=== PATIENT | female | born 1945 | race Hispanic/Latino ===

== ENCOUNTER 2022-09-03 11:41 | Outpatient (CLI) | payer MEDICARE, SELFPAY ==
[2022-09-03 12:16] LABS: Basophils Absolute Auto 0.1 K/mm3 (0.0-0.1); Basophils Percent Auto 0.9 % (0.2-1.2); Eosinophils Absolute Auto 0.3 K/mm3 (0-0.3); Eosinophils Percent Auto 4.6 % (0-4.4); Hematocrit 43.8 % (37.0-47.0); Hemoglobin 14.4 g/dL (12.0-15.0); Immature Granulocyte Absolute 0.02 K/mm3 (0.00-0.031); Immature Granulocyte Percent A 0.3 % (0-0.5); Lymphocytes Absolute Auto 2.19 K/mm3 (0.9-3.2); Lymphocytes Percent Auto 32.3 % (18.3-44.2); Mean Corpuscular HGB Conc 32.9 g/dl (32-36); Mean Corpuscular Volume 94.4 fl (80-100); Mean Platelet Volume 11.1 fl (7.4-10.4); Monocytes Absolute Auto 0.6 K/mm3 (0.1-0.6); Monocytes Percent Auto 9.5 % (2.6-8.5); Neutrophils Absolute Auto 3.6 K/mm3 (1.3-6.7); Neutrophils Percent Auto 52.4 % (45.5-73.1); Platelet Count Result 219 k/mm3 (150-375); Red Blood Count 4.64 M/mm3 (4.2-5.4); Red Cell Distribution Width 14.8 % (11.5-14.5); White Blood Count 6.8 K/mm3 (4.5-10.0)
[2022-09-03 12:47] LABS: Alanine Aminotransferase 20 U/L (6-35); Albumin Level 4.8 g/dL (3.5-5.1); Alkaline Phosphatase 114 U/L (38-126); Anion Gap 8 mmol/L (8-16); Aspartate Amino Transferase 26 U/L (14-36); Bilirubin,Total 0.5 mg/dL (0.2-1.3); Blood Urea Nitrogen 21 mg/dL (7-17); Calcium 9.2 mg/dL (8.4-10.2); Carbon Dioxide 30 mmol/L (22-30); Chloride 103 mmol/L (98-107); Cholesterol 185 mg/dL (0-200); Estimated Glomerular Filt Rate > 60; Glucose 94 mg/dL (65-110); HDL Direct 55 mg/dL; Potassium 3.6 mmol/L (3.4-5.0); Sodium 141 mmol/L (137-145); Triglycerides 158 mg/dL (<150)
[2022-09-03 12:48] LABS: Free T4 Free Thyroxine 1.24 ng/mL (0.78-2.19)
[2022-09-03 12:55] LABS: LDL Cholesterol Direct 86 mg/dL
[2022-09-03 13:53] LABS: Folic Acid > 20.0 ng/mL (2.76->20)
== END 2022-09-03 11:42 | disposition home or self-care (01) ==
PROVIDERS: PCP Family Medicine; Visit Provider Family Medicine
DX: M32.9 Systemic lupus erythematosus, unspecified (principal); Z13.220 Encounter for screening for lipoid disorders; E78.5 Hyperlipidemia, unspecified; E03.9 Hypothyroidism, unspecified; Z79.631 Long term (current) use of antimetabolite agent; I10 Essential (primary) hypertension
CPT/HCPCS: 36415; 80048; 80061; 80076; 82607; 82746; 84439; 84443; 85025

== ENCOUNTER → 2022-09-26 10:35 | Outpatient (CLI) | payer MEDICARE, SELFPAY ==
--- NOTE | ~2022-09-26 | XR_ITS ---
XR lumbar spine 2-3V DATE: 09/26/2022 11:33 INDICATION: Back pain TECHNIQUE: Standing AP, lateral and coned lateral lumbosacral views COMPARISON: None FINDINGS: There is approximately 17 degrees dextroscoliosis of the lumbar spine. There is multilevel lumbar degenerative disc disease, moderately severe at L1-2, L2-3, severe at L3-4 , moderate at L4-5, mild at L5-S1. There is degenerative change at the apophyseal joints of the lower lumbar and lumbosacral area with a ssociated grade 1 anterolisthesis at L4-5. No fracture or bone destruction is detected. Included lower thoracic and lumbar pedicles are intact. The sacroiliac joints are unremarkable. IMPRESSION: 17 degrees dextro scoliosis Multilevel degenerative disc disease Grade 1 anterolisthesis at L4-5 Reviewed, dictated and finalized at location L. 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
--- NOTE | ~2022-09-26 | XR_ITS ---
XR thoracic spine 2V DATE: 09/26/2022 11:33 INDICATION: Back pain TECHNIQUE: Standing AP and lateral views COMPARISON: None FINDINGS: Status post anterior and interbody surgical cervical spinal fusion. Minimal levoscoliosis of the lower thoracic spine. No fracture or dislocation or bone destruction. Th e thoracic pedicles are intact. There is moderate lower thoracic spine degenerative spurring IMPRESSION: Status post anterior interbody lower cervical spine surgical fusion Moderate degenerative spurring of the lower thoracic spine Reviewed, dictated and finalized at location L. 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
== END ==
PROVIDERS: PCP Family Medicine; Visit Provider Nurse Practitioner Family
DX: M51.36 Other intervertebral disc degeneration, lumbar region (principal); Z98.1 Arthrodesis status
CPT/HCPCS: 72070; 72100

== ENCOUNTER → 2023-02-05 13:49 | Outpatient (CLI) | payer MEDICARE, SELFPAY ==
--- NOTE | ~2023-02-05 | XR_ITS ---
EXAMINATION: XR chest 2V 02/05/2023 14:12 INDICATION: Cough PROCEDURE: 2 view chest COMPARISON: No prior studies for comparison. FINDINGS: The lungs are clear. The cardiomediastinal silhouette is within normal limits. There are no pleural effusions. There is no pneumothorax suspected. IMPRESSION: 1: NO ACUTE CARDIOPULMONARY DISEASE. Reviewed, dictated and finalized at location B.
== END ==
PROVIDERS: PCP Family Medicine; Visit Provider Nurse Practitioner Family
DX: R05.9 Cough, unspecified (principal); R06.02 Shortness of breath
CPT/HCPCS: 71046

== ENCOUNTER → 2023-02-24 14:21 | Outpatient (CLI) | payer MEDICARE, SELFPAY ==
--- NOTE | ~2023-02-24 | XR_ITS ---
XR chest 2V DATE: 02/24/2023 14:33 INDICATION: Shortness of breath. Nonproductive cough for 2 weeks. Hypertension. TECHNIQUE: PA and lateral veiws COMPARISON: 02/05/2023 2 view chest FINDINGS: There is cardiomegaly with left ventricular enlargement. There is aortic arch calcificatio n and mild unfolding. No pulmonary infiltrate or consolidation, pulmonary vascular congestion or pleural effusion or pneumo thorax. Status post anterior cervical spine surgical fusion. Osteopenia. IMPRESSION: Cardiomegaly, left ventricular enlargement Reviewed, dictated and finalized at location B.
== END ==
PROVIDERS: PCP Nurse Practitioner Family; Visit Provider Nurse Practitioner Family
DX: R06.02 Shortness of breath (principal); R05.9 Cough, unspecified; I10 Essential (primary) hypertension; I51.7 Cardiomegaly
CPT/HCPCS: 71046

== ENCOUNTER 2023-02-27 17:02 | Outpatient (CLI) | payer MEDICARE, SELFPAY ==
[2023-02-27 17:36] LABS: Basophils Percent Auto 0.2 % (0.2-1.2); Eosinophils Percent Auto 0.1 % (0-4.4); Hematocrit 42.7 % (37.0-47.0); Hemoglobin 13.8 g/dL (12.0-15.0); Immature Granulocyte Absolute 0.06 K/mm3 (0.00-0.031); Immature Granulocyte Percent A 0.4 % (0-0.5); Lymphocytes Absolute Auto 1.34 K/mm3 (0.9-3.2); Mean Corpuscular HGB Conc 32.3 g/dl (32-36); Mean Corpuscular Hemoglobin 30.3 pg (26-34); Mean Corpuscular Volume 93.6 fl (80-100); Mean Platelet Volume 9.5 fl (7.4-10.4); Monocytes Absolute Auto 0.7 K/mm3 (0.1-0.6); Monocytes Percent Auto 5.4 % (2.6-8.5); Neutrophils Absolute Auto 11.2 K/mm3 (1.3-6.7); Neutrophils Percent Auto 83.9 % (45.5-73.1); Platelet Count Result 305 k/mm3 (150-375); Red Blood Count 4.56 M/mm3 (4.2-5.4); Red Cell Distribution Width 14.2 % (11.5-14.5); White Blood Count 13.4 K/mm3 (4.5-10.0)
[2023-02-27 18:07] LABS: NT Pro B Type Natriuretic Pept 297 pg/mL (19.9-100)
[2023-02-27 18:08] LABS: D Dimer 2.24 ug/mL (<0.48)
== END 2023-02-27 17:03 | disposition home or self-care (01) ==
PROVIDERS: PCP Nurse Practitioner Family; Visit Provider Nurse Practitioner Family
DX: I51.7 Cardiomegaly (principal); R06.02 Shortness of breath; R50.9 Fever, unspecified
CPT/HCPCS: 36415; 83880; 85025; 85380

== ENCOUNTER 2023-02-28 09:24 | Outpatient (CLI) | payer MEDICARE, SELFPAY ==
--- NOTE | ~2023-02-28 | CT_ITS ---
EXAMINATION: CTA chest PE protocol DATE: 02/28/2023 11:03 INDICATION: Dyspnea. Elevated d-dimer. TECHNIQUE: Computed tomography angiography (CTA) of the chest was performed with 100 mL Omnipaque-350 intravenous contrast timed to evaluate the pulmonary arteries. Coronal maximum intensity projection 3D-reconstructions were created by the technologist. Automated exposure control and iterative reconst ruction technique were employed. Exam dose: 422.57 mGy-cm total exam DLP. COMPARISON: 02/24/2023 PA and lateral chest FINDINGS: There is diagnostic contrast enhancement of the pulmonary arteries and no evidence of pulmo nary embolism. There is mild pericardial effusion. Cardiomegaly. No thoracic aortic aneurysm or dissection is noted. There is atherosclerotic calcificat ion of the aortic arch. No hilar or mediastinal mass lesion or lymphadenopathy is detected. Small left pleural effusion. Atelectasis and/or consolidation left lower lobe, mild discoid atelectasis or scarring at the lingula . Lungs otherwise appear clear of consolidation. Normal morphology of the adrenal glands. Status post surgical anterior cervical spine fusion. Degenerative spurring of the thoracic and lumbar spine. No suspicious osteolytic or osteoblastic lesions are noted. Bilateral glenohumeral osteoarthritis IMPRESSION: No evidence of pulmonary embolism Left lower lobe atelectasis and/or consolidation and mild discoid atelectasis or scarring in the ling alen Cardiomegaly Reviewed, dictated and finalized at Location A. Reviewed, dictated and finalized at location [] IMPRESSION: No evidence of pulmonary embolism Left lower lobe atelectasis and/or consolidation and mild discoid atelectasis o r scarring in the lingula Cardiomegaly
--- NOTE | 2023-02-28 09:54 | ECHO_ITS ---
Patient Info Name: Janice Lees Age: 77 years : 1945 Gender: Female Ht: 62 in Wt: 175 lbs BSA: 1.90 m2 HR: 97 bpm BP: 141 / 108 mmHg Technical Quality: Fair Exam Date: 02/28/2023 10:02 AM Exam Location: [facility] Patient Status: Outpatient Admit Date: 02/28/2023 Staff Ordering Physician: Benita Jones Contract Mail Carrier: Allie London RDCS Attending Provider: Benita Jones Referring Physician: Robert PERSAUD; Exam Type: CA echo doppler color flow Study Info Indications I51.7 - Cardiomegaly Complete two-dimensional, color flow and Doppler transthoracic echocardiogram is performed. Summary 1. Complete two-dimensional, color flow and Doppler transthoracic echocardiogram is performed. 2. Left ventricular chamber dimension is normal. 3. Left ventricular systolic function is normal, estimated at 55-60%. 4. There is mild concentric increased left ventricular wall thickness. 5. The left ventricular diastolic function is grade I diastolic dysfunction. 6. E/e' 11 is mildly elevated. 7. Global longitudinal strain is abnormal at -11.5%. 8. Left atrial chamber dimension is mildly enlarged. 9. There is moderate aortic valve sclerosis. 10. The mitral valve has moderately calcified leaflets and moderately calcified annulus. 11. No pulmonary hypertension, estimated pulmonary arterial systolic pressure is 21 mmHg. 12. There is trivial pericardial effusion. Left Ventricle E/e' 11 is mildly elevated. Global longitudinal strain is abnormal at -11.5%. Left ventricular chamber dimension is normal. Left ventricular systolic function is normal, estimated at 55-60%. There is mild concentric increased left ventricular wall thickness. The left ventricular diastolic function is grade I diastolic dysfunction. Right Ventricle Right ventricular chamber dimension is normal. Right ventricular systolic function is normal. Left Atria Left atrial chamber dimension is mildly enlarged. Right Atria Right atrial chamber dimension is normal. Aortic Valve The aortic valve is trileaflet. There is moderate aortic valve sclerosis. There is no aortic valve stenosis. There is no aortic valve regurgitation. Pulmonic Valve There is no pulmonic regurgitation. Mitral Valve The mitral valve has moderately calcified leaflets and moderately calcified annulus. There is no mitral valve stenosis. There is no mitral valve regurgitation. Tricuspid Valve There is no tricuspid valve regurgitation. No pulmonary hypertension, estimated pulmonary arterial systolic pressure is 21 mmHg. Pericardium/Pleural There is trivial pericardial effusion. Inferior Vena Cava Normal inferior vena cava with >50% collapse upon inspiration consistent with normal right atrial pressure, 5 mmHg. Aorta The aortic root size at the sinus of Valsalva is normal. Left Ventricular Outflow Tract Name Value Normal LVOT 2D LVOT Diameter 2.0 cm LVOT Doppler LVOT Peak Gradient 7 mmHg LVOT Mean Gradient 4 mmHg LVOT VTI 22 cm LVOT VTI/AV VTI Ratio 0.8 LVOT Stroke Volume 69 ml L
[2023-02-28 10:58] LABS: Estimated Glomerular Filt Rate > 60
== END 2023-02-28 09:25 | disposition home or self-care (01) ==
PROVIDERS: PCP Nurse Practitioner Family; Visit Provider Nurse Practitioner Family
DX: I51.7 Cardiomegaly (principal); R91.8 Other nonspecific abnormal finding of lung field
CPT/HCPCS: 71275; 93306; Q9967

== ENCOUNTER 2023-03-12 13:08 | Outpatient (CLI) | payer MEDICARE, SELFPAY ==
[2023-03-12 14:07] LABS: Hematocrit 38.9 % (37.0-47.0); Hemoglobin 12.4 g/dL (12.0-15.0); Mean Corpuscular HGB Conc 31.9 g/dl (32-36); Mean Corpuscular Hemoglobin 30.1 pg (26-34); Mean Corpuscular Volume 94.4 fl (80-100); Mean Platelet Volume 9.4 fl (7.4-10.4); Platelet Count Result 238 k/mm3 (150-375); Red Blood Count 4.12 M/mm3 (4.2-5.4); Red Cell Distribution Width 14.6 % (11.5-14.5); White Blood Count 10.3 K/mm3 (4.5-10.0)
[2023-03-12 14:17] LABS: Anion Gap 4 mmol/L (8-16); Blood Urea Nitrogen 20 mg/dL (7-17); Calcium 8.9 mg/dL (8.4-10.2); Carbon Dioxide 35 mmol/L (22-30); Chloride 102 mmol/L (98-107); Estimated Glomerular Filt Rate > 60; Glucose 140 mg/dL (65-110); Potassium 4.3 mmol/L (3.4-5.0); Sodium 141 mmol/L (137-145)
[2023-03-12 14:26] LABS: NT Pro B Type Natriuretic Pept 412 pg/mL (19.9-100)
== END 2023-03-12 13:09 | disposition home or self-care (01) ==
LOC: ANHLAB 13:11
PROVIDERS: PCP Nurse Practitioner Family; Visit Provider Nurse Practitioner Family
DX: R06.02 Shortness of breath (principal); I51.89 Other ill-defined heart diseases; Z51.81 Encounter for therapeutic drug level monitoring
CPT/HCPCS: 36415; 80048; 83880; 85027

== ENCOUNTER 2023-05-15 13:24 | Outpatient (CLI) | payer MEDICARE, SELFPAY ==
--- NOTE | ~2023-05-15 | XR_ITS ---
EXAMINATION: XR lumbar spine min 4V DATE: 05/15/2023 13:44 INDICATION: Spinal stenosis of the lumbar spine TECHNIQUE: Anteroposterior and lateral in neutral, flexion and extension views of the lumbar spine we re obtained. COMPARISON: 09/26/2022 FINDINGS: There are 6 mm of anterolisthesis of L4 on L5. No hypermobility is present with flexion or extension. The vertebral body heights are maintained. There is severe loss of intervertebral disc spa ce height at L1-2 and L3-4 and moderate loss of intervertebral disc space height throughout the remai nder of the lumbar spine. There is no fracture. There is moderate facet joint osteoarthritis of the l ower lumbar spine. There are 15 degrees of lumbar dextroscoliosis. IMPRESSION: 1. Severe lumbar spondylosis without acute findings. Reviewed, dictated and finalized at location A.
== END 2023-05-15 13:25 | disposition home or self-care (01) ==
LOC: ANHIMG 13:26
PROVIDERS: PCP Family Medicine; Visit Provider Neurological Surgery
DX: M48.061 Spinal stenosis, lumbar region without neurogenic claudication (principal); M43.16 Spondylolisthesis, lumbar region; Z98.890 Other specified postprocedural states; M47.26 Other spondylosis with radiculopathy, lumbar region
CPT/HCPCS: 72110

== ENCOUNTER 2023-07-17 05:47 | Day surgery (SDC) | payer MEDICARE, SELFPAY ==
[2023-05-30 13:45] VITALS: BMI 32.4
[2023-06-24 13:20] VITALS: BMI 32.6
[2023-07-17 06:46] VITALS: BP 151/92; PULSE 73; RESP 20; TEMP 36.9; O2SAT 99
[2023-07-17] MEDS: LACTATED RINGERS 1,000 ML 150 ML IV CONT ×2 (06:57→07:30)
--- NOTE | 2023-07-17 07:41 | WPDANESEPPF ---
Anes - Initial Pre Proc Eval Procedure: Operation Date: 07/17/23 08:00 Proposed Procedures p Diagnostic Colonoscopy - Shashi Hernandez MD Date/Time: 07/17/23 07:41 Surgeon: Shashi Hernandez MD Pre Op Diagnosis: Other Fecal Abnormalities Patient Data Age: 77 Gender: F Height: 1.57 m Weight: 78.5 kg Last Vital Signs Temp 36.9 C 07/17/23 06:46 Pulse 73 07/17/23 06:46 Resp 20 07/17/23 06:46 BP 151/92 H 07/17/23 06:46 Pulse Ox 99 07/17/23 06:46 O2 Del Method Room Air 07/17/23 06:46 Allergies Allergy/AdvReac Type Severity Reaction Status Date / Time cefaclor [From Ceclor] Allergy Mild Rash Verified 06/02/23 10:19 estradiol [From Estrace] Allergy Mild Headache Verified 06/02/23 10:19 fluticasone [From Flonase] Allergy Mild Dizziness Verified 06/02/23 10:19 Penicillins Allergy Mild Rash Verified 06/02/23 10:19 Sulfa (Sulfonamide Allergy Mild Rash Verified 06/02/23 10:19 Antibiotics) Tetracyclines Allergy Mild Rash Verified 06/02/23 10:19 Home Medications Medication Instructions Recorded Confirmed Type cholecalciferol (vitamin D3) 50 50 mcg PO DAILY 03/04/22 07/17/23 History mcg (2,000 unit) capsule coenzyme Q10 100 mg capsule 200 mg PO DAILY 03/04/22 07/17/23 History (CoQ-10) fexofenadine 180 mg tablet 180 mg PO DAILY 03/04/22 07/17/23 History (Mildred Allergy) multivitamin 1 tablet PO DAILY 03/04/22 07/17/23 History vit C 250 mg-vit E 90 mg-zinc 40 1 tablet PO BID 03/04/22 07/17/23 History mg-copper 1 sx-peuold-pzyizq capsule (PreserVision AREDS-2) folic acid 1 mg tablet 1 mg PO DAILY 09/03/22 07/17/23 History methotrexate sodium 2.5 mg tablet 15 mg PO WEEKLY 09/03/22 07/17/23 History ascorbate calcium (vitamin C) 500 500 mg PO DAILY 11/27/22 07/17/23 History mg tablet gabapentin 300 mg capsule 300 mg PO QHS #90 caps 11/27/22 07/17/23 Rx vitamin E (dl, acetate) 45 mg (100 45 mg PO DAILY 11/27/22 07/17/23 History unit) capsule triamterene 37.5 1 cap PO DAILY #90 caps 05/14/23 07/17/23 Rx mg-hydrochlorothiazide 25 mg capsule Synthroid 50 mcg tablet See Rx Instructions .Route 05/18/23 07/17/23 Rx (levothyroxine) .COMPLEX #90 tabs pravastatin 40 mg tablet 40 mg PO DAILY #90 tabs 05/30/23 07/17/23 Rx biotin 1 mg tablet 1 mg PO DAILY 06/02/23 07/17/23 History Patient hx anesthesia problems: none Family hx anesthesia problems: none Results Review: All pre-operative results and documents have been reviewed as part of the pre-operative evaluation. 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 Surgical History Surgical History History of cholecystectomy History of hysterectomy History of left knee replacement History of lumbar surgery History of neck surgery Family History Family History Other Bone cancer Breast cancer Thyroid cancer Social History Social History Smoking status: Never smoker Alcohol intake: never Substance use: never Substance use type: does not use Living arrangements: with family Spiritual care concerns: No Anes - Eval Final PreProcedure Day of Procedure 07/17/23 07:41 Patient weight: obese Heart: regular rate and rhythm Lungs: clear to auscultation Airway: Mallampati scale class II Neurological: alert and oriented Last oral intake: >/= 8 hours ASA classification: III Emergent: no Anesthetic plan: proceed Anesthesia type and monitoring: general GIVS and standard monitoring Results Review: All pre-operative results and documents
--- NOTE | 2023-07-17 07:52 | PM.HPGS ---
History of Present Illness History of Present Illness Consent: Risks, benefits, and alternatives have been discussed and questions answered. Patient agrees to proceed with procedure. Chief complaint: Other Fecal Abnormalities Narrative: Janice Lees is a 77 year old female with positive cologuard, last colonoscopy 10 years ago Review of Systems Constitutional: Constitutional: Denies headache(s) and Denies weakness Eyes: Eyes: Denies blurry vision ENT: Reports Normal hearing present, Denies headache(s) and Denies neck pain Cardiovascular: Cardiovascular: Denies chest pain and Denies dyspnea Respiratory: Respiratory: Denies dyspnea Gastrointestinal: Gastrointestinal: Reports no additional gastrointestinal complaints Genitourinary: Genitourinary: Denies dysuria Musculoskeletal: Musculoskeletal: Denies neck pain Integumentary/Breasts: Skin/Breast: Denies dry skin Neurologic: Reports Normal hearing present, Denies headache(s) and Denies weakness Psychiatric: Psychiatric: Denies anxiety Endocrine: Endocrine: Denies change in body appearance Hematologic/Lymphatic: Hematologic/Lymphatic: Denies easy bleeding Allergic/Immunologic: Allergic/Immunologic: Denies urticaria PMFSH Past Medical History Medical History Allergies Arthritis Bilateral cataracts BMI 32.0-32.9,adult BMI greater than 30 Bunion, left foot Hyperlipidemia Hypertension Hypothyroidism (acquired) Lupus (systemic lupus erythematosus) 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, 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, 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 Surgical History Surgical History History of cholecystectomy History of hysterectomy History of left knee replacement History of lumbar surgery History of neck surgery Family History Family History Other Bone cancer Breast cancer Thyroid cancer Social History Social History Smoking status: Never smoker Alcohol intake: never Substance use: never Substance use type: does not use Living arrangements: with family Spiritual care concerns: No Meds Home Medications and Allergies Home Medications Medication Instructions Recorded Confirmed Type cholecalciferol (vitamin D3) 50 50 mcg PO DAILY 03/04/22 07/17/23 History mcg (2,000 unit) capsule coenzyme Q10 100 mg capsule 200 mg PO DAILY 03/04/22 07/17/23 History (CoQ-10) fexofenadine 180 mg tablet 180 mg PO DAILY 03/04/22 07/17/23 History (Mildred Allergy) multivitamin 1 tablet PO DAILY 03/04/22 07/17/23 History vit C 250 mg-vit E 90 mg-zinc 40 1 tablet PO BID 03/04/22 07/17/23 History mg-copper 1 dx-hhloyw-fgccao capsule (PreserVision AREDS-2) folic acid 1 mg tablet 1 mg PO DAILY 09/03/22 07/17/23 History methotrexate sodium 2.5 mg tablet 15 mg PO WEEKLY 09/03/22 07/17/23 History ascorbate calcium (vitamin C) 500 500 mg PO DAILY 11/27/22 07/17/23 History mg tablet gabapentin 300 mg capsule 300 mg PO QHS #90 caps 11/27/22 07/17/23 Rx vitamin E (dl, acetate) 45 mg (100 45 mg PO DAILY 11/27/22 07/17/23 History unit) capsule triamterene 37.5 1 cap PO DAILY #90 caps 05/14/23 07/17/23 Rx mg-hydrochlorothiazide 25 mg capsule Synthroid 50 mcg tablet See Rx Instructions .Route 05/18/23 07/17/23 Rx (levothyroxine) .COMPLEX #90 tabs pravastatin 40 mg tablet 40 mg PO DAILY #90 tabs 05/30/23 07/17/23 Rx biotin 1 mg tablet 1 mg PO DAILY 06/02/23 07/17/23 History Allergies Allergy/AdvReac Type Severity Reaction Status Date / Time cefaclor [From Ceclor] Allergy Mild Rash Verified 06/02/23 10:19 estradiol [From Estrace] Allergy Mild Headache Verified 06/02/23 10:19 fluticasone [From Flonase] Allergy Mild Dizziness Verified 06/02/23 10:19 Penicillins Allergy Mild Rash Verified 06/02/23 10:19 Sulfa (Sulfonamide Allergy Mild Rash Verified 06/02/23 10:19 Antibiotics)
[2023-07-17 08:15] VITALS: BP 123/61; PULSE 77; RESP 18; O2SAT 98
[2023-07-17 08:19] VITALS: BP 125/71; PULSE 62; RESP 16; O2SAT 100
--- NOTE | 2023-07-17 08:25 | WPDANESPN ---
Anes - Prog Note Post-Op Date/Time: 07/17/23 08:25 Cardiovascular status: normal Respiratory status: normal Airway patency: baseline Mental status: baseline Post-Op hydration status: normal Vital Signs: Last Vital Signs Temp 36.9 C 07/17/23 06:46 Pulse 62 07/17/23 08:19 Resp 16 07/17/23 08:19 BP 125/71 07/17/23 08:19 Pulse Ox 100 07/17/23 08:19 O2 Del Method Room Air 07/17/23 08:19 Pain Score (VAS): 0/10 I/O: Intake & Output 07/16/23 07/17/23 07/17/23 23:59 07:59 15:59 Intake Total 200 Balance 200 Patient Feedback: Patient satisfied with anesthetic care.
[2023-07-17 08:29] VITALS: BP 142/75; PULSE 54; RESP 17; O2SAT 100
== END 2023-07-17 08:40 | disposition home or self-care (01) ==
PROVIDERS: PCP Family Medicine; Visit Provider Internal Medicine Gastroenterology
PROC: 0DJD8ZZ Inspection of Lower Intestinal Tract, Via Natural or Artificial Opening Endoscopic (ICD-10-PCS; CPT 45378; principal; 2023-07-17 08:00)
DX: R19.5 Other fecal abnormalities (principal); K57.30 Diverticulosis of large intestine without perforation or abscess without bleeding; K64.8 Other hemorrhoids
CPT/HCPCS: 45378

== ENCOUNTER 2023-08-13 07:37 | Outpatient (CLI) | payer MEDICARE, SELFPAY ==
--- NOTE | ~2023-08-13 | CT_ITS ---
EXAMINATION: CT lumbar spine wo con DATE: 08/13/2023 08:07 INDICATION: Low back pain. Spinal stenosis, lumbar region without neurogenic claudication. TECHNIQUE: Computed tomography (CT) of the lumbar spine was performed without intravenous contrast. A utomated exposure control and iterative reconstruction technique were employed. The dose-length produ ct was 832.23 mGy-cm. COMPARISON: Lumbar spine radiograph 05/15/2023 FINDINGS: There is mild aortic atherosclerosis. There is 11 degrees dextroscoliosis of lumbar spine. There is 4 mm anterolisthesis of L4 on L5. Vertebral body heights are normal. There is moderately dec reased disc height at L1-L2, mildly decreased disc height L2-L3, severely decreased disc height at L3 -L4, and moderately decreased disc height at L4-L5 and L5-S1. The following disc levels are specifica lly discussed: L1-L2: The disc is bulging. There is mild bilateral facet joint osteoarthritis. There is moderate faye ateral neural foraminal stenosis. There is mild central canal stenosis. L2-L3: The disc is bulging. There is mild bilateral facet joint osteoarthritis. There is mild right a nd moderate left neural foraminal stenosis. There is mild central canal stenosis. L3-L4: The disc is bulging. There is severe bilateral facet joint osteoarthritis. There is mild right and moderate left neural foraminal stenosis. There is mild central canal stenosis. L4-L5: The disc is bulging. There is severe bilateral facet joint osteoarthritis. There is moderate b ilateral neural foraminal stenosis. There is moderate central canal stenosis. L5-S1: The disc is bulging. There is severe right and moderate left facet joint osteoarthritis. There is moderate right and mild left neural foraminal stenosis. There is mild central canal stenosis. IMPRESSION: 1. Severe lumbar spondylosis. 2. Lumbar dextroscoliosis. Reviewed, dictated and finalized at location A. BRATION CHECKER
== END 2023-08-13 07:38 | disposition home or self-care (01) ==
PROVIDERS: PCP Family Medicine; Visit Provider Neurological Surgery
DX: M48.061 Spinal stenosis, lumbar region without neurogenic claudication (principal); M43.16 Spondylolisthesis, lumbar region; Z98.890 Other specified postprocedural states; M47.26 Other spondylosis with radiculopathy, lumbar region
CPT/HCPCS: 72131

== ENCOUNTER 2023-10-14 09:42 | Outpatient (CLI) | payer MEDICARE, SELFPAY ==
--- NOTE | ~2023-10-14 | XR_ITS ---
EXAMINATION: XR chest 2V 10/14/2023 10:12 INDICATION: Shortness of breath PROCEDURE: 2 view chest COMPARISON: 02/24/2023 FINDINGS: The lungs are clear. The cardiomediastinal silhouette is within normal limits. There are no pleural effusions. There is no pneumothorax suspected. IMPRESSION: 1: NO ACUTE CARDIOPULMONARY DISEASE. Reviewed, dictated and finalized at location L. US EXECUTIVE DIRECTOR
[2023-10-14 10:02] LABS: Hematocrit 45.8 % (37.0-47.0); Hemoglobin 14.4 g/dL (12.0-15.0); Mean Corpuscular HGB Conc 31.4 g/dl (32-36); Mean Corpuscular Hemoglobin 30.7 pg (26-34); Mean Corpuscular Volume 97.7 fl (80-100); Mean Platelet Volume 10.9 fl (7.4-10.4); Platelet Count Result 244 k/mm3 (150-375); Red Blood Count 4.69 M/mm3 (4.2-5.4); Red Cell Distribution Width 14.1 % (11.5-14.5); White Blood Count 6.9 K/mm3 (4.5-10.0)
[2023-10-14 10:13] LABS: Alanine Aminotransferase 21 U/L (6-35); Albumin Level 4.3 g/dL (3.5-5.1); Alkaline Phosphatase 117 U/L (38-126); Anion Gap 8 mmol/L (8-16); Aspartate Amino Transferase 27 U/L (14-36); Bilirubin,Total 0.6 mg/dL (0.2-1.3); Blood Urea Nitrogen 20 mg/dL (7-17); Calcium 9.1 mg/dL (8.4-10.2); Carbon Dioxide 28 mmol/L (22-30); Chloride 105 mmol/L (98-107); Cholesterol 185 mg/dL (0-200); Estimated Glomerular Filt Rate > 60; Glucose 99 mg/dL (65-110); HDL Direct 45 mg/dL; Potassium 3.2 mmol/L (3.4-5.0); Sodium 141 mmol/L (137-145); Triglycerides 176 mg/dL (<150)
[2023-10-14 10:21] LABS: NT Pro B Type Natriuretic Pept 126 pg/mL (19.9-100)
[2023-10-14 10:24] LABS: LDL Cholesterol Direct 108 mg/dL
[2023-10-14 10:33] LABS: Free T4 Free Thyroxine 1.36 ng/mL (0.78-2.19); Vitamin D 25 Hydroxy 52.3 ng/mL
== END 2023-10-14 09:43 | disposition home or self-care (01) ==
LOC: ANHLAB 09:48
PROVIDERS: PCP Family Medicine; Visit Provider Nurse Practitioner Family
DX: R06.02 Shortness of breath (principal); I10 Essential (primary) hypertension; E78.5 Hyperlipidemia, unspecified; E03.9 Hypothyroidism, unspecified; E55.9 Vitamin D deficiency, unspecified
CPT/HCPCS: 36415; 71046; 80053; 80061; 82306; 83880; 84439; 84443; 85027

== ENCOUNTER 2023-10-28 09:56 | Outpatient (CLI) | payer MEDICARE, SELFPAY ==
[2023-10-28 10:22] LABS: Anion Gap 5 mmol/L (8-16); Blood Urea Nitrogen 19 mg/dL (7-17); Calcium 9.5 mg/dL (8.4-10.2); Carbon Dioxide 30 mmol/L (22-30); Chloride 103 mmol/L (98-107); Estimated Glomerular Filt Rate > 60; Glucose 107 mg/dL (65-110); Potassium 3.9 mmol/L (3.4-5.0); Sodium 138 mmol/L (137-145)
== END 2023-10-28 09:57 | disposition home or self-care (01) ==
LOC: ANHLAB 09:59
PROVIDERS: PCP Family Medicine; Visit Provider Nurse Practitioner Family
DX: E87.6 Hypokalemia (principal)
CPT/HCPCS: 36415; 80048

== ENCOUNTER 2023-12-01 07:39 | Outpatient (CLI) | payer MEDICARE, SELFPAY ==
--- NOTE | ~2023-12-01 | DEXA_ITS ---
Bone Density Report Name: MADDIE CALVILLO Age: 77 Sex: Female Ethnicity: White Date of : 1945 Indication: postmenopausal; screening for osteoporosis; height loss; history of glucocorticoids; hysterectomy; rheumatoid arthritis; Referring Provider: BEN DARLING Study: Bone densitometry was performed. Exam Date: December 01, 2023 Accession number: [id number] Bone Density: Region BMD T-score Z-score Classification AP Spine(L1-L4) 1.037 -0.1 2.4 Normal Femoral Neck (Left) 0.704 -1.3 0.8 Osteopenia Total Hip (Left) 0.949 0.1 1.9 Normal Femoral Neck (Right) 0.674 -1.6 0.5 Osteopenia Total Hip (Right) 0.936 0.0 1.8 Normal Total Hip Mean 0.943 0.1 1.9 Normal World Health Organization criteria for BMD impression classify patients as: Normal (T-score at or above -1.0), Osteopenia (T-score between -1.0 and -2.5), or Osteoporosis (T-score at or below -2.5). 10-year Fracture Risk(1): Major Osteoporotic Fracture 22% Hip Fracture 5.5% Reported Risk Factors: [place] (), Neck BMD=0.674, BMI=33.1, glucocorticoids, rheumatoid arthritis (1) FRAX(R) Version 3.08. Fracture probability calculated for an untreated patient. Fracture probability may be lower if the patient has received treatment. Clinical Information Provided by Patient: Has taken Glucocorticoids Has rheumatoid arthritis Has used the following medications: Vitamin D, Calcium Has the following medical conditions: Hysterectomy Patient maximum height was 62.5 No regular weight bearing exercise Does not regularly consume dairy products Drinks caffeinated beverages Onset of menses at age 14 Number of children 1 Impression: The patient has low bone mass, based on the Right Femoral Neck T-score. The patient has an estimated ten-year risk of hip fracture of 5.5% and an estimated ten-year risk of major fracture of 22%, based on the WHO FRAX algorithm. The patient has risk factors, including: history of glucocorticoid therapy. Discussion: BONE DENSITY IS LOW AT ONE OR MORE SKELETAL SITES. THE PATIENT'S BMD AND CLINICAL RISK FACTORS CONTRIBUTE TO THIS PATIENT'S HIGH RISK OF FRACTURE. This patient's lowest T-score is low at one or more skeletal sites. It meets the World Health Organization's (WHO) criteria for ?low bone mass? (T-score between -1.0 and -2.5). The patient's 10-year risk of hip fracture and 10 year risk of a major osteoporotic fracture as calculated by FRAX exceeds the threshold where pharmacological therapy is recommended by the National Osteoporosis Foundation (NOF). However, all treatment decisions require clinical judgment and consideration of individual patient factors, including patient preferences, comorbidities, previous drug use, risk factors not captured in the FRAX model (e.g., frailty, falls, vitamin
== END 2023-12-01 07:40 | disposition home or self-care (01) ==
LOC: ANHIMG 07:46
PROVIDERS: PCP Family Medicine; Visit Provider Neurological Surgery
DX: M81.0 Age-related osteoporosis without current pathological fracture (principal); M85.852 Other specified disorders of bone density and structure, left thigh; M85.851 Other specified disorders of bone density and structure, right thigh
CPT/HCPCS: 77080

== ENCOUNTER 2023-12-31 10:10 | Emergency (ER) | payer MEDICARE, SELFPAY ==
[2023-12-31] VITALS (9 sets, daily range): BP systolic 109–157; BP diastolic 63–91; PULSE 82–104; RESP 17–28; TEMP 36.6–36.9; O2SAT 96–100
--- NOTE | ~2023-12-31 | XR_ITS ---
Clinical Indication: Shortness of breath PA and lateral views of the chest: Comparison: 10/14/2023 Findings: The lungs are clear, without evidence of focal consolidation or pleural effusion. Cardiome diastinal silhouette is within normal limits. Bones and soft tissues are unremarkable. Impression: Normal chest. Reviewed, dictated and finalized at location . Impression: Normal chest.
--- NOTE | 2023-12-31 10:17 | ECG_ITS ---
Measurements Intervals [place] Rate: 100 P: 15 [place]: 138 QRS: -9 QRSD: 89 T: -73 QT: 308 Avg RR 600 QTc: 365 QTcB 397 QTcF 365 Interpretive Statements SINUS TACHYCARDIA POSSIBLE ANTERIOR MYOCARDIAL INFARCTION, OF INDETERMINATE AGE [30 ms Q WAVE IN V3/V4, OR R < 0.2 mV IN V4] MODERATE T-WAVE ABNORMALITY, CONSIDER INFERIOR AND LATERAL ISCHEMIA [-0.1 mV T WAVE IN II/aVF] ABNORMAL ECG SEE SCANNED COPY FOR SIGNATURE MTDD
[2023-12-31 10:35] LABS: Basophils Percent Auto 0.4 % (0.2-1.2); Eosinophils Absolute Auto 0.2 K/mm3 (0-0.3); Hemoglobin 10.6 g/dL (12.0-15.0); Immature Granulocyte Absolute 0.06 K/mm3 (0.00-0.031); Immature Granulocyte Percent A 0.6 % (0-0.5); Lymphocytes Absolute Auto 1.59 K/mm3 (0.9-3.2); Lymphocytes Percent Auto 16.7 % (18.3-44.2); Mean Corpuscular HGB Conc 32.1 g/dl (32-36); Mean Corpuscular Hemoglobin 29.7 pg (26-34); Mean Corpuscular Volume 92.4 fl (80-100); Mean Platelet Volume 9.9 fl (7.4-10.4); Monocytes Absolute Auto 0.6 K/mm3 (0.1-0.6); Monocytes Percent Auto 6.4 % (2.6-8.5); Neutrophils Absolute Auto 7.1 K/mm3 (1.3-6.7); Neutrophils Percent Auto 73.9 % (45.5-73.1); Platelet Count Result 270 k/mm3 (150-375); Red Blood Count 3.57 M/mm3 (4.2-5.4); Red Cell Distribution Width 14.6 % (11.5-14.5); White Blood Count 9.5 K/mm3 (4.5-10.0)
[2023-12-31 10:45] LABS: Alanine Aminotransferase 20 U/L (6-35); Albumin Level 4.4 g/dL (3.5-5.1); Alkaline Phosphatase 110 U/L (38-126); Anion Gap 11 mmol/L (4-12); Aspartate Amino Transferase 22 U/L (14-36); Bilirubin,Total 0.8 mg/dL (0.2-1.3); Blood Urea Nitrogen 26 mg/dL (7-17); Calcium 9.5 mg/dL (8.4-10.2); Carbon Dioxide 23 mmol/L (22-30); Chloride 106 mmol/L (98-107); Estimated CRCL calculation 36 ml/min; Estimated Glomerular Filt Rate 48; Glucose 121 mg/dL (65-110); Potassium 3.3 mmol/L (3.4-5.0); Sodium 140 mmol/L (137-145)
[2023-12-31] MEDS: IPRATROPIUM 0.5 MG/ALBUTEROL SULFATE 2.5 MG AMPUL.NEB 3 ML INHALATION (10:54)
[2023-12-31] MEDS: ALPRAZolam (*CRX) 0.5 MG TABLET PO (11:50)
--- NOTE | 2023-12-31 12:05 | ED.GENADULT ---
HPI - General Adult General Chief complaint: Shortness of Breath/Dyspnea Stated complaint: SOB Time Seen by Provider: 12/31/23 10:12 History of Present Illness HPI narrative: Patient is a 78-year-old female who presents ER with shortness of breath. Ongoing for several days. Worse with exertion. No runny nose or sore throat or cough. No fevers or chills. No orthopnea. She has without wheezing. She reports she can ambulate throughout her house without issue. She ambulates around a grocery store she requires mild assistance. Patient has no exertional chest pain or chest pressure. Patient is also short of breath at rest. She speaks in full sentences. Related Data Home Medications Medication Instructions Recorded Confirmed cholecalciferol (vitamin D3) 50 50 mcg PO DAILY 03/04/22 10/14/23 mcg (2,000 unit) capsule coenzyme Q10 100 mg capsule 200 mg PO DAILY 03/04/22 10/14/23 (CoQ-10) fexofenadine 180 mg tablet 180 mg PO DAILY 03/04/22 10/14/23 (Mildred Allergy) multivitamin 1 tablet PO DAILY 03/04/22 10/14/23 vit C 250 mg-vit E 90 mg-zinc 40 1 tablet PO BID 03/04/22 10/14/23 mg-copper 1 [id number] capsule (PreserVision AREDS-2) folic acid 1 mg tablet 1 mg PO DAILY 09/03/22 10/14/23 methotrexate sodium 2.5 mg tablet 15 mg PO WEEKLY 09/03/22 10/14/23 ascorbate calcium (vitamin C) 500 500 mg PO DAILY 11/27/22 10/14/23 mg tablet vitamin E (dl, acetate) 45 mg (100 45 mg PO DAILY 11/27/22 10/14/23 unit) capsule biotin 1 mg tablet 1 mg PO DAILY 06/02/23 10/14/23 leflunomide 10 mg tablet 10 mg PO DAILY 08/07/23 10/14/23 Allergies Allergy/AdvReac Type Severity Reaction Status Date / Time cefaclor [From [facility]] Allergy Mild Rash Verified 10/14/23 08:30 Penicillins Allergy Mild Rash Verified 10/14/23 08:30 Sulfa (Sulfonamide Allergy Mild Rash Verified 10/14/23 08:30 Antibiotics) Tetracyclines Allergy Mild Rash Verified 10/14/23 08:30 estradiol [From Estrace] AdvReac Mild Headache Verified 12/31/23 10:43 fluticasone [From Flonase] AdvReac Mild Dizziness Verified 12/31/23 10:43 Review of Systems Review of Systems: All systems reviewed & are unremarkable except as noted in HPI and below Constitutional: Constitutional: Reports no additional constitutional complaints ENT: Reports system reviewed and no additional complaints, except as documented Cardiovascular: Cardiovascular: Reports no additional cardiovascular complaints Respiratory: Respiratory: Reports chest congestion, Denies cough and Denies wheezing Gastrointestinal: Gastrointestinal: Reports no additional gastrointestinal complaints Genitourinary: Genitourinary: Reports no additional female genitourinary complaints [facility] Past Medical History Medical History Allergies Arthritis Bilateral cataracts BMI 32.0-32.9,adult BMI greater than 30 Bunion, left foot Hyperlipidemia Hypertension Hypothyroidism (acquired) Lupus (systemic lupus erythematosus) 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, 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, 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 Surgical History Surgical History History of cholecystectomy History of hysterectomy History of left knee replacement History of lumbar surgery History of neck surgery Family History Family History Other Bone cancer Breast cancer Thyroid cancer Social History Social History Smoking status: Never smoker Alcohol intake: never Substance use: never Substance use type: does not use Do You Feel Safe in your Home?: Yes Lack of Transportation: No Lack of Food: Never True Current Housing: I Have Housing Concerned About Future Housing: No Difficulty Paying Gas/Electric Bills: No Difficulty Paying for Meds: No Currently Unemployed: No Education: High School Diploma/GED Difficulty w/ Childcare or Famil
[2023-12-31] MEDS: SODIUM CHLORIDE 0.9% IV 1,000 ML 999 ML IV CONT (12:13)
[2023-12-31 12:50] LABS: Troponin I < 0.012 ng/mL (0.000-0.034)
== END 2023-12-31 14:24 | disposition home or self-care (01) ==
PROVIDERS: Emergency Provider Emergency Medicine; PCP Family Medicine
DX: D64.9 Anemia, unspecified (principal); E86.0 Dehydration; I10 Essential (primary) hypertension; E78.5 Hyperlipidemia, unspecified; E03.9 Hypothyroidism, unspecified; M32.9 Systemic lupus erythematosus, unspecified; Z79.899 Other long term (current) drug therapy; Z96.652 Presence of left artificial knee joint
CPT/HCPCS: 36415; 71046; 80053; 84484; 85025; 93005; 94640; 96360; 99284; A9270; J7030

== ENCOUNTER 2024-01-06 14:17 | Outpatient (CLI) | payer MEDICARE, SELFPAY ==
[2024-01-06 15:37] LABS: D Dimer 0.84 ug/mL (<0.48)
== END 2024-01-06 14:18 | disposition home or self-care (01) ==
LOC: ANHLAB 14:19
PROVIDERS: PCP Family Medicine; Visit Provider Nurse Practitioner Family
DX: R06.00 Dyspnea, unspecified (principal)
CPT/HCPCS: 36415; 85380

== ENCOUNTER 2024-01-07 07:30 | Outpatient (CLI) | payer MEDICARE, SELFPAY ==
--- NOTE | ~2024-01-07 | CT_ITS ---
EXAMINATION: CTA chest PE protocol DATE: 01/07/2024 07:58 CDT INDICATION: Dyspnea TECHNIQUE: Computed tomographic angiography (CTA) of the chest was performed with 100 mL Omnipaque-35 0 intravenous contrast. The dose-length product was 305.65 mGy-cm. Maximum intensity projection 3D-re constructions of the aorta and other arteries were constructed by the technologist on a separate work station. Automated exposure control and iterative reconstruction technique were employed. COMPARISON: CT angio chest report dated 02/28/2023 and chest x-ray report dated 12/31/2023. FINDINGS: Study is technically adequate without evidence for pulmonary embolism. There is left hilar lymphadenopathy. There is multifocal masslike consolidation of the left lower lobe. There are small n odules of the left upper lobe measuring 3 mm or less. Levoscoliosis of the thoracic spine. No pneumot horax. No endobronchial lesions. Mild thoracic spondylosis. IMPRESSION: 1. Masslike multifocal consolidation primarily involving the left lower lobe. This is most likely pne umonia, although neoplasm is not excluded. 2: Mild left hilar lymphadenopathy, nonspecific. Reviewed, dictated and finalized at location B. IMPRESSION: 1. Masslike multifocal consolidation primarily involving the left lower lobe. T his is most likely pneumonia, although neoplasm is not excluded. 2: Mild left hilar lymphadenopathy, nonspecific.
== END 2024-01-07 07:31 | disposition home or self-care (01) ==
PROVIDERS: PCP Family Medicine; Visit Provider Nurse Practitioner Family
DX: R06.00 Dyspnea, unspecified (principal); R06.02 Shortness of breath; R79.89 Other specified abnormal findings of blood chemistry
CPT/HCPCS: 71275; Q9967

== ENCOUNTER 2024-01-13 08:12 | Outpatient (CLI) | payer MEDICARE, SELFPAY ==
--- NOTE | ~2024-01-13 | US_ITS ---
US abdomen complete EXAMINATION: US Abdomen Complete INDICATION: Abdomen pain PROCEDURE: Realtime High Resolution abdomen ultrasound. COMPARISON: No prior studies for comparison FINDINGS: Gallbladder within normal limits. No gallstones, pericholecystic fluid, gallbladder wall t hickening or biliary dilatation. Common bile duct measures 5 mm. Liver echotexture within normal limits without focal mass. Pancreas within normal limits. Pancreati c tail is obscured by bowel gas. Spleen is unremarkeable. Renal echotexture is within normal limits bilaterally without hydronephrosis, contour deforming mass or renal stone. Right kidney measures 8.5 cm. Left kidney measures 9.5 cm. Visualized aspects of the aorta and IVC are within normal limits. Portal vein is patent. No sonograph ic Sampson's sign indicated by the technologist. IMPRESSION: 1: Normal abdominal ultrasound. Reviewed, dictated and finalized at location B.
== END 2024-01-13 08:13 ==
PROVIDERS: PCP Nurse Practitioner Family; Visit Provider Nurse Practitioner Family
DX: R19.8 Other specified symptoms and signs involving the digestive system and abdomen (principal)
CPT/HCPCS: 76700

== ENCOUNTER 2024-01-27 12:50 | Outpatient (CLI) | payer MEDICARE, SELFPAY ==
[2024-01-27 13:24] LABS: Hematocrit 29.7 % (37.0-47.0); Hemoglobin 9.5 g/dL (12.0-15.0); Mean Corpuscular Hemoglobin 30.4 pg (26-34); Mean Corpuscular Volume 95.2 fl (80-100); Mean Platelet Volume 9.7 fl (7.4-10.4); Platelet Count Result 216 k/mm3 (150-375); Red Blood Count 3.12 M/mm3 (4.2-5.4); Red Cell Distribution Width 15.9 % (11.5-14.5); White Blood Count 7.6 K/mm3 (4.5-10.0)
[2024-01-27 13:45] LABS: Anion Gap 8 mmol/L (4-12); Blood Urea Nitrogen 23 mg/dL (7-17); Calcium 9.1 mg/dL (8.4-10.2); Carbon Dioxide 25 mmol/L (22-30); Chloride 110 mmol/L (98-107); Estimated Glomerular Filt Rate > 60; Glucose 104 mg/dL (65-110); Potassium 3.1 mmol/L (3.4-5.0); Sodium 143 mmol/L (137-145)
== END 2024-01-27 12:51 | disposition home or self-care (01) ==
PROVIDERS: PCP Nurse Practitioner Family; Visit Provider Nurse Practitioner Family
DX: D64.9 Anemia, unspecified (principal); N28.9 Disorder of kidney and ureter, unspecified; E87.6 Hypokalemia
CPT/HCPCS: 36415; 80048; 85027

== ENCOUNTER 2024-02-13 09:57 | Outpatient (CLI) | payer MEDICARE, SELFPAY ==
--- NOTE | ~2024-02-13 | CT_ITS ---
EXAMINATION:CT diagnostic chest w con DATE: 02/13/2024 10:29 INDICATION: Left lung mass. Other nonspecific abnormal findings of the lung busby. TECHNIQUE: Computed tomography (CT) of the chest was performed with 75 mL of Omnipaque 350 intravenou s contrast. Automated exposure control and iterative reconstruction technique were employed. The dose -length product (DLP) was 195.27 mGy-cm. COMPARISON: Chest CT 01/07/2024 FINDINGS: There is mild scarring at the lung apices. There are mild peripheral airspace opacities in left upper lobe with interval worsening. There are airspace opacities in left lower lobe with interva l improvement. No pleural effusion. There is a tracheal diverticulum in the superior mediastinum. The re are nodules in the thyroid measuring up to 9 mm, likely not clinically significant. The heart size is normal. No pericardial effusion. There is cortical thinning of the kidneys. There are changes of anterior fusion procedure in cervical spine. There is moderate thoracic spondylosis. There is thoraci c levoscoliosis. IMPRESSION: 1. Pneumonia in left lung with improvement in left lower lobe and worsening in left upper lobe. Reviewed, dictated and finalized at location A.
[2024-02-13 10:25] LABS: Estimated Glomerular Filt Rate > 60
[2024-02-13 11:38] LABS: Anion Gap 11 mmol/L (4-12); Blood Urea Nitrogen 20 mg/dL (7-17); Calcium 9.4 mg/dL (8.4-10.2); Carbon Dioxide 23 mmol/L (22-30); Chloride 108 mmol/L (98-107); Estimated Glomerular Filt Rate > 60; Glucose 120 mg/dL (65-110); Potassium 3.8 mmol/L (3.4-5.0); Sodium 142 mmol/L (137-145)
[2024-02-13 11:54] LABS: Iron 45 ug/dL (37-170)
[2024-02-13 12:05] LABS: Percent Iron Saturation 17 % (20-50)
== END 2024-02-13 09:58 | disposition home or self-care (01) ==
PROVIDERS: Physician Assistant Medical; PCP Family Medicine; Referring Provider Internal Medicine; Visit Provider Nurse Practitioner Family
DX: R91.8 Other nonspecific abnormal finding of lung field (principal); J18.9 Pneumonia, unspecified organism; D64.9 Anemia, unspecified; E87.6 Hypokalemia; J18.1 Lobar pneumonia, unspecified organism; G56.03 Carpal tunnel syndrome, bilateral upper limbs; M85.859 Other specified disorders of bone density and structure, unspecified thigh; M06.00 Rheumatoid arthritis without rheumatoid factor, unspecified site; Z79.899 Other long term (current) drug therapy
CPT/HCPCS: 36415; 71260; 80048; 83540; 83550; Q9967

== ENCOUNTER 2024-02-24 12:37 | Outpatient (CLI) | payer MEDICARE, SELFPAY ==
--- NOTE | 2024-02-25 08:50 | WPDPFTINT ---
PFT Procedure Performed PFT Procedure Performed Spirometry with Pre/Post Bronchodilator Plethysmography (Lung Vol) Diffusing Cap (DLCO) Flow Vol Loop PFT Interpretation Lung volumes were measured with the body plethysmography method. The diminished lung volumes are indicative of mild restrictive respiratory disease. Spirometry showed normal expiratory flow rates and a normal FEV1 to FVC ratio of 79%. Following administration of a bronchodilator there was no significant increase in expiratory flow rates. Lung diffusion capacity is mildly reduced at 62% predicted. The diminished lung diffusion capacity coupled with a low alveolar volume and a normal DLCO/VA ratio may indicate loss of alveolar capillary structure as seen in emphysema or interstitial lung disease. Clinical correlation advised. The flow-volume loop is unremarkable. Impression: Mild restrictive respiratory disease. Mildly reduced lung diffusion capacity.
--- NOTE | 2024-02-25 08:54 | WPDSIXMINUTE ---
Six Minute Walk Procedure Procedure Performed Pulmonary Stress Test (6 min walk) Six Minute Walk Six Minute Walk: This 6 minute walk test was carried out with the patient breathing ambient air. The pre walk baseline oxyhemoglobin saturation was 95%. The patient walked 259 m with no stops during testing. During the walk the oxyhemoglobin saturation remained in the range of 93% to 98%. Impression: No evidence of oxyhemoglobin desaturation on this testing.
== END 2024-02-24 12:38 | disposition home or self-care (01) ==
LOC: ANHPFT 12:40
PROVIDERS: PCP Family Medicine; Visit Provider Physician Assistant
DX: J98.4 Other disorders of lung (principal)
CPT/HCPCS: 94060; 94618; 94726; 94729

== ENCOUNTER 2024-03-11 05:48 | Day surgery (SDC) | payer MEDICARE, SELFPAY ==
[2024-02-27 11:17] VITALS: BMI 27.8
--- NOTE | 2024-03-04 13:19 | SUR.PREOP ---
Spoke with Dr. Vizcaino regarding Pt's health history (recent ER visit, pt's current condition, test results, and lab work). Per Dr. Vizcaino, pt okay to have procedure (colonoscopy) done at [facility].
[2024-03-11 06:23] VITALS: BMI 27.1
[2024-03-11 06:24] VITALS: BP 145/95; PULSE 84; RESP 16; TEMP 36.7; O2SAT 100
--- NOTE | 2024-03-11 07:08 | WPDANESEPPF ---
Anes - Initial Pre Proc Eval Procedure: Operation Date: 03/11/24 07:30 Proposed Procedures p Diagnostic Colonoscopy - Holden Marquez MD Date/Time: 03/11/24 07:08 Surgeon: Holden Marquez MD Pre Op Diagnosis: Other Fecal Abnormalities Patient Data Age: 78 Gender: F Height: 1.57 m Weight: 67.4 kg Last Vital Signs Temp 36.7 C 03/11/24 06:24 Pulse 84 03/11/24 06:24 Resp 16 03/11/24 06:24 BP 145/95 H 03/11/24 06:24 Pulse Ox 100 03/11/24 06:24 O2 Del Method Room Air 03/11/24 06:24 Allergies Allergy/AdvReac Type Severity Reaction Status Date / Time cefaclor [From Ceclor] Allergy Mild Rash Verified 03/11/24 06:13 Penicillins Allergy Mild Rash Verified 03/11/24 06:13 Sulfa (Sulfonamide Allergy Mild Rash Verified 03/11/24 06:13 Antibiotics) Tetracyclines Allergy Mild Rash Verified 03/11/24 06:13 estradiol [From Estrace] AdvReac Mild Headache Verified 03/11/24 06:13 fluticasone [From Flonase] AdvReac Mild Dizziness Verified 03/11/24 06:13 Home Medications Medication Instructions Recorded Confirmed Type cholecalciferol (vitamin D3) 50 50 mcg PO DAILY 03/04/22 03/11/24 History mcg (2,000 unit) capsule coenzyme Q10 100 mg capsule 200 mg PO DAILY 03/04/22 03/11/24 History (CoQ-10) fexofenadine 180 mg tablet 180 mg PO DAILY 03/04/22 03/11/24 History (Mildred Allergy) multivitamin 1 tablet PO DAILY 03/04/22 03/11/24 History vit C 250 mg-vit E 90 mg-zinc 40 1 tablet PO BID 03/04/22 03/11/24 History mg-copper 1 hr-vrjdzr-gthjze capsule (PreserVision AREDS-2) folic acid 1 mg tablet 1 mg PO DAILY 09/03/22 03/11/24 History methotrexate sodium 2.5 mg tablet 15 mg PO WEEKLY 09/03/22 03/11/24 History ascorbate calcium (vitamin C) 500 500 mg PO DAILY 03/08/23 06/20/24 History mg tablet gabapentin 300 mg capsule 300 mg PO QHS #90 caps 11/27/22 03/11/24 Rx vitamin E (dl, acetate) 45 mg (100 45 mg PO DAILY 11/27/22 03/11/24 History unit) capsule biotin 1 mg tablet 1 mg PO DAILY 06/02/23 03/11/24 History pravastatin 40 mg tablet See Rx Instructions .Route 08/04/23 03/11/24 Rx .COMPLEX #100 tabs leflunomide 10 mg tablet 10 mg PO DAILY 08/07/23 03/11/24 History Synthroid 50 mcg tablet See Rx Instructions .Route 12/09/23 03/11/24 Rx (levothyroxine) .COMPLEX #90 tabs ferrous sulfate 325 mg (65 mg 325 mg PO DAILY #30 tabs 12/31/23 03/11/24 Rx iron) tablet albuterol sulfate 90 mcg/actuation 1 - 2 puff inhalation Q4-6H PRN 02/13/24 03/11/24 Rx aerosol inhaler shortness of breath or wheezing #8.5 grams umeclidinium 62.5 mcg-vilanterol 1 inh inhalation DAILY #60 ea 02/17/24 03/11/24 Rx 25 mcg/actuation powdr for inhalation (Anoro Ellipta) Patient hx anesthesia problems: none Family hx anesthesia problems: none Results Review: All pre-operative results and documents have been reviewed as part of the pre-operative evaluation. [facility] Past Medical History Medical History Allergies Arthritis Bilateral cataracts BMI 32.0-32.9,adult BMI greater than 30 Bunion, left foot Hyperlipidemia Hypertension Hypothyroidism (acquired) Lupus (systemic lupus erythematosus) 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, half-way, current use Overweight with body mass index (BMI) of 28 to 28.9 in adult Surgical History Surgical History History of cholecystectomy History of hysterectomy History of left knee replacement History of lumbar surgery History of neck surgery Family History Family History Other Bone cancer Breast cancer Thyroid cancer Social History Social History Smoking status: Never smoker Alcohol intake: never Substance use: never Substance use type: does not use Do You Feel Safe in your Home?: Yes Lack of Transportation: No Lack of Food: Never True
--- NOTE | 2024-03-11 07:12 | PM.HPGS ---
History of Present Illness History of Present Illness Consent: Risks, benefits, and alternatives have been discussed and questions answered. Patient agrees to proceed with procedure. Chief complaint: Occult blood Positive stool Narrative: Janice Lees is a 78 year old female referred colonoscopy. Patient stool. Patient has a history of colonoscopy in June 2023 because of positive Cologuard test. At that time found to have diverticulosis and internal hemorrhoids. Patient recently became short of breath and went to the emergency room. She was found to have mild anemia she denies any obvious blood in her stools. Stool Hemoccult testing subsequently performed found to be positive. For this reason patient referred for colonoscopy. 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 Overweight with body mass index (BMI) of 28 to 28.9 in adult Surgical History Surgical History History of cholecystectomy History of hysterectomy History of left knee replacement History of lumbar surgery History of neck surgery Family History Family History Other Bone cancer Breast cancer Thyroid cancer Social History Social History Smoking status: Never smoker Alcohol intake: never Substance use: never Substance use type: does not use Do You Feel Safe in your Home?: Yes Lack of Transportation: No Lack of Food: Never True Current Housing: I Have Housing Concerned About Future Housing: No Difficulty Paying Gas/Electric Bills: No Difficulty Paying for Meds: No Currently Unemployed: No Education: High School Diploma/GED Difficulty w/ Childcare or Family Care: No Living arrangements: with family Spiritual care concerns: No Meds Home Medications and Allergies Home Medications Medication Instructions Recorded Confirmed Type cholecalciferol (vitamin D3) 50 50 mcg PO DAILY 03/04/22 03/11/24 History mcg (2,000 unit) capsule coenzyme Q10 100 mg capsule 200 mg PO DAILY 03/04/22 03/11/24 History (CoQ-10) fexofenadine 180 mg tablet 180 mg PO DAILY 03/04/22 03/11/24 History (Mildred Allergy) multivitamin 1 tablet PO DAILY 03/04/22 03/11/24 History vit C 250 mg-vit E 90 mg-zinc 40 1 tablet PO BID 03/04/22 03/11/24 History mg-copper 1 vf-fpagov-mflnwn capsule (PreserVision AREDS-2) folic acid 1 mg tablet 1 mg PO DAILY 09/03/22 03/11/24 History methotrexate sodium 2.5 mg tablet 15 mg PO WEEKLY 09/03/22 03/11/24 History ascorbate calcium (vitamin C) 500 500 mg PO DAILY 11/27/22 03/11/24 History mg tablet gabapentin 300 mg capsule 300 mg PO QHS #90 caps 11/27/22 03/11/24 Rx vitamin E (dl, acetate) 45 mg (100 45 mg PO DAILY 11/27/22 03/11/24 History unit) capsule biotin 1 mg tablet 1 mg PO DAILY 06/02/23 03/11/24 History pravastatin 40 mg tablet See Rx Instructions .Route 08/04/23 03/11/24 Rx .COMPLEX #100 tabs leflunomide 10 mg tablet 10 mg PO DAILY 08/07/23 03/11/24 History Synthroid 50 mcg tablet See Rx Instructions .Route 12/09/23 03/11/24 Rx (levothyroxine) .COMPLEX #90 tabs ferrous sulfate 325 mg (65 mg 325 mg PO DAILY #30 tabs 12/31/23 03/11/24 Rx iron) tablet albuterol sulfate 90 mcg/actuation 1 - 2 puff inhalation Q4-6H PRN 02/13/24 03/11/24 Rx aerosol inhaler shortness of breath or wheezing #8.5 grams umeclidinium 62.5 mcg-vilanterol 1 inh inhalation DAILY #60 ea 02/17/24 03/11/24 Rx 25 mcg/actuation powdr for i
[2024-03-11] MEDS: LACTATED RINGERS 1,000 ML 150 ML IV CONT (07:15)
[2024-03-11 08:51] VITALS: BP 125/68; PULSE 88; RESP 15; O2SAT 98
[2024-03-11 09:01] VITALS: BP 125/73; PULSE 81; RESP 16; O2SAT 100
[2024-03-11 09:11] VITALS: BP 142/85; PULSE 69; RESP 16; O2SAT 100
--- NOTE | 2024-03-11 09:19 | WPDANESPN ---
Anes - Prog Note Post-Op Date/Time: 03/11/24 09:19 Cardiovascular status: normal Respiratory status: normal Airway patency: baseline Mental status: baseline Post-Op hydration status: normal Vital Signs: Last Vital Signs Temp 36.7 C 03/11/24 06:24 Pulse 69 03/11/24 09:11 Resp 16 03/11/24 09:11 BP 142/85 H 03/11/24 09:11 Pulse Ox 100 03/11/24 09:11 O2 Del Method Room Air 03/11/24 09:11 Pain Score (VAS): 0/10 I/O: Intake & Output 03/10/24 03/11/24 03/11/24 23:59 07:59 15:59 Intake Total 750 Balance 750 Patient Feedback: Patient satisfied with anesthetic care.
== END 2024-03-11 09:23 | disposition home or self-care (01) ==
PROVIDERS: PCP Family Medicine; Visit Provider Internal Medicine Gastroenterology
PROC: 0DJD8ZZ Inspection of Lower Intestinal Tract, Via Natural or Artificial Opening Endoscopic (ICD-10-PCS; CPT 45378; principal; 2024-03-11 07:30)
PROC: 0DJ08ZZ Inspection of Upper Intestinal Tract, Via Natural or Artificial Opening Endoscopic (ICD-10-PCS; CPT 43235; 2024-03-11 07:30)
DX: R19.5 Other fecal abnormalities (principal); D64.9 Anemia, unspecified; K57.30 Diverticulosis of large intestine without perforation or abscess without bleeding; K64.8 Other hemorrhoids
CPT/HCPCS: 45378; 43239

== ENCOUNTER 2024-03-12 10:35 | Outpatient (NON) | payer MEDICARE, SELFPAY | END 2024-03-12 10:36 | disposition home or self-care (01) | LOC: ANHLAB 10:36 | PROVIDERS: PCP Family Medicine; Visit Provider Internal Medicine Gastroenterology | DX: R19.5 Other fecal abnormalities (principal) | CPT/HCPCS: 88305 ==

== ENCOUNTER 2024-03-26 13:56 | Outpatient (CLI) | payer MEDICARE, SELFPAY ==
--- NOTE | ~2024-03-26 | XR_ITS ---
EXAMINATION: XR chest 2V DATE: 03/26/2024 14:12 INDICATION: Shortness of breath. TECHNIQUE: Frontal and lateral views of the chest were obtained. COMPARISON: Chest 2 views 12/31/2023, chest CT 02/13/2024 FINDINGS: There are airspace opacities in left upper lobe and left lower lobe. No pleural effusion or pneumothorax. The heart size is normal. There are changes of anterior fusion procedure in cervical s pine. IMPRESSION: 1. Worsened airspace opacities in left upper lobe and left lower lobe, consistent with pneumonia. Reviewed, dictated and finalized at location A. IMPRESSION: 1. Worsened airspace opacities in left upper lobe and left lower lobe, consiste nt with pneumonia.
== END 2024-03-26 13:57 | disposition home or self-care (01) ==
LOC: ANHIMG 14:01
PROVIDERS: PCP Family Medicine; Visit Provider Physician Assistant
DX: R06.02 Shortness of breath (principal); J18.9 Pneumonia, unspecified organism
CPT/HCPCS: 71046

== ENCOUNTER 2024-04-04 20:30 | Emergency (ER) | payer MEDICARE, SELFPAY ==
--- NOTE | ~2024-04-04 | XR_ITS ---
Clinical Indication: Shortness of breath AP and lateral views of the chest: Comparison: 03/26/2024 Findings: There is been interval improvement in left lung pneumonia since prior exam. Probable mild r esidual airspace disease the left upper lobe and left lung base.. Cardiomediastinal silhouette is wi thin normal limits. Bones and soft tissues are unremarkable. Impression: Interval improvement in left lung airspace disease since prior exam. Mild residual airspace disease t he left upper lobe and left lung base. Reviewed, dictated and finalized at location M. Impression: Interval improvement in left lung airspace disease since prior exam. Mild resid ual airspace disease the left upper lobe and left lung base.
[2024-04-04 20:43] VITALS: BP 141/81; PULSE 107; RESP 20; TEMP 36.8; O2SAT 99
--- NOTE | 2024-04-04 20:50 | ECG_ITS ---
Test Date: 2024-04-04 21:00:37 Measurements Intervals [place] Rate: 105 P: 8 HI: 128 QRS: -5 QRSD: 77 T: 28 QT: 302 QTc: 400 Interpretive Statements SINUS TACHYCARDIA POSSIBLE LEFT ATRIAL ENLARGEMENT BORDERLINE R WAVE PROGRESSION, ANTERIOR LEADS BORDERLINE ST-T WAVE ABNORMALITY- DIFFUSE LEADS BASELINE ARTIFACT- I, II, III, AVR, AVL, V6 ABNORMAL ECG No previous ECG available for comparison Electronically Signed On 04-05-2024 08:26:42 CDT by Uri Gallardo D.O.
[2024-04-04 21:08] LABS: Basophils Percent Auto 0.3 % (0.2-1.2); Eosinophils Absolute Auto 0.3 K/mm3 (0-0.3); Eosinophils Percent Auto 3.2 % (0-4.4); Hematocrit 34.5 % (37.0-47.0); Hemoglobin 11.4 g/dL (12.0-15.0); Immature Granulocyte Absolute 0.09 K/mm3 (0.00-0.031); Immature Granulocyte Percent A 0.9 % (0-0.5); Lymphocytes Percent Auto 7.1 % (18.3-44.2); Mean Corpuscular Volume 90.8 fl (80-100); Mean Platelet Volume 10.1 fl (7.4-10.4); Neutrophils Absolute Auto 7.7 K/mm3 (1.3-6.7); Neutrophils Percent Auto 78.5 % (45.5-73.1); Platelet Count Result 217 k/mm3 (150-375); Red Cell Distribution Width 15.9 % (11.5-14.5); White Blood Count 9.8 K/mm3 (4.5-10.0)
[2024-04-04 21:19] LABS: Alanine Aminotransferase 15 U/L (6-35); Albumin Level 3.9 g/dL (3.5-5.1); Alkaline Phosphatase 99 U/L (38-126); Anion Gap 12 mmol/L (4-12); Aspartate Amino Transferase 18 U/L (14-36); Bilirubin,Total 0.8 mg/dL (0.2-1.3); Blood Urea Nitrogen 21 mg/dL (7-17); Calcium 8.8 mg/dL (8.4-10.2); Carbon Dioxide 18 mmol/L (22-30); Chloride 105 mmol/L (98-107); Estimated CRCL calculation 53 ml/min; Estimated Glomerular Filt Rate > 60; Glucose 129 mg/dL (65-110); Potassium 3.2 mmol/L (3.4-5.0); Sodium 135 mmol/L (137-145)
[2024-04-04 22:36] VITALS: BP 149/75; PULSE 86; RESP 19; O2SAT 97
[2024-04-04 22:46] VITALS: BP 127/74; PULSE 81; RESP 19; O2SAT 98
[2024-04-04 23:01] VITALS: BP 145/89; PULSE 94; RESP 16; O2SAT 98
[2024-04-04 23:16] VITALS: BP 136/75; PULSE 83; RESP 19; O2SAT 97
--- NOTE | 2024-04-04 23:48 | ED.DIZZY ---
HPI - Dizziness General Chief Complaint: Dizziness Stated Complaint: chills, dizziness, hx pnemonia Time Seen by Provider: 04/04/24 22:49 History of Present Illness HPI Narrative: 78-year-old female presents to the emergency department for evaluation of dizziness. Patient states this evening she had onset of an episode dizziness and chills. Patient did recently complete a course of antibiotics for pneumonia. Upon arrival emergency department patient states he does feel improved. Patient denies any current dizziness chest pain or shortness of breath. Patient denies any chills. Patient states she feels strong enough to go home at this time. Related Data Home Medications Medication Instructions Recorded Confirmed cholecalciferol (vitamin D3) 50 50 mcg PO DAILY 03/04/22 03/11/24 mcg (2,000 unit) capsule coenzyme Q10 100 mg capsule 200 mg PO DAILY 03/04/22 03/11/24 (CoQ-10) fexofenadine 180 mg tablet 180 mg PO DAILY 03/04/22 03/11/24 (Mildred Allergy) multivitamin 1 tablet PO DAILY 03/04/22 03/11/24 vit C 250 mg-vit E 90 mg-zinc 40 1 tablet PO BID 03/04/22 03/11/24 mg-copper 1 hy-drbxbw-nppeet capsule (PreserVision AREDS-2) folic acid 1 mg tablet 1 mg PO DAILY 09/03/22 03/11/24 methotrexate sodium 2.5 mg tablet 15 mg PO WEEKLY 09/03/22 03/11/24 ascorbate calcium (vitamin C) 500 500 mg PO DAILY 11/27/22 03/11/24 mg tablet vitamin E (dl, acetate) 45 mg (100 45 mg PO DAILY 11/27/22 03/11/24 unit) capsule leflunomide 10 mg tablet 10 mg PO DAILY 08/07/23 03/11/24 Allergies Allergy/AdvReac Type Severity Reaction Status Date / Time cefaclor [From Ceclor] Allergy Mild Rash Verified 04/06/24 15:56 Penicillins Allergy Mild Rash Verified 04/06/24 15:56 Sulfa (Sulfonamide Allergy Mild Rash Verified 04/06/24 15:56 Antibiotics) Tetracyclines Allergy Mild Rash Verified 04/06/24 15:56 estradiol [From Estrace] AdvReac Mild Headache Verified 04/06/24 15:56 fluticasone [From Flonase] AdvReac Mild Dizziness Verified 04/06/24 15:56 Review of Systems Review of Systems: All systems reviewed & are unremarkable except as noted in HPI and below PMFSH Past Medical History Medical History Allergies Arthritis Bilateral cataracts Bunion, left foot Hyperlipidemia Hypertension Hypothyroidism (acquired) Lupus (systemic lupus erythematosus) 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, longterm, current use Surgical History Surgical History History of cholecystectomy History of hysterectomy History of left knee replacement History of lumbar surgery History of neck surgery Family History Family History Other Bone cancer Breast cancer Thyroid cancer Social History Social History Smoking status: Never smoker Alcohol intake: never Substance use: never Substance use type: does not use Do You Feel Safe in your Home?: Yes Lack of Transportation: No Lack of Food: Never True Current Housing: I Have Housing Concerned About Future Housing: No Difficulty Paying Gas/Electric Bills: No Difficulty Paying for Meds: No Currently Unemployed: No Education: High School Diploma/GED Difficulty w/ Childcare or Family Care: No Living arrangements: with family Spiritual care concerns: No Exam Narrative: APPEARANCE: Well appearing, no pain, no distress, well-nourished. HEAD: normocephalic, atraumatic. EYES: PERRLA/EOMI, conjunctivae clear. NOSE: Normal no drainage EARS:TMS clear with good light reflex. THROAT: Pharynx clear, no exudate. NECK: Supple. No adenopathy, no masses. RESPIRATORY: Airway patent, respirations nonlabored. Clear to auscultation bilaterally, no rales, rhonchi, wheezing. CARDIOVASCULAR: Regular rate and rhythm without murmurs rubs or gallops. ABDOMINAL: Soft, nontender, nondistended, normal bowel
[2024-04-04] MEDS: POTASSIUM CHLORIDE 20 MEQ PACKET (FOR LIQUID) 40 MEQ PO (23:55)
[2024-04-04] MEDS: SODIUM CHLORIDE 0.9% IV 500 ML 999 ML IV CONT (23:55)
[2024-04-05 00:49] LABS: Appearance Urine Clear (Clear); Bilirubin Urine Negative (Negative); Blood Urine Negative (Negative); Color Urine Yellow (Yellow); Glucose Urine UA Negative (Negative); Ketones Urine Negative (Negative); Leukocyte Esterase Ur Negative LEU/UL (Negative); Nitrate Urine Negative (Negative); Protein Urine Negative (Negative); Urobilinogen Urine 0.2 mg/dL (<2.0); pH Urine 6.5 (5.0-9.0)
[2024-04-05 01:05] LABS: Add Urine Microscopic? NO
== END 2024-04-05 01:19 | disposition home or self-care (01) ==
PROVIDERS: Emergency Provider Emergency Medicine; PCP Family Medicine
DX: R42 Dizziness and giddiness (principal); I10 Essential (primary) hypertension; E78.5 Hyperlipidemia, unspecified; E03.9 Hypothyroidism, unspecified; M19.90 Unspecified osteoarthritis, unspecified site; M32.9 Systemic lupus erythematosus, unspecified; Z96.652 Presence of left artificial knee joint; Z90.49 Acquired absence of other specified parts of digestive tract; Z79.899 Other long term (current) drug therapy; R94.31 Abnormal electrocardiogram [ECG] [EKG]; R00.0 Tachycardia, unspecified
CPT/HCPCS: 36415; 71046; 80053; 81003; 85025; 93005; 96360; 99284; A9270; J7040

== ENCOUNTER 2024-04-19 15:51 | Outpatient (CLI) | payer MEDICARE, SELFPAY ==
[2024-04-19 16:05] LABS: Basophils Percent Auto 0.4 % (0.2-1.2); Eosinophils Absolute Auto 0.3 K/mm3 (0-0.3); Eosinophils Percent Auto 3.5 % (0-4.4); Hemoglobin 11.3 g/dL (12.0-15.0); Immature Granulocyte Absolute 0.05 K/mm3 (0.00-0.031); Immature Granulocyte Percent A 0.6 % (0-0.5); Lymphocytes Absolute Auto 1.29 K/mm3 (0.9-3.2); Lymphocytes Percent Auto 15.2 % (18.3-44.2); Mean Corpuscular HGB Conc 31.4 g/dl (32-36); Mean Corpuscular Hemoglobin 29.4 pg (26-34); Mean Corpuscular Volume 93.5 fl (80-100); Mean Platelet Volume 9.3 fl (7.4-10.4); Neutrophils Absolute Auto 5.8 K/mm3 (1.3-6.7); Neutrophils Percent Auto 68.3 % (45.5-73.1); Platelet Count Result 221 k/mm3 (150-375); Red Blood Count 3.85 M/mm3 (4.2-5.4); Red Cell Distribution Width 16.1 % (11.5-14.5); White Blood Count 8.5 K/mm3 (4.5-10.0)
[2024-04-19 16:18] LABS: Anion Gap 13 mmol/L (4-12); Blood Urea Nitrogen 19 mg/dL (7-17); Calcium 9.4 mg/dL (8.4-10.2); Carbon Dioxide 25 mmol/L (22-30); Chloride 101 mmol/L (98-107); Estimated Glomerular Filt Rate > 60; Glucose 98 mg/dL (65-110); Magnesium 1.6 mg/dL (1.6-2.3); Potassium 3.7 mmol/L (3.4-5.0); Sodium 139 mmol/L (137-145)
== END 2024-04-19 15:52 | disposition home or self-care (01) ==
LOC: ANHLAB 15:53
PROVIDERS: PCP Family Medicine; Visit Provider Family Medicine
DX: D64.9 Anemia, unspecified (principal); E03.9 Hypothyroidism, unspecified; I10 Essential (primary) hypertension; R42 Dizziness and giddiness
CPT/HCPCS: 36415; 80048; 83735; 85025

== ENCOUNTER 2024-05-07 10:19 | Outpatient (CLI) | payer MEDICARE, SELFPAY ==
--- NOTE | ~2024-05-07 | CT_ITS ---
EXAMINATION:CT diagnostic chest wo con DATE: 05/07/2024 11:00 INDICATION: Pneumonia, unspecified organism. TECHNIQUE: Computed tomography (CT) of the chest was performed without intravenous contrast. Automate d exposure control and iterative reconstruction technique were employed. The dose-length product (DLP ) was 171.39 mGy-cm. COMPARISON: Chest CT 02/13/2024 FINDINGS: There is mild scarring at the lung apices. There are patchy airspace opacities in left uppe r lobe and left lower lobe with architectural distortion and volume loss. No pleural effusion. There is a tracheal diverticulum in the superior mediastinum. There are size is normal. There are coronary artery calcifications. No pericardial effusion. There are changes of anterior fusion procedure in cer vical spine. There is moderate thoracic spondylosis. IMPRESSION: 1. Worsened left lung disease, consistent with pneumonia. Reviewed, dictated and finalized at location A.
== END 2024-05-07 10:20 | disposition home or self-care (01) ==
LOC: ANHIMG 10:21
PROVIDERS: PCP Family Medicine; Visit Provider Physician Assistant
DX: J18.9 Pneumonia, unspecified organism (principal)
CPT/HCPCS: 71250

== ENCOUNTER 2024-11-03 09:25 | Emergency (ER) | payer MEDICARE, SELFPAY ==
[2024-11-03] VITALS (34 sets, daily range): BP systolic 172–227; BP diastolic 79–122; PULSE 56–87; RESP 10–36; TEMP 36.4; O2SAT 97–100
--- NOTE | ~2024-11-03 | CT_ITS ---
EXAMINATION: CT brain wo con DATE: 11/03/2024 11:39 INDICATION: Headache. TECHNIQUE: Computed tomography (CT) of the head was performed without intravenous contrast. The mA wa s adjusted according to patient size. Iterative reconstruction technique was employed. The dose-lengt h product was 605.33 mGy-cm. COMPARISON: None FINDINGS: There is no intracranial hemorrhage, acute infarction, or abnormal intracranial mass lesion . There are scattered areas of low attenuation in the cerebral white matter, which is within normal l imits for the patient's age. The ventricles are normal in size. There are likely changes of ocular le ns replacement surgeries. There is mucosal thickening in the paranasal sinuses. The mastoid air cells are normal. IMPRESSION: 1. Normal aging brain. Reviewed, dictated and finalized at location A. ACT ACID PLANT OPERATOR HELPER IMPRESSION: 1. Normal aging brain.
--- OUTSIDE RECORDS SUMMARY | 2024-11-03 10:05 | XMS_ITS | Encounter Summary ---
Author Organization [facility] Address [address] [place] [address] Care Team Providers Care Printing Machine Operator Name Role Phone Juan Daniel Green MD Primary Care Provider [phone] Harman Rizzo MD Unavailable Jennifer Hart MD Primary Care Provider Rolf Deleon MD Unavailable Jennifer Hart MD Unavailable [phone] Chacorta Kauffman MD Unavailable Hesham Trevizo MD Unavailable Unavailable Malik Fernandez [place] Unavailable Jennifer Hart MD Unavailable [phone] Pcp, [facility] [place] - Primary Care Provider Un available Encounter Details Date Type Department Care Team (Late st Contact Info) Description 12/06/2008 [facility] Out[facility] Visit [place]NAL [place] [address] [address] Social History Tobacco Use Types Packs/Day Years Used Date Smoking Tobacco: Never Alcohol Use Standard Drinks/Week Comments No 0 (1 standard drink = 0.6 oz pur e alcohol) Sex and Gender Information Value Date Recorded Sex Assigned at Female 09/02/2020 9:03 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 Gender Identity Female 09/02/2020 9:03 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 Sexual Orientation Straight 09/02/2020 9: 03 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 documented as of this encounter Plan of Treatment Not on file documented as of this encounter Visit Diagnoses Not on filedocumented in this encounter Additional Health Concerns Infection Onset Date Last Indicated Resolved Time COVID-19 Under Investigation 12/20/2020 12/20/2020 12/30/2020 4:33 AM CDT COVID-19 Under Investigation 02/14/2021 02/14/2021 02/24/2021 4:33 AM CDT documented as of this encounter Care Teams Printing Machine Operator Relationship Specialty Start Date End Date Juan Daniel Green MD PCP - General 10/19/08 01/01/16 Jennifer Hart MD PCP - General Family Medicine 01/02/16 04/17/23 Jennifer Hart MD [address] [facility] [address] [place] [address] PCP - Attributed-[facility] [place] 01/22/18 09/06/21 Jennifer Hart MD [address] [facility] [address] [place] [address] PCP - Attributed-[facility] [place] 10/23/21 04/08/22 Pcp, [facility]- PCP - General 04/18/23 Harman Rizzo MD Neurology 07/29/13 10/14/21 Rolf Deleon MD Urology 01/04/16 10/14/21 Chacorta Kauffman MD [address] [place], [place] [id number] Cardiovascular Disease 02/06/18 2 Hesham Trevizo MD [address] [place] [address] Rheumatology 08/11/18 Malik Fernandez DC [address] [place] [address] Chiropractic 10/15/21 documented as of this encounter
--- OUTSIDE RECORDS SUMMARY | 2024-11-03 10:05 | XMS_ITS | Clinical Summary ---
Author Organization [facility] [place] [place] [address] [facility] [address] Address [address] [place] [address] Care Team Providers Care Chief Executive Name Role Phone Alonzo Clancy BASEBALL INSPECTOR Primary Care Provid er Allergies Active Allergy Reactions Criticality Noted Date Comments Cefaclor Urticaria Medium 10/19/2008 Erythromycin Nausea And Vomiting,Urticaria Medium 10/19/2008 Estradiol Headache High 10/19/2008 Hypertension High blood pressure Fluticasone Unknown Low 03/08/2014 Fluticasone Propionate Dizziness Low 05/03/2013 Levofloxacin Rash Medium 2012 history of muscle pains with it. On course with no side-effects Penicillins Rash,Urticaria Medium 10/19/2008 Polymyxin B Sulf-Trimethoprim Unknown 10/27/2017 Sulfa (Sulfonamide Antibiotics) Rash Medium 08/07/2017 Sulfamethoxazole-Trimet hoprim Urticaria Medium 10/19/2008 Tetracycline Hcl Rash Medium 01/21/2012 Trimethoprim Urticaria Medium 10/19/2008 Vancomycin Rash Medium 01/21/2012 Medications cholecalciferol (D3 DOTS) 2000 unit tablet Active coenzyme Q10 100 mg capsule Take 1 capsule (100 mg total) by mouth daily Active fexofenadine (XIMENA) 180 mg tablet Take 1 tablet (180 mg total) by mouth daily Active omgvryzm92-stml -Lmfolate-algal 27 mg iron-1.13 mg-581.92 mg capsule Take by mouth Active pravastatin (PRAVACHOL) 40 mg tablet Take 1 tablet (40 mg total) by mouth daily Active ascorbate calcium, vitamin C, 500 mg tablet Take by mouth Active folic acid (FOLVITE) 1 mg tablet Take 1 tablet (1 mg total) by mouth daily Active methotrexate 2.5 mg tablet Take by mouth every 7 days Active triamterene-hyd roCHLOROthiazid e 37.5-25 mg per tablet/capsule Take 1 tablet/capsule by mouth daily Active gabapentin (NEURONTIN) 300 mg capsule Take 1 capsule (300 mg total) by mouth 3 (three) times a day Active VITAMIN E ACETATE ORAL Take by mouth Act roberto levothyroxine (SYNTHROID) 50 mcg tablet Take 1 tablet (50 mcg total) by mouth grounds foreman before breakfast Active vit C,R-Qi-bogta-stacey tein-zeaxan 250-90-40-1 mg capsule Take by mouth AREDS Active biotin 1 mg capsule Take 500 mcg by mouth Active predniSONE (DELTASONE) 5 mg tablet Take by mouth as needed Active albuterol HFA (PROVENTIL HFA,VENTOLIN HFA,PROAIR HFA) 90 mcg/actuation inhaler INHALE 1-2 PUFFS BY MOUTH EVERY 4-6 HOURS NEEDED FOR SHORTNESS OF BREATH/WHEEZE 4 Active azithromycin (ZITHROMAX) 250 mg tablet TAKE 2 TABLETS BY MOUTH TODAY, THEN TAKE 1 TABLET DAILY FOR 4 DAYS DIRECTED 4 Active omeprazole (PriLOSEC) 20 mg capsule Take by mouth daily 4 Active predniSONE (DELTASONE) 20 mg tablet TAKE 1 TABLET BY MOUTH TWICE A DAY X5 DAYS 4 Active ferrous sulfate 325 mg (65 mg of elemental iron) tablet TAKE 1 TABLE BY MOUTH DAILY 4 Active Active Problems Problem Noted Date Diagnosed Date Syncope and collapse 12/22/2023 Pericardial effusion 06/23/2023 ALVAREZ (dyspnea on exertion) 05/12/2023 Cardiomegaly 05/12/2023 Essential hypertension 05/12/2023 Surgical History Surgery Date Site/Laterality Comments CHOLECYSTECTOMY HYSTERECTOMY REPLACEMENT TOTAL KNEE Left LUMBAR SPINE SURGERY NECK SURGERY Medical History Medical History Date Comments Shortness of breath Cardiomegaly Cataract Bunion, left foot Hyperlipidemia Thyroid disease Lupus Family History Medical History Relation Name Comments Bone cancer Father Heart failure Mother Relation Name Status Comments Father Mother Social History Tobacco Use Types Packs/Day Years Used Date Smoking Tobacco: Never Tobacco Cessation:Counseling Given: Not Answered Personal Safety Answer Date Recorded Getting School Help Needed Not on file 12/04 Comments Unknown Sex and Gender Information Value Date Recorded Sex Assigned at Not on file Legal Sex Female 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 Gender Identity Female 12/19/2023 10:17 AM CDT Sexual Orientation Not on file Obstetrics History Last Filed Vital Signs Vital Sign Reading Time Taken Comments Blood Pressure 132/82 03/29/2024 8:19 AM CDT Pulse 81 03/29/2024 8:19 AM CDT Temperature - - Respiratory Rate - - Oxygen Saturation 97% 03/29/2024 8:19 AM CDT Inhaled Oxygen Concentration - - Weight 67.8 kg (149 lb 8 oz) 03/29/2024 8:19 AM CDT Height 157.5 cm (5' 2 ) 03/29/2024 8:19 AM CDT Body Mass Index 27.34 03/29/2024 8:19 AM CDT Plan of Treatment Health Maintenance Due Date Last Done Comments Depression Screening 1945 Fall Risk Assessment 1945 Hepatitis C Screening 1945 DTaP/Tdap/Td Vaccine (1 - Tdap) 12/27/1958 Hepatitis B Screening 12/27/1965 Well Visit 65+ 12/27/2012 Osteoporosis Screening-Bone Density Scan 04/13/2022 04/13/2020, 04/10/2017, 05/04/2013 Covid-19 Vaccine ( season) 2024 09/24/2021, 12/20/2020, 12/01/2020 Influenza Vaccine (#1) 2024 08/11/2018 Pneumococcal vaccine 65+ Completed 08/07/2017, 12/21 Zoster Vaccine Completed 10/09/2019, 12/2018, 06/01/2014 Insurance MEDICARE [employer]IONS MED[employer] Care Teams Chief Executive Relationship Specialty Start Date End Date Alonzo Clancy NP [address] [place] [id number] PCP - General Family Medicine 04/02/23
--- OUTSIDE RECORDS SUMMARY | 2024-11-03 10:05 | XMS_ITS | Encounter Summary ---
Author Organization [facility] Address [address] [place] [address] Care Team Providers Care Chief Operations Officer Name Role Phone Juan Daniel Green MD Primary Care Provider [phone] Harman Rizzo MD Unavailable Jennifer Hart MD Primary Care Provider Rolf Deleon MD Unavailable Jennifer Hart MD Unavailable [phone] Chacorta Kauffman MD Unavailable Hesham Trevizo MD Unavailable Unavailable Malik Fernandez [place] Unavailable Jennifer Hart MD Unavailable [phone] Pcp, [facility] [place] - Primary Care Provider Un available Encounter Details Date Type Department Care Team (Late st Contact Info) Description 12/08/2012 [facility] Juan Daniel Green MD [address] [place] [id number] Social History Tobacco Use Types Packs/Day Years Used Date Smoking Tobacco: Never Alcohol Use Standard Drinks/Week Comments No 0 (1 standard drink = 0.6 oz pur e alcohol) Sex and Gender Information Value Date Recorded Sex Assigned at Female 09/02/2020 9:03 AM PURCHASING INTERN Gender Identity Female 09/02/2020 9:03 AM PURCHASING INTERN Sexual Orientation Straight 09/02/2020 9: 03 AM PURCHASING INTERN documented as of this encounter Plan of Treatment Not on file documented as of this encounter Visit Diagnoses Not on filedocumented in this encounter Additional Health Concerns Infection Onset Date Last Indicated Resolved Time COVID-19 Under Investigation 12/20/2020 12/20/2020 12/30/2020 4:33 AM CDT COVID-19 Under Investigation 02/14/2021 02/14/2021 02/24/2021 4:33 AM CDT documented as of this encounter Care Teams Chief Operations Officer Relationship Specialty Start Date End Date Juan Daniel Green MD PCP - General 10/19/08 01/01/16 Jennifer Hart MD PCP - General Family Medicine 01/02/16 04/17/23 Jennifer Hart MD [address] [place] [address] PCP - Attributed-[facility] [place] 01/22/18 09/06/21 Jennifer Hart MD [address] [place] [address] PCP - Attributed-[facility] [place] 10/23/21 04/08/22 [facility]cp, [facility] P[facility] - General 04/18/23 Harman Rizzo MD Neurology 07/29/13 10/14/21 Rolf Deleon MD Urology 01/04/16 10/14/21 Chacorta Kauffman MD [address] [place] [address] Cardiovascular Disease 02/06/18 2 Hesham Trevizo MD [address] [place] [address] Rheumatology 08/11/18 Malik Fernandez DC [address] [place] [address] Chiropractic 10/15/21 documented as of this encounter
--- OUTSIDE RECORDS SUMMARY | 2024-11-03 10:05 | XMS_ITS | Referral Summary ---
Author Organization [facility] [place] [address] [facility] [address] Address [address] [place] [address] Care Team Providers Care Process Artist Name Role Phone Alonzo Clancy NARCOTICS DETECTIVE Primary Care Provid er Allergies Active Allergy [...] (180 mg total) by mouth daily Active -duxm -Lmfolate-algal 27 mg iron-1.13 mg-581.92 mg capsule [...] 1 tablet (50 mcg total) by mouth insurance adviser before breakfast Active vit C,H-Yn-regbi-stacey tein-zeaxan 250-90-40-1 mg capsule Take by mouth [...] exertion) 05/12/2023 Cardiomegaly 05/12/2023 Essential hypertension 05/12/2023 Social History Tobacco Use Types Packs/Day Years Used Date Smoking Tobacco: Never Tobacco Cessation:Counseling Given: Not Answered Personal Safety Answer Date Recorded Getting School Help Needed Not on file 12/04 Comments Unknown Sex and Gender Information Value Date Recorded Sex Assigned at Not on file Legal Sex Female 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 MEDICARE Address: [facility] [address] [place] [address] MED[employer] [facility] MEDICARE Address: [address] [address] [place] [address] Care Teams Process Artist Relationship Specialty Start Date End Date Alonzo Clancy NP [address] [place] [id number] PCP - General Family Medicine 04/02/23
--- OUTSIDE RECORDS SUMMARY | 2024-11-03 10:05 | XMS_ITS | Clinical Summary ---
Author Organization [facility] Address [address] [place] [address] Care Team Providers Care Setter Off Name Role Phone Hesham Trevizo MD Unavailable Unavailable Malik Fernandez DC Unavailable Pcp, Dinora Krishnan Im-Fm Primary Care Provider Un available Source Comments [facility],non-owned Affiliates and Associated Physician Practices is amultiple site organization consisting of ambulatory clinics and hospital sitesin [place], [place] and [place]. This disclosure is being madepursuant to the Care Everywhere program and may not contain all information available regarding this patient. Last updated 18.[facility] Allergies Active Allergy Reactions Criticality Noted Date Comments Amoxicillin Trihydrate Urticaria Medium 10/19/2008 Bactrim Ds Urticaria Medium 10/19/2008 Cefaclor Urticaria Medium 10/19/2008 Erythromycin Urticaria,Nausea and/or Vomiting Medium 10/19/2008 Estradiol Headache Medium 09/26/2011 Hypertension Estraderm Other High 10/19/2008 High blood pressure Fluticasone Propionate Dizziness 05/03/2013 Levofloxacin Rash Medium 2012 history of muscle pains with it. On course with no side-effects Penicillins Urticaria Medium 10/19/2008 Polymyxin B-Trimethoprim 10/27/2017 Sulfa Drugs Rash Medium 08/07/2017 Trimethoprim Urticaria Medium 10/19/2008 Vancomycin Rash Medium 01/21/2012 Medications * Be aware that medications may not be up to date on this document. Alwaysverify current medications with the patient. Medication Sig Dispensed Refills Start Date End Date Status fexofenadine (XIMENA) 180 MG tablet Take 1 Tab by mouth daily. 30 Tab 0 09/18/2010 Active vitamin D3 (D-3-5) 5000 UNITS capsule Take 5,000 Units by mouth every 2 days. Active methotrexate 2.5 MG tablet Take 20 mg by mouth Active Vitamin Mixture (VITAMIN E COMPLETE PO) Take 180 mg by mouth Active ascorbic acid (VITAMIN C) 500 MG tablet Take 500 mg by mouth once daily Active folic acid 400 MCG tablet Take 400 mcg by mouth once daily Active Multiple Vitamins-Minerals (ICAPS AREDS 2 PO) Take 2 capsules by mouth once daily Active BLACK ELDERBERRY PO Take 2 tablets by mouth once daily Active Coenzyme Q10 (COQ10) 100 MG Active gabapentin (NEURONTIN) 300 MG capsule Take 300 mg by mouth at bedtime 04/11/2021 Active clindamycin (CLEOCIN) 300 MG capsule 06/04/2021 Active methotrexate 2.5 MG tablet 06/02/2021 Active SYNTHROID 50 MCG tablet TAKE 1 TABLET BY MOUTH DAILY BEFORE BREAKFAST FOR UNDERACTIVE THRYOID 90 tablet 3 09/10/2021 Active triamterene-hydroCH LOROthiazide (Dyazide) 37.5-25 MG capsuleIndications: Essential hypertension with goal blood pressure less than 140/90 TAKE 1 CAPSULE BY MOUTH ONCE DAILY 30 capsule 07/27/2022 Active pravastatin (Pravachol) 40 MG tabletIndications:H yperlipidemia Take 1 (one) tablet by mouth at bedtime Reasons: High Amount of Fats in the Blood 90 tablet 08/07/2022 Active Active Problems Problem Noted Date Diagnosed Date Presence of left artificial knee joint 1 Primary osteoarthritis of left knee 02/16/2020 Arthritis of left knee 05/03/2019 Degeneration of meniscus of knee, left 9 Effusion of left knee 05/03/2019 [place] on CPAP 08/11/2018 Seronegative rheumatoid arthritis 08/11/2018 Aortic valve sclerosis 02/21/2015 Thyroid nodule 02/15/2015 Overview (10/31/2021): has seen Dr. Collins (ENT) in t \he past and had biopsy done which were negative back prior to 2014. Slight progression in thyroid nodules on ultrasound in October 2021. 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 Follows with neuro, Dr. Rizzo. Uses gabapentin PRN for symptoms Systolic murmur 12/10/2011 Lupus (systemic lupus erythematosus) 11/28/2011 Overview (10/31/2021): Dx made by Dr. Green on 11/1983 based on malar rash, leukopenia, (+) JOSE 1:160. Low dose prednisone started 03/2007. Worsening sx 11/2012; JOSE (+) 1:1280. Seeing Dr. Trevizo Pure hypercholesterolemia 06/11/2011 Hypothyroidism, adult 01/15/2010 Vitamin D deficiency 04/10/2009 Essential hypertension with goal blood pressure less than 140/90 10/19/2008 Frequent UTI 10/19/2008 Spinal stenosis 10/19/2008 Overview (10/31/2021): Surgery Dr. Germain 09/29 (lumbar); cervical surgery Dr. Germain 11/28. Resolved Problems Problem Noted Date Diagnosed Date Resolved Date Chest pain 09/09/2018 09/28/2018 Immunizations Name Administration Dates Next Due Yvolver primary monoval ent 12+ yr 0.3mL Purple cap 09/24/2021,12/20/2020(Deferred: See Comments - duplicate order),12/20/2020,12/01/2020 INFLUENZA VACCINE 08/11/2018 INFLUENZA VACCINE, HIGH-DOSE , QUADR. (FLUZONE HIGH-DOSE QUADRIVALENT; 65Y+), 0.7 ML (HD-IIV4) 08/11/2018 PNEUMOCOCCAL PPSV23 08/07/2017 Pneumococcal Pcv13 Conj 01/04/2016 TETANUS 05/16/2010 ZOSTER VACCINE, LIVE 06/01/2014 Zoster Hzv Vacc Recombinant Inj Im 10/09/2019, Family History Medical History Relation Name Comments Cancer - Thyroid Brother 1 Cancer Father bone cancer Hypertension Mother Other - Cardiac Mother CHF Cancer - Breast Sister 1 Cancer - Thyroid Sister 2 Relation Name Status Comments Brother 1 Brother 2 Alive Brother 3 Alive Brother 4 Alive Father Mother Sister 1 Sister 2 Alive Sister 3 Alive Sister 4 Alive Social History Tobacco Use Types Packs/Day Years Used Date Smoking Tobacco: Never Smokeless Tobacco: Never Alcohol Use Standard Drinks/Week Comments No 0 (1 standard drink = 0.6 oz pur e alcohol) PHQ-2 Answer Date Recorded PHQ2 TOTAL SCORE 0 10/15/2021 Sex and Gender Information Value Date Recorded Sex Assigned at Female 09/02/2020 9:03 AM NUCLEAR MONITORING TECHNICIAN Gender Identity Female 09/02/2020 9:03 AM NUCLEAR MONITORING TECHNICIAN Sexual Orientation Straight 09/02/2020 9: 03 AM NUCLEAR MONITORING TECHNICIAN Last Filed Vital Signs Vital Sign Reading Time Taken Comments Blood Pressure 130/76 10/15/2021 9:57 AM NUCLEAR MONITORING TECHNICIAN Pulse 62 10/15/2021 9:57 AM NUCLEAR MONITORING TECHNICIAN Temperature 36.6 C (97.8 F) 10/15/2021 9:57 AM NUCLEAR MONITORING TECHNICIAN Respiratory Rate 18 10/15/2021 9:57 AM NUCLEAR MONITORING TECHNICIAN Oxygen Saturation 100% 10/15/2021 9:57 AM NUCLEAR MONITORING TECHNICIAN Inhaled Oxygen Concentration - - Weight 77.1 kg (170 lb) 11/13/2023 9:15 AM NUCLEAR MONITORING TECHNICIAN Height 157.5 cm (5' 2 ) 11/13/2023 9:15 AM NUCLEAR MONITORING TECHNICIAN Body Mass Index 31.09 11/13/2023 9:15 AM NUCLEAR MONITORING TECHNICIAN Plan of Treatment Health Maintenance Due Date Last Done Comments DTAP/TDAP/TD VACCINES (2 - Td or Tdap) 05/16/2020 05/16/2010 Respiratory Syncytial Virus (RSV) Vaccine Pt: or over 60 yrs (1 - 1-dose 75+ series) 12/27/2022 COVID-19 VACCINE ( season) 2024 09/24/2021, 12/20/2020, 12/01/2020 INFLUENZA VACCINE (#1) 2024 08/11/2018, 2017 DEPRESSION SCREENING 09/22/2024 10/15/2021 MEDICARE AWV CALENDAR YEAR 2024 10/15/2021, 10/12/2020 SCREENING FOR DIABETES 10/15/2024 , 10/12/2020, 10/12/2020, Additional history exists HEPATITIS C SCREENING Completed 08/13/2016 PNEUMOCOCCAL VACCINE 50+ Completed 08/07/2017, 12/21 ZOSTER VACCINE Completed 10/09/2019, 110 12/2018, 06/01/2014 BONE DENSITY TESTING Completed 04/13/2020, 04/10/2017, 05/04/2013 HEPATITIS B VACCINE Aged Out No longe r eligible based on patient's age to complete this topic HIB VACCINE Aged Out No longer eligi ble based on patient's age to complete this topic HPV VACCINE Aged Out No longer eligi ble based on patient's age to complete this topic MENINGOCOCCAL (Group B) VACCINE Aged Out No longer eligible based on patient's age to complete this topic MENINGOCOCCAL VACCINE Aged Out No morgan tacos eligible based on patient's age to complete this topic Goals Goal Patient Goal Type Associated Problems Recent Progress Patient-Stated? Author Blood Pressure < 140/90 Blood Pressure 130/76(10/15 9:57 AM NUCLEAR MONITORING TECHNICIAN) Keyur Esparza Note: Caring for Your High Blood Pressure Diet Eat a healthy diet: Eat healthy foods from all of the 5 food groups which are fruits, vegetables, breads, dairy products, meat and fish. Eating healthy foods may help you feel better and have more energy. To help control your blood pressure, you may need to limit the amount of salt and fat you eat. Read labels to see how much sodium (salt or sodium chloride) is in the food that you buy at the store. Avoid foods and drinks that are high in sodium (salt). These include smoked meats (such as ham and najera), cheese, canned and frozen foods, and butter and margarine. Read all labels carefully. Do not add salt to your food. Learn to use fresh herbs, spices, or salt substitutes to add flavor to your food. Ask your provider for any dietary restrictions that are appropriate for you. Where can I go for more information? [place] [employer] National Center: http://www.americanheart.org 1. In the top header, click C onditions . 2. In the top header, click h igh blood pressure. 3. For a printable blood pressure tracker, scroll toward the bottom of the page to Related Tools, and click H BP Trackers. 4-986-BFT-[place]-1 or ( ) National Heart, Lung and Blood [place]: http://www.nhlbi.nih.gov/health/infoctr/index.htm Exercise 5X per week (30 min per time) Exercise No Keyur Evans Note: The [place] [employer] recommends all adults get a minimum of 150 minutes of moderate physical activity a week. This can be completed as 30 minutes of brisk walking on most days of the week. Even 10 minutes of exercise a day can provide benefit and will add up over the week. If able, try to take the stairs instead of the elevator or park father away in the parking lot. Start slow and try to increase your amount of activity over several weeks. Exercise will help to improve your cholesterol readings and blood pressure and to be overall healthier. right level General Yes Kendy Gardner RN Note: Instruct the patient to call the doctor if: the patient has an increased temperature (greater than 101), unrelieved pain, symptoms that are not relieved or worsening, and side effects of medications. rogress toward goal attainment: 0% : Ongoing / No progress Barriers to goal attainment: None at the time of this encounter Medical Devices Implanted Type Area Zigzag Tunnel Elastic Operator Device Identifier Shelf Expiration Date Model / Serial / Lot Cmnt Bone Djo Srg Cblt 40gm Hvisc Strl Implanted:Qty: 1 on 05/08/2020 by Edgar Telles MD at [facility] Left: Knee [employer] 10/14/2020 [id number] / / [id number] Tray Tib 67mm Kn Cocr I Beam Implanted:Qty: 1 on 05/08/2020 by Edgar Telles MD at [facility] Left: Knee [employer] 11/21/2029 [id number] / / [id number] Cmpnt Fem Kn Lt Cr Cmnt Prm Vngrd Intlk Implanted:Qty: 1 on 05/08/2020 by Edgar Telles MD at [facility] Left: Knee [employer] 11/21/2029 [id number] / / [id number] Cmpnt Ptlr 28mm 1 Pg Wire Ascnt Arcm Kn Implanted:Qty: 1 on 05/08/2020 by Edgar Telles MD at [facility] Left: Knee [employer] 04/13/2025 [id number] / / [id number] Brng [id number] Vngrd Arcm Kn Ant Stab Implanted:Qty: 1 on 05/08/2020 by Edgar Telles MD at [facility] Left: Knee [employer] 04/07/2025 [id number] / / [id number] Procedures Procedure Name Priority Date/Time Associated Diagnosis Comments COMPREHENSIVE METABOLIC PANEL Routine 10/15/2021 11:23 AM NUCLEAR MONITORING TECHNICIAN Essential hypertension with goal blood pressure less than 140/90 Pure hypercholesterolemia Seronegative rheumatoid arthritis (HCC) Systemic lupus erythematosus, unspecified SLE type, unspecified organ involvement status (HCC) Encounter for general adult medical examination with abnormal findings DEXA BONE DENSITY AXIAL SKELETON Routine 04/13/2020 8:32 AM CDT Osteopenia of thigh, unspecified laterality HEPATITIS C ANTIBODY Routine 08/13/2016 10:22 AM NUCLEAR MONITORING TECHNICIAN Need for hepatitis C screening test from Last 3 Months or Most Recently Relevant to Health Maintenance Results * COMPREHENSIVE METABOLIC PANEL (10/15/2021 11:23 AM NUCLEAR MONITORING TECHNICIAN) Glucose 89 70 - 105 mg/dL [facility] ACCOUNT BILL BUN 18 9.8 - 20.1 mg/dL [facility] ACCOUNT BILL Creatinine 0.78 0.57 - 1.11 mg/dL [facility] ACCOUNT BILL eGFR by MDRD >60 mL/min/1.7 3m2 [facility] ACCOUNT BILL eGFR by MDRD >60 mL/min/1.7 3m2 [facility] ACCOUNT BILL Sodium 141 136 - 145 mmol/L [facility] ACCOUNT BILL Potassium 3.8 3.5 - 5.1 mmol/L [facility] ACCOUNT BILL Chloride 105 98 - 107 mmol/L [facility] ACCOUNT BILL CO2 23 23 - 31 mmol/L [facility] ACCOUNT BILL Calcium 9.6 8.4 - 10.4 mg/dL [facility] ACCOUNT BILL Protein Total 7.1 6.4 - 8.3 gm/dL [facility] ACCOUNT BILL Albumin 4.3 3.2 - 4.6 gm/dL [facility] ACCOUNT BILL Bilirubin Total 0.3 0.2 - 1.2 mg/dL [facility] ACCOUNT BILL Alkaline Phosphatase 102 40 - 150 U/L [facility] ACCOUNT BILL AST 16 5 - 34 U/L [facility] ACCOUNT BILL ALT 14 0 - 61 U/L [facility] ACCOUNT BILL Blood BLOOD SPECIMEN / Unknown 10/15/2021 11:23 AM NUCLEAR MONITORING TECHNICIAN 10/15/2021 Narrative Resulting Agency Comment Lab Testing performed at: [facility] [id number] [place] [phone] Jennifer Hart MD LAB - CHEMISTRY SONAM LOAIZA [facility] ACCOUNT BILL [address] [place] [address] * DEXA BONE DENSITY AXIAL SKELETON (04/13/2020 8:32 AM CDT) Anatomical Region Laterality Modality Mammography 04/13/2020 9:47 AM CDT Narrative 04/13/2020 9:51 AM CDT Bone density study (DEXA): HISTORY: ovarian failure COMPARISON: 04/10/2017 LUMBAR SPINE (L1-L4): Bone mineral density (g/cm2): 1.267 Current T-score: 0.7 Prior T-score: 0.7 HIPS: Bone mineral density (g/cm2): 0.821 Current T-score: -1.6 Prior T-score: -1.6 ASSESSMENT: Osteopenia Please see the PACS images for additional details World Health Organization definitions of standard deviations relative to the mean T-score: Normal bone density = -1.0 and above Mild osteopenia = -1.0 to -1.5 Moderate osteopenia = -1.5 to -2.0 Severe osteopenia = -2.0 to -2.5 Osteoporosis = -2.5 and below *Reading Radiologist: Saad Mora on 04/13/2020 at 9:51 AM Procedure Note Saad Mora MD - 04/13/2020 Bone density study (DEXA): HISTORY: ovarian failure COMPARISON: 04/10/2017 LUMBAR SPINE (L1-L4): Bone mineral density (g/cm2): 1.267 Current T-score: 0.7 Prior T-score: 0.7 HIPS: Bone mineral density (g/cm2): 0.821 Current T-score: -1.6 Prior T-score: -1.6 ASSESSMENT: Osteopenia Please see the PACS images for additional details World Health Organization definitions of standard deviations relative to the mean T-score: Normal bone density = -1.0 and above Mild osteopenia = -1.0 to -1.5 Moderate osteopenia = -1.5 to -2.0 Severe osteopenia = -2.0 to -2.5 Osteoporosis = -2.5 and below *Reading Radiologist: Saad Mora on 04/13/2020 at 9:51 AM Hesham Trevizo MD DEXA ORDERABLES * HEPATITIS C ANTIBODY (08/13/2016 10:22 AM NUCLEAR MONITORING TECHNICIAN) Hepatitis C Antibody Non Reactive Non Reactive [facility] ACCOUNT BILL Comment: Non Reactive - Antibodies to Hepatitis C virus (HCV) were no t detected, result does not exclude early acute HCV infection. Blood BLOOD SPECIMEN / Unknown 08/13/2016 10:22 AM NUCLEAR MONITORING TECHNICIAN 08/13/2016 Narrative Resulting Agency Comment [facility] [address] [facility] [id number] Jennifer Hart MD LAB - CHEMISTRY SONAM LOAIZA [facility] ACCOUNT BILL [address] [place] [address] from Last 3 Months or Most Recently Relevant to Health Maintenance Advance Directives * Full Code (Latest Code Status on File) Date Activated Date Inactivated Comments 05/08/2020 11:56 AM 05/09/2020 3:34 PM * Full Code Date Activated Date Inactivated Comments 09/09/2018 3:12 PM 09/11/2018 3:35 PM Care Teams Setter Off Relationship Specialty Start Date End Date PcpDinora Depaul - PCP - General 04/18/23 Hesham Trevizo MD Rheumatology 08/11/18 Malik Fernandez [place] [address] Chiropractic 10/15/21
--- OUTSIDE RECORDS SUMMARY | 2024-11-03 10:05 | XMS_ITS | Clinical Summary ---
Author Organization [facility] Address [address] [place] [address] Care Team Providers Care Police Guard Name Role Phone Unavailable Primary Care Provider Unavailabl e Social History Tobacco Use Types Packs/Day Years Used Date Smoking Tobacco: Never Assessed Comments Unknown Sex and Gender Information Value Date Recorded Sex Assigned at Not on file Legal Sex Female 10:23 PM BONE TENDER Gender Identity Not on file Sexual Orientation Not on file Plan of Treatment Health Maintenance Due Date Last Done Comments Hepatitis C 12/27/1965 DTaP, Tdap and Td Vaccines ( 1 - Tdap) 12/27/1966 Zoster Vaccines (1 of 2) 12/27/1997 Dexa Scan (General) 12/27/2012 Pneumococcal Vaccine: 65+ Ye ars (1 of 1 - PCV) 12/27/2012 RSV Immunization or 60+ Years (1 - 1-dose 75+ series) 12/27/2022 COVID-19 Vaccine (2023-2 5 season) 2024 Influenza Adult (#1) 2024 Meningococcal B Vaccine Aged Out No l onger eligible based on patient's age to complete this topic Meningococcal Vaccine Aged Out No morgan tacos eligible based on patient's age to complete this topic RSV Immunizations Under 20 Months Aged Out No longer eligible based on patient's age to complete this topic
--- OUTSIDE RECORDS SUMMARY | 2024-11-03 10:05 | XMS_ITS | Encounter Summary ---
Author Organization [facility] Address [address] [place] [address] Care Team Providers Care Clinical Pharmacologist Name Role Phone Juan Daniel Green MD Primary Care Provider [phone] Harman Rizzo MD Unavailable Jennifer Hart MD Primary Care Provider [phone] Rolf Deleon MD Unavailable Jennifer Hart MD Unavailable [phone] Chacorta Kauffman MD Unavailable Hesham Trevizo MD Unavailable Unavailable Malik Fernandez [place] Unavailable Jennifer Hart MD Unavailable [phone] Pcp, [facility] Depaul - Primary Care Provider Un available Encounter Details Date Type Department Care Team (Late st Contact Info) Description 06/06/2009 [facility] Outpatient Visit [place]TERNAL [place] [address] [address] Social History Tobacco Use Types Packs/Day Years Used Date Smoking Tobacco: Never Alcohol Use Standard Drinks/Week Comments No 0 (1 standard drink = 0.6 oz pur e alcohol) Sex and Gender Information Value Date Recorded Sex Assigned at Female 09/02/2020 9:03 AM DISTRIBUTION CENTER ASSISTANT Gender Identity Female 09/02/2020 9:03 AM DISTRIBUTION CENTER ASSISTANT Sexual Orientation Straight 09/02/2020 9: 03 AM DISTRIBUTION CENTER ASSISTANT documented as of this encounter Plan of Treatment Not on file documented as of this encounter Visit Diagnoses Not on filedocumented in this encounter Additional Health Concerns Infection Onset Date Last Indicated Resolved Time COVID-19 Under Investigation 12/20/2020 12/20/2020 12/30/2020 4:33 AM CDT COVID-19 Under Investigation 02/14/2021 02/14/2021 02/24/2021 4:33 AM CDT documented as of this encounter Care Teams Clinical Pharmacologist Relationship Specialty Start Date End Date Juan Daniel Green MD PCP - General 10/19/08 01/01/16 Jennifer Hart MD PCP - General Family Medicine 01/02/16 04/17/23 Jennifer Hart MD [address] [facility] [address] [place] [address] PCP - Attributed-[facility] [place] 01/22/18 09/06/21 Jennifer Hart MD [address] [facility] [address] [place] [address] PCP - Attributed-[facility] [place] 10/23/21 04/08/22 Pcp, Dinora [facility]- PCP - General 04/18/23 Harman Rizzo MD Neurology 07/29/13 10/14/21 Rolf Deleon MD Urology 01/04/16 10/14/21 Chacorta Kauffman MD [address] [place], [place] [id number] Cardiovascular Disease 02/06/18 2 Hesham Trevizo MD [address] [place] [address] Rheumatology 08/11/18 Malik Fernandez DC [address] [place] [address] Chiropractic 10/15/21 documented as of this encounter
--- OUTSIDE RECORDS SUMMARY | 2024-11-03 10:05 | XMS_ITS | Continuity of Care Document ---
Author Organization [facility] Address [address] [place] [address] [address] [place] [address] Phone Care Team Providers Care Cafe Lead Name Role Phone Rachel De Leon Unavailable Unavailable Advance Directives Directive Yes / No Effective Date File Name No Information Encounters Encounter Description Practice Location Reason(s) For Visit Diagnoses Date Provider Providers Copied on Encounter [facility], [address], [place], [place], [id number], [place] tel:[phone] [facility] [place] No Information Mar-0 4-200 2 Haley Ramos. [address] , [address], [place], [address], [place]. tel:[phone] Family History Family Member Type Diagnosis Age At Onset No Information Payers Payer name Insurance type Covered constitution party ID Authoriza tion(s) No Information Social [...]
--- OUTSIDE RECORDS SUMMARY | 2024-11-03 10:05 | XMS_ITS | CONTINUITY OF CARE DOCUMENT ---
Author Name jessee hooks Address Unknown Organization [facility] Address [address] [place] [address] Phone [phone] Care Team Providers Care Van Loader Name Role Phone Jamari BENITEZ, Chacorta Unavailable [phone] Jennifer Hart MD Unavailable Jennifer Hart MD Unavailable [phone] PROBLEMS Condition Status Date Provider Notes HTN ESSENTIAL active Chacorta Kauffman MD CHEST PAIN-TYPE TO BE DETERMINED completed - Ayaka Canas RN Aortic sclerosis active Ayaka Cansa RN Bradycardia - sinus active Chacorta Kauffman MD Hyperlipidemia active ? Chacorta Kauffman MD Shortness of breath completed - Ayaka Canas RN PVC's active Chacorta Kauffman MD Chest pain-type to be determined active Ayaka Canas RN Sleep apnea active Chacorta Kauffman MD Hypothyroidism active Chacorta Kauffman MD ARTHRITIS active Chacorta Kauffman MD CARDIAC MURMUR completed - Ayaka Canas RN ENCOUNTERS Date Type Provider Location Encounter Diag nosis - In-person encounter Office Visit [facility] - In-person encounter Office Visit [facility] Chest pain-type to b e determined - In-person encounter Office Visit [facility] Shortness of breath - In-person encounter Office Visit Chac[facility] - In-person encounter Office Visit Chac[facility] - In-person encounter Office Visit [facility]ac[facility] - In-person encounter Office Visit Chacorta [facility] HyperlipidemiaPVC'sS leep apnea - In-person encounter Office Visit Chacorta [facility] Bradycardia - sinusHypothyroidism - In-person encounter Office Visit Chacorta [facility] - In-person encounter Office Visit [facility]ac[facility] CARDIAC MURMURCHEST PAIN-TYPE TO BE DETERMINEDAortic sclerosis - In-person encounter Office Visit Chac[facility] - In-person encounter Office Visit [facility]ac[facility] - In-person encounter Office Visit [facility]ac[facility] HTN ESSENTIALARTHRIT IS VITAL SIGNS Date Observation Value Provider Body Mass Index (Ratio) 29.28 kg/m2 Carolyn Kauffman MD blood pressure, diastolic, left arm 84 mm [Hg] [facility], systolic, left arm 138 mm [Hg] [facility], diastolic, right arm 90 m m[Hg] Liberty Mckee blood pressure, systolic, right arm 140 m m[Hg] [facility], diastolic 84 mm[Hg] [facility] blood pressure, systolic 138 mm[Hg] Mi larsen [place] oxygen saturation, oximetry 98 % Mckee respiratory rate E&M 16 /min Mckee pulse rate 66 /min [facility] weight E&M 176 [lb_av] Sangeeta Mckee height E&M 65 [in_i] Sangeeta Mckee Body Mass Index (Ratio) 29.28 kg/m2 Carolyn Kauffman MD blood pressure, diastolic 70 mm[Hg] Rh onhaley Anahi blood pressure, systolic 130 mm[Hg] Rho aimee Christian blood pressure, cuff size regular Rh elsihaley Christian oxygen saturation, oximetry 98 % Romy Christian respiratory rate E&M 16 /min Romy Christian pulse rate 73 /min Romy Christian weight E&M 176 [lb_av] Romy Christian height E&M 65 [in_i] Romy Christian Body Mass Index (Ratio) 29.78 kg/m2 Carolyn Kauffman MD blood pressure, diastolic 80 mm[Hg] Constantino patterson O'Rob blood pressure, systolic 130 mm[Hg] [facility] zaki O'Rob oxygen saturation, oximetry 99 % Madelyn O'Rob respiratory rate E&M 16 /min Madelyn O'Rob pulse rate 56 /min Madelyn O'Rob weight E&M 179 [lb_av] Madelyn O'Rob height E&M 65 [in_i] Madelyn O'Rob Body Mass Index (Ratio) 29.78 kg/m2 Karyn Canas RN blood pressure, diastolic 80 mm[Hg] Rh jose Anahi blood pressure, systolic 150 mm[Hg] Rho aimee Christian oxygen saturation, oximetry 99 % Romy Christian respiratory rate E&M 18 /min Romy Christian pulse rate 61 /min Romy Anahi weight E&M 179 [lb_av] Romy Christian height E&M 65 [in_i] Romy Christian blood pressure, diastolic 80 mm[Hg] Constantino Shaw'Rob blood pressure, systolic 140 mm[Hg] Maribell haines O'Rob oxygen saturation, oximetry 96 % Madelyn O'Rob respiratory rate E&M 16 /min Madelyn O'Rob pulse rate 63 /min Madelyn O'Rob height E&M 65 [in_i] Madelyn O'Rob Body Mass Index (Ratio) 30.18 kg/m2 Karyn Canas RN weight E&M 181.4 [lb_av] [facility] respiratory rate E&M 16 /min [facility] blood pressure, diastolic 76 mm[Hg] [facility] blood [facility], systolic 120 mm[Hg] [facility], oximetry 93 % [facility] pulse rate 68 /min [facility] height E&M 65 [in_i] [facility] Body Mass Index (Ratio) 29.95 kg/m2 Carolyn Kauffman MD blood pressure, diastolic, left arm 80 mm [Hg] am blood pressure, systolic, left arm 128 mm [Hg] [facility] blood pressure, diastolic, right arm 86 m m[Hg] [facility] blood pressure, systolic, right arm 128 m m[Hg] [facility] blood pressure, diastolic 80 mm[Hg] [facility] blood pressure, systolic 128 mm[Hg] Kil suzie [facility] oxygen saturation, oximetry 97 % [facility] respiratory rate E&M 16 /min [facility] pulse rate 59 /min [facility] weight E&M 180 [lb_av] [facility] E&M 65 [in_i] [facility] Body Mass Index (Ratio) 30.12 kg/m2 Karyn Canas RN blood pressure, diastolic, left arm 80 mm [Hg] [facility] blood pressure, systolic, left arm 118 mm [Hg] [facility], diastolic, right arm 80 m m[Hg] blood pressure, systolic, right arm 118 m m[Hg] [facility] blood [facility], diastolic 80 mm[Hg] [facility] blood [facility], systolic 118 mm[Hg] Mi larsen [place] oxygen saturation, oximetry 97 % respiratory rate E&M 16 /min [facility] pulse rate 70 /min [facility] weight E&M 181 [lb_av] Mckee height E&M 65 [in_i] [facility] Body Mass Index (Ratio) 29.12 kg/m2 Sund iftikhar Kauffman MD blood pressure, diastolic, left arm 60 mm [Hg] Madelyn O' blood pressure, systolic, left arm 110 mm [Hg] Madelyn O blood pressure, diastolic, right arm 68 m m[Hg] Madelyn O blood pressure, systolic, right arm 110 m m[Hg] Madelyn O blood pressure, diastolic 68 mm[Hg] Ma rsha O blood pressure, systolic 110 mm[Hg] Mar zaki ORob blood pressure, resting Yes [facility] O oxygen saturation, oximetry 98 % Madelyn ORob respiratory rate E&M 16 /min Madelyn O' pulse rate 52 /min Madelyn ORob weight E&M 175 [lb_av] Madelyn O'Rob height E&M 65 [in_i] Madelyn O'Rob Body Mass Index (Ratio) 31.28 kg/m2 Odessa Robledoer blood pressure, diastolic 82 mm[Hg] Bassam rri Taylerchristyfortunato blood pressure, systolic 130 mm[Hg] Katherine ocampo Adam pulse rate 67 /min Katya Motta bryan oxygen saturation, oximetry 97 % Katya Taylerchristyfortunato respiratory rate E&M 16 /min Katya Loyola nicole weight E&M 188 [lb_av] Katya Motta er blood pressure, diastolic, left arm 84 mm [Hg] [facility] blood pressure, systolic, left arm 130 mm [Hg] [facility] blood pressure, diastolic, right arm 82 m m[Hg] [facility] blood pressure, systolic, right arm 132 m m[Hg] [facility] Body Mass Index (Ratio) 31.23 kg/m2 [facility] blood pressure, diastolic 82 mm[Hg] [facility] blood pressure, systolic 132 mm[Hg] [facility] na pulse rate 65 /min [facility] oxygen saturation, oximetry 98 % [facility] respiratory rate E&M 18 /min [facility] Carlos palomino weight E&M 187 [lb_av] [facility] height E&M 65 [in_i] [facility] blood pressure, diastolic 80 mm[Hg] Marlon Miller blood pressure, systolic 120 mm[Hg] Tyshawn Miller pulse rate 61 /min Paty Miller oxygen saturation, oximetry 97 % Paty Miller respiratory rate E&M 19 /min Paty Miller weight E&M 181 [lb_av] Paty Miller blood pressure, diastolic 88 mm[Hg] Lucy Kearney blood pressure, systolic 134 mm[Hg] William Kearney pulse rate 60 /min Molly Kearney oxygen saturation, oximetry 99 % Molly Kearney respiratory rate E&M 20 /min Molly Kearney weight E&M 182.2 [lb_av] Molly Kearney ALLERGIES Allergy Name Onset Date Reaction Criticality Status BACTRIM Low Criticality active AMOXICILLIN rash rash Low Criticality active LEVOFLOXACIN Low Criticality active ESTRADERM Low Criticality active ESTRACE Low Criticality active FLONASE Low Criticality active SULFA Low Criticality active CECLOR Low Criticality active TETRACYCLINE HCL Low Criticality act roberto ERYTHROMYCIN BASE Low Criticality ac tive VANCOMYCIN HCL Low Criticality activ e PENICILLIN V POTASSIUM Low Criticali ty active RESULTS Date Observation Value Provider Reference Range Interpretation Location 4 eGFR if 79 mL/min/{1 .73_m2} [facility] >59 4 eGFR if not 68 mL/min/{1 .73_m2} [facility] >59 4 creatinine, serum 0.87 mg/dL [facility] 0.57-1.00 8 ferritin, serum 267 ng/mL [facility] 15-150 High 8 magnesium, serum 2.1 mg/dL [facility] 1.6-2.3 8 B-12, serum 349 pg/mL [facility] 999-090 8291/11/2 8 pro brain natriuretic peptide 146 pg/mL [facility] 0-301 8 iron saturation percent, serum 23 % [facility] 15-55 8 iron, serum 71 ug/dL [facility] 27-139 8 iron binding capacity, unsaturated 233 ug/dL [facility] 244-225 3217/11/2 8 iron binding capacity, total 304 ug/dL [facility] 228-318 3043/11/2 8 basophil count, absolute 0.0 x10E3/uL [facility] 0.0-0.2 8 Eosinophil Absolute Count 0.0 X10E3/UL [facility] 0.0-0.4 8 monocyte count, blood, automated 0.4 X10E3/UL [facility] 0.1-0.9 8 lymphocyte count, blood, automated 1.7 X10E3/UL [facility] 0.7-3.1 8 Absolute Neutrophils 6.3 X10E3/UL [facility] 1.4-7.0 8 basophils as percent of blood leukocytes 0 % [facility] Not Estab. 8 eosinophils as percent of blood leukocytes 0 % [facility] Not Estab. 8 monocytes as percent of blood leukocytes 5 % [facility] Not Estab. 8 lymphocytes as percent of blood leukocytes 20 % [facility] Not Estab. 8 neutrophils as percent of blood leukocytes 75 % [facility] Not Estab. 8 platelet count 224 X10E3/UL [facility] 123-963 9232/11/2 8 red blood cell distribution width 13.9 % [facility] 12.3-15.4 8 mean corpuscular hemoglobin concentration, RBC 32.4 G/DL [facility] 31.5-35.7 8 mean corpuscular hemoglobin, RBC 28.8 pg [facility] 26.6-33.0 8 mean corpuscular volume, RBC 89 fL [facility] 79-97 8 hematocrit, blood 44.5 % [facility] 34.0-46.6 8 hemoglobin, blood 14.4 g/dL [facility] 11.1-15.9 8 erythrocyte (RBC) count 5.00 X10E6/UL [facility] 3.77-5.28 8 leukocyte count, blood 8.4 X10E3/UL [facility] 3.4-10.8 8 alanine aminotransferase (SGPT), serum 14 1/L [facility] 0-32 8 aspartate aminotransferase (SGOT), serum 15 1/L [facility] 0-40 8 alkaline phosphatase, serum 87 1/L [facility] 39-117 8 bilirubin, serum, total 0.3 mg/dL [facility] 0.0-1.2 8 albumin/globulin ratio, serum 1.9 [facility] 1.2-2.2 8 globulin, serum 2.5 [facility] 1.5-4.5 8 albumin, serum 4.7 g/dL [facility] 3.6-4.8 8 protein, total, serum 7.2 g/dL [facility] 6.0-8.5 8 calcium, serum 9.7 mg/dL [facility] 8.7-10.3 8 carbon dioxide, venous blood 26 mmol/L [facility] 18-29 8 chloride, serum 101 mmol/L [facility] 96-106 8 potassium, serum 3.9 mmol/L [facility] 3.5-5.2 8 sodium, serum 145 mmol/L [facility] 134-144 High 8 urea nitrogen/creatinine ratio, serum 21 [facility] 12-28 8 eGFR if not 65 mL/min/{1 .73_m2} [facility] >59 8 creatinine, serum 0.90 mg/dL [facility] 0.57-1.00 8 urea nitrogen, blood 19 mg/dL [facility] 8-27 8 blood glucose, random 105 mg/dL [facility] 65-99 High 3 free thyroxine index 2.6 [facility] 1.2-4.9 3 triiodothyronine resin uptake 27 % [facility] 24-39 3 thyroxine, serum, total 9.7 ug/dL [facility] 4.5-12.0 3 thyroid stimulating hormone, serum 2.210 u[IU]/mL [facility] 0.450-4.500 HISTORY OF MEDICATION USE Medication Status Instructions Dates Provider Indications Com ments ASPIRIN ADULT LOW DOSE 81 MG ORAL TABLET DELAYED RELEASE active One Tab By Mouth Daily Ayaka Canas RN METHOTREXATE SODIUM 2.5 MG ORAL TABLET active 8 tabs every 7 days Madelyn O'Rob MELOXICAM 7.5 MG ORAL TABLET completed as needed - Madelyn O'Rob CO Q 10 CAPSULE active ONCE DAILY Madelyn O'Rob PRAVACHOL 40 MG ORAL TABLET active ONE TAB. DAILY Madelyn O'Rob GABAPENTIN 300 MG ORAL CAPSULE active take as needed Katya Medina METOPROLOL SUCCINATE ER 50 MG ORAL TABLET EXTENDED RELEASE 24 HOUR completed take one pill a day - Sangeeta Mckee CUTIVATE 0.05 % EXTERNAL CREAM active apply once daily Cuca Talley CLOBETASOL PROPIONATE 0.05 % EXTERNAL FOAM completed apply as needed - Madelyn Shaw'Rob VITAMIN D3 5000 UNIT ORAL TABLET active 1 tablet every other day Ayaka Canas RN MAGNESIUM CAPSULE completed 1 capsule at bedtime - Katya Medina OMEGA-3 KRILL OIL 300 MG ORAL CAPSULE active 2 tablets daily Molly Kearney OCUVITE PRESERVISION TABS active 2 tablets daily Molly Kearney VITAMIN C 500 MG ORAL TABLET completed 2 tablets daily- rarely taking - Katya Medina CALCIUM 600 MG ORAL TABLET completed 2 tablets daily - Cuca Talley GLUCOSAMINE SULFATE TABLET completed 2 tablets daily - Cuca Talley CLONIDINE HCL 0.1 MG ORAL TABLET completed 1 tablet daily - Chacorta Kauffman MD TRIAMTERENE-HCTZ 37.5-25 MG ORAL CAPSULE active take one pill alt with 2 pills every day Katya Medina PREDNISONE 5 MG ORAL TABLET completed 1/2 tablet daily - Sangeeta Mckee SYNTHROID 50 MCG ORAL TABLET active 1 tablet daily Ayaka Canas RN NADOLOL 20 MG ORAL TABLET completed alternate 1 tablet with 1/2 tablet daily - Madelyn Shaw'Rob NITROFURANTOIN MACROCRYSTAL 50 MG ORAL CAPSULE active take one pill at bedtime Katya Medina SOCIAL HISTORY Date Observation Value Provider exercise type back exercises Sangeeta Gonzales am physical exercise, f requency, days per week daily 10 minutes Sangeeta Mckee alcohol use, average drinks per day none Liberty Mckee alcohol use no Sangeeta Mckee caffeine use, averag e drinks per day 2 /d Sangeeta Mckee smoking status Never smoker Sangeeta penny caffeine use, averag e drinks per day 2 /d Martha Shahram exercise type back exercises Martha richter physical exercise, f requency, days per week daily 10 minutes Martha Omalley smoking status Never smoker Romy Christian exercise type walking Camelot Sweet physical exercise, f requency, days per week yes Camelot Sweet alcohol use, average drinks per day none Camelot Sweet alcohol use no Camelot Sweet smoking status Never smoker Camelot Sweet caffeine use, averag e drinks per day yes Camelot Sweet social history reviewed E&M revi ewed - no changes required Ayaka Canas RN smoking status Never smoker Madelyn Shaw'Rob smoking status Never smoker Romy Christian smoking status Never smoker Madelyn Shaw'Rob social history reviewed E&M revi ewed - no changes required Ayaka Canas RN number of grandchildren Chacortact Lopez physical exercise, f requency, days per week yes Sangeeta Mckee alcohol use, average drinks per day none Liberty Mckee alcohol use no Sangeeta Mckee caffeine use, averag e drinks per day yes Liberty Mckee smoking status Never smoker Sangeeta penny physical exercise, f requency, days per week yes Sangeeta Mckee alcohol use, average drinks per day none Sangeeta Mckee alcohol use no Sangeeta Mckee caffeine use, averag e drinks per day yes Liberty Mckee smoking status Never smoker Sangeeta penny social history reviewed E&M revi ewed - no changes required Ayaka Canas RN physical exercise, f requency, days per week yes Sangeeta Mckee alcohol use, average drinks per day none Sangeeta Gonzales alcohol use no Sangeeta Gonzales caffeine use, averag e drinks per day yes Sangeeta Mckee smoking status Never smoker Sangeeta penny social history reviewed E&M revi ewed - no changes required Chacorta Kauffman MD smoking status Never smoker Madelyn Estrada social history reviewed E&M revi ewed - no changes required Ayaka Canas RN alcohol use no Katya Alemanmacho donaldson smoking status Never smoker Katya donnelly social history reviewed E&M reviewed Chacorta Kauffman MD smoking status never smoker Cuca Talley social history reviewed E&M reviewed Chacorta Kauffman MD social history E&M Marital Statu s: L evangelina with family/friends E thnicity: Chacorta Kauffman MD social history reviewed E&M reviewed Chacorta Kauffman MD physical exercise, f requency, days per week yes [facility] caffeine use, averag e drinks per day yes [facility] alcohol use, average drinks per day none [facility] smoking status Non-smoker [facility] MENTAL STATUS Date Observation Value Provider assessment of judgme nt and insight E&M Alert and oriented to time, place and person. Mood and affect are normal. Chacorta Kauffman MD assessment of judgme nt and insight E&M Alert and oriented to time, place and person. Mood and affect are normal. Chacorta Kauffman MD assessment of judgme nt and insight E&M Alert and oriented to time, place and person. Mood and affect are normal. Chacorta Kauffman MD FAMILY HISTORY Family Member Condition Father Negative FH of Coron porfirio Artery Disease Mother Family History of Co ngestive Heart Failure: Mother Family History of Co ngestive Heart Failure: INSURANCE PROVIDERS Payer name Policy type / Coverage type Michaela red green party ID AARP MEDICARE ADVANTAGE ([facility] COMPLETE PPO) Other [id number] ADVANCE DIRECTIVES Name Date DISCUSSED - NO DECISION MADE TREATMENT PLAN Date Name Performer Cardiology: H er updated medication list for this problem includes: Aspirin Adult Low Dose 81 Mg Oral Tablet Delayed Release (Aspirin) ..... One tab by mouth daily Triamterene-hctz 37.5-25 Mg Oral Capsule (Triamterene-hctz) ..... Take one pill alt with 2 pills every day BP today: 138/84 P rior BP: 130/70 (09/21/2018) Labs Reviewed: C reat: 0.87 (12/24/2017) Chacortaiftikhar Kauffman MD Cardiology Chacortaiftikhar Kauffman MD Cardiology: H er updated medication list for this problem includes: Pravachol 40 Mg Oral Tablet (Pravastatin sodium) ..... One tab. daily Chacortaiftikhar Kauffman MD Cardiology:She is using cpap Soco Kauffman MD Cardiology:Went to e r with chest pains and was admitted and all her tests were negative. She still has some discomfort but the pain is going away. denies any further cp's. H er ct showed CCS 41, all in the LAD. Chacortaiftikhar Kauffman MD Cardiology:no change Ayaka lopez RN Cardiology:Went to e r with chest pains and was admitted and all her tests were negative. She still has some discomfort but the pain is going away. P ain is very atypical and has had negative testing - will hold off further cv evaluation. has a intermediate ascvd score of 12% r ecommend asa 81 mg once daily a lso can consider ccs Ayaka Canas RN Cardiology Ayaka Canas RN Cardiology:min HR 54 on monitor Ayaka Canas RN Cardiology:She has b een using CPAP regularly. Repeat monitor shows PVC burden now <1% Ayaka Canas RN Cardiology:BP today: 130/80 P rior BP: 150/80 (04/27/2018) Ayaka Canas RN Cardiology:She has b een using CPAP regularly. T he patient is using CPAP on a regular basis. The patient has been benefiting from therapy and should continue use. Ayaka Canas RN Cardiology:bp high w ill adjust diet and salt intake first o therwise will add another rx Ayaka Canas RN Cardiology:better with cpap rx A ed Canas RN Cardiology:redo zio as using cpap and her pvc burden may have decreased Ayaka Canas RN Cardiology:She start ed rx for her taylor. Her sob and fatigue is better also. SHe is exercisign on her bike at home. Ayaka Canas RN Cardiology:could be due to pvc's r est ok Ayaka Canas RN Cardiology:echo nl w ill wait for cta results r x taylor i f all ok and if pvc's dont get better options are rfa vs watchful waiting - hr too low for pvc suppression with BB or aad Ayaka Canas RN Cardiology:mild but will rx as could be causing her pvc's Ayaka Canas RN Cardiology:14.7% pvc s l owest hr 50 e lectrolytes wnl will do echo and cta cors to r/o shd Ayaka Canas RN Cardiology: She c/o getting sob and fatigued with walking short distances, mostly noticable at night after a bathroom trip. However, she has been able to walk 10 minutes when weather is good without SOB. PFT showed decreased lung volumes, but normal spirometry and normal diffusing capacity C MP, CBC wnl, proBNP, vit D, vit B12 wnl i devante sat 23%, ferritin 267 sob could be due to excessive pvc's n o pressure sealer and tester=notropic incompetence Ayaka Canas RN Cardiology:no chrono tropic incompetence on holter l owest hr 50 Ayaka Canas RN Cardiology:BP today: 120/76 P rior BP: 128/80 (08/18/2017) Ayaka Canas RN Cardiology:mild taylor - lowest sats 87% - probably not bad enough to be causing her sob Chacortact Kauffman MD Cardiology:wc Chacortaiftikhar Kauffman MD Cardiology:14.7% pvc burden c surendra carrerodavinamag m ild taylor n ormal echo m sharon need redo stress tst c an try evaluate and rx her frequent PVC's to see if this makes her feel better. l astly she wont tolerate any rx for her pvc's due to her bradycardia Chacortaiftikhar Kauffman MD Cardiology:no chronotropic incom petence on holter Chacortact Kauffman MD Cardiology:normal lv ef on echo, elevated E/e'- 2016 n ormal tsh n ormal stress test 2013 n o chronotropic incompetence on holter 1 4.7% pvc's- m ild taylor - lowest sats 87% - probably not bad enough to be causing her sob w ill check routine labs and pft's first Chacortact Kauffman MD Cardiology:ldl was 1 61 d own to 78 on pravachol 40 Chacortact Kauffman MD Cardiology - ltr don e:stop clonidine r/t shereen B P today: 118/80 P rior BP: 110/68 (02/19/2017) Chacortact Kauffman MD Cardiology - ltr done:check tsh Chacortact Kauffman MD Cardiology - ltr don e:She had slow hr and her BB which she was taking for htn and the BB was stopped. She c/o getting tired very easily and her HR is still low (50). Denies dizziness or lightheadedness. h as been off bb x3 wks will stop clonidine w ill do 48 hr zio patricio jimenezk tsh and sleep study (stopbang 5) m ay need ppm Chacortaiftikhar Kauffman MD Cardiology:still act roberto and denies cp, sob e cho today showed no significant change from 3 years ago w ill f/u prn Chacortaiftikhar Kauffman MD Cardiology:BP today: 110/68 P rior BP: 130/82 (02/21/2015) Chacorta Kauffman MD Follow up :mumur rel ated aortic sclerosis m ild AI by echo 02/2014 n egative nuclear stress test 02/2014 r epeat echo 2016 Ayaka Canas RN Follow up :BP today: 130/82 P rior BP: 132/82 (03/08/2014) Ayaka Canas RN follow up: H er updated medication list for this problem includes: Nadolol 20 Mg Tabs (Nadolol) ..... Alternate 1 tablet with 1/2 tablet daily Triamterene-hctz 75-50 Mg Tabs (Triamterene-hctz) ..... 1/2 tablet alternating with 1 tablet every other day Clonidine Hcl 0.1 Mg Tabs (Clonidine hcl) ..... 1 tablet daily Orders: E KG ([id number]) BP today: 132/82 P rior BP: 120/80 (03/17/2012) Chacorta Kauffman MD follow up:aortic scl erosis - echo scheduled for later this week at [facility] Chacorta Kauffman MD follow up: She has r ecently has an episode of chest pains when at rest and thsi was located across her chest and radiated to her jaw. Was dull in nature adn lasted about 30 minutes. She took some tums but is not sure if that helped. Denies sob. She has not been very active physically due to foot problems. will check stress test Chacorta Kauffman MD follow up Chacorta Kauffman MD follow up: H er updated medication list for this problem includes: Nadolol 20 Mg Tabs (Nadolol) ..... Alternate 1 tablet with 1/2 tablet daily Triamterene-hctz 75-50 Mg Tabs (Triamterene-hctz) ..... 1/2 tablet alternating with 1 tablet every other day Clonidine Hcl 0.1 Mg Tabs (Clonidine hcl) ..... 1 tablet daily Chacorta Kauffman MD follow up:aortic scl erosis- v elocity slightly high at 1.76- recheck in 2 years Chacorta Kauffman MD new patient:dr osbaldo noe MD new patient: H er updated medication list for this problem includes: Nadolol 20 Mg Tabs (Nadolol) ..... Alternate 1 tablet with 1/2 tablet daily Triamterene-hctz 75-50 Mg Tabs (Triamterene-hctz) ..... 1/2 tablet alternating with 1 tablet every other day Clonidine Hcl 0.1 Mg Tabs (Clonidine hcl) ..... 1 tablet daily Chacorta Kauffman MD new patient:? arotic sclerosis- check echo Chacorta Kauffman MD Date Name CT, Coronary Calcium Score CT Angio Coronaries Creatinine, Serum MAGNESIUM VITAMIN D, 25-HYDROX Y, LC/MS/MS VITAMIN B12 FERRITIN IRON AND TOTAL IRON BINDING CAPACITY COMPREHENSIVE METABO LIC PANEL, W/EGFR PROBNP, N TERMINAL CBC (INCLUDES DIFF/P LT) THYROID PANEL WITH T SH, 3RD GENERATION HISTORY OF PROCEDURES Procedure Date Procedure Name Provider Procedure Notes S tatus CT- Coronary CA score Chacorta Kauffman MD completed ZIO Holter Hookup Chacorta Kauffman MD com pleted FVC / MVV with [facility] hodilator - 14686 Chacorta Kauffman MD completed FRC - 97346 Chacorta Kauffman MD completed SpO2 - 14755 Chacorta Kauffman MD complete d DLCO - 99406 Chacorta Kauffman MD complete d SNOMED-CT: [id number] Current Medications Documented Chacorta Kauffman MD completed ZIO Holter Hookup Chacorta Kauffman MD com pleted EKG Chacorta Kauffman MD completed SNOMED-CT: [id number] Current Medications Documented Chacorta Kauffman MD completed SNOMED-CT: [id number] Current Medications Documented Chacorta Kauffman MD completed EKG Chacorta Kauffman MD completed EKG Chacorta Kauffman MD completed EKG Chacorta Kauffman MD completed
--- OUTSIDE RECORDS SUMMARY | 2024-11-03 10:05 | XMS_ITS | Encounter Summary ---
Author Organization [facility] Address [address] [place] [address] Care Team Providers Care Railway Signal Electrician Name Role Phone Juan Daniel Green MD Primary Care Provider [phone] Harman Rzizo MD Unavailable Jennifer Hart MD Primary Care Provider Rolf Deleon MD Unavailable Jennifer Hart MD Unavailable [phone] Chacorta Kauffman MD Unavailable Hesham Trevizo MD Unavailable Unavailable Malik Fernandez [place] Unavailable Jennifer Hart MD Unavailable [phone] Pcp, [facility] - Primary Care Provider Un available Encounter Details Date Type Department Care Team (Late st Contact Info) Description 03/10/2009 [facility] Outpatient Visit [place]TERNAL [place] [address] [address] Social History Tobacco Use Types Packs/Day Years Used Date Smoking Tobacco: Never Alcohol Use Standard Drinks/Week Comments No 0 (1 standard drink = 0.6 oz pur e alcohol) Sex and Gender Information Value Date Recorded Sex Assigned at Female 09/02/2020 9:03 AM SPRAY BLENDER Gender Identity Female 09/02/2020 9:03 AM SPRAY BLENDER Sexual Orientation Straight 09/02/2020 9: 03 AM SPRAY BLENDER documented as of this encounter Plan of Treatment Not on file documented as of this encounter Visit Diagnoses Not on filedocumented in this encounter Additional Health Concerns Infection Onset Date Last Indicated Resolved Time COVID-19 Under Investigation 12/20/2020 12/20/2020 12/30/2020 4:33 AM CDT COVID-19 Under Investigation 02/14/2021 02/14/2021 02/24/2021 4:33 AM CDT documented as of this encounter Care Teams Railway Signal Electrician Relationship Specialty Start Date End Date Juan Daniel Green MD PCP - General 10/19/08 01/01/16 Jennifer Hart MD PCP - General Family Medicine 01/02/16 04/17/23 Jennifer Hart MD [address] [facility] [address] [place] [address] PCP - Attributed-[facility] [place] 01/22/18 09/06/21 Jennifer Hart MD [address] [facility] [address] [place] [address] PCP - Attributed-[facility] [place] 10/23/21 04/08/22 Pcp, [facility]- PCP - General 04/18/23 Harman Rizzo MD Neurology 07/29/13 10/14/21 Rolf Deleon MD Urology 01/04/16 10/14/21 Chacorta Kauffman MD [address] [place], [place] [id number] Cardiovascular Disease 02/06/18 2 Hesham Trevizo MD [address] [place] [address] Rheumatology 08/11/18 Malik Fernandez DC [address] [place] [address] Chiropractic 10/15/21 documented as of this encounter
--- OUTSIDE RECORDS SUMMARY | 2024-11-03 10:05 | XMS_ITS | Referral Summary ---
Author Organization [facility] Address [address] [place] [address] Care Team Providers Care Fabrication Engineer Name Role Phone Hesham Trevizo MD Unavailable Unavailable Malik Fernandez [place] Unavailable Pcp, Dinora Krishnan [facility] Primary Care Provider Un available Source Comments [facility],non-owned Affiliates and Associated Physician Practices is amultiple site organization consisting of ambulatory clinics and hospital sitesin [place], [place], [place] and [place]. This disclosure is being madepursuant to the Care Everywhere program and may not contain all information available regarding this patient. Last updated 18.[facility] Allergies Active Allergy Reactions Criticality Noted Date [...] 09/28/2018 Immunizations Name Administration Dates Next Due MuseAmi primary monoval ent 12+ yr 0.3mL Purple cap 09/24/2021,12/20/2020(Deferred: See Comments - duplicate order),12/20/2020,12/01/2020 INFLUENZA VACCINE 08/11/2018 INFLUENZA VACCINE, HIGH-DOSE , QUADR. (FLUZONE HIGH-DOSE QUADRIVALENT; 65Y+), 0.7 ML (HD-IIV4) 08/11/2018 PNEUMOCOCCAL PPSV23 08/07/2017 Pneumococcal Pcv13 Conj 01/04/2016 TETANUS 05/16/2010 ZOSTER VACCINE, LIVE 06/01/2014 Zoster Hzv Vacc Recombinant Inj Im 10/09/2019, Social History Tobacco Use Types Packs/Day Years Used Date Smoking Tobacco: Never Smokeless Tobacco: Never Alcohol Use Standard Drinks/Week Comments No 0 (1 standard drink = 0.6 oz pur e alcohol) PHQ-2 Answer Date Recorded PHQ2 TOTAL SCORE 0 10/15/2021 Sex and Gender Information Value Date Recorded Sex Assigned at Female 09/02/2020 9:03 AM TUBE BENDER Gender Identity Female 09/02/2020 9:03 AM TUBE BENDER Sexual Orientation Straight 09/02/2020 9: 03 AM TUBE BENDER Last Filed Vital Signs Vital Sign Reading Time Taken Comments Blood Pressure 130/76 10/15/2021 9:57 AM TUBE BENDER Pulse 62 10/15/2021 9:57 AM TUBE BENDER Temperature 36.6 C (97.8 F) 10/15/2021 9:57 AM TUBE BENDER Respiratory Rate 18 10/15/2021 9:57 AM TUBE BENDER Oxygen Saturation 100% 10/15/2021 9:57 AM TUBE BENDER Inhaled Oxygen Concentration - - Weight 77.1 kg (170 lb) 11/13/2023 9:15 AM TUBE BENDER Height 157.5 cm (5' 2 ) 11/13/2023 9:15 AM TUBE BENDER Body Mass Index 31.09 11/13/2023 9:15 AM TUBE BENDER Functional Status Functional Status Response Date of Assess ment Is person deaf or have serious hearing difficult y? No 05/09/2020 Is person blind or have serious difficulty seein g? No 05/09/2020 Does person have serious dif ficulty walking/climbing stairs? Yes 05/09/2020 Does person have difficulty dressing/bathing? Ye s 05/09/2020 Does person have difficulty doing errands alone? Yes 05/09/2020 Cognitive Status Response Date of Assessm ent Does person have difficulty concentrating/remembering/making decisions? No 05/09/2020 Plan of Treatment Not on file Goals Goal Patient Goal Type Associated Problems Recent Progress Patient-Stated? Author Blood Pressure < 140/90 Blood Pressure 130/76(10/15 9:57 AM TUBE BENDER) No Keyur Evans Note: Caring for Your High Blood Pressure [...] Where can I go for more information? [place] [employer] National Center: http://www.americanheart.org 1. In the top header, click C onditions . 2. In the top header, click h igh blood pressure. 3. For a printable blood pressure tracker, scroll toward the bottom of the page to Related Tools, and click H BP Trackers. 1-688-RDZ-[place]-1 or ( ) National Heart, Lung and Blood Rives: http://www.nhlbi.nih.gov/health/infoctr/index.htm Exercise 5X per week (30 min per time) Exercise No Keyur Evans Note: The [place] [employer] recommends all adults [...] this encounter Medical Devices Implanted Type Area Wrister Device Identifier Shelf Expiration Date Model / Serial / Lot Cmnt Bone Djo Srg Cblt 40gm Hvisc Strl Implanted:Qty: 1 on 05/08/2020 by Edgar Telles MD at [facility] Left: Knee [employer] 10/14/2020 [id number] / / [id number] Tray Tib 67mm Kn Cocr I Beam Implanted:Qty: 1 on 05/08/2020 by Edgar Telles MD at [facility] Left: Knee [employer] 11/21/2029 [id number] / / [id number] Cmpnt Fem Kn Lt Cr Cmnt Prm Vngrd Intlk Implanted:Qty: 1 on 05/08/2020 by Edgar Telles MD at [facility] Left: Knee [employer] 11/21/2029 [id number] / / [id number] Cmpnt Ptlr 28mm 1 Pg Wire Ascnt Arcm Kn Implanted:Qty: 1 on 05/08/2020 by Edgar Telles MD at [facility] Left: Knee [employer] 04/13/2025 [id number] / / [id number] Brng [id number] Vngrd Arcm Kn Ant Stab Implanted:Qty: 1 on 05/08/2020 by Edgar Telles MD at [facility] Left: Knee [employer] 04/07/2025 [id number] / / [id number] Procedures Procedure Name Priority Date/Time Associated Diagnosis Comments COMPREHENSIVE METABOLIC PANEL Routine 10/15/2021 11:23 AM TUBE BENDER Essential hypertension with goal blood pressure less than 140/90 Pure hypercholesterolemia Seronegative rheumatoid arthritis (HCC) Systemic lupus erythematosus, unspecified SLE type, unspecified organ involvement status (HCC) Encounter for general adult medical examination with abnormal findings DEXA BONE DENSITY AXIAL SKELETON Routine 04/13/2020 8:32 AM CDT Osteopenia of thigh, unspecified laterality HEPATITIS C ANTIBODY Routine 08/13/2016 10:22 AM TUBE BENDER Need for hepatitis C screening test from Last 3 Months or Most Recently Relevant to Health Maintenance Results * COMPREHENSIVE METABOLIC PANEL (10/15/2021 11:23 AM TUBE BENDER) Glucose 89 70 - 105 mg/dL [facility] [...] BLOOD SPECIMEN / Unknown 10/15/2021 11:23 AM TUBE BENDER 10/15/2021 Narrative Resulting Agency Comment Lab Testing performed at: [address] [place] [id number] Jennifer Hart MD LAB - CHEMISTRY SONAM LOAIZA [facility] ACCOUNT BILL [address] [place] [address] * DEXA BONE DENSITY AXIAL SKELETON (04/13/2020 [...] * HEPATITIS C ANTIBODY (08/13/2016 10:22 AM TUBE BENDER) Hepatitis C Antibody Non Reactive Non Reactive [facility] ACCOUNT BILL Comment: Non Reactive - Antibodies to Hepatitis C virus (HCV) were no t detected, result does not exclude early acute HCV infection. Blood BLOOD SPECIMEN / Unknown 08/13/2016 10:22 AM TUBE BENDER 08/13/2016 Narrative Resulting Agency Comment [facility] [address] [facility] [phone] Jennifer Hart MD LAB - CHEMISTRY SONAM LOAIZA [facility] ACCOUNT BILL [address] [place] [address] from Last 3 Months or Most Recently Relevant to Health Maintenance Administered Medications Advance Directives * Full Code (Latest Code Status on File) Date Activated Date Inactivated Comments 05/08/2020 11:56 AM 05/09/2020 3:34 PM * Full Code Date Activated Date Inactivated Comments 09/09/2018 3:12 PM 09/11/2018 3:35 PM Care Teams Fabrication Engineer Relationship Specialty Start Date End Date PcpDinora - PCP - General 04/18/23 Hesham Trevizo MD Rheumatology 08/11/18 Malik Fernandez DC [address] [place] [address] Chiropractic 10/15/21
--- OUTSIDE RECORDS SUMMARY | 2024-11-03 10:05 | XMS_ITS | Patient Health Summary ---
Author Organization [facility] Address [address] [place] [address] Care Team Providers Care Machine Shop Inspector Name Role Phone Hesham Trevizo MD Unavailable Unavailable Malik Fernandez DC Unavailable Pcp, Dinora Krishnan Im-Fm Primary Care Provider Un available Note from [facility] [place],non-owned Affiliates and Associated Physician Practices is amultiple site organization consisting of ambulatory clinics and hospital sitesin [place], [place], [place] and [place]. This disclosure is being madepursuant to the Care Everywhere program and may not contain all information available regarding this patient. Last updated 18.[facility] Allergies * Amoxicillin Trihydrate(Urticaria) -Medium Criticality * Bactrim Ds(Urticaria) -Medium Criticality * Cefaclor(Urticaria) -Medium Criticality * Erythromycin(Urticaria,Nausea and/or Vomiting) -Medium Criticality * Estradiol(Headache) -Medium Criticality * Estraderm(Other) -High Criticality * Fluticasone Propionate(Dizziness) * Levofloxacin(Rash) -Medium Criticality * Penicillins(Urticaria) -Medium Criticality * Polymyxin B-Trimethoprim * Sulfa Drugs(Rash) -Medium Criticality * Trimethoprim(Urticaria) -Medium Criticality * Vancomycin(Rash) -Medium Criticality Medications * Be aware that medications may not be up to date on this document. Alwaysverify current medications with the patient. * fexofenadine (XIMENA) 180 MG tablet(Started 09/18/2010) Take 1 Tab by mouth daily. * vitamin D3 (D-3-5) 5000 UNITS capsule Take 5,000 Units by mouth every 2 days. * methotrexate 2.5 MG tablet Take 20 mg by mouth * Vitamin Mixture (VITAMIN E COMPLETE PO) Take 180 mg by mouth * ascorbic acid (VITAMIN C) 500 MG tablet Take 500 mg by mouth once daily * folic acid 400 MCG tablet Take 400 mcg by mouth once daily * Multiple Vitamins-Minerals (ICAPS AREDS 2 PO) Take 2 capsules by mouth once daily * BLACK ELDERBERRY PO Take 2 tablets by mouth once daily * Coenzyme Q10 (COQ10) 100 MG * gabapentin (NEURONTIN) 300 MG capsule(Started 04/11/2021) Take 300 mg by mouth at bedtime * clindamycin (CLEOCIN) 300 MG capsule(Started 06/04/2021) * methotrexate 2.5 MG tablet(Started 06/02/2021) * SYNTHROID 50 MCG tablet(Started 09/10/2021) TAKE 1 TABLET BY MOUTH DAILY BEFORE BREAKFAST FOR UNDERACTIVE THRYOID 3 refills by 09/10/2022 * triamterene-hydroCHLOROthiazide (Dyazide) 37.5-25 MG capsule(Started 07/27/2022) TAKE 1 CAPSULE BY MOUTH ONCE DAILY * pravastatin (Pravachol) 40 MG tablet(Started 08/07/2022) Take 1 (one) tablet by mouth at bedtime Reasons: High Amount of Fats in the Blood Active Problems Problem Noted Date Diagnosed Date Presence of left artificial knee joint 1 Primary osteoarthritis of left knee 02/16/2020 Arthritis of left knee 05/03/2019 Degeneration of meniscus of knee, left 9 Effusion of left knee 05/03/2019 [place] on CPAP 08/11/2018 Seronegative rheumatoid arthritis 08/11/2018 Aortic valve sclerosis 02/21/2015 Thyroid nodule 02/15/2015 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 (FLUZONE HIGH-DOSE QUADRIVALENT; 65Y+), 0.7 ML (HD-IIV4)(Given 08/11/2018) * PNEUMOCOCCAL PPSV23(Given 08/07/2017) * Pneumococcal Pcv13 Conj(Given 01/04/2016) * TETANUS(Given 05/16/2010) * ZOSTER VACCINE, LIVE(Given 06/01/2014) * Zoster Hzv Vacc Recombinant Inj Im(Given 10/09/2019, 07/26/2019) Social History Tobacco Use Types Packs/Day Years Used Date Smoking Tobacco: Never Smokeless Tobacco: Never Alcohol Use Standard Drinks/Week Comments No 0 (1 standard drink = 0.6 oz pur e alcohol) PHQ-2 Answer Date Recorded PHQ2 TOTAL SCORE 0 10/15/2021 Sex and Gender Information Value Date Recorded Sex Assigned at Female 09/02/2020 9:03 AM PLATER HOT DIP Gender Identity Female 09/02/2020 9:03 AM PLATER HOT DIP Sexual Orientation Straight 09/02/2020 9: 03 AM PLATER HOT DIP Last Filed Vital Signs Vital Sign Reading Time Taken Comments Blood Pressure 130/76 10/15/2021 9:57 AM PLATER HOT DIP Pulse 62 10/15/2021 9:57 AM PLATER HOT DIP Temperature 36.6 C (97.8 F) 10/15/2021 9:57 AM PLATER HOT DIP Respiratory Rate 18 10/15/2021 9:57 AM PLATER HOT DIP Oxygen Saturation 100% 10/15/2021 9:57 AM PLATER HOT DIP Inhaled Oxygen Concentration - - Weight 77.1 kg (170 lb) 11/13/2023 9:15 AM PLATER HOT DIP Height 157.5 cm (5' 2 ) 11/13/2023 9:15 AM PLATER HOT DIP Body Mass Index 31.09 11/13/2023 9:15 AM PLATER HOT DIP Medical Devices Implanted Type Area Restaurant District Manager Device Identifier Shelf Expiration Date Model / Serial / Lot Cmnt Bone Djo Srg Cblt 40gm Hvisc Strl Implanted:Qty: 1 on 05/08/2020 by Edgar Telles MD at [facility] Left: Knee [employer] 10/14/2020 [id number] / / [id number] Tray Tib 67mm Kn Cocr I Beam Implanted:Qty: 1 on 05/08/2020 by Edgar Telles MD at [facility] Left: Knee [employer] 11/21/2029 [id number] / / [id number] Cmpnt Fem Kn Lt Cr Cmnt Prm Vngrd Intlk Implanted:Qty: 1 on 05/08/2020 by Edgar Telles MD at [facility] Left: Knee [employer] 11/21/2029 [id number] / / [id number] Cmpnt Ptlr 28mm 1 Pg Wire Ascnt Arcm Kn Implanted:Qty: 1 on 05/08/2020 by Edgar Telles MD at [facility] Left: Knee [employer] 04/13/2025 [id number] / / [id number] [id number] Vngrd Arcm Kn Ant Stab Implanted:Qty: 1 on 05/08/2020 by Edgar Telles MD at [facility] Left: Knee [employer] 04/07/2025 [id number] / / [id number] Procedures * MAMMO BILAT SCREENING W STEPHANIE(Performed 11/13/2023) Performed for Encounter for screening mammogram for malignant neoplasm of breast * LAB RESULTS ORDER(Performed 01/08/2022) * US THYROID(Performed 10/31/2021) Performed for Hot flashes, Hypothyroidism, adult, Thyroid nodule, Family history of malignant neoplasm of thyroid * MAMMO BILAT SCREENING W STEPHANIE(Performed 10/31/2021) Performed for Encounter for screening mammogram for breast cancer * VITAMIN D 25-HYDROXY(Performed 10/15/2021) Performed for Vitamin D deficiency, Encounter for general adult medical examination with abnormal findings * ERYTHROCYTE SEDIMENTATION RATE(Performed 10/15/2021) Performed for Hot flashes, Seronegative rheumatoid arthritis (HCC), Systemic lupus erythematosus, unspecified SLE type, unspecified organ involvement status (HCC), Encounter for general adult medicalexamination with abnormal findings * C-REACTIVE PROTEIN(Performed 10/15/2021) Performed for Hot flashes, Seronegative rheumatoid arthritis (HCC), Systemic lupus erythematosus, unspecified SLE type, unspecified organ involvement status (HCC), Encounter for general adult medicalexamination with abnormal findings * TSH HI LOW REFLEX FREE T4(Performed 10/15/2021) Performed for Hot flashes, Pure hypercholesterolemia, Encounter for general adult medical examination with abnormal findings * LIPID PROFILE REFLEX LDL DIRECT(Performed 10/15/2021) Performed for Essential hypertension with goal blood pressure less than 140/90, Pure hypercholesterolemia, Encounter for general adult medical examination with abnormal findings * COMPREHENSIVE METABOLIC PANEL(Performed 10/15/2021) Performed for Essential hypertension with goal blood pressure less than 140/90, Pure hypercholesterolemia, Seronegative rheumatoid arthritis (HCC), Systemic lupus erythematosus, unspecified SLE type,unspecified organ involvement status (HCC), Encounter for general adult medical examination with abnormal findings * CBC W AUTO DIFFERENTIAL(Performed 10/15/2021) Performed for Essential hypertension with goal blood pressure less than 140/90, Pure hypercholesterolemia, Seronegative rheumatoid arthritis (HCC), Systemic lupus erythematosus, unspecified SLE type,unspecified organ involvement status (HCC), Encounter for general adult medical examination with abnormal findings * XR KNEE LEFT 3VW(Performed 08/23/2021) Performed for Aftercare following left knee joint replacement surgery * STREP A SCREEN - POINT OF CARE (AMB)(Performed 02/14/2021) Performed for Sore throat, Fever, unspecified fever cause * SARS-COV-2 (COVID-19) AG (AMB) POCT(Performed 02/14/2021) Performed for Sore throat, Cough, Chest congestion, PND (post-nasal drip), Fever, unspecified fevercause, Chills * INFLUENZA A+B - POINT OF CARE (AMB)(Performed 02/14/2021) Performed for Sore throat, Cough, Chest congestion, PND (post-nasal drip), Fever, unspecified fevercause, Chills * XR CHEST 2VW(Performed 10/12/2020) Performed for Annual physical exam, Abnormal chest x-ray * VITAMIN D 25-HYDROXY(Performed 10/12/2020) Performed for Vitamin D deficiency, Annual physical exam * HEMOGLOBIN A1C W EAG(Performed 10/12/2020) Performed for Annual physical exam, Prediabetes * TSH(Performed 10/12/2020) Performed for Hypothyroidism, adult, Pure hypercholesterolemia, Annual physical exam * LIPID PROFILE REFLEX LDL DIRECT(Performed 10/12/2020) Performed for Pure hypercholesterolemia, Annual physical exam * CBC W AUTO DIFFERENTIAL(Performed 10/12/2020) Performed for Systemic lupus erythematosus, unspecified SLE type, unspecified organ involvement status (HCC), Seronegative rheumatoid arthritis (HCC), Essential hypertension with goal blood pressure less than 140/90, Annual physical exam * COMPREHENSIVE METABOLIC PANEL(Performed 10/12/2020) Performed for Pure hypercholesterolemia, Systemic lupus erythematosus, unspecified SLE type, unspecified organ involvement status (HCC), Seronegative rheumatoid arthritis (HCC), Essential hypertension with goal blood pressure less than 140/90, Annual physical exam * C-REACTIVE PROTEIN(Performed 10/12/2020) Performed for Pure hypercholesterolemia, Systemic lupus erythematosus, unspecified SLE type, unspecified organ involvement status (HCC), Seronegative rheumatoid arthritis (HCC), Annual physical exam * SARS-COV-2 (COVID-19) ANTIBODY IGG [facility](Performed 10/12/2020) Performed for Anosmia, Annual physical exam * IMAGING/RADIOLOGY/XRAY RESULTS ORDER(Performed 08/29/2020) * IMAGING/RADIOLOGY/XRAY RESULTS ORDER(Performed 08/29/2020) * IMAGING/RADIOLOGY/XRAY RESULTS ORDER(Performed 08/29/2020) * HGB HCT PANEL(Performed 05/09/2020) Performed for Primary osteoarthritis of left knee * BASIC METABOLIC PANEL (CALCIUM TOTAL)(Performed 05/09/2020) Performed for Primary osteoarthritis of left knee * NEURAXIAL BLOCK(Performed 05/08/2020) * ARTHROPLASTY TOTAL KNEE(Performed 05/08/2020) * SARS-COV-2 (COVID-19) IN HOUSE(Performed 05/05/2020) Performed for Preop examination * MAMMO BILAT SCREENING(Performed 04/28/2020) Performed for Encounter for screening mammogram for breast cancer * TSH(Performed 04/14/2020) Performed for Preop cardiovascular exam, Laboratory examination ordered as part of a complete physical examination, Hypothyroidism, adult * HEMOGLOBIN A1C W EAG(Performed 04/14/2020) Performed for Preop cardiovascular exam, Laboratory examination ordered as part of a complete physical examination * LIPID PROFILE REFLEX LDL DIRECT(Performed 04/14/2020) Performed for Preop cardiovascular exam, Laboratory examination ordered as part of a complete physical examination, Pure hypercholesterolemia * COMPREHENSIVE METABOLIC PANEL(Performed 04/14/2020) Performed for Preop cardiovascular exam, Laboratory examination ordered as part of a complete physical examination, Essential hypertension with goal blood pressure less than 140/90, Pure hypercholesterolemia * CBC W AUTO DIFFERENTIAL(Performed 04/14/2020) Performed for Preop cardiovascular exam, Laboratory examination ordered as part of a complete physical examination, Essential hypertension with goal blood pressure less than 140/90 * EKG 12-LEAD(Performed 04/14/2020) Performed for Preop cardiovascular exam, Essential hypertension with goal blood pressure less than 140/90 * DEXA BONE DENSITY AXIAL SKELETON(Performed 04/13/2020) Performed for Osteopenia of thigh, unspecified laterality * XR KNEE LEFT 4VW OR MORE(Performed 08/03/2019) Performed for Degeneration of meniscus of knee, left, Arthritis of left knee, Acute pain of left knee * TSH(Performed 02/10/2019) Performed for Essential hypertension with goal blood pressure less than 140/90, Hypothyroidism, adult * LIPID PROFILE(Performed 02/10/2019) Performed for Essential hypertension with goal blood pressure less than 140/90 * CBC W AUTO DIFFERENTIAL(Performed 02/10/2019) Performed for Essential hypertension with goal blood pressure less than 140/90 * COMPREHENSIVE METABOLIC PANEL(Performed 02/10/2019) Performed for Essential hypertension with goal blood pressure less than 140/90 * IMAGING/RADIOLOGY/XRAY RESULTS ORDER(Performed 12/09/2018) * CARDIAC RHYTHM STRIP ORDER(Performed 10/29/2018) * CARDIAC EKG ORDER(Performed 09/18/2018) * NM MYOCARD PERF REST STRESS(Performed 09/11/2018) Performed for Essential hypertension with goal blood pressure less than 140/90 * STRESS TEST LEXISCAN (NUCLEAR)(Performed 09/11/2018) Performed for Essential hypertension with goal blood pressure less than 140/90 * BASIC METABOLIC PANEL (CALCIUM TOTAL)(Performed 09/11/2018) Performed for Chest pain, unspecified type * ECHOCARDIOGRAM 2D WITH DOPPLER(Performed 09/10/2018) Performed for Chest pain, unspecified type * TROPONIN I(Performed 09/09/2018) * TROPONIN I(Performed 09/09/2018) * CT ANGIO CHEST PULM EMBOLISM(Performed 09/09/2018) Performed for Chest pain, unspecified type * XR CHEST 1VW PORTABLE(Performed 09/09/2018) Performed for Chest pain, unspecified type * URINE MICROSCOPIC ONLY REFLEX TO CULTURE(Performed 09/09/2018) * URINALYSIS REFLEX MICROSCOPIC REFLEX CULTURE(Performed 09/09/2018) * CULTURE URINE(Performed 09/09/2018) * MAGNESIUM BLOOD(Performed 09/09/2018) * D-DIMER(Performed 09/09/2018) * PT PTT PANEL(Performed 09/09/2018) * TSH(Performed 09/09/2018) * TROPONIN I(Performed 09/09/2018) * NT-PRO BNP(Performed 09/09/2018) * COMPREHENSIVE METABOLIC PANEL(Performed 09/09/2018) * CBC W AUTO DIFFERENTIAL(Performed 09/09/2018) * EKG 12-LEAD(Performed 09/09/2018) Performed for Chest pain, unspecified type * MAMMOGRAPHY ORDER(Performed 03/12/2018) * LIPID PROFILE(Performed 02/05/2018) Performed for Pure hypercholesterolemia * VITAMIN D 25-HYDROXY(Performed 02/05/2018) Performed for Vitamin D deficiency * TSH(Performed 02/05/2018) Performed for Hypothyroidism, adult, Malaise and fatigue * COMPREHENSIVE METABOLIC PANEL(Performed 02/05/2018) Performed for Essential hypertension with goal blood pressure less than 140/90, Malaise and fatigue * CBC W AUTO DIFFERENTIAL(Performed 02/05/2018) Performed for Malaise and fatigue * POLYSOMNOGRAPHY 4 OR MORE PARAMETERS(Performed 02/03/2018) * CARDIAC PROCEDURE ORDER(Performed 01/05/2018) * IMAGING/RADIOLOGY/XRAY RESULTS ORDER(Performed 12/02/2017) * LAB RESULTS ORDER(Performed 08/18/2017) * POLYSOMNOGRAPHY 4 OR MORE PARAMETERS(Performed 07/24/2017) * LAB RESULTS ORDER(Performed 07/24/2017) * CARDIAC HOLTER MONITOR ORDER(Performed 07/23/2017) * DEXA BONE DENSITY AXIAL SKELETON(Performed 04/10/2017) Performed for Encounter for imaging to assess osteoporosis * CARDIAC ECHOCARDIOGRAM COMPLETE ORDER(Performed 02/19/2017) * TSH(Performed 02/10/2017) Performed for Hypothyroidism, adult * LIPID PROFILE(Performed 02/10/2017) Performed for Pure hypercholesterolemia * HEPATITIS C ANTIBODY(Performed 08/13/2016) Performed for Need for hepatitis C screening test * LIPID PROFILE(Performed 08/13/2016) Performed for Pure hypercholesterolemia * MAGNESIUM BLOOD(Performed 08/13/2016) Performed for Muscle cramps * COMPREHENSIVE METABOLIC PANEL(Performed 08/13/2016) Performed for Essential hypertension with goal blood pressure less than 140/90, Muscle cramps * TSH(Performed 08/13/2016) Performed for Pure hypercholesterolemia, Hypothyroidism, adult * MRI LUMBAR SPINE WWO CONTRAST(Performed 05/23/2016) Performed for Right lumbar radiculopathy * XR SHOULDER BILAT 2VW OR MORE(Performed 05/13/2016) Performed for Bilateral shoulder pain, unspecified chronicity * XR PELVIS W BILAT HIP 2VW(Performed 05/13/2016) Performed for Low back pain, unspecified back pain laterality, unspecified chronicity, with sciatica presence unspecified * XR KNEE BILAT 2VW OR LESS(Performed 11/15/2015) Performed for Bilateral primary osteoarthritis of knee * VITAMIN D 25-HYDROXY(Performed 08/16/2014) Performed for Vitamin D deficiency * LIPID PROFILE(Performed 08/16/2014) Performed for Pure Hypercholesterolemia * TSH(Performed 08/16/2014) Performed for Hypothyroid * COMPREHENSIVE METABOLIC PANEL(Performed 08/16/2014) Performed for Unspecified diffuse connective tissue disease (HCC) * CBC W AUTO DIFFERENTIAL(Performed 08/16/2014) Performed for Unspecified diffuse connective tissue disease (HCC) * XR LUMBAR SPINE 2 OR 3VW(Performed 04/21/2014) Performed for Back pain * US THYROID(Performed 02/18/2014) Performed for Goiter * EMG WITH NERVE CONDUCTION STUDY(Performed 12/27/2013) Performed for Peroneal palsy * MRI LUMBAR SPINE WO CONTRAST(Performed 09/01/2013) Performed for Lumbosacral radiculopathy at L5 * COMPREHENSIVE METABOLIC PANEL(Performed 07/07/2013) Performed for Unspecified diffuse connective tissue disease (HCC) * CBC W AUTO DIFFERENTIAL(Performed 07/07/2013) Performed for Unspecified diffuse connective tissue disease (HCC) * EMG(Performed 06/28/2013) Performed for Peroneal palsy * FINE NEEDLE ASPIRATION - THYROID (STL)(Performed 05/12/2013) Performed for Nontoxic uninodular goiter * US THYROID(Performed 05/04/2013) Performed for Right thyroid nodule * XR KNEE BILAT 4VW OR MORE(Performed 05/04/2013) Performed for Knee pain * DEXA BONE DENSITY RHEUMAT READ(Performed 05/04/2013) Performed for Ovarian failure * SHERMAN STAINING PATTERNS REFLEXED(Performed 12/08/2012) Performed for Elevated antinuclear antibody (JOSE) level * URINALYSIS MICROSCOPIC ONLY REFLEXED(Performed 12/08/2012) Performed for Frequent UTI * TSH(Performed 12/08/2012) Performed for Hypothyroid * LIPID PROFILE(Performed 12/08/2012) Performed for Pure hypercholesterolemia * URINALYSIS REFLEX MICROSCOPIC REFLEX CULTURE(Performed 12/08/2012) Performed for Frequent UTI * JOSE BLOOD SCREEN W/REFLEX TITER(Performed 12/08/2012) Performed for Elevated antinuclear antibody (JOSE) level * JOSE PANEL COMPREHENSIVE(Performed 12/08/2012) Performed for Elevated antinuclear antibody (JOSE) level * C-REACTIVE PROTEIN(Performed 12/08/2012) Performed for Unspecified diffuse connective tissue disease (HCC) * VITAMIN D 25-HYDROXY(Performed 12/08/2012) Performed for Unspecified vitamin D deficiency * COMPREHENSIVE METABOLIC PANEL(Performed 12/08/2012) Performed for Medication monitoring encounter * CBC W AUTO DIFFERENTIAL(Performed 12/08/2012) Performed for Medication monitoring encounter * CULTURE URINE(Performed 12/08/2012) Performed for Frequent UTI * CARDIAC ECHOCARDIOGRAM COMPLETE ORDER(Performed 02/01/2012) * C-REACTIVE PROTEIN(Performed 12/10/2011) Performed for Unspecified diffuse connective tissue disease (HCC) * LIPID PROFILE(Performed 12/10/2011) Performed for Pure hypercholesterolemia * TSH(Performed 12/10/2011) Performed for Pure hypercholesterolemia * CBC W AUTO DIFFERENTIAL(Performed 12/10/2011) Performed for Medication monitoring encounter * VITAMIN D 25-HYDROXY(Performed 12/10/2011) Performed for Vitamin D deficiency * COMPREHENSIVE METABOLIC PANEL(Performed 12/10/2011) Performed for Medication monitoring encounter * LIPID PROFILE(Performed 06/11/2011) Performed for High Blood Pressure * CBC W AUTO DIFFERENTIAL(Performed 06/11/2011) Performed for Connective tissue disease (HCC) * URINE MICROSCOPIC ONLY(Performed 01/14/2011) Performed for Elevated antinuclear antibody (JOSE) level * LIPID PROFILE(Performed 01/14/2011) Performed for Hypothyroid * TSH(Performed 01/14/2011) Performed for Hypothyroid * COMPREHENSIVE METABOLIC PANEL(Performed 01/14/2011) Performed for High Blood Pressure * URINALYSIS REFLEX MICROSCOPIC REFLEX CULTURE(Performed 01/14/2011) Performed for Elevated antinuclear antibody (JOSE) level * JOSE W REFLX (POSITIVE)(Performed 01/14/2011) Performed for Elevated antinuclear antibody (JOSE) level * CULTURE URINE(Performed 01/14/2011) Performed for Elevated antinuclear antibody (JOSE) level * GENERAL HEALTH PANEL(Performed 07/16/2010) Performed for High Blood Pressure, Spinal stenosis * LIPID PROFILE(Performed 07/16/2010) Performed for Hypothyroid * URINE MICROSCOPIC ONLY(Performed 07/16/2010) Performed for Elevated antinuclear antibody (JOSE) level * URINALYSIS REFLEX MICROSCOPIC REFLEX CULTURE(Performed 07/16/2010) Performed for Elevated antinuclear antibody (JOSE) level * CULTURE URINE(Performed 07/16/2010) Performed for Elevated antinuclear antibody (JOSE) level * XR FINGER(S) RIGHT(Performed 06/14/2010) Performed for Pain in soft tissues of limb * LIPID PROFILE(Performed 12/04/2009) Performed for Elevated Cholesterol * XR CERVICAL SPINE 2 OR 3VW(Performed 06/06/2009) Performed for Degeneration of Cervical Intervertebral Disc * JOSE W REFLX (POSITIVE)(Performed 04/10/2009) Performed for Connective Tissue Disease (Hcc) * GENERAL HEALTH PANEL(Performed 04/10/2009) * VITAMIN D 25-HYDROXY(Performed 04/10/2009) Performed for Vitamin D Deficiency * LIPID PROFILE(Performed 04/10/2009) Performed for Pure Hypercholesterolemia * ERYTHROCYTE SEDIMENTATION RATE(Performed 04/10/2009) Performed for Connective Tissue Disease (Hcc) * RHEUMATOID FACTOR BLOOD QUANTITATIVE(Performed 04/10/2009) Performed for Connective Tissue Disease (Hcc) * C-REACTIVE PROTEIN(Performed 04/10/2009) Performed for Connective Tissue Disease (Hcc) * URINALYSIS - POINT OF CARE(Performed 04/10/2009) Performed for Connective Tissue Disease (Hcc) * XR CERVICAL SPINE 2 OR 3VW(Performed 11/21/2008) Performed for Follow-Up Surgery NOS * XR CERVICAL SPINE 1VW(Performed 11/21/2008) Performed for Cervicalgia * XR CERVICAL SPINE 1VW(Performed 11/21/2008) Performed for Cervicalgia * CULTURE URINE(Performed 11/18/2008) * TYPE + SCREEN PANEL(Performed 11/17/2008) Performed for Unspecified Pre-Operative Examination * BASIC METABOLIC PANEL (CALCIUM TOTAL)(Performed 11/17/2008) Performed for Unspecified Pre-Operative Examination * URINE MICROSCOPIC ONLY(Performed 11/17/2008) Performed for Unspecified Pre-Operative Examination * URINALYSIS NO MICROSCOPIC NO CULTURE(Performed 11/17/2008) Performed for Unspecified Pre-Operative Examination * HGB HCT PANEL(Performed 11/17/2008) Performed for Unspecified Pre-Operative Examination * VITAMIN D 25-HYDROXY(Performed 10/10/2008) Results * MAMMO BILAT SCREENING W STEPHANIE (11/13/2023 9:16 AM PLATER HOT DIP) Only the most recent of2 resultswithin the time period is included. Anatomical Region Laterality Modality Breast Bilateral Mammography 11/13/2023 2:25 PM PLATER HOT DIP Impressions 11/13/2023 2:27 PM PLATER HOT DIP : There is no mammographic evidence of malignancy. OVERALL FINAL ASSESSMENT: BI-RADS Category 1: Negative. Annual screening mammography is recommended. > Interpreting Provider: Destiny Seth MD on 11/13/2023 2:27 PM Narrative 11/13/2023 2:27 PM PLATER HOT DIP EXAMINATION: BILATERAL DIGITAL SCREENING MAMMOGRAM AND BILATERAL BREAST TOMOSYNTHESIS HISTORY: Screening. COMPARISON: Serial examinations dating back to 2015. TECHNIQUE: BILATERAL digital breast tomosynthesis (DBT) and synthetic 2D digital mammogram images were obtained (bilateral craniocaudal and mediolateral oblique projections) including computer aided detection (CAD.) BREAST PARENCHYMAL COMPOSITION:Category B: There are scattered areas of fibroglandular density. MAMMOGRAM FINDINGS: There are no new suspicious masses, calcifications, or areas of architectural distortion in either breast, and there has been no significant interval change. Yunior Nails MD MAMMO ORDERABLES * LAB RESULTS ORDER (01/08/2022) Only the most recent of3 resultswithin the time period is included. 01/08/2022 Narrative 01/08/2022 Ordered by an unspecified provider. Scanned Document LAB - THERAPEUTIC DR GIBBS MONITORING ORDERABLES * US THYROID (10/31/2021 11:28 AM PLATER HOT DIP) Only the most recent of3 resultswithin the time period is included. Anatomical Region Laterality Modality Chest Ultrasound 10/31/2021 3:30 PM PLATER HOT DIP Impressions 10/31/2021 4:04 PM PLATER HOT DIP 1. Multiple nodules of the right lobe of the thyroid. This includes a TI-RADS 3 lesion which measures less than 1.5 cm. Follow-up ultrasound within one year is recommended. 2. Multiple nodules of the left lobe of the thyroid including a TI-RADS 3 lesion. Follow-up ultrasound is again recommended. Edited by Mere Rg on 10/31/2021 4:00 PM *Reading Radiologist: Binh Patel on 10/31/2021 at 4:04 PM Narrative 10/31/2021 4:04 PM PLATER HOT DIP HISTORY: Thyroid nodules. COMPARISON: 02/18/2014. DATE: 10/31/2021 10:11 AM. PROCEDURE: US THYROID*[id number] FINDINGS: The right lobe of the thyroid measures 46 x 20 x 18 mm. There is a hypoechoic nodule with smooth margins at the middle third of the right lobe of the thyroid measuring 12 x 7 x 11 mm. This appeared to have been present on previous exam although it was not measured. Morphology is similar. This is a TI-RADS 2 process. There is a hyperechoic nodule at the right lobe of the thyroid which measures 12 x 9 x 11 mm. There is some flow seen within the structure. This is a TI-RADS 3 finding and follow-up ultrasound within one year is recommended. If there is a higher degree of clinical suspicion, ultrasound directed FNA biopsy could be performed. The isthmus appears normal with no mass identified. The left lobe of the thyroid measures 46 x 17 x 20 mm. There is an iso- to slightly hypoechoic nodule at the left lobe of the thyroid superior pole which measures 7 x 5 x 6 mm. This has a more benign appearance and is a TI-RADS 2. There is a slightly hyperechoic nodule at the middle third of the thyroid measuring 14 x 8 x 10 mm. This was not clearly demonstrated on previous study. This is a TI-RADS 3 finding. There is a heterogenous but primarily hypoechoic nodule at the inferior aspect of the left lobe of the thyroid which measures 9 x 7 x 6 mm present on previous study and measured 7 x 6 x 6 mm. This is relatively stable. Continued follow-up imaging within one year is recommended. Procedure Note Binh Patel MD - 10/31/2021 HISTORY: Thyroid nodules. COMPARISON: 02/18/2014. DATE: 10/31/2021 10:11 AM. PROCEDURE: US THYROID*[id number] FINDINGS: The right lobe of the thyroid measures 46 x 20 x 18 mm. There is a hypoechoic nodule with smooth margins at the middle third of the right lobe of the thyroid measuring 12 x 7 x 11 mm. This appeared to have been present on previous exam although it was not measured. Morphology is similar. This is a TI-RADS 2 process. There is a hyperechoic nodule at the right lobe of the thyroid which measures 12 x 9 x 11 mm. There is some flow seen within the structure. This is a TI-RADS 3 finding and follow-up ultrasound within one year is recommended. If there is a higher degree of clinical suspicion, ultrasound directed FNA biopsy could be performed. The isthmus appears normal with no mass identified. The left lobe of the thyroid measures 46 x 17 x 20 mm. There is an iso- to slightly hypoechoic nodule at the left lobe of the thyroid superior pole which measures 7 x 5 x 6 mm. This has a more benign appearance and is a TI-RADS 2. There is a slightly hyperechoic nodule at the middle third of the thyroid measuring 14 x 8 x 10 mm. This was not clearly demonstrated on previous study. This is a TI-RADS 3 finding. There is a heterogenous but primarily hypoechoic nodule at the inferior aspect of the left lobe of the thyroid which measures 9 x 7 x 6 mm present on previous study and measured 7 x 6 x 6 mm. This is relatively stable. Continued follow-up imaging within one year is recommended. IMPRESSION 1. Multiple nodules of the right lobe of the thyroid. This includes a TI-RADS 3 lesion which measures less than 1.5 cm. Follow-up ultrasound within one year is recommended. 2. Multiple nodules of the left lobe of the thyroid including a TI-RADS 3 lesion. Follow-up ultrasound is again recommended. Edited by Mere Rg on 10/31/2021 4:00 PM *Reading Radiologist: Binh Patel on 10/31/2021 at 4:04 PM Jennifer Hart MD US ORDERABLES * LIPID PROFILE REFLEX LDL DIRECT (10/15/2021 11:23 AM PLATER HOT DIP) Only the most recent of3 resultswithin the time period is included. Cholesterol 176 <200 mg/dL [facility] ACCOUNT BILL Triglycerides 100 <150 mg/dL [facility] ACCOUNT BILL HDL Cholesterol 59 >40 mg/dL [facility] ACCOUNT [facility] VLDL Calculated 20 <=30 mg/dL [facility] ACCOUNT BILL LDL Calculated 97 <130 mg/dL [facility] ACCOUNT [facility] Cholesterol/HDL Ratio 3.0 <4.5 [facility] ACCOUNT BILL LDL/HDL Ratio 1.6 <5.0 [facility] ACCOUNT BILL Blood BLOOD SPECIMEN / Unknown 10/15/2021 11:23 AM PLATER HOT DIP 10/15/2021 Narrative Resulting Agency Comment Lab Testing performed at: [place] [address] [address] [place] [phone] Jennifer Hart MD LAB - CHEMISTRY ORDAndreina LOAIZA [facility] ACCOUNT BILL [address] [place] [address] * TSH HI LOW REFLEX FREE T4 (10/15/2021 11:23 AM PLATER HOT DIP) TSH 1.261 0.350 - 4.940 uIU/mL [facility] ACCOUNT BILL Blood BLOOD SPECIMEN / Unknown 10/15/2021 11:23 AM PLATER HOT DIP 10/15/2021 Narrative Resulting Agency Comment Lab Testing performed at: [address] [place] [phone] Jennifer Hart MD LAB - CHEMISTRY SONAM LOAIZA [facility] ACCOUNT BILL [address] [place] [address] * (ABNORMAL) C-REACTIVE PROTEIN (10/15/2021 11:23 AM PLATER HOT DIP) Only the most recent of5 resultswithin the time period is included. C-Reactive Protein 1.02(H) <=0.50 mg/dL [facility] ACCOUNT BILL Blood BLOOD SPECIMEN / Unknown 10/15/2021 11:23 AM PLATER HOT DIP 10/15/2021 Narrative Resulting Agency Comment Lab Testing performed at: [place] [address] [address] [phone] Jennifer Hart MD LAB - CHEMISTRY SONAM LOAIZA Performing Organization Address City/[facility]/ZIP Co de Phone Number [facility] ACCOUNT BILL [address] [place] [address] * VITAMIN D 25-HYDROXY (10/15/2021 11:23 AM PLATER HOT DIP) Only the most recent of8 resultswithin the time period is included. Vitamin D, 25 Hydroxy 42.0 30 - 100 ng/mL [facility] ACCOUNT BILL Comment: Vitamin D Status: Deficiency <20 ng/mL Insufficiency 20-30 ng/mL Sufficiency 30-100 ng/mL Toxicity >100 ng/mL Blood BLOOD SPECIMEN / Unknown 10/15/2021 11:23 AM PLATER HOT DIP 10/15/2021 Narrative Resulting Agency Comment Lab Testing performed at: [address] [place] [phone] Jennifer Hart MD LAB - CHEMISTRY SONAM LOAIZA Performing Organization Address City/[facility] Co de Phone Number [facility] ACCOUNT BILL [address] [place] [address] * ERYTHROCYTE SEDIMENTATION RATE (10/15/2021 11:23 AM PLATER HOT DIP) Only the most recent of2 resultswithin the time period is included. Erythrocyte Sedimentation Rate Westergren 4 0 - 30 MM/HR [facility] ACCOUNT BILL Blood BLOOD SPECIMEN / Unknown 10/15/2021 11:23 AM PLATER HOT DIP 10/15/2021 Narrative Resulting Agency Comment Lab Testing performed at: [address] [place] [phone] Jennifer Hart MD LAB - HEMATOLOGY ORD ERAKOLE Performing Organization Address City/[facility] Co de Phone Number [facility] ACCOUNT BILL [address] [place] [address] * (ABNORMAL) CBC WITH DIFFERENTIAL (10/15/2021 11:23 AM PLATER HOT DIP) Only the most recent of11 resultswithin the time period is included. WBC 6.2 4.4 - 10.7 x10E9/L [facility] ACCOUNT BILL RBC 4.94 3.80 - 5.20 x10E12/L [facility] ACCOUNT BILL Hemoglobin 14.7 12.0 - 15.6 gm/dL [facility] ACCOUNT BILL Hematocrit 45.8(H) 35.9 - 45.5 % [facility] ACCOUNT BILL MCV 92.7 80.7 - 98.3 fl [facility] ACCOUNT BILL MCH 29.8 26.7 - 34.0 pg [facility] ACCOUNT BILL MCHC 32.1 30.8 - 35.9 gm/dL [facility] ACCOUNT BILL RDW 14.7 12.1 - 14.9 % [facility] ACCOUNT BILL Platelet Count 215 153 - 416 x10E9/L [facility] ACCOUNT BILL Comment:MPV FL BLOOD ([facility]) 1 1.5 fl 9.4-12.9 Granulocytes % 57.9 44.0 - 73.0 % [facility] ACCOUNT BILL Lymphocytes % 30.8 20.0 - 43.0 % [facility] ACCOUNT BILL Monocytes % 8.7 5.0 - 13.0 % [facility] ACCOUNT BILL Eosinophils % 1.6 0.0 - 6.0 % [facility] ACCOUNT BILL Basophils % 0.8 0.0 - 2.0 % [facility] ACCOUNT BILL Granulocytes Absolute 3.62 2.01 - 7.14 x10E9/L [facility] ACCOUNT BILL Lymphocytes Absolute 1.92 1.07 - 3.94 x10E9/L [facility] ACCOUNT BILL Monocytes Absolute 0.54 0.26 - 1.07 x10E9/L [facility] ACCOUNT BILL Eosinophils Absolute 0.10 0 - 0.47 x10E9/L [facility] ACCOUNT BILL Basophils Absolute 0.05 0 - 0.08 x10E9/L [facility] ACCOUNT BILL Immature Granulocytes 0.2 0 - 1 % [facility] ACCOUNT BILL Immature Granulocytes Absolute 0.01 0.00 - 0.06 x10E9/L [facility] ACCOUNT BILL nRBC 0 /100 WBC [facility] ACCOUNT BILL Blood BLOOD SPECIMEN / Unknown 10/15/2021 11:23 AM PLATER HOT DIP 10/15/2021 Narrative Resulting Agency Comment Lab Testing performed at: [address] [place] [phone] Jennifer Hart MD LAB - HEMATOLOGY ORD ERABLES [facility] ACCOUNT BILL [address] [place] [address] * COMPREHENSIVE METABOLIC PANEL (10/15/2021 11:23 AM PLATER HOT DIP) Only the most recent of12 resultswithin the time period is included. Glucose 89 70 - 105 mg/dL [facility] [...] BLOOD SPECIMEN / Unknown 10/15/2021 11:23 AM PLATER HOT DIP 10/15/2021 Narrative Resulting Agency Comment Lab Testing performed at: [place] [address] [place] [phone] Jennifer Hart MD LAB - CHEMISTRY ORDE RABLES [facility] ACCOUNT BILL [address] [place] [address] * XR KNEE LEFT 3VW (08/23/2021 3:02 PM PLATER HOT DIP) Anatomical Region Laterality Modality Lower Extremity Computed Radiogr aphy Narrative 08/23/2021 3:03 PM PLATER HOT DIP Elvia Bertrand RT(R) 08/31/2021 12:30 PM See progress notes for results Kenya Browne PA-Serafin DIAGNOSTIC IM AGING ORDERABLES * STREP A SCREEN - POINT OF CARE (AMB) (02/14/2021 2:55 PM CDT) Strep A Rapid POCT Negative Negative [facility] Strep A Internal Control Absent [facility] Other ENTIRE THROAT (SURFACE REGION OF NECK) / Unknown 02/14/2021 2:55 PM CDT Lia Asim [facility] LAB - POINT OF CA RE ORDERABLES Performing Organization Address [facility] de Phone Number [facility] [address] [facility] [place] [address], [facility] [phone] * SARS-COV-2 (COVID-19) AG (AMB) POCT- CHRISTIN (02/14/2021 2:41 PM CDT) SARS-CoV-2 Ag Negative Negative [facility] Lot # [id number] [facility] Expiration Date 06/22/2021 [facility] Instrument Serial Number [id number] [facility] COVID Internal Control Acceptable Acceptable [facility] Microbiology SPECIMEN FROM NASAL FOSSAE / Unknown 02/14/2021 2:41 PM CDT Lia Dailey [facility] LAB - POINT OF CA RE ORDERABLES Performing Organization Address [facility] Co de Phone Number [facility] [address] [facility] [place] [address], [facility] [phone] * INFLUENZA A+B - POINT OF CARE (AMB) (02/14/2021 2:41 PM CDT) Pathologist [facility] Influenza A Antigen Rapid Negative Negative [facility] Influenza B Antigen Rapid Negative Negative [facility] Influenza Internal Control negative NEGATIVE - POSITIVE [facility] Influenza Lot Number [id number] [facility] Influenza Expiration Date 10/06/2021 [facility] Other SPECIMEN FROM NASOPHARYNGEAL STRUCTURE / Unknown 02/14/2021 2:41 PM CDT Lia Dailey [employer] LAB - POINT OF CA RE ORDERABLES [facility] [address] [place] [address] * XR CHEST 2VW (10/12/2020 11:59 AM PLATER HOT DIP) Anatomical Region Laterality Modality Chest Radiographic Sanjuanita ging 10/12/2020 12:0 2 PM PLATER HOT DIP Impressions 10/12/2020 12:08 PM PLATER HOT DIP NO ACUTE PULMONARY DISEASE. Edited by Mere Rg on 10/12/2020 12:08 PM *Reading Radiologist: Kuldeep Mclaughlin on 10/12/2020 at 12:08 PM Narrative 10/12/2020 12:08 PM PLATER HOT DIP CHEST 2 VIEWS INDICATION: Cough. FINDINGS: Two views of the chest compared to 09/09/2018 show no evidence of consolidation, pleural effusion, or pneumothorax. The heart size is normal. Postoperative changes of the cervical spine are present. Procedure Note Kuldeep Mclaughlin MD - 10/12/2020 CHEST 2 VIEWS INDICATION: Cough. FINDINGS: Two views of the chest compared to 09/09/2018 show no evidence of consolidation, pleural effusion, or pneumothorax. The heart size is normal. Postoperative changes of the cervical spine are present. IMPRESSION NO ACUTE PULMONARY DISEASE. Edited by Mere Rg on 10/12/2020 12:08 PM *Reading Radiologist: Kuldeep Mclaughlin on 10/12/2020 at 12:08 PM Jennifer Hart MD DIAGNOSTIC IMAGING O RDERABLES * (ABNORMAL) SARS-COV-2 (COVID-19) ANTIBODY IGG [facility] (10/12/2020 11:36 AM PLATER HOT DIP) Pathologist [facility] SARS-CoV-2 Antibody IgG Positive( A) Negative [facility] ACCOUNT BILL Comment: Results suggest recent or prior infection with SARS-CoV-2. Correlation with epidemiologic risk factors and other clinical and laboratory findings is recommended. Serologic results should not be used as the sole basis to diagnose or exclude recent SARS-CoV-2 infection. False positive results infrequently occur due to prior infection with other human Coronaviruses. This assay was performed using the [employer] Liaison(R) SARS-CoV-2 S1/S2 IgG assay. FASTING Blood BLOOD SPECIMEN / Unknown 10/12/2020 11:36 AM PLATER HOT DIP 10/12/2020 Narrative [facility] ACCOUNT BILL - 10/13/2020 7:09 AM PLATER HOT DIP Test(s) [id number] Antibody, IgG has not been FDA cleared or approved. This test has been authorized by FDA under an Emergency Use Authorization (EUA). This test is only authorized for the duration of the declaration that circumstances exist justifying the authorization of emergency use of in vitro diagnostics for detection and/or U.S.C. 360bbb-3(b)(1), unless the authorization is terminated or revoked sooner. This test has been authorized only for detecting the presence of antibodies against SARS-CoV-2, not for any other viruses or pathogens. Resulting Agency Comment Lab Testing performed at: [facility] [address] [phone] Jennifer Hart MD LAB - CHEMISTRY SONAM LOAIZA [facility] ACCOUNT BILL [address] [place] [address] * HEMOGLOBIN A1C W EAG (10/12/2020 11:36 AM PLATER HOT DIP) Only the most recent of2 resultswithin the time period is included. Hemoglobin A1c 5.5 4.8 - 5.6 % [facility] ACCOUNT BILL Comment: . Prediabetes: 5.7 - 6.4 Diabetes: >6.4 Glycemic control for adults with diabetes: <7.0 Estimated Average Glucose 111 mg/dL [facility] ACCOUNT BILL Comment:FASTING Blood BLOOD SPECIMEN / Unknown 10/12/2020 11:36 AM PLATER HOT DIP 10/12/2020 Narrative [facility] ACCOUNT BILL - 10/13/2020 7:09 AM PLATER HOT DIP Test(s) [id number] Antibody, IgG has not been FDA cleared or approved. This test has been authorized by FDA under an Emergency Use Authorization (EUA). This test is only authorized for the duration of the declaration that circumstances exist justifying the authorization of emergency use of in vitro diagnostics for detection and/or U.S.C. 360bbb-3(b)(1), unless the authorization is terminated or revoked sooner. This test has been authorized only for detecting the presence of antibodies against SARS-CoV-2, not for any other viruses or pathogens. Resulting Agency Comment Lab Testing performed at: [facility] [address] [phone] Jennifer Hart MD LAB - CHEMISTRY SONAM LOAIZA [facility] ACCOUNT BILL [address] [place] [address] * TSH (10/12/2020 11:36 AM PLATER HOT DIP) Only the most recent of11 resultswithin the time period is included. TSH 0.620 0.450 - 4.500 uIU/mL [facility] ACCOUNT BILL Comment:FASTING Blood BLOOD SPECIMEN / Unknown 10/12/2020 11:36 AM PLATER HOT DIP 10/12/2020 Narrative [facility] ACCOUNT BILL - 10/13/2020 7:09 AM PLATER HOT DIP Test(s) [id number] Antibody, IgG has not been FDA cleared or approved. This test has been authorized by FDA under an Emergency Use Authorization (EUA). This test is only authorized for the duration of the declaration that circumstances exist justifying the authorization of emergency use of in vitro diagnostics for detection and/or U.S.C. 360bbb-3(b)(1), unless the authorization is terminated or revoked sooner. This test has been authorized only for detecting the presence of antibodies against SARS-CoV-2, not for any other viruses or pathogens. Resulting Agency Comment Lab Testing performed at: [facility] [address] [phone] Jennifer Hart MD LAB - CHEMISTRY SONAM LOAIZA Performing Organization Address City/[facility]/ZIP Co de Phone Number [facility] ACCOUNT BILL [address] [place] [address] * IMAGING RADIOLOGY XRAY RESULTS ORDER (08/29/2020) Only the most recent of5 resultswithin the time period is included. Anatomical Region Laterality Modality Other Provider Unknown IMAGING * (ABNORMAL) HGB HCT PANEL (05/09/2020 3:59 AM CDT) Only the most recent of2 resultswithin the time period is included. Hemoglobin 11.4(L) 12.0 - 15.6 gm/dL 05/09/2020 4:21 AM CDT [facility] Hematocrit 35.1(L) 35.9 - 45.5 % 05/09/2020 4:21 AM CDT [facility] Blood BLOOD SPECIMEN / Unknown Venipuncture / Unknown 05/09/2020 3:59 AM CDT 05/09/2020 4:17 AM CDT Edgar Telles MD LAB - HEMATOLOGY STEFAN GARNER [facility] [address] [place] [address] * (ABNORMAL) BASIC METABOLIC PANEL (CALCIUM TOTAL) (05/09/2020 3:59 AM CDT) Only the most recent of3 resultswithin the time period is included. Glucose 122(H) 70 - 105 mg/dL 05/09/2020 4:40 AM CDT [facility] Sodium 139 136 - 145 mmol/L 05/09/2020 4:40 AM CDT [facility] Potassium 4.1 3.5 - 5.1 mmol/L 05/09/2020 4:40 AM CDT [facility] Chloride 105 98 - 107 mmol/L 05/09/2020 4:40 AM CDT [facility] CO2 24 23 - 31 mmol/L 05/09/2020 4:40 AM CDT [facility] Calcium 8.7 8.4 - 10.4 mg/dL 05/09/2020 4:40 AM CDT [facility] Anion Gap 10 8 - 16 mmol/L 05/09/2020 4:40 AM CDT [facility] BUN 27(H) 9.8 - 20.1 mg/dL 05/09/2020 4:40 AM CDT [facility] Creatinine 0.88 0.57 - 1.11 mg/dL 05/09/2020 4:40 AM CDT [facility] eGFR by MDRD >60 mL/min/1.7 3m2 05/09/2020 4:40 AM CDT [facility] eGFR by MDRD >60 mL/min/1.7 3m2 05/09/2020 4:40 AM CDT [facility] Blood BLOOD SPECIMEN / Unknown Venipuncture / Unknown 05/09/2020 3:59 AM CDT 05/09/2020 4:17 AM CDT Edgar Telles MD LAB - CHEMISTRY SONAM LOAIZA [facility] Organization Address City/State/[facility] Co de Phone Number [facility] [address] [place] [address] * Neuraxial Block (05/08/2020 8:47 AM CDT) Narrative Nereyda Ruiz APRN-CRNA - 05/08/2020 8:47 AM CDT Nereyda Ruiz APRN-CRNA 05/08/2020 8:49 AM Neuraxial Block Note Pre-Procedure: Procedure Name: Neuraxial Block Patient Location: OR Indications: surgical anesthesia Pre-Anesthetic Checklist: Patient identified, IV Checked, Risks and benefits discussed, Surgical consent verified, Monitors and equipment, Site examined, Pre-op evaluation done, Time-out performed, Informed consent obtained, Questions answered/anesthesia questions answered and Allergies reviewed Anticoagulation/ Anti-thrombosis status confirmed? Yes Supplemental O2: face mask Monitors: BP, continuous pluse ox, EKG and End tidal CO2 Procedure: Block Type: Spinal Prep: Betadine Sterile Field: mask, cap/hat, sterile established and sterile gloves Approach: midline Skin was localized? Yes Spinal Block: Needle Type: spinal needle Needle Gauge: 22 Needle Length: 90 mm Placement Site: L2-3 Number of Attempts: 1 CSF: free flow, aspiration before injection Local anesthetics used? Yes Degree of difficulty: none Procedure Tolerance: tolerated well performed while the patient was sedated Sensory Level: mid-lumbar Motor Blockade: Yes Position post procedure: supine (keep sitting 2 minutes) Vital Signs: Vital signs monitored and stable throughout. See anesthesia record for details. Staff: Anesthesia Provider: Nereyda Ruiz APRN-CRNA - performed the procedure Ashley White DO GENERAL ANESTHESIA O [place] * SARS-COV-2 (COVID-19) IN HOUSE (05/05/2020 10:00 AM CDT) COVID-19 PCR Not detected Not detected, Invalid 05/06/2020 3:[address] [facility] Microbiology SPECIMEN FROM NASOPHARYNGEAL STRUCTURE / Unknown Collection / Unknown 05/05/2020 10:00 AM CDT 05/06/2020 4:[address] [facility] - 05/06/2020 3:43 PM CDT This nucleic acid amplification assay performance was validated by [facility]. This test has been authorized by the Food and Drug administration (FDA)under an Emergency Use Authorization (EUA). This test has been validated in accordance with the FDA's guidance document Policy for Diagnostic Testing in Laboratories Certified to perform High Complexity Testing under CLIA prior to Emergency Use Authorization for Coronavirus Disease-2019 during the Public Health Emergency issued on November 20, 2019. FDA independent review of this validation is pending. This test is only authorized for the duration of time the declaration that circumstances exist justifying the authorization of emergency use of in vitro diagnostic tests for detection of SARS-CoV-2 virus and/or diagnosis of COVID-19 infection under section 564(b)(1) of the Act, 21 U.S.C 360bbb-3 (b)(1), unless the authorization is terminated or revoked sooner. Edgar Telles MD LAB - MICROBIOLOGY O T[place] [address] [place] [address], [facility] [phone] * MAMMO BILAT SCREENING (04/28/2020) Anatomical Region Laterality Modality Breast Bilateral Mammography Jennifer Hart MD MAMMO ORDERABLES * EKG 12-LEAD (04/14/2020) Only the most recent of2 resultswithin the time period is included. 04/14/2020 Narrative [facility] RESULT SCAN - 04/14/2020 Sinus bradycardia, HR 48. No ST elevation or depression. No pathologic T wave inversion Jennifer Hart MD ECG ORDERABLES [facility] RESULT SCAN * DEXA BONE DENSITY AXIAL SKELETON (04/13/2020 8:32 AM CDT) Only the most recent of2 resultswithin the time period is included. Anatomical Region Laterality Modality Mammography 04/13/2020 9:47 [...] AM Hesham Trevizo MD DEXA ORDERABLES * XR KNEE LEFT 4VW OR MORE (08/03/2019 9:51 AM PLATER HOT DIP) Anatomical Region Laterality Modality Lower Extremity Radiographic Sanjuanita ging 08/03/2019 11:3 0 AM PLATER HOT DIP Impressions 08/03/2019 12:08 PM PLATER HOT DIP OSTEOARTHRITIS. Edited by Mere Rg on 08/03/2019 11:32 AM Reading Radiologist: Kuldeep Mclaughlin MD on 08/03/2019 at 12:08 PM Narrative 08/03/2019 12:08 PM PLATER HOT DIP LEFT KNEE 4 VIEWS INDICATION: Left knee pain. FINDINGS: Four views of the left knee without prior show medial femoral tibial and patellofemoral joint space narrowing. There is spurring off the lateral femoral condyle. There is no acute fracture or subluxation. Procedure Note Kuldeep Mclaughlin MD - 08/03/2019 LEFT KNEE 4 VIEWS INDICATION: Left knee pain. FINDINGS: Four views of the left knee without prior show medial femoral tibial and patellofemoral joint space narrowing. There is spurring off the lateral femoral condyle. There is no acute fracture or subluxation. IMPRESSION OSTEOARTHRITIS. Edited by Mere Rg on 08/03/2019 11:32 AM Reading Radiologist: Kuldeep Mclaughlin MD on 08/03/2019 at 12:08 PM Jennifer Hart MD DIAGNOSTIC IMAGING O RDERABLES * (ABNORMAL) LIPID PROFILE (02/10/2019 10:13 AM CDT) Only the most recent of12 resultswithin the time period is included. Cholesterol 161 <200 mg/dL [facility] ACCOUNT BILL Triglycerides 134 <150 mg/dL [facility] ACCOUNT BILL HDL Cholesterol 51 >40 mg/dL [facility] ACCOUNT B[facility] VLDL Calculated 27(L) >=30 mg/dL [facility] ACCOUNT BILL LDL Calculated 83 <130 mg/dL [facility] ACCOUNT BILL Comment:FASTING Blood BLOOD SPECIMEN / Unknown 02/10/2019 10:13 AM CDT 02/10/2019 Narrative Resulting Agency Comment Lab Testing performed at: [address] [place] [id number] Jennifer Hart MD LAB - CHEMISTRY SONAM LOAIZA [facility] ACCOUNT BILL [address] [place] [address] * CARDIAC RHYTHM STRIP ORDER (10/29/2018 3:51 AM PLATER HOT DIP) Narrative 10/29/2018 3:51 AM PLATER HOT DIP Ordered by an unspecified provider. Scanned Document CARDIAC SERVICES ORD ERABLES * CARDIAC EKG ORDER (09/18/2018 9:51 PM PLATER HOT DIP) Narrative 09/18/2018 9:51 PM PLATER HOT DIP Ordered by an unspecified provider. Scanned Document CARDIAC SERVICES ORD ERABLES * NM MYOCARD PERFUSION SPECT STRESS AND REST (09/11/2018 10:31 AM PLATER HOT DIP) Anatomical Region Laterality Modality Chest Nuclear Medicine 09/11/2018 11:2 7 AM PLATER HOT DIP Impressions 09/11/2018 11:27 AM PLATER HOT DIP 1. No evidence of pharmacologically induced reversible defect to suggest ischemia. 2. Normal left ventricle wall motion, with a composite left ventricular ejection fraction of 85 %. Reading Radiologist: Kuldeep Mclaughlin MD on 09/11/2018 at 11:27 AM Narrative 09/11/2018 11:27 AM PLATER HOT DIP MYOCARDIAL SPECT MULTI MYOCARDIAL PERFUSION WITH EJECTION FRACTION MYOCARDIAL PERFUSION WITH WALL MOTION INDICATION: Chest pain RADIOPHARMACEUTICAL: 10.0 mCi of Tc99m Tetrofosmin at rest and 30.0mCi Tc99m Tetrofosmin at stress. 0.4 mg of Lexiscan given intravenously. TECHNIQUE: After the resting SPECT images were made, the patient was given the Lexiscan dose and the stress dose of tracer was given, and the patient was reimaged, using SPECT technique. FINDINGS: Stress and rest images show homogeneous uptake of radiotracer throughout the left ventricle. No fixed or reversible perfusion defects are seen. WALL MOTION ANALYSIS: 3-D reconstruction of the gated data shows the left ventricular ejection fraction to measure 85 %. No wall motion abnormality is present. Procedure Note Kuldeep Mclaughlin MD - 09/11/2018 MYOCARDIAL SPECT MULTI MYOCARDIAL PERFUSION WITH EJECTION FRACTION MYOCARDIAL PERFUSION WITH WALL MOTION INDICATION: Chest pain RADIOPHARMACEUTICAL: 10.0 mCi of Tc99m Tetrofosmin at rest and 30.0mCi Tc99m Tetrofosmin at stress. 0.4 mg of Lexiscan given intravenously. TECHNIQUE: After the resting SPECT images were made, the patient was given the Lexiscan dose and the stress dose of tracer was given, and the patient was reimaged, using SPECT technique. FINDINGS: Stress and rest images show homogeneous uptake of radiotracer throughout the left ventricle. No fixed or reversible perfusion defects are seen. WALL MOTION ANALYSIS: 3-D reconstruction of the gated data shows the left ventricular ejection fraction to measure 85 %. No wall motion abnormality is present. IMPRESSION 1. No evidence of pharmacologically induced reversible defect to suggest ischemia. 2. Normal left ventricle wall motion, with a composite left ventricular ejection fraction of 85 %. Reading Radiologist: Kuldeep Mclaughlin MD on 09/11/2018 at 11:27 AM Marquis Melendez MD NM ORDERABLES * STRESS TEST LEXISCAN (NUCLEAR) (09/11/2018 9:18 AM PLATER HOT DIP) Stress Test Summary For full formatted report, please see the report link in the order. Acquisition Time: 2018-09-11 09:18:44 Total Exercise Time: 00:01:02 Test Indications: Chest Discomfort Medications: Protocol: LEXISCAN Max HR: 118 BPM 78% of Pred: 150 BPM Max BP: 157/096 mmHG Max Work Load: 1.0 METS Reason for Termination: Protocol Complete Resting ECG: Sinus Rhythm poor R wave progression Nonspecific T Abnormalities Functional Capacity: HR Response to Exercise: BP Resoonse to Exercise: Chest Pain: Arrhythmias: ST Changes: no significant st change Overall Impression: Findings to be correlated w/imaging report No ECG evidence of ischemia Diagnosis: Confirmed by APRLY REAGAN MD ([id number]) on 09/11/2018 11:52:19 AM Attending Physician: Referred By: Overread By: APRYL REAGAN MD [facility] STRESS 09/11/2018 9:18 AM PLATER HOT DIP 09/11/2018 11:52 AM PLATER HOT DIP Marquis Melendez MD CARDIAC SERVICE S ORDERABLES DP STRESS * ECHOCARDIOGRAM 2D WITH DOPPLER (09/10/2018 10:53 AM PLATER HOT DIP) 09/10/2018 10:5 3 AM PLATER HOT DIP Narrative [facility] - 09/10/2018 5:32 PM PLATER HOT DIP [address] [address] Transthoracic Echocardiogram 2D, M-mode, Doppler, and Color Doppler Patient: MADDIE CALVILLO MR number: [id number] Height: 62 in Weight: 173.6 lb BSA: 1.8 m Study date: 10-Sep-2018 : 1945 Age: 72 years Gender: Female Race: Allergies: ERYTHROMYCIN, LEVOFLOXACIN, PENICILLINS, SULFA DRUGS, ESTRADERM, AMOXICILLIN TRIHYDRATE, BACTRIM DS, CEFACLOR, ESTRADIOL, TRIMETHOPRIM, FLUTICASONE PROPIONATE, POLYMYXIN B-TRIMETHOPRIM Reading Physician: Ace Schofield MD Referring Physician: Chacorta Kauffman MD HAND BINDERY ASSEMBLY WORKER: Ines Deutsch [facility] Cardiology Group: [facility] Summary: - History: - Lupus, Hypertension - Procedure information: - Room 626 @ 1053 - Left ventricle: - Systolic function was normal. Ejection fraction was estimated in the range of 55 % to 65 %. - There were no regional wall motion abnormalities. - Wall thickness was increased. - There was mild concentric hypertrophy. - Aortic valve: - Transaortic velocity was increased due to valvular stenosis. - There was mild stenosis. - Left atrium: - The atrium was mildly dilated. - Tricuspid valve: - There was mild regurgitation. Indications: Evaluate chest pain. History: Prior history: Lupus, Hypertension Procedure: The study was performed in the [facility] Pending DC. This was a routine study. Room 626 @ 1053 The transthoracic approach was used. The study included complete 2D imaging, M-mode, complete spectral Doppler, and color Doppler. Systolic blood pressure was 125 mmHg. Diastolic blood pressure was 91 mmHg. Intravenous contrast (Definity) was administered. Image quality was adequate. Left ventricle: Size was normal. Systolic function was normal. Ejection fraction was estimated in the range of 55 % to 65 %. There were no regional wall motion abnormalities. Wall thickness was increased. There was mild concentric hypertrophy. Aortic valve: The valve was trileaflet. Leaflets exhibited normal thickness and normal cuspal separation. demonstrated mild calcification. Doppler: Transaortic velocity was increased due to valvular stenosis. There was mild stenosis. There was no regurgitation. Aorta: The root exhibited normal size. Mitral valve: Valve structure was normal. There was normal leaflet separation. Doppler: The transmitral velocity was within the normal range. There was no evidence for stenosis. There was no regurgitation. Left atrium: The atrium was mildly dilated. Right ventricle: The size was normal. Systolic function was normal. Wall thickness was normal. Pulmonic valve: Leaflets exhibited normal thickness, no calcification, and normal cuspal separation. Doppler: There was no regurgitation. Pulmonary artery: The size was normal. Doppler: Systolic pressure was within the normal range. Tricuspid valve: The valve structure was normal. There was normal leaflet separation. Doppler: The transtricuspid velocity was within the normal range. There was no evidence for tricuspid stenosis. There was mild regurgitation. Right atrium: Size was normal. Pericardium: The pericardium was normal in appearance. System measurement tables 2D IVSd: 1.7 cm LVEDV MOD A4C: 61.5 ml LVESV MOD A4C: 15.2 ml LVIDd: 3.8 cm LVIDs: 2.5 cm LVPWd: 1.1 cm CW PV Vmax: 1 m/s AV Vmax: 2.3 m/s AV maxP.4 mmHg AV meanP.7 mmHg PV maxP.1 mmHg MM LA Diam: 3.6 cm Ao Diam: 2.7 cm PW LVOT Vmax: 1.6 m/s Lateral E/E: 9.8 Lateral e': 0.1 m/s MV A [place]: 0.9 m/s MV Dec [place]: 1.6 m/s2 MV E Anjum: 0.6 m/s MV E/A Ratio: 0.7 Septal e': 0.1 m/s Prepared and signed by Ace Schofield MD Signed 10-Sep-2018 17:32:22 Procedure Note Unknown, Provider, - 09/10/[address] [address] Transthoracic Echocardiogram 2D, M-mode, Doppler, and Color Doppler Patient: MADDIE CALVILLO MR number: [id number] Height: 62 in Weight: 173.6 lb BSA: 1.8 m Study date: 10-Sep-2018 : 1945 Age: 72 years Gender: Female Race: Allergies: ERYTHROMYCIN, LEVOFLOXACIN, PENICILLINS, SULFA DRUGS, ESTRADERM, AMOXICILLIN TRIHYDRATE, BACTRIM DS, CEFACLOR, ESTRADIOL, TRIMETHOPRIM, FLUTICASONE PROPIONATE, POLYMYXIN B-TRIMETHOPRIM Reading Physician: Ace Schofield MD Referring Physician: Chacorta Kauffman MD HAND BINDERY ASSEMBLY WORKER: Ines Deutsch [facility] Cardiology Group: [facility] Summary: - History: - Lupus, Hypertension - Procedure information: - Room 626 @ 1053 - Left ventricle: - Systolic function was normal. Ejection fraction was estimated in the range of 55 % to 65 %. - There were no regional wall motion abnormalities. - Wall thickness was increased. - There was mild concentric hypertrophy. - Aortic valve: - Transaortic velocity was increased due to valvular stenosis. - There was mild stenosis. - Left atrium: - The atrium was mildly dilated. - Tricuspid valve: - There was mild regurgitation. Indications: Evaluate chest pain. History: Prior history: Lupus, Hypertension Procedure: The study was performed in the [facility] Pending DC. This was a routine study. Room 626 @ 1053 The transthoracic approach was used. The study included complete 2D imaging, M-mode, complete spectral Doppler, and color Doppler. Systolic blood pressure was 125 mmHg. Diastolic blood pressure was 91 mmHg. Intravenous contrast (Definity) was administered. Image quality was adequate. Left ventricle: Size was normal. Systolic function was normal. Ejection fraction was estimated in the range of 55 % to 65 %. There were no regional wall motion abnormalities. Wall thickness was increased. There was mild concentric hypertrophy. Aortic valve: The valve was trileaflet. Leaflets exhibited normal thickness and normal cuspal separation. demonstrated mild calcification. Doppler: Transaortic velocity was increased due to valvular stenosis. There was mild stenosis. There was no regurgitation. Aorta: The root exhibited normal size. Mitral valve: Valve structure was normal. There was normal leaflet separation. Doppler: The transmitral velocity was within the normal range. There was no evidence for stenosis. There was no regurgitation. Left atrium: The atrium was mildly dilated. Right ventricle: The size was normal. Systolic function was normal. Wall thickness was normal. Pulmonic valve: Leaflets exhibited normal thickness, no calcification, and normal cuspal separation. Doppler: There was no regurgitation. Pulmonary artery: The size was normal. Doppler: Systolic pressure was within the normal range. Tricuspid valve: The valve structure was normal. There was normal leaflet separation. Doppler: The transtricuspid velocity was within the normal range. There was no evidence for tricuspid stenosis. There was mild regurgitation. Right atrium: Size was normal. Pericardium: The pericardium was normal in appearance. System measurement tables 2D IVSd: 1.7 cm LVEDV MOD A4C: 61.5 ml LVESV MOD A4C: 15.2 ml LVIDd: 3.8 cm LVIDs: 2.5 cm LVPWd: 1.1 cm CW PV Vmax: 1 m/s AV Vmax: 2.3 m/s AV maxP.4 mmHg AV meanP.7 mmHg PV maxP.1 mmHg MM LA Diam: 3.6 cm Ao Diam: 2.7 cm PW LVOT Vmax: 1.6 m/s Lateral E/E: 9.8 Lateral e': 0.1 m/s MV A Anjum: 0.9 m/s MV Dec [place]: 1.6 m/s2 MV E Anjum: 0.6 m/s MV E/A Ratio: 0.7 Septal e': 0.1 m/s Prepared and signed by Ace Schofield MD Signed 10-Sep-2018 17:32:22 Marquis Melendez MD ECHO ORDERABLES Performing Organization Address City/[facility]/ZIP Co de Phone Number [facility] * TROPONIN I (09/09/2018 6:32 PM PLATER HOT DIP) Only the most recent of3 resultswithin the time period is included. Troponin I <0.015 0.000 - 0.049 ng/mL 09/09/2018 7:54 PM PLATER HOT DIP [facility] Blood BLOOD SPECIMEN / Unknown Venipuncture / Unknown 09/09/2018 6:32 PM PLATER HOT DIP 09/09/2018 7:28 PM PLATER HOT DIP Narrative [facility] - 09/09/2018 7:54 PM PLATER HOT DIP Note: Diagnosis of myocardial infarction requires symptoms of ischemia or EKG changes of ischemia and Troponin I >99th of normal (0.05 ng/mL). Troponin should be drawn on initial assessment and 3-6 hours later as clinically indicated. Any condition resulting in myocardial cell damage can increase cardiac troponin levels. In addition to myocardial infarction, these include but are not limited to congestive heart failure (CHF), arrhythmia, myocarditis, and non-cardiac related causes such as pulmonary embolism, renal failure and sepsis. Shelbie Du APRN-SALVAGE REPAIRER LAB - CHEMI STRY ORDERABLES Performing Organization Address City/[facility] Co de Phone Number [facility] [address] [place] [address] * CT CHEST PE (09/09/2018 2:40 PM PLATER HOT DIP) Anatomical Region Laterality Modality Chest Computed Tomogra phy 09/09/2018 2:44 PM PLATER HOT DIP Impressions 09/09/2018 2:47 PM PLATER HOT DIP No pulmonary embolism. Small collection of gas adjacent to the upper thoracic esophagus may represent an esophageal diverticulum. Correlation with esophagram could be obtained. Reading Radiologist: Harman Mejia MD on 09/09/2018 at 2:47 PM Narrative 09/09/2018 2:[address] PE Protocol Clinical Indication: Chest pain, unspecified. Technique: The pulmonary embolus protocol was utilized. Axial CT images from the lung apices to the lung bases were obtained following Isovue-370, 80 cc intravenous contrast administration. Multiplanar maximum intensity projection reconstructions were created on an independent workstation. Findings: No airspace consolidation or pulmonary edema. The central airways are clear. No bronchial wall thickening, or bronchiectasis. No acute osseous abnormality or osseous lesion. No lymphadenopathy seen in the chest. The heart is enlarged. There is no thoracic aneurysm or dissection. No pulmonary embolism identified. A small collection of gas projects to the right of the upper thoracic esophagus and may represent an esophageal diverticulum. Procedure Note Harman Mejia MD - 09/09/2018 CT PE Protocol Clinical Indication: Chest pain, unspecified. Technique: The pulmonary embolus protocol was utilized. Axial CT images from the lung apices to the lung bases were obtained following Isovue-370, 80 cc intravenous contrast administration. Multiplanar maximum intensity projection reconstructions were created on an independent workstation. Findings: No airspace consolidation or pulmonary edema. The central airways are clear. No bronchial wall thickening, or bronchiectasis. No acute osseous abnormality or osseous lesion. No lymphadenopathy seen in the chest. The heart is enlarged. There is no thoracic aneurysm or dissection. No pulmonary embolism identified. A small collection of gas projects to the right of the upper thoracic esophagus and may represent an esophageal diverticulum. IMPRESSION No pulmonary embolism. Small collection of gas adjacent to the upper thoracic esophagus may represent an esophageal diverticulum. Correlation with esophagram could be obtained. Reading Radiologist: Harman Mejia MD on 09/09/2018 at 2:47 PM David Montilla MD CT ORDERABLES * XR CHEST 1VW PORTABLE (09/09/2018 12:42 PM PLATER HOT DIP) Anatomical Region Laterality Modality Chest Radiographic Sanjuanita ging 09/09/2018 12:4 6 PM PLATER HOT DIP Narrative 09/09/2018 12:47 PM PLATER HOT DIP Portable Chest AP History: Chest pain Comparison: None Findings: Lungs are clear. No pneumothorax or pleural effusion. Cardiac silhouette is within normal limits. ACDF hardware is partially visualized. Reading Radiologist: Morenita Westbrook MD on 09/09/2018 at 12:47 PM Procedure Note Morenita Westbrook MD - 09/09/2018 Portable Chest AP History: Chest pain Comparison: None Findings: Lungs are clear. No pneumothorax or pleural effusion. Cardiac silhouette is within normal limits. ACDF hardware is partially visualized. Reading Radiologist: Morenita Westbrook MD on 09/09/2018 at 12:47 PM Shelbie Du GAS APPLIANCE MECHANIC-SALVAGE REPAIRER DIAGNOSTIC IMAGING ORDERABLES * URINE MICROSCOPIC ONLY REFLEX TO CULTURE (09/09/2018 12:20 PM PLATER HOT DIP) Reflex Status Culture to follow 09/09/2018 12:39 PM PLATER HOT DIP [facility] RBC UA 0-2 None Seen, 0-2, 3-5 # /hpf 09/09/2018 12:39 PM PLATER HOT DIP [facility] WBC UA 0-5 None Seen, 0-5 # /hpf 09/09/2018 12:39 PM PLATER HOT DIP [facility] Bacteria UA None Seen None Seen 09/09/2018 12:39 PM PLATER HOT DIP [facility] Squamous Epithelial Cells 0-2 None Seen, 0-2, 3-5 /hpf 09/09/2018 12:39 PM PLATER HOT DIP [facility] Mucus UA 1+ /LPF 09/09/2018 12:39 PM PLATER HOT DIP [facility] Urine URINE SPECIMEN OBTAINED BY CLEAN CATCH PROCEDURE / Unknown Collection / Unknown 09/09/2018 12:20 PM PLATER HOT DIP 09/09/2018 12:24 PM PLATER HOT DIP Narrative [facility] - 09/09/2018 12:39 PM PLATER HOT DIP Shelbie Du GAS APPLIANCE MECHANIC-SALVAGE REPAIRER LAB - URINA LYSIS ORDERABLES [facility] [address] [place] [address] * (ABNORMAL) URINALYSIS REFLEX MICROSCOPIC REFLEX CULTURE (09/09/2018 12:20 PM PLATER HOT DIP) Only the most recent of4 resultswithin the time period is included. Color UA Yellow Straw, Yellow 09/09/2018 12:34 PM [facility] Clarity UA Clear Clear 09/09/2018 12:34 PM [facility] Glucose UA Negative Negative 09/09/2018 12:34 PM [facility] Bilirubin UA Negative Negative 09/09/2018 12:34 PM [facility] Ketone UA Negative Negative 09/09/2018 12:34 PM [facility] Specific [place] UA 1.009 1.005 - 1.030 09/09/2018 12:34 PM [facility] Blood UA Negative Negative 09/09/2018 12:34 PM [facility] pH UA 6.0 5.0 - 8.0 pH 09/09/2018 12:34 PM [facility] Protein UA Negative Negative 09/09/2018 12:34 PM [facility] Urobilinogen UA Negative Negative mg/dL 09/09/2018 12:34 PM [facility] Nitrite UA Negative Negative 09/09/2018 12:34 PM [facility] Leukocyte UA Trace(A) Negative 09/09/2018 12:34 PM [facility] Urine Microscopy Urine microscopy to follow 09/09/2018 12:34 PM [facility] Reflex Status Culture to follow 09/09/2018 12:34 PM [facility] Urine URINE SPECIMEN OBTAINED BY CLEAN CATCH PROCEDURE / Unknown Collection / Unknown 09/09/2018 12:20 PM PLATER HOT DIP 09/09/2018 12:24 PM [facility] Narrative [facility] - 09/09/2018 12:34 PM PLATER HOT DIP Ascorbic Acid can cause false negative urine strip tests for blood, glucose, nitrite, and bilirubin. Shelbie Du APRN-SALVAGE REPAIRER LAB - URINA LYSIS ORDERABLES [facility] [address] [place] [address] * CULTURE URINE (09/09/2018 12:20 PM PLATER HOT DIP) Only the most recent of5 resultswithin the time period is included. Culture Urine 10,000-50,000 CFU/mL urogenital brit JAM 09/11/2018 6:[address] [facility] Urine URINE SPECIMEN OBTAINED BY CLEAN CATCH PROCEDURE / Unknown Collection / Unknown 09/09/2018 12:20 PM PLATER HOT DIP 09/09/2018 12:24 PM PLATER HOT DIP Shelbie Du [facility] LAB - MICRO BIOLOGY ORDERABLES Performing Organization Address [facility]/ZIP Co de Phone Number [facility] MICROBIOLOG[facility] [address] [place] [address], [facility] [phone] * NT-PRO BNP (09/09/2018 11:38 AM PLATER HOT DIP) NT-proBNP 245.0 <300.0 pg/mL 09/09/2018 12:05 PM [facility] Blood BLOOD SPECIMEN / Unknown Venipuncture / Unknown 09/09/2018 11:38 AM PLATER HOT DIP 09/09/2018 11:43 AM PLATER HOT DIP Narrative [facility] - 09/09/2018 12:05 PM PLATER HOT DIP NT-proBNP Patient Age Acute HF Unlikely Acute HF Likely <50 years <300 pg/mL >450 pg/mL 50-75 years <300 pg/mL >900 pg/mL >75 years <300 pg/mL >1800 pg/mL Reference: ELKE Wolff et al. ICON Study. Heart Journal (2006) 27, [phone]- [phone] Both BNP and NT-proBNP derive from the precursor molecule called proBNP which is secreted from the ventricles in response to ventricle volume expansion and/or pressure overload. The secreted proBNP is subsequently cleaved by enzymes to form BNP, the active hormone and NT-proBNP an inactive metabolite. NT-proBNP has a longer half-life of 1.5-2.0 hours verses BNP with a half-life of 20 min for BNP. Both are useful biomarkers of ventricular distension due to increased intracardiac pressure. Both BNP and NT-proBNP increase with age and renal insufficiency. Increased concentrations of NT-proBNP have also been observed in the setting of acute myocardial infarction, right ventricular failure, valvular heart disease, and atrial fibrillation. Shelbie Du [facility] LAB - CHEMI STRY ORDERABLES Performing Organization Address [facility]/ZIP Co de Phone Number [facility] [address] [place] [address] * PT PTT PANEL (09/09/2018 11:38 AM PLATER HOT DIP) PT 10.1 9.5 - 11.6 sec 09/09/2018 12:00 PM [facility] INR 0.9 0.9 - 1.1 09/09/2018 12:00 PM [facility] PTT 26.9 21.0 - 32.0 sec 09/09/2018 12:00 PM [facility] Blood BLOOD SPECIMEN / Unknown Venipuncture / Unknown 09/09/2018 11:38 AM PLATER HOT DIP 09/09/2018 11:43 AM PLATER HOT DIP Narrative [facility] - 09/09/2018 12:00 PM PLATER HOT DIP Conventional Warfarin Anticoagulant Therapy: INR Reference Range: 2.0-3.0 Intensive Warfarin Anticoagulant Therapy: INR Reference Range: 2.5-3.5 Heparin Therapeutic Range for PTT: 47.7 - 68.6 seconds. Shelbie Du GAS APPLIANCE MECHANIC-SALVAGE REPAIRER LAB - [facility] ORDERABLES [facility] [address] [place] [address] * (ABNORMAL) D-DIMER (09/09/2018 11:38 AM PLATER HOT DIP) D-Dimer 0.54(H) 0.17 - 0.5 mg/L FEU 09/09/2018 12:05 PM [facility] Blood BLOOD SPECIMEN / Unknown Venipuncture / Unknown 09/09/2018 11:38 AM PLATER HOT DIP 09/09/2018 11:43 AM PLATER HOT DIP Narrative [facility] - 09/09/2018 12:05 PM PLATER HOT DIP The [employer] D-Dimer assay is intended for use as an aid in diagnosis of venous thromboembolism [(VTE): deep vein thrombosis (DVT), pulmonary embolism (PE), and disseminated intravascular coagulation (DIC)], and has received U.S. Food and Drug Administration (FDA) approval to exclude VTE in patients with low or moderate pretest probability of PE or DVT (per Wells' rules). At a clinical cut-off value 0.50 mg/L FEU, the Negative Predictive Value of this assay is 99.8% for excluding PE and 100% for excluding DVT. A very low percentage of patients with VTE may yield D-Dimer results below the cut-off value. An elevated D-Dimer result has low specificity (40.4% for PE, 35.5% for DVT) and is a poor predictor of VTE. An elevated D-Dimer result may indicate DIC in the appropriate clinical setting. Results of this test should always be interpreted in conjunction with the patient's medical history, clinical presentation, and other findings. Shelbie Du GAS APPLIANCE MECHANIC-SALVAGE REPAIRER LAB - COAGU LATION ORDERABLES Performing Organization Address [facility] Co de Phone Number [facility] [address] [place], [place] [phone] * MAGNESIUM BLOOD (09/09/2018 11:38 AM PLATER HOT DIP) Only the most recent of2 resultswithin the time period is included. Magnesium 2.4 1.6 - 2.6 mg/dL 09/09/2018 3:00 PM PLATER HOT DIP [facility] Blood BLOOD SPECIMEN / Unknown Venipuncture / Unknown 09/09/2018 11:38 AM PLATER HOT DIP 09/09/2018 11:43 AM PLATER HOT DIP David Montilla MD LAB - CHEMISTRY ORDE JOSSE Performing Organization Address [facility] Co de Phone Number [facility] [address] [place], [place] [id number] * MAMMOGRAPHY ORDER (03/12/2018) Anatomical Region Laterality Modality Mammography Jennifer Hart MD MAMMO ORDERABLES * POLYSOMNOGRAPHY (02/03/2018) Scanned Document [facility] ORDERAB LES * CARDIAC PROCEDURE ORDER (01/05/2018) Jennifer Hart MD CARDIAC SERVICES ORD ERABLES * POLYSOMNOGRAPHY (07/24/2017) Jennifer Hart MD SLEEP CENTER ORDERAB LES * CARDIAC HOLTER MONITOR ORDER (07/23/2017) Jennifer Hart MD CARDIAC SERVICES ORD ERABLES * CARDIAC ECHOCARDIOGRAM COMPLETE ORDER (02/19/2017) Only the most recent of2 resultswithin the time period is included. Jennifer Hart MD ECHO ORDERABLES * HEPATITIS C ANTIBODY (08/13/2016 10:22 AM PLATER HOT DIP) Hepatitis C Antibody Non Reactive Non Reactive [facility] ACCOUNT BILL Comment: Non Reactive - Antibodies to Hepatitis C virus (HCV) were no t detected, result does not exclude early acute HCV infection. Blood BLOOD SPECIMEN / Unknown 08/13/2016 10:22 AM PLATER HOT DIP 08/13/2016 Narrative Resulting Agency Comment [facility] [address] [facility] [phone] Jennifer Hart MD LAB - CHEMISTRY SONAM LOAIZA [facility] ACCOUNT BILL [address] [place] [address] * MRI SPINE LUMBAR WITH & WITHOUT CONTRAST (05/23/2016 8:21 AM CDT) Anatomical Region Laterality Modality Spine Magnetic Resonan ce 05/23/2016 9:51 AM CDT Impressions 05/23/2016 10:06 AM CDT Multilevel degenerative change most significant at L3-L4 and L4-L5. No severe stenosis is seen. General pattern of degenerative change is similar to the prior exam of 2012. Edited by Allyn Acevedo on 05/23/2016 10:06 AM Narrative 05/23/2016 10:06 AM CDT MRI LUMBAR SPINE WITH AND WITHOUT CONTRAST INDICATION: Right thigh paresthesias for 5 years, history of back surgery. TECHNIQUE: Standard MRI sequences of the lumbar spine with and without contrast. Dotarem 19 cc was administered. FINDINGS: Spinal cord ends at L2 and appears normal. No compression deformity or bone marrow edema. Prior MRI from September 01, 2013. L1-L2: Diffuse disc bulge and mild canal stenosis. L2-L3: Diffuse disc bulge and mild canal stenosis. Mild facet arthropathy. L3-L4: Chronic endplate degenerative changes. Diffuse disc bulge, ligamentum flavum hypertrophy, moderate facet arthropathy and moderate canal stenosis. Mild bilateral neural foraminal narrowing. L4-L5: Slight anterolisthesis of L4 on L5. Diffuse disc bulge and moderate facet arthropathy. Mild canal stenosis. Mild to moderate bilateral neural foraminal narrowing. L4 spinous process is absent or resected. L5-S1: Diffuse disc bulge and mild canal stenosis. Mild facet arthropathy. Procedure Note Lukas Bain MD - 05/23/2016 MRI LUMBAR SPINE WITH AND WITHOUT CONTRAST INDICATION: Right thigh paresthesias for 5 years, history of back surgery. TECHNIQUE: Standard MRI sequences of the lumbar spine with and without contrast. Dotarem 19 cc was administered. FINDINGS: Spinal cord ends at L2 and appears normal. No compression deformity or bone marrow edema. Prior MRI from September 01, 2013. L1-L2: Diffuse disc bulge and mild canal stenosis. L2-L3: Diffuse disc bulge and mild canal stenosis. Mild facet arthropathy. L3-L4: Chronic endplate degenerative changes. Diffuse disc bulge, ligamentum flavum hypertrophy, moderate facet arthropathy and moderate canal stenosis. Mild bilateral neural foraminal narrowing. L4-L5: Slight anterolisthesis of L4 on L5. Diffuse disc bulge and moderate facet arthropathy. Mild canal stenosis. Mild to moderate bilateral neural foraminal narrowing. L4 spinous process is absent or resected. L5-S1: Diffuse disc bulge and mild canal stenosis. Mild facet arthropathy. IMPRESSION Multilevel degenerative change most significant at L3-L4 and L4-L5. No severe stenosis is seen. General pattern of degenerative change is similar to the prior exam of 2012. Edited by Allyn Acevedo on 05/23/2016 10:06 AM Tam Nolan MD MR ORDERABLES * XR SHOULDER BILAT 2 VIEWS (05/13/2016 10:41 AM CDT) Anatomical Region Laterality Modality Upper Extremity Radiographic Sanjuanita ging 05/13/2016 3:49 PM CDT Impressions 05/13/2016 4:01 PM CDT Bilateral degenerative change of the shoulders. Edited by Marie Deng on 05/13/2016 4:01 PM Narrative 05/13/2016 4:01 PM CDT BILATERAL SHOULDERS 2 VIEWS EACH INDICATION: Bilateral shoulder pain. Three views of the right shoulder and three views of the left shoulder are provided. Right shoulder: There is mild glenohumeral and acromioclavicular joint space narrowing. There is no fracture nor destructive lesion. Left shoulder: Mild to moderate glenohumeral and acromioclavicular joint space narrowing is noted as well. There is no fracture nor destructive lesion. Procedure Note Nina Suresh MD - 05/13/2016 BILATERAL SHOULDERS 2 VIEWS EACH INDICATION: Bilateral shoulder pain. Three views of the right shoulder and three views of the left shoulder are provided. Right shoulder: There is mild glenohumeral and acromioclavicular joint space narrowing. There is no fracture nor destructive lesion. Left shoulder: Mild to moderate glenohumeral and acromioclavicular joint space narrowing is noted as well. There is no fracture nor destructive lesion. IMPRESSION Bilateral degenerative change of the shoulders. Edited by Marie Deng on 05/13/2016 4:01 PM Hesham Trevizo MD DIAGNOSTIC IMAGING O RDERABLES * XR HIPS BILATERAL 2 VW W AP PELVIS (05/13/2016 10:41 AM CDT) Anatomical Region Laterality Modality Pelvis, Lower Extremity Radiogra [facility] 05/13/2016 3:49 PM CDT Narrative 05/13/2016 4:12 PM CDT AP PELVIS TWO VIEWS RIGHT HIP TWO VIEWS LEFT HIP INDICATION: Pelvic pain, right hip pain, left hip pain. FINDINGS: AP pelvis shows no displaced fracture or dislocation. There is no osseous destruction. Two views of the right hip shows joint space narrowing with no fracture, dislocation or osseous destruction. Two views of the left hip shows joint space narrowing but no fracture, dislocation or osseous destruction. Edited by Debra Robertson on 05/13/2016 4:06 PM Procedure Note Saad Mora MD - 05/13/2016 AP PELVIS TWO VIEWS RIGHT HIP TWO VIEWS LEFT HIP INDICATION: Pelvic pain, right hip pain, left hip pain. FINDINGS: AP pelvis shows no displaced fracture or dislocation. There is no osseous destruction. Two views of the right hip shows joint space narrowing with no fracture, dislocation or osseous destruction. Two views of the left hip shows joint space narrowing but no fracture, dislocation or osseous destruction. Edited by Debra Robertson on 05/13/2016 4:06 PM Hesham Trevizo MD DIAGNOSTIC IMAGING O RDERABLES * XR KNEE BILAT ONE OR TWO VIEWS (11/15/2015 12:25 PM PLATER HOT DIP) Anatomical Region Laterality Modality Lower Extremity Radiographic Sanjuanita ging 11/15/2015 12:5 3 PM PLATER HOT DIP Narrative 11/15/2015 12:55 PM PLATER HOT DIP 2 views of the left knee 2 views of the right knee History: Primary osteoarthritis of the knees, bilateral knee pain Findings: No fracture or dislocation is seen. No effusion. There is mild joint space narrowing with osteophyte formation, most significant within the patellofemoral compartments. This is consistent with mild osteoarthritis. Procedure Note Morenita Westbrook MD - 11/15/2015 2 views of the left knee 2 views of the right knee History: Primary osteoarthritis of the knees, bilateral knee pain Findings: No fracture or dislocation is seen. No effusion. There is mild joint space narrowing with osteophyte formation, most significant within the patellofemoral compartments. This is consistent with mild osteoarthritis. Hesham Trevizo MD DIAGNOSTIC IMAGING O RDERABLES * XR LUMBAR SPINE 2 OR 3 VW (04/21/2014 10:43 AM CDT) Anatomical Region Laterality Modality Spine Radiographic Sanjuanita ging 04/21/2014 11:5 6 AM CDT Narrative 04/21/2014 11:59 AM CDT 3 views lumbosacral spine Indication: Back pain Findings: There is dextroscoliosis centered in the mid lumbar region with approximate Spears angle measurement of 10?. There is grade 1 anterolisthesis of L4 regards to L5. There is no compression or subluxation. There is decreased intervertebral disc space height, degenerative endplate change and hypertrophic spurring as well as facet arthropathy present throughout the lumbar spine. Procedure Note Saad Mora MD - 04/21/2014 3 views lumbosacral spine Indication: Back pain Findings: There is dextroscoliosis centered in the mid lumbar region with approximate Spears angle measurement of 10?. There is grade 1 anterolisthesis of L4 regards to L5. There is no compression or subluxation. There is decreased intervertebral disc space height, degenerative endplate change and hypertrophic spurring as well as facet arthropathy present throughout the lumbar spine. Anna Hyde GAS APPLIANCE MECHANIC-SALVAGE REPAIRER DIAGN OSTIC IMAGING ORDERABLES * EMG WITH NERVE CONDUCTION STUDY (12/27/2013) Harman Rizzo MD NEUROLOGY ORDERABLE S [facility] RESULT SCAN * MRI SPINE LUMBAR NON CONTRAST (09/01/2013 4:18 PM PLATER HOT DIP) Anatomical Region Laterality Modality Spine Magnetic Resonan ce 09/02/2013 9:11 AM PLATER HOT DIP Impressions 09/02/2013 11:43 AM PLATER HOT DIP L4-L5 laminectomy changes. New since the prior exam, there is a disc protrusion at L3-L4 in left paracentral and left neural foraminal region which causes stenosis and would most likely account for the patient's new symptoms. There does remain a disc bulge at L4-L5 which also lateralizes to the left and causes lesser left paracentral and left neural foraminal narrowing and appears unchanged since the prior exam. Edited by Tiarra Lovell on 09/02/2013 9:36 AM Narrative 09/02/2013 11:43 AM PLATER HOT DIP MRI Lumbar Spine Without Contrast INDICATION: Foot drop, left foot pain. TECHNIQUE: Multisequence, multiplanar MRI sequences of the lumbar spine without contrast FINDINGS: A prior is available from November 11, 2007. No compression deformity is seen. There is degenerative disc disease and edematous endplate changes at L3-L4. There is also a disc bulge at L3-L4. The spinal cord has normal signal and ends at L1-L2. No malalignment is seen. The overall marrow signal is within normal limits. T11-T12: No stenosis. T12-L1: No stenosis. L1-L2: No stenosis. L2-L3: No stenosis. L3-L4: Diffuse disc bulge lateralizes to the left and causes mild to moderate canal stenosis and narrows the left lateral recess and left neural foramen. L4-L5: Diffuse disc bulge lateralizes to the left. There is left neural foraminal narrowing which appears similar to the prior exam. Laminectomy changes are seen. L5-S1: No significant stenosis. Procedure Note Lukas Bain MD - 09/02/2013 MRI Lumbar Spine Without Contrast INDICATION: Foot drop, left foot pain. TECHNIQUE: Multisequence, multiplanar MRI sequences of the lumbar spine without contrast FINDINGS: A prior is available from November 11, 2007. No compression deformity is seen. There is degenerative disc disease and edematous endplate changes at L3-L4. There is also a disc bulge at L3-L4. The spinal cord has normal signal and ends at L1-L2. No malalignment is seen. The overall marrow signal is within normal limits. T11-T12: No stenosis. T12-L1: No stenosis. L1-L2: No stenosis. L2-L3: No stenosis. L3-L4: Diffuse disc bulge lateralizes to the left and causes mild to moderate canal stenosis and narrows the left lateral recess and left neural foramen. L4-L5: Diffuse disc bulge lateralizes to the left. There is left neural foraminal narrowing which appears similar to the prior exam. Laminectomy changes are seen. L5-S1: No significant stenosis. IMPRESSION L4-L5 laminectomy changes. New since the prior exam, there is a disc protrusion at L3-L4 in left paracentral and left neural foraminal region which causes stenosis and would most likely account for the patient's new symptoms. There does remain a disc bulge at L4-L5 which also lateralizes to the left and causes lesser left paracentral and left neural foraminal narrowing and appears unchanged since the prior exam. Edited by Tiarra Lovell on 09/02/2013 9:36 AM Harman Rizzo MD MR ORDERABLES * EMG (06/28/2013) Ottoniel Green MD NEUROLOGY ORDERAB LES [facility] RESULT SCAN * FINE NEEDLE ASPIRATION - THYROID (STL) (05/12/2013 12:00 PM CDT) Case Report Fine Needle Aspiration Report Case: [id number] -- Authorizing Provider: Lukas Collins MD Ordering Provider: Lukas Collins MD Ordering Location: [facility] Collected: 05/12/2013 12:00 PM Pathologist: Hardik Kevin MD Received: 05/12/2013 2:13 PM Signed Out: 05/18/2013 2:32 PM (Final) Specimen: Thyroid Mass , right 05/18/2013 2:32 PM CDT [facility] Final Diagnosis 1. Thyroid nodule, right, fine needle aspiration: -- Cellular changes consistent with benign thyroid cysts/cystic goiter. Alvin 05/18/2013 2:32 PM CDT [facility] Gross Description SURGEON: COPY TO: INDICATIONS FOR PROCEDURE: Right thyroid nodule (241.0) OPERATION: Fine needle aspiration SPECIMEN: Thyroid tissue ADEQUACY: GROSS: Received 40 ml 05/18/2013 2:32 PM CDT [facility] Microscopic Description One cytology thin prep slide of fine needle aspiration of right thyroid nodule was examined. Small groups of benign follicular cells are seen. Colloid is present as well. Histiocytes are noted. Changes are consistent with benign thyroid cysts/cystic goiter. Alvin 05/18/2013 2:32 PM CDT [facility] Testing Performed By [facility]. 05/18/2013 2:32 PM CDT [facility] Synoptic Report 05/18/2013 2:32 PM CDT [facility] Pathology/Cytolo gy MASS OF THYROID GLAND / Unknown 05/12/2013 12:00 PM CDT 05/12/2013 2:13 PM CDT Lukas Collins MD LAB - PATHOLOGY/CYTO LOGY ORDERABLES [facility] [address] [place] [address] * XR KNEE BILAT MIN 4 VIEWS [[id number]] (05/04/2013 1:19 PM CDT) Anatomical Region Laterality Modality Lower Extremity Radiographic Sanjuanita ging 05/04/2013 2:18 PM CDT Narrative 05/04/2013 2:22 PM CDT FOUR VIEWS RIGHT KNEE FOUR VIEWS LEFT KNEE INDICATION: Right knee pain and left knee pain. FINDINGS: Right Knee: There is no evidence of acute fracture or bony malalignment. There is no degenerative disease. There is no joint effusion. There is bony demineralization. Left Knee: Degenerative subchondral cyst formation is noted within the central aspect of the patella. There is bony demineralization. There is no fracture. There is no joint effusion. There is no malalignment. Procedure Note Gino Lujan MD - 05/04/2013 FOUR VIEWS RIGHT KNEE FOUR VIEWS LEFT KNEE INDICATION: Right knee pain and left knee pain. FINDINGS: Right Knee: There is no evidence of acute fracture or bony malalignment. There is no degenerative disease. There is no joint effusion. There is bony demineralization. Left Knee: Degenerative subchondral cyst formation is noted within the central aspect of the patella. There is bony demineralization. There is no fracture. There is no joint effusion. There is no malalignment. Ottoniel Green MD DIAGNOSTIC IMAGIN G ORDERABLES * DEXA BONE DENSITY RHEUMAT READ (05/04/2013 1:05 PM CDT) Anatomical Region Laterality Modality Mammography Narrative 05/10/2013 3:53 PM CDT Ottoniel Green MD 05/10/2013 3:53 PM [facility] [address] [facility] [address] [place]. [address] Dual energy radiography was performed on Maddie Calvillo 1945 Indication: Ovarian failure Region BMD T score AP Spine 1.251 0.6 Fem Neck 0.888 -1.1 Total Hip 1.007 0.0 Interpretation: The study is of good quality. Osteopenia is present. Suggest repeat LANI in two years. Reported by: Dee Green M.D. Procedure Note Ottoniel Green MD - 05/04/2013 3:52 PM CDT [facility] [address] [facility] [address] [place] [address] Dual energy radiography was performed on Maddie Calvillo 1945 Indication: Ovarian failure Region BMD T score AP Spine 1.251 0.6 Fem Neck 0.888 -1.1 Total Hip 1.007 0.0 Interpretation: The study is of good quality. Osteopenia is present.Suggest repeat LANI in two years. Reported by: Dee Green M.D. Ottoniel Green MD DEXA ORDERABLES * (ABNORMAL) URINALYSIS MICROSCOPIC ONLY REFLEXED (PO REF LAB) (12/08/2012 10:28 AM CDT) WBC UA >30(A) 0 - 5 /hpf [facility] INSURANCE BILL RBC UA 4-10(A) 0 - 3 /hpf [facility] INSURANCE BILL Epithelial Cells (non renal) 0-10 0 - 10 /hpf [facility] INSURANCE BILL Epithelial Cells (renal) NOT NEEDED [facility] INSURANCE BILL Comment:Ancillary determined the test is not needed Casts ua NOT NEEDED [facility] INSURANCE BILL Comment:Ancillary determined the test is not needed Casts UA NOT NEEDED [facility] INSURANCE BILL Comment:Ancillary determined the test is not needed Crystals UA NOT NEEDED [facility] INSURANCE BILL Comment:Ancillary determined the test is not needed Crystals UA NOT NEEDED [facility] INSURANCE BILL Comment:Ancillary determined the test is not needed Mucus UA Present Not Estab. [facility] INSURANCE BILL Bacteria UA Few None seen/Few [facility] INSURANCE BILL Yeast UA NOT NEEDED [facility] INSURANCE BILL Comment:Ancillary determined the test is not needed Trichomonas UA NOT NEEDED [facility] INSURANCE BILL Comment:Ancillary determined the test is not needed Comment Urine NOT NEEDED [facility] INSURANCE BILL Comment:Ancillary determined the test is not needed BLOOD SPECIMEN / Unknown 12/08/2012 10:28 AM CDT 12/08/2012 8:55 PM CDT Narrative Resulting Agency Comment [facility] [address] [facility] [phone] Authorizing Provider Result Reema Green MD LAB - URINALYSIS ORDERABLES [facility] INSURANCE BILL * (ABNORMAL) SHERMAN STAINING PATTERNS ([facility]) (12/08/2012 10:28 AM CDT) Homogeneous Pattern 1:1280(H) [facility] INSURANCE BILL Nucleolar Pattern NOT NEEDED [facility] INSURANCE BILL Comment:Ancillary determined the test is not needed Speckled Pattern NOT NEEDED [facility] INSURANCE BILL Comment:Ancillary determined the test is not needed Centromere Pattern NOT NEEDED [facility] INSURANCE BILL Comment:Ancillary determined the test is not needed Note [facility] INSURANCE BILL Comment: A positive JOSE result may occur in healthy individuals or be associated with a variety of diseases. See interpre- tation below: . Pattern Antigen Detected Suggested Disease Association Homogeneous DNA(ds,ss,), High titers - SLE (Smooth) Histone Speckled Sm, [employer] LABORATORY TECHNICIAN, SCL-70, SLE,MCTD,Scleroderma,Sjogrens SS-A/SS-B Nucleolar SCL-70, PM-1/SCL High titers Scleroderma Poly- myositis/Scleroderma Overlap Centromere Centromere PSS w/Crest syndrome variable BLOOD SPECIMEN / Unknown 12/08/2012 10:28 AM CDT 12/08/2012 8:55 PM CDT Narrative Resulting Agency Comment [facility] [address] [phone] Authorizing Provider Result Reema Green MD LAB - PATHOLOGY/C YTOLOGY ORDERABLES [facility] INSURANCE BILL * JOSE PANEL COMPREHENSIVE (PO REF LAB) (12/08/2012 10:28 AM CDT) Anti-dsDNA Quantitative 1 0 - 9 IU/mL [facility] INSURANCE BILL Comment: Negative <5 Equivocal 5 - 9 Positive >9 FREEZER LABORATORY TECHNICIAN Antibody 0.9 0.0 - 0.9 AI [facility] INSURANCE BILL Jensen (JERICA) Antibody <0.2 0.0 - 0.9 AI [facility] INSURANCE BILL Antiscleroderma-70 Antibody <0.2 0.0 - 0.9 AI [facility] INSURANCE BILL Sjogren's Antibodies (SSA) 0.8 0.0 - 0.9 AI [facility] INSURANCE BILL Sjogren's Antibodies (SSB) 0.2 0.0 - 0.9 AI [facility] INSURANCE BILL Antichromatin Antibodies 0.7 0.0 - 0.9 AI [facility] INSURANCE BILL Kayla-1 Antibody <0.2 0.0 - 0.9 AI [facility] INSURANCE BILL Centromere B Antibody <0.2 0.0 - 0.9 AI [facility] INSURANCE BILL See Below [facility] INSURANCE BILL Comment: Autoantibody Disease Association Condition Frequency --------- Antinuclear Antibody, SLE, mixed connective Direct (JOSE-D) tissue diseases --------- dsDNA SLE 40 - 60% --------- Chromatin Drug induced SLE 90% SLE 48 - 97% --------- SSA (Ro) SLE 25 - 35% Sjogren's Syndrome 40 - 70% Lupus 100% --------- SSB (La) SLE 10% Sjogren's Syndrome 30% --------- Sm (anti-Jensen) SLE 15 - 30% --------- [employer]ER LABORATORY TECHNICIAN Mixed Connective Tissue Disease 95% (U1 nRNP, SLE 30 - 50% anti-ribonucleoprotein) Polymyositis and/or Dermatomyositis 20% --------- Scl-70 (antiDNA Scleroderma (diffuse) 20 - 35% topoisomerase) Crest 13% --------- Kayla-1 Polymyositis and/or Dermatomyositis 20 - 40% --------- Centromere B Scleroderma - Crest variant 80% BLOOD SPECIMEN / Unknown 12/08/2012 10:28 AM CDT 12/08/2012 8:55 PM CDT Narrative Resulting Agency Comment [address] [phone] Ottoniel Green MD LAB - SEROLOGY OR DERABLES Performing Organization Address [facility] de Phone Number [facility] INSURANCE BILL * JOSE BLOOD SCREEN W/REFLEX TITER (12/08/2012 10:28 AM CDT) JOSE See patterns [facility] INSURANCE BILL Comment: Negative <1:80 Borderline 1:80 Positive >1:80 Blood specimen (specimen) BLOOD SPECIMEN / Unknown 12/08/2012 10:28 AM CDT 12/08/2012 8:55 PM CDT Narrative Resulting Agency Comment [address] [phone] Ottoniel Green MD LAB - CHEMISTRY O RDERABLES Performing Organization Address [facility]/ZIP Co de Phone Number [facility] INSURANCE BILL * JOSE W REFLX (POSITIVE) (PO REF LAB) (01/14/2011 10:30 AM CDT) Only the most recent of2 resultswithin the time period is included. JOSE Direct Negative Negative [facility] ACCOUNT BILL BLOOD SPECIMEN / Unknown 01/14/2011 10:30 AM CDT 01/14/2011 4:10 PM CDT Narrative Resulting Agency Comment [facility] [address] [phone] Authorizing Provider Result Reema Green MD LAB - SEROLOGY OR DERABLES Performing Organization Address [facility] de Phone Number [facility] ACCOUNT BILL * URINALYSIS MICROSCOPIC ONLY (01/14/2011 10:30 AM CDT) Only the most recent of3 resultswithin the time period is included. WBC UA 0-5 0 - 5 /hpf [facility] ACCOUNT BILL RBC UA 0-3 0 - 3 /hpf [facility] ACCOUNT BILL Epithelial Cells (non renal) 0-10 0 - 10 /hpf [facility] ACCOUNT BILL Epithelial Cells (renal) NOT NEEDED [facility] ACCOUNT BILL Comment:Ancillary determined the test is not needed Casts ua NOT NEEDED [facility] ACCOUNT BILL Comment:Ancillary determined the test is not needed Casts UA NOT NEEDED [facility] ACCOUNT BILL Comment:Ancillary determined the test is not needed Crystals UA NOT NEEDED [facility] ACCOUNT BILL Comment:Ancillary determined the test is not needed Crystals UA NOT NEEDED [facility] ACCOUNT BILL Comment:Ancillary determined the test is not needed Mucus UA Present Not Estab. [facility] ACCOUNT BILL Bacteria UA None seen None seen/Few [facility] ACCOUNT BILL Yeast UA NOT NEEDED [facility] ACCOUNT BILL Comment:Ancillary determined the test is not needed Trichomonas UA NOT NEEDED [facility] ACCOUNT BILL Comment:Ancillary determined the test is not needed Comment Urine NOT NEEDED [facility] ACCOUNT BILL Comment:Ancillary determined the test is not needed 01/14/2011 10:3 0 AM CDT 01/14/2011 4:10 PM CDT Narrative Resulting Agency Comment [facility] [place] [address] [facility] [phone] Authorizing Provider Result Reema Green MD LAB - URINALYSIS ORDERABLES Performing Organization Address [facility]/ZIP Co de Phone Number [facility] ACCOUNT BILL * GENERAL HEALTH PANEL (07/16/2010 11:30 AM CDT) Only the most recent of2 resultswithin the time period is included. Glucose 95 65 - 99 mg/dL [facility] ACCOUNT BILL BUN 18 5 - 26 mg/dL [facility] ACCOUNT BILL Creatinine 0.80 0.57 - 1.00 mg/dL [facility] ACCOUNT BILL eGFR by MDRD >59 >59 mL/min/1. 73 [facility] ACCOUNT BILL eGFR by MDRD >59 >59 mL/min/1. 73 [facility] ACCOUNT BILL Comment: Note: Persistent reduction for 3 months or more in an eGFR <60 mL/min/1.73 m2 defines CKD. Patients with eGFR values >/=60 mL/min/1.73 m2 may also have CKD if evidence of persistent proteinuria is present. Additional information may be found at [email or web address]. BUN/Creatinine Ratio 23 8 - 27 [facility] ACCOUNT BILL Sodium 139 135 - 145 mmol/L [facility] ACCOUNT BILL Potassium 4.3 3.5 - 5.2 mmol/L [facility] ACCOUNT BILL Chloride 101 97 - 108 mmol/L [facility] ACCOUNT BILL CO2 22 20 - 32 mmol/L [facility] ACCOUNT BILL Calcium 9.5 8.6 - 10.2 mg/dL [facility] ACCOUNT BILL Protein Total 7.7 6.0 - 8.5 g/dL [facility] ACCOUNT BILL Albumin 4.6 3.6 - 4.8 g/dL [facility] ACCOUNT BILL Globulin Total 3.1 1.5 - 4.5 g/dL [facility] ACCOUNT BILL Albumin/Globulin Ratio 1.5 1.1 - 2.5 [facility] ACCOUNT BILL Bilirubin Total 0.3 0.0 - 1.2 mg/dL [facility] ACCOUNT BILL Alkaline Phosphatase 89 25 - 165 IU/L [facility] ACCOUNT BILL AST 19 0 - 40 IU/L [facility] ACCOUNT BILL ALT 17 0 - 40 IU/L [facility] ACCOUNT BILL TSH 2.070 0.450 - 4.500 uIU/mL [facility] ACCOUNT BILL WBC 7.2 4.0 - 10.5 x10E3/uL [facility] ACCOUNT BILL RBC 4.68 3.80 - 5.10 x10E6/uL [facility] ACCOUNT BILL Hemoglobin 13.8 11.5 - 15.0 g/dL [facility] ACCOUNT BILL Hematocrit 42.6 34.0 - 44.0 % [facility] ACCOUNT BILL MCV 91 80 - 98 fL [facility] ACCOUNT BILL MCH 29.5 27.0 - 34.0 pg [facility] ACCOUNT BILL MCHC 32.4 32.0 - 36.0 g/dL [facility] ACCOUNT BILL RDW 13.9 11.7 - 15.0 % [facility] ACCOUNT BILL Platelet Count 219 140 - 415 x10E3/uL [facility] ACCOUNT BILL Granulocytes % 61 40 - 74 % [facility] ACCOUNT BILL Lymphocytes % 31 14 - 46 % [facility] ACCOUNT BILL Monocytes % 7 4 - 13 % [facility] ACCOUNT BILL Eosinophils % 1 0 - 7 % [facility] ACCOUNT BILL Basophils % 0 0 - 3 % [facility] ACCOUNT BILL Immature Cells CANCELED [facility] ACCOUNT BILL Comment:Result canceled by t he ancillary Granulocytes Absolute 4.4 1.8 - 7.8 x10E3/uL [facility] ACCOUNT BILL Lymphocytes Absolute 2.2 0.7 - 4.5 x10E3/uL [facility] ACCOUNT BILL Monocytes Absolute 0.5 0.1 - 1.0 x10E3/uL [facility] ACCOUNT BILL Eosinophils Absolute 0.1 0.0 - 0.4 x10E3/uL [facility] ACCOUNT BILL Basophils Absolute 0.0 0.0 - 0.2 x10E3/uL [facility] ACCOUNT BILL Immature Granulocytes 0 0 - 1 % [facility] ACCOUNT BILL Immature Granulocytes Absolute 0.0 0.0 - 0.1 x10E3/uL [facility] ACCOUNT BILL nRBC CANCELED [facility] ACCOUNT BILL Comment:Result canceled by levar he ancillary Comment Hematology CANCELED [facility] ACCOUNT BILL Comment:Result canceled by levar he ancillary BLOOD SPECIMEN / Unknown 07/16/2010 11:30 AM CDT 07/16/2010 6:32 PM CDT Narrative Resulting Agency Comment [facility] [address] [phone] Authorizing Provider Result Reema Green MD LAB - CHEMISTRY O RDERABLES [facility] ACCOUNT BILL * XR FINGER(S) RIGHT (06/14/2010 10:10 AM CDT) Anatomical Region Laterality Modality Wrist / Hand, Upper Extremity Ra diographic Imaging 06/14/2010 3:35 PM CDT Impressions 06/14/2010 3:35 PM CDT Soft tissue swelling and degenerative change right second DIP. Narrative 06/14/2010 3:35 PM CDT INDICATION: Second digit finger pain Three views of the right second digit are provided. There is soft tissue swelling at the DIP joint. There is subchondral cystic change and spurring. Small well-corticated fragment is present at the dorsal aspect of the DIP as well. Procedure Note Nina Suresh MD - 06/14/2010 INDICATION: Second digit finger pain Three views of the right second digit are provided. There is soft tissue swelling at the DIP joint. There is subchondral cystic change and spurring. Small well-corticated fragment is present at the dorsal aspect of the DIP as well. IMPRESSION Soft tissue swelling and degenerative change right second DIP. S. Gato Bennett MD DIAGNOSTIC IMAGING O RDERABLES * XR CERVICAL SPINE 2 OR 3 VWS (06/06/2009 8:59 AM CDT) Only the most recent of2 resultswithin the time period is included. Anatomical Region Laterality Modality Spine Radiographic Sanjuanita ging 06/06/2009 11:2 6 AM CDT Impressions 06/06/2009 12:41 PM CDT Examination is stable in comparison to the postop films of November 21, 2008. Today's lateral film shows a minimal anterolisthesis of C4 on C5. Narrative 06/06/2009 12:41 PM CDT CERVICAL SPINE 4 VIEWS INDICATION: Followup neck surgery. COMPARISON: November 21, 2008. FINDINGS: Four views of the cervical spine are available. The metal plate bridging the C5-C6-C7 disc spaces appears to be intact on the AP and lateral films. Cervical vertebrae are in good alignment. Small osteophytes are noted along the anterior/inferior margin of C4. Today's lateral film shows a subtle anterolisthesis of C4 on C5. The previous postop films of November 21, 2008, were in the immediate postop, so this finding was less evident. Procedure Note Sriram Roberts MD - 06/06/2009 CERVICAL SPINE 4 VIEWS INDICATION: Followup neck surgery. COMPARISON: November 21, 2008. FINDINGS: Four views of the cervical spine are available. The metal plate bridging the C5-C6-C7 disc spaces appears to be intact on the AP and lateral films. Cervical vertebrae are in good alignment. Small osteophytes are noted along the anterior/inferior margin of C4. Today's lateral film shows a subtle anterolisthesis of C4 on C5. The previous postop films of November 21, 2008, were in the immediate postop, so this finding was less evident. IMPRESSION Examination is stable in comparison to the postop films of November 21, 2008. Today's lateral film shows a minimal anterolisthesis of C4 on C5. Agustín Germain MD DIAGNOSTIC IMAGING O RDERABLES * RHEUMATOID FACTOR BLOOD QUANTITATIVE (04/10/2009 10:16 AM CDT) Rheumatoid Factor 6.6 0.0 - 13.9 IU/mL [facility] ACCOUNT BILL BLOOD SPECIMEN / Unknown 04/10/2009 10:16 AM CDT 04/10/2009 6:03 PM CDT Narrative Resulting Agency Comment [facility] [address] [phone] Ottoniel Green MD LAB - CHEMISTRY O RDERABLES [facility] ACCOUNT BILL * URINALYSIS - POINT OF CARE (04/10/2009) Clarity UA POCT n/a Color UA POCT lt. yellow Leukocyte UA neg Negative Nitrite UA POCT neg Negative Urobilinogen UA POCT n/a 0.1 - 1.0 EU/dL Protein UA POCT neg Negative pH UA 5.5 5.0 - 8.0 pH units Blood UA neg Negative Specific [place] UA POCT 1.025 1.002 - 1.030 Ketone UA trace Negative Bilirubin UA POCT n/a Negative Glucose UA neg Negative Urine specimen (specimen) URINE / Unknown Ottoniel Green MD LAB - POINT OF CA RE ORDERABLES * XR CERV SPINE SINGLE VIEW (11/21/2008 10:20 AM PLATER HOT DIP) Only the most recent of2 resultswithin the time period is included. Anatomical Region Laterality Modality Spine Other 11/21/2008 10:2 0 AM PLATER HOT DIP Narrative 11/21/2008 12:11 PM PLATER HOT DIP CROSSTABLE LATERAL CERVICAL SPINE 11/21/2008 CLINICAL INDICATION- Neck pain, neck surgery. DESCRIPTION- The study is presented for interpretation after completion of the surgical procedure. No radiologist was present. Single crosstable lateral view of the cervical spine demonstrates anterior osteometallic and interbody cage fusion at C5-C6 and C6-C7. Read By- GINO LUJAN M.D. Released By- GINO LUJAN M.D. Released Date Time- 11/21/08 1211 Promotions Specialist- [facility] AGUSTÍN JASON JAMES J REF- CON- OTTONIEL HUNT- Procedure Note Gino Lujan MD - 11/21/2008 CROSSTABLE LATERAL CERVICAL SPINE 11/21/2008 CLINICAL INDICATION- Neck pain, neck surgery. DESCRIPTION- The study is presented for interpretation after completion of the surgical procedure. No radiologist was present. Single crosstable lateral view of the cervical spine demonstrates anterior osteometallic and interbody cage fusion at C5-C6 and C6-C7. Read By- GINO LUJAN M.D. Released By- GINO LUJAN M.D. Released Date Time- 11/21/08 1211 Promotions Specialist- [facility] AGUSTÍN JASON JAMES J REF- CON- OTTONIEL HUNT- Agustín Germain MD DIAGNOSTIC IMAGING O [place] * URINALYSIS DIPSTICK AUTO (11/17/2008 11:00 AM PLATER HOT DIP) Color UA YELLOW [facility] Character UA CLEAR [facility] Specific [place] UA 1.015 1.005 - 1.0300 [facility] pH UA 5.0 4.6 - 8.0 pH Units [facility] Leukocyte UA neg Negative /ul [facility] Nitrite UA pos Negative [facility] Protein UA neg Negative mg/dl [facility] Glucose UA norm Normal mg/dl [facility] Ketone UA neg Negative mg/dl [facility] Urobilinogen UA norm Normal [place] Units [facility] Bilirubin UA neg Negative mg/dl [facility] Blood UA 10 Negative /ul [facility] URINE / Unknown 11/17/2008 1 1:00 AM PLATER HOT DIP Agustín Germain MD LAB - URINALYSIS ORD ERABLES Performing Organization Address City/[facility]/ZIP Co de Phone Number [facility] * TYPE + SCREEN PANEL (11/17/2008 11:00 AM PLATER HOT DIP) ABO Rh O Neg [facility] Antibody Screen Neg [facility] BLOOD SPECIMEN / Unknown 11/17/2008 11:00 AM PLATER HOT DIP Agustín Germain MD LAB - BLOOD BANK ORD ERABLES [facility] Care Teams Machine Shop Inspector Relationship Specialty Start Date End Date [facility] - [facility]/18/23 Hesham Trevizo MD Rheumatology 08/11/18 Malik Fernandez DC [address] [place] [address] Chiropractic 10/15/21
--- NOTE | 2024-11-03 11:31 | ED.RECABL ---
HPI - Recheck/Abnormal Lab/Rx General Chief Complaint: Recheck/Abnormal Lab/Rx Stated Complaint: htn Time Seen by Provider: 11/03/24 10:56 Source: patient Mode of arrival: ambulatory Limitations: no limitations History of Present Illness HPI narrative: Patient is a 78-year-old female who presents the ED with report of headache and elevated blood pressure. Patient reports her pressure was elevated into the 180 systolic today. She states he checked this because she has had a frontal and diffuse headache since last night. She called her primary care doctor was referred to the ED for further evaluation. Patient does have history of hypertension and is on triamterene/HCTZ. She states she was taken off this at some point last year due to issues with her potassium, but has resumed taking this. She checks her blood pressure every few days and over the last couple of days, blood pressure has ranged from 130s to 170 systolic. She has not had a headache at that time. Denies vision changes, dizziness, lightheadedness, chest pain, shortness of breath, focal weakness or numbness, cough or cold symptoms, history of migraines. Related Data Home Medications ?Medication ?Instructions ?Recorded ?Confirmed ?Last Taken ?Type cholecalciferol (vitamin D3) 50 50 mcg PO DAILY 03/04/22 06/08/24 03/07/24 History mcg (2,000 unit) capsule coenzyme Q10 100 mg capsule 200 mg PO DAILY 03/04/22 06/08/24 03/07/24 History (CoQ-10) fexofenadine 180 mg tablet 180 mg PO DAILY 03/04/22 06/08/24 03/08/24 History (Mildred Allergy) multivitamin 1 tablet PO DAILY 03/04/22 06/08/24 03/07/24 History vit C 250 mg-vit E 90 mg-zinc 40 1 tablet PO BID 03/04/22 06/08/24 03/07/24 History mg-copper 1 [id number] capsule (PreserVision AREDS-2) folic acid 1 mg tablet 1 mg PO DAILY 09/03/22 06/08/24 03/07/24 History methotrexate sodium 2.5 mg tablet 15 mg PO WEEKLY 09/03/22 06/08/24 03/09/24 History ascorbate calcium (vitamin C) 500 500 mg PO DAILY 11/27/22 06/08/24 03/07/24 History mg tablet leflunomide 10 mg tablet 10 mg PO DAILY 08/07/23 06/08/24 03/10/24 History L.acid-B.animalis-B.bifidum-B.infantis cap PO 04/19/24 06/08/24 Unknown History 50 billion cell capsule,del rel ([employer] [place] Probiotic) Allergies Allergy/AdvReac Type Severity Reaction Status Date / Time cefaclor (From Ceclor) Allergy Mild Rash Verified 11/03/24 10:57 Penicillins Allergy Mild Rash Verified 11/03/24 10:57 Sulfa (Sulfonamide Allergy Mild Rash Verified 11/03/24 10:57 Antibiotics) Tetracyclines Allergy Mild Rash Verified 11/03/24 10:57 estradiol (From Estrace) AdvReac Mild Headache Verified 11/03/24 10:57 fluticasone (From Flonase) AdvReac Mild Dizziness Verified 11/03/24 10:57 Review of Systems Review of Systems: All systems reviewed & are unremarkable except as noted in HPI. 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 Bilateral cataracts Bunion, left foot Hypothyroidism (acquired) Lupus (systemic lupus erythematosus) Hyperlipidemia Arthritis Allergies Hypertension Surgical History Surgical History History of left knee replacement History of neck surgery History of lumbar surgery History of cholecystectomy History of hysterectomy Family History Family History Other Bone cancer Breast cancer Thyroid cancer Social History Social History Smoking status: Never smoker Alcohol intake: never Substance use: never Substance use type: does not use Do You Feel Safe in your Home?: Yes Lack of Transportation: No Lack of Food: Never True Current Housing: I Have Housing Concerned About Future Housing: No Difficulty Paying Gas/Electric Bills: No Difficulty Paying for Meds: No Currently Unemployed: No Education: High School Diploma/GED Difficulty w/ Childcare or Family Care: No Living arrangements: with family Spiritual care concerns: No Exam Narrative: GENERAL: Well appearing, well-nourished, non-toxic, in no acute distress. HEAD: Normocephalic, atraumatic. EYES: PERRL/EOMI, conjunctiva clear NECK: Normal ROM, no meningeal signs RESPIRATORY: Airway patent, respirations nonlabored. Clear to auscultation bilaterally, no rales, rhonchi, wheezing. CARDIOVASCULAR: Regular rate and rhythm MUSCULOSKELETAL: Moves all extremities. No gross deformities. SKIN: Warm, dry, normal color. NEURO: A&O X3. Speech clear. Cranial nerves II-XII grossly intact. Steady gait. No ataxic movements. No focal deficits. PSYCHIATRIC: Appropriate mood and affect. Normal interaction. Course Vital Signs Vital signs: Vital Signs Temperature 97.6 F 11/03/24 09:28 Pulse Rate 70 11/03/24 09:28 Respiratory Rate 16 11/03/24 09:28 Blood Pressure 191/98 H 11/03/24 09:28 Pulse Oximetry 98 11/03/24 09:28 Oxygen Delivery Room Air 11/03/24 09:28 Temperature 97.6 F 11/03/24 09:28 Pulse Rate 63 11/03/24 15:15 Respiratory Rate 21 H 11/03/24 15:15 Blood Pressure 183/79 H 11/03/24 15:01 Pulse Oximetry 98 11/03/24 15:15 Oxygen Delivery Room Air 11/03/24 09:28 MDM - Recheck/Abnormal Lab/Rx MDM Narrative Medical decision making narrative: Patient presented to ED with headache and elevated blood pressure. Reports headache began last night. Diffuse beginning in the frontal region. She did take Tylenol early this morning with some relief. Blood pressure upon arrival 191/98. Did improve into the 170s without intervention. Patient is currently on triamterene/HCTZ. She is neurologically intact. No focal deficits appreciated. In no acute distress. Will obtain pain control and obtain basic workup to further evaluate. CT brain negative. Showing age-related changes. Laboratory studies are unremarkable. No significant abnormalities. Stable kidney function. Stable electrolytes. Patient given pressure migraine cocktail with improvement of headache. Blood pressure remains persistently elevated. Up into the 190s systolic. Was planning to give patient dose of hydralazine, but after discussion with patient, she reports that she did not take her normal blood pressure medication today. She was given this in the ED. Spoke to Rebecca CARTER for Dr. Jauregui's office, advised to have patient restart medication and take medication consistently, f/u in office next week. Medical Records Attestation: I reviewed the patient's medical records. Lab Data Attestation: I reviewed the patient's lab results. 11/03/24 11:44 11/03/24 11:44 Labs: Lab Results 11/03/24 Range/Units 11:44 WBC 9.5 (4.5-10.0) K/mm3 RBC 4.68 (4.2-5.4) M/mm3 Hgb 13.9 (12.0-15.0) g/dL Hct 44.0 (37.0-47.0) % MCV 94.0 (80-100) fl MCH 29.7 (26-34) pg MCHC 31.6 L (32-36) g/dl RDW 14.8 H (11.5-14.5) % Plt Count 189 (150-375) k/mm3 MPV 10.6 H (7.4-10.4) fl Immature Gran % (Auto) 0.3 (0-0.5) % Neut % (Auto) 66.9 (45.5-73.1) % Lymph % (Auto) 18.9 (18.3-44.2) % Placer % (Auto) 9.8 H (2.6-8.5) % Eos % (Auto) 3.6 (0-4.4) % Baso % (Auto) 0.5 (0.2-1.2) % Lymph # (Auto) 1.79 (0.9-3.2) K/mm3 Placer # (Auto) 0.9 H (0.1-0.6) K/mm3 Eos # (Auto) 0.3 (0-0.3) K/mm3 Baso # (Auto) 0.1 (0.0-0.1) K/mm3 Abs Immat Gran (auto) 0.03 (0.00-0.031) K/mm3 Absolute Neuts (auto) 6.4 (1.3-6.7) K/mm3 Absolute Nucleated RBC 0.000 (0.0-0.012) K/mm3 Nucleated RBC % 0.0 (0.0-0.2) % Sodium 139 (137-145) mmol/L Potassium 4.3 (3.4-5.0) mmol/L Chloride 103 (98-107) mmol/L Carbon Dioxide 30 (22-30) mmol/L Anion Gap 6 (4-12) mmol/L BUN 23 H (7-17) mg/dL Creatinine 0.62 L (0.7-1.0) mg/dL Estim Creat Clear Calc 60 ml/min Estimated GFR > 60 (59 - ) Glucose 79 (65-110) mg/dL Calcium 9.4 (8.4-10.2) mg/dL Magnesium 2.0 (1.6-2.3) mg/dL Total Bilirubin 0.6 (0.2-1.3) mg/dL AST 22 (14-36) U/L ALT 16 (6-35) U/L Alkaline Phosphatase 115 (38-126) U/L Total Protein 7.0 (6.3-8.2) g/dL Albumin 4.2 (3.5-5.1) g/dL Imaging Data Attestation: I personally reviewed and interpreted this imaging study as follows: Discharge Plan Discharge Clinical Impression: Elevated blood pressure reading with diagnosis of hypertension Headache Qualifiers: Headache type: unspecified Headache chronicity pattern: acute headache Intractability: not intractable Qualified Code(s): R51.9 - Headache, unspecified Patient Disposition: Home, Self-Care Condition: Stable Instructions: Antibiotic Form, Acute Headache (ED), Chronic Hypertension (ED) Additional Instructions: Continue to take Triamterene/HCTZ daily as directed. Keep recording of your blood pressures. Follow-up with your primary care doctor in the office within the next 1 week. Continue Tylenol as needed for headache. Stay well hydrated. Return to the ED if you experience new or worsening symptoms, persistently elevated blood pressure, severe dizziness, vision changes, chest pain, shortness of breath, numbness or weakness of arm or leg, or any other symptoms of concern. Patient Language: Tamazight Prescriptions: No Action methotrexate sodium 2.5 mg tablet 15 mg PO WEEKLY Rx Instructions: FRIDAY folic acid 1 mg tablet 1 mg PO DAILY leflunomide 10 mg tablet 10 mg PO DAILY coenzyme Q10 [CoQ-10] 100 mg capsule 200 mg PO DAILY fexofenadine [Mildred Allergy] 180 mg tablet 180 mg PO DAILY cholecalciferol (vitamin D3) 50 mcg (2,000 unit) capsule 50 mcg PO DAILY PreserVision AREDS-2 250-90-40-1 mg capsule 1 tablet PO BID multivitamin Tablet 1 tablet PO DAILY ascorbate calcium (vitamin C) 500 mg tablet 500 mg PO DAILY gabapentin 300 mg capsule 300 mg PO QHS Qty: 90 0RF Fortify [place] Probiotic 50 billion cell capsule,delayed release(DR/EC) PO ferrous sulfate 325 mg (65 mg iron) tablet 325 mg PO DAILY Qty: 30 0RF levothyroxine [Synthroid] 50 mcg tablet See Rx Instructions .ROUTE .COMPLEX Qty: 90 3RF Dose Instruction: TAKE 1 TABLET BY MOUTH DAILY Rx Instructions: TAKE 1 TABLET BY MOUTH DAILY pravastatin 40 mg tablet See Rx Instructions .ROUTE .COMPLEX Qty: 100 2RF Dose Instruction: TAKE 1 TABLET BY MOUTH DAILY Rx Instructions: TAKE 1 TABLET BY MOUTH DAILY albuterol sulfate 90 mcg/actuation HFA aerosol inhaler 1 - 2 puff inhalation Q4-6H PRN (Reason: shortness of breath or wheezing) Qty: 8.5 2RF Follow-up/Referrals: Yunior Nails MD [Primary Care Provider] - Time of Disposition: 16:22
[2024-11-03 11:53] LABS: Basophils Absolute Auto 0.1 K/mm3 (0.0-0.1); Basophils Percent Auto 0.5 % (0.2-1.2); Eosinophils Absolute Auto 0.3 K/mm3 (0-0.3); Eosinophils Percent Auto 3.6 % (0-4.4); Hemoglobin 13.9 g/dL (12.0-15.0); Immature Granulocyte Absolute 0.03 K/mm3 (0.00-0.031); Immature Granulocyte Percent A 0.3 % (0-0.5); Lymphocytes Absolute Auto 1.79 K/mm3 (0.9-3.2); Lymphocytes Percent Auto 18.9 % (18.3-44.2); Mean Corpuscular HGB Conc 31.6 g/dl (32-36); Mean Corpuscular Hemoglobin 29.7 pg (26-34); Mean Platelet Volume 10.6 fl (7.4-10.4); Monocytes Absolute Auto 0.9 K/mm3 (0.1-0.6); Monocytes Percent Auto 9.8 % (2.6-8.5); Neutrophils Absolute Auto 6.4 K/mm3 (1.3-6.7); Neutrophils Percent Auto 66.9 % (45.5-73.1); Platelet Count Result 189 k/mm3 (150-375); Red Blood Count 4.68 M/mm3 (4.2-5.4); Red Cell Distribution Width 14.8 % (11.5-14.5); White Blood Count 9.5 K/mm3 (4.5-10.0)
--- OUTSIDE RECORDS SUMMARY | 2024-11-03 11:53 | XMS_ITS | CONTINUITY OF CARE DOCUMENT ---
Author Name jessee hooks Address Unknown Organization [facility] Address [address] [place] [address] Phone [phone] Care Team Providers Care Hose Finisher Name Role Phone Jamari BENITEZ, Chacorta Unavailable [phone] Jennifer Hart MD Unavailable Jennifer Hart MD Unavailable PROBLEMS Condition Status Date Provider Notes Chest pain-type to be determined active Ayaka Canas RN Sleep apnea active Chacorta Kauffman MD PVC's active Chacorta Kauffman MD Shortness of breath completed - Ayaka Canas RN Hyperlipidemia active ? Chacorta Kauffman MD Hypothyroidism active Chacorta Kauffman MD Bradycardia - sinus active Chacorta Kauffman MD Aortic sclerosis active Ayaka Canas RN CHEST PAIN-TYPE TO BE DETERMINED completed - Ayaka Canas RN ARTHRITIS active Chacorta Kauffman MD HTN ESSENTIAL active Chacorta Kauffman MD CARDIAC MURMUR completed [...] pressure, diastolic, left arm 84 mm [Hg] [facility], systolic, left arm 138 mm [Hg] [facility] blood pressure, diastolic, right arm 90 m m[Hg] Magness Mckee blood pressure, systolic, right arm 140 m m[Hg] [facility] blood pressure, diastolic 84 mm[Hg] [facility] Mckee blood pressure, systolic 138 mm[Hg] Mi larsen [place] oxygen saturation, oximetry 98 % Mckee respiratory rate E&M 16 /min Mckee pulse rate 66 /min [facility] weight E&M 176 [lb_av] Sangeeta Mckee height E&M 65 [in_i] Sangeeta Mckee Body Mass Index (Ratio) 29.28 kg/m2 Carolyn Kauffman MD blood pressure, diastolic 70 mm[Hg] Rh onhaley Anahi blood pressure, systolic 130 mm[Hg] Rho aimee Christain blood pressure, cuff size regular Rh elsihaley Christian oxygen saturation, oximetry 98 % Romy Christian respiratory rate E&M 16 /min Romy Christian pulse rate 73 /min Romy Christian weight E&M 176 [lb_av] Romy Christian height E&M 65 [in_i] Romy Christian Body Mass Index (Ratio) 29.78 kg/m2 Carolyn Kauffman MD blood pressure, diastolic 80 mm[Hg] Constantino patterson O'Rob blood pressure, systolic 130 mm[Hg] [facility] zaki O'Rob oxygen saturation, oximetry 99 % [...] Karyn Canas RN weight E&M 181.4 [lb_av] [facility] respiratory rate E&M 16 /min [facility] blood pressure, diastolic 76 mm[Hg] [facility] blood pressure, systolic 120 mm[Hg] [facility] saturation, oximetry 93 % [facility] pulse rate 68 /min [facility] height E&M 65 [in_i] [facility] Body Mass Index (Ratio) 29.95 kg/m2 Carolyn Kauffman MD blood pressure, diastolic, left arm 80 mm [Hg] am blood pressure, systolic, left arm 128 mm [Hg] [facility] blood pressure, diastolic, right arm 86 m m[Hg] [facility] blood pressure, systolic, right arm 128 m m[Hg] [facility] blood pressure, diastolic 80 mm[Hg] Ki [facility] blood pressure, systolic 128 mm[Hg] Kil suzie [place] oxygen saturation, oximetry 97 % [facility] respiratory rate E&M 16 /min Magness pulse rate 59 /min [facility] weight E&M 180 [lb_av] [facility] height E&M 65 [in_i] [facility] Body Mass Index (Ratio) 30.12 kg/m2 Karyn Canas RN blood pressure, diastolic, left arm 80 mm [Hg] [facility] blood pressure, systolic, left arm 118 mm [Hg] [facility] blood pressure, diastolic, right arm 80 m m[Hg] blood pressure, systolic, right arm 118 m m[Hg] [facility] blood pressure, diastolic 80 mm[Hg] [facility] blood pressure, systolic 118 mm[Hg] Mi larsen [place] oxygen saturation, oximetry 97 % respiratory rate E&M 16 /min [facility] pulse rate 70 /min [facility] weight E&M 181 [lb_av] [place] height E&M 65 [in_i] [facility] Body Mass Index (Ratio) 29.12 kg/m2 [...] Mar zaki ORob blood pressure, resting Yes [facility] O oxygen saturation, oximetry 98 % Madelyn [...] pressure, diastolic, left arm 84 mm [Hg] [facility] blood pressure, systolic, left arm 130 mm [Hg] [facility] blood pressure, diastolic, right arm 82 m m[Hg] [facility] blood pressure, systolic, right arm 132 m m[Hg] [facility] Body Mass Index (Ratio) 31.23 kg/m2 [facility] blood pressure, diastolic 82 mm[Hg] [facility] blood pressure, systolic 132 mm[Hg] [facility] na pulse rate 65 /min [facility] oxygen saturation, oximetry 98 % [facility] respiratory rate E&M 18 /min [facility] Carlos palomino weight E&M 187 [lb_av] [facility] height E&M 65 [in_i] [facility] blood pressure, diastolic 80 mm[Hg] [...] 1.6-2.3 8 B-12, serum 349 pg/mL [employer]Logic 364-399 0813/11/2 8 pro brain natriuretic peptide 146 pg/mL LinkLog[facility] 0-301 8 iron saturation percent, serum 23 % [employer] 15-55 8 iron, serum 71 ug/dL [employer] 27-139 8 iron binding capacity, unsaturated 233 ug/dL [employer] 734-483 8849/11/2 8 iron binding capacity, total 304 ug/dL [employer] 708-169 6189/11/2 8 basophil count, absolute 0.0 x10E3/uL [employer]Log[employer] [...] Estab. 8 platelet count 224 X10E3/UL [employer] 412-402 3607/11/2 8 red blood cell distribution width 13.9 [...] MG ORAL TABLET completed as needed - Madleyn O'Rob CO Q 10 CAPSULE active ONCE [...] alcohol use, average drinks per day none Magness [place] alcohol use no Sangeeta [place] caffeine [...] alcohol use, average drinks per day none Magness [place] alcohol use no Sangeeta [place] caffeine use, averag e drinks per day yes Magness [place] smoking status Never smoker Sangeeta penny physical exercise, f requency, days per week yes Sangeeta Mckee alcohol use, average drinks per day none Sangeeta Mckee alcohol use no Sangeeta [place] caffeine use, averag e drinks per day yes Magness [place] smoking status Never smoker Sangeeta penny [...] per day none LinkLog smoking status Non-smoker [facility] MENTAL STATUS Date Observation Value Provider assessment [...] red green party ID AARP MEDICARE ADVANTAGE ([facility] [employer] PPO) Other [id number] ADVANCE DIRECTIVES Name Date DISCUSSED - NO [...] be due to excessive pvc's n o presales engineer=notropic incompetence Ayaka Canas RN Cardiology:no chrono tropic [...] ..... 1 tablet daily Orders: E KG ([id number]) BP today: 132/82 P rior BP: 120/80 (03/17/2012) Chacorta Kauffman MD follow up:aortic scl erosis - echo scheduled for later this week at [facility] Chacorta Kauffman MD follow up: She has [...] MD com pleted FVC / MVV with [facility] hodilator - 12439 Chacorta Kauffman MD completed FRC - 49518 Chacorta Kauffman MD completed SpO2 - 60342 Chacorta Kauffman MD complete d DLCO - 54890 Chacorta Kauffman MD complete d SNOMED-CT: [id number] 593300 Current Medications Documented Chacorta Kauffman MD completed ZIO Holter Hookup Chacorta Kauffman MD com pleted EKG Chacorta Kauffman MD completed SNOMED-CT: 501299569 885639 Current Medications Documented Chacorta Kauffman MD completed SNOMED-CT: 677434925 874711 Current Medications Documented Chacorta Kauffman MD completed EKG Chacorta Kauffman MD completed EKG Chacorta Kauffman MD completed EKG Chacorta Kauffman MD completed
--- OUTSIDE RECORDS SUMMARY | 2024-11-03 11:53 | XMS_ITS | Referral Summary ---
Author Organization [facility] Address [address] [place] [address] Care Team Providers Care Forest Management Teacher Name Role Phone Hesham Trevizo MD Unavailable Unavailable Malik Fernandez DC Unavailable Pcp, Dinora Krishnan Im-Fm Primary Care Provider Un available Source Comments [facility],non-owned Affiliates and Associated Physician Practices is amultiple site organization consisting of ambulatory clinics and hospital sitesin [place], [place], [place] and [place]. This disclosure is being madepursuant to the Care Everywhere program and may not contain all information available regarding this patient. Last updated 18.[facility] Allergies Active Allergy Reactions Criticality [...] 09/28/2018 Immunizations Name Administration Dates Next Due Factyle primary monoval ent 12+ yr 0.3mL Purple [...] Sex Assigned at Female 09/02/2020 9:03 AM CO FOUNDER Gender Identity Female 09/02/2020 9:03 AM CO FOUNDER Sexual Orientation Straight 09/02/2020 9: 03 AM CO FOUNDER Last Filed Vital Signs Vital Sign Reading Time Taken Comments Blood Pressure 130/76 10/15/2021 9:57 AM CO FOUNDER Pulse 62 10/15/2021 9:57 AM CO FOUNDER Temperature 36.6 C (97.8 F) 10/15/2021 9:57 AM CO FOUNDER Respiratory Rate 18 10/15/2021 9:57 AM CO FOUNDER Oxygen Saturation 100% 10/15/2021 9:57 AM CO FOUNDER Inhaled Oxygen Concentration - - Weight 77.1 kg (170 lb) 11/13/2023 9:15 AM CO FOUNDER Height 157.5 cm (5' 2 ) 11/13/2023 9:15 AM CO FOUNDER Body Mass Index 31.09 11/13/2023 9:15 AM CO FOUNDER Functional Status Functional Status Response Date of [...] < 140/90 Blood Pressure 130/76(10/15 9:57 AM CO FOUNDER) No Keyur Evans Note: Caring for Your [...] Where can I go for more information? [place] Heart Association National Center: http://www.americanheart.org 1. In the top header, click C onditions . 2. In the top header, click h igh blood pressure. 3. For a printable blood pressure tracker, scroll toward the bottom of the page to Related Tools, and click H BP Trackers. 4-253-AVT-USA-1 or ( ) National Heart, Lung and Blood Grant: http://www.nhlbi.nih.gov/health/infoctr/index.htm Exercise 5X per week (30 min per time) Exercise No Keyur Evans Note: The [place] College of [employer] Medicine recommends all adults [...] this encounter Medical Devices Implanted Type Area Project Development Engineer Device Identifier Shelf Expiration Date Model / Serial / Lot Cmnt Bone Djo Srg Cblt 40gm Hvisc Strl Implanted:Qty: 1 on 05/08/2020 by Edgar Telles MD at [facility] Left: Knee [employer] 10/14/2020 600-15-000 / / [id number] Tray Tib 67mm Kn Cocr I Beam Implanted:Qty: 1 on 05/08/2020 by Edgar Telles MD at [facility] Left: Knee [employer]deep [employer] 11/21/2029 [id number] / / [id number] Cmpnt Fem Kn Lt Cr Cmnt Prm Vngrd Intlk Implanted:Qty: 1 on 05/08/2020 by Edgar Telles MD at [facility] Left: Knee [employer] 11/21/2029 [id number] / / [id number] Cmpnt Ptlr 28mm 1 Pg Wire Ascnt Arcm Kn Implanted:Qty: 1 on 05/08/2020 by Edgar Telles MD at [facility] Left: Knee [employer] 04/13/2025 [id number] / / [id number] Vngrd Arcm Kn Ant Stab Implanted:Qty: 1 on 05/08/2020 by Edgar Telles MD at [facility] Left: Knee [employer] 04/07/2025 [id number] / / [id number] Procedures Procedure Name Priority Date/Time Associated Diagnosis Comments COMPREHENSIVE METABOLIC PANEL Routine 10/15/2021 11:23 AM CO FOUNDER Essential hypertension with goal blood pressure less than 140/90 Pure hypercholesterolemia Seronegative rheumatoid arthritis (HCC) Systemic lupus erythematosus, unspecified SLE type, unspecified organ involvement status (HCC) Encounter for general adult medical examination with abnormal findings DEXA BONE DENSITY AXIAL SKELETON Routine 04/13/2020 8:32 AM CDT Osteopenia of thigh, unspecified laterality HEPATITIS C ANTIBODY Routine 08/13/2016 10:22 AM CO FOUNDER Need for hepatitis C screening test from Last 3 Months or Most Recently Relevant to Health Maintenance Results * COMPREHENSIVE METABOLIC PANEL (10/15/2021 11:23 AM CO FOUNDER) Glucose 89 70 - 105 mg/dL [facility] [...] BLOOD SPECIMEN / Unknown 10/15/2021 11:23 AM CO FOUNDER 10/15/2021 Narrative Resulting Agency Comment Lab Testing performed at: [address] [place] [id number] Jennifer Hart MD LAB - CHEMISTRY SONAM LOAIZA [facility] ACCOUNT BILL [address] [place] [address] * DEXA BONE DENSITY AXIAL SKELETON (04/13/2020 [...] * HEPATITIS C ANTIBODY (08/13/2016 10:22 AM CO FOUNDER) Hepatitis C Antibody Non Reactive Non Reactive [facility] ACCOUNT BILL Comment: Non Reactive - Antibodies to Hepatitis C virus (HCV) were no t detected, result does not exclude early acute HCV infection. Blood BLOOD SPECIMEN / Unknown 08/13/2016 10:22 AM CO FOUNDER 08/13/2016 Narrative Resulting Agency Comment [facility] [address] [id number] Jennifer Hart MD LAB - CHEMISTRY SONAM LOAIZA [facility] ACCOUNT BILL [address] [place] [address] from Last 3 Months or Most Recently Relevant to Health Maintenance Administered Medications Advance Directives * Full Code (Latest Code Status on File) Date Activated Date Inactivated Comments 05/08/2020 11:56 AM 05/09/2020 3:34 PM * Full Code Date Activated Date Inactivated Comments 09/09/2018 3:12 PM 09/11/2018 3:35 PM Care Teams Forest Management Teacher Relationship Specialty Start Date End Date PcpDinora - PCP - General 04/18/23 Hesham Trevizo MD Rheumatology 08/11/18 Malik Fernandez DC [address] [place] [address] Chiropractic 10/15/21
--- OUTSIDE RECORDS SUMMARY | 2024-11-03 11:53 | XMS_ITS | Referral Summary ---
Author Organization [facility] [address] Address [address] [place] [address] Care Team Providers Care Unix Systems Administrator Name Role Phone Alonzo Clancy CEMENT MIXER DRIVER Primary Care Provid er Allergies Active Allergy [...] (180 mg total) by mouth daily Active [id number] -Lmfolate-algal 27 mg iron-1.13 mg-581.92 mg capsule [...] 1 tablet (50 mcg total) by mouth 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 before breakfast Active vit C,R-Ed-xyscj-stacey tein-zeaxan 250-90-40-1 mg capsule Take by mouth [...] on file Legal Sex Female 9:14 AM ROTARY SCREEN PRINTING MACHINE OPERATOR Gender Identity Female 12/19/2023 10:17 [...] Treatment Not on file Insurance [place] [address] MEDICARE SOLUTIONS Care Teams Unix Systems Administrator Relationship Specialty Start Date End Date Alonzo Clancy NP [address] [place] [id number] PCP - General Family Medicine 04/02/23
--- OUTSIDE RECORDS SUMMARY | 2024-11-03 11:53 | XMS_ITS | Encounter Summary ---
Author Organization [facility] Address [address] [facility] [place] [address] Care Team Providers Care Arboriculturist Name Role Phone Juan Daniel Green MD Primary Care Provider [phone] Harman Rizzo MD Unavailable [phone] Jennifer Hart MD Primary Care Provider Rolf Deleon MD Unavailable Jennifer Hart MD Unavailable [phone] Chacorta Kauffman MD Unavailable Hesham Trevizo MD Unavailable Unavailable Malik Fernandez MT Unavailable Jennifer Hart MD Unavailable [phone] Pcp, [facility] Depaul - Primary Care Provider Un available Encounter Details Date Type Department Care Team (Late st Contact Info) Description 12/08/2012 [facility]PT Juan Daniel Green MD [address] [place] [id number] Social History Tobacco Use Types Packs/Day Years Used Date Smoking Tobacco: Never Alcohol Use Standard Drinks/Week Comments No 0 (1 standard drink = 0.6 oz pur e alcohol) Sex and Gender Information Value Date Recorded Sex Assigned at Female 09/02/2020 9:03 AM JOURNEYMAN ELECTRICIAN Gender Identity Female 09/02/2020 9:03 AM JOURNEYMAN ELECTRICIAN Sexual Orientation Straight 09/02/2020 9: 03 AM JOURNEYMAN ELECTRICIAN documented as of this encounter Plan of Treatment Not on file documented as of this encounter Visit Diagnoses Not on filedocumented in this encounter Additional Health Concerns Infection Onset Date Last Indicated Resolved Time COVID-19 Under Investigation 12/20/2020 12/20/2020 12/30/2020 4:33 AM CDT COVID-19 Under Investigation 02/14/2021 02/14/2021 02/24/2021 4:33 AM CDT documented as of this encounter Care Teams Arboriculturist Relationship Specialty Start Date End Date Juan Daniel Green MD PCP - General 10/19/08 01/01/16 Jennifer Hart MD PCP - General Family Medicine 01/02/16 04/17/23 Jennifer Hart MD [address] [place] [address] PCP - Attributed-[facility] [place] 01/22/18 09/06/21 Jennifer Hart MD [address] [place] [address] PCP - Attributed-[facility] [place] 10/23/21 04/08/22 [facility] - [facility] 04/18/23 Harman Rizzo MD Neurology 07/29/13 10/14/21 Rolf Deleon MD Urology 01/04/16 10/14/21 Chacorta Kauffman MD [address] [place] [address] Cardiovascular Disease 02/06/18 2 Hesham Trevizo MD [address] [place] [address] Rheumatology 08/11/18 Malik Fernandez DC [address] [place] [address] Chiropractic 10/15/21 documented as of this encounter
--- OUTSIDE RECORDS SUMMARY | 2024-11-03 11:53 | XMS_ITS | Clinical Summary ---
Author Organization [facility] [address] Address [address] [place] [address] Care Team Providers Care School Guidance Counselor Name Role Phone Alonzo Clancy RAILROAD CROSSING PROTECTION MAINTAINER Primary Care Provid er Allergies Active Allergy [...] (180 mg total) by mouth daily Active [id number] -Lmfolate-algal 27 mg iron-1.13 mg-581.92 mg capsule [...] 1 tablet (50 mcg total) by mouth basket mender before breakfast Active vit C,C-Ol-aqccf-stacey tein-zeaxan 250-90-40-1 mg capsule Take by mouth [...] on file Legal Sex Female 9:14 AM INFORMATION TECHNOLOGY SECURITY MANAGER Gender Identity Female 12/19/2023 10:17 AM CDT [...] Insurance MEDICARE SOLUTIONS MEDICARE SOLUTIONS Care Teams School Guidance Counselor Relationship Specialty Start Date End Date Alonzo Clancy NP [address] [place] [id number] PCP - General Family Medicine 04/02/23
--- OUTSIDE RECORDS SUMMARY | 2024-11-03 11:53 | XMS_ITS | Clinical Summary ---
Author Organization [facility] Address [address] [place] [address] Care Team Providers Care Neurology Technician Name Role Phone Hesham Trevizo MD Unavailable Unavailable Malik Fernandez DC Unavailable Pcp, Dinora Krishnan Im-Fm Primary Care Provider Un available Source Comments [facility],non-owned Affiliates and Associated Physician Practices is amultiple site organization consisting of ambulatory clinics and hospital sitesin [place], [place], [place] and [place]. This disclosure is being madepursuant to the Care Everywhere program and may not contain all information available regarding this patient. Last updated 18.[facility] Allergies Active Allergy Reactions Criticality Noted Date [...] 09/28/2018 Immunizations Name Administration Dates Next Due [employer] primary monoval ent 12+ yr 0.3mL Purple [...] Sex Assigned at Female 09/02/2020 9:03 AM VALVE TECHNICIAN Gender Identity Female 09/02/2020 9:03 AM VALVE TECHNICIAN Sexual Orientation Straight 09/02/2020 9: 03 AM VALVE TECHNICIAN Last Filed Vital Signs Vital Sign Reading Time Taken Comments Blood Pressure 130/76 10/15/2021 9:57 AM VALVE TECHNICIAN Pulse 62 10/15/2021 9:57 AM VALVE TECHNICIAN Temperature 36.6 C (97.8 F) 10/15/2021 9:57 AM VALVE TECHNICIAN Respiratory Rate 18 10/15/2021 9:57 AM VALVE TECHNICIAN Oxygen Saturation 100% 10/15/2021 9:57 AM VALVE TECHNICIAN Inhaled Oxygen Concentration - - Weight 77.1 kg (170 lb) 11/13/2023 9:15 AM VALVE TECHNICIAN Height 157.5 cm (5' 2 ) 11/13/2023 9:15 AM VALVE TECHNICIAN Body Mass Index 31.09 11/13/2023 9:15 AM VALVE TECHNICIAN Plan of Treatment Health Maintenance Due [...] < 140/90 Blood Pressure 130/76(10/15 9:57 AM VALVE TECHNICIAN) Keyur Esparza Note: Caring for Your [...] Where can I go for more information? [place] Heart Association National Center: http://www.americanheart.org 1. In the top header, click C onditions . 2. In the top header, click h igh blood pressure. 3. For a printable blood pressure tracker, scroll toward the bottom of the page to Related Tools, and click H BP Trackers. 0-935-AKM-USA-1 or ( ) National Heart, Lung and Blood Sugar [place]: http://www.nhlbi.nih.gov/health/infoctr/index.htm Exercise 5X per week (30 min per time) Exercise No Keyur Evans Note: The [place] College of [employer] Medicine recommends all adults [...] this encounter Medical Devices Implanted Type Area Rpg Programmer Analyst Device Identifier Shelf Expiration Date Model / Serial / Lot Cmnt Bone Djo Srg Cblt 40gm Hvisc Strl Implanted:Qty: 1 on 05/08/2020 by Edgar Telles MD at [facility] Left: Knee [employer] 10/14/2020 600-15-000 / / [id number] Tray Tib 67mm Kn Cocr I Beam Implanted:Qty: 1 on 05/08/2020 by Edgar Telles MD at [facility] Left: Knee [employer] 11/21/2029 [id number] / / [id number] Cmpnt Fem Kn Lt Cr Cmnt Prm Vngrd Intlk Implanted:Qty: 1 on 05/08/2020 by Edgar Telles MD at [facility] Left: Knee [employer] 11/21/2029 [id number] / / [id number] Cmpnt Ptlr 28mm 1 Pg Wire Ascnt Arcm Kn Implanted:Qty: 1 on 05/08/2020 by Edgar Telles MD at [facility] Left: Knee [employer] 04/13/2025 [id number] / / [id number] Vngrd Arcm Kn Ant Stab Implanted:Qty: 1 on 05/08/2020 by Edgar Telles MD at [facility] Left: Knee [employer] 04/07/2025 [id number] / / [id number] Procedures Procedure Name Priority Date/Time Associated Diagnosis Comments COMPREHENSIVE METABOLIC PANEL Routine 10/15/2021 11:23 AM VALVE TECHNICIAN Essential hypertension with goal blood pressure less than 140/90 Pure hypercholesterolemia Seronegative rheumatoid arthritis (HCC) Systemic lupus erythematosus, unspecified SLE type, unspecified organ involvement status (HCC) Encounter for general adult medical examination with abnormal findings DEXA BONE DENSITY AXIAL SKELETON Routine 04/13/2020 8:32 AM CDT Osteopenia of thigh, unspecified laterality HEPATITIS C ANTIBODY Routine 08/13/2016 10:22 AM VALVE TECHNICIAN Need for hepatitis C screening test from Last 3 Months or Most Recently Relevant to Health Maintenance Results * COMPREHENSIVE METABOLIC PANEL (10/15/2021 11:23 AM VALVE TECHNICIAN) Glucose 89 70 - 105 mg/dL [...] BLOOD SPECIMEN / Unknown 10/15/2021 11:23 AM VALVE TECHNICIAN 10/15/2021 Narrative Resulting Agency Comment Lab Testing performed at: [facility] [address] [place] [id number] Jennifer Hart MD LAB - CHEMISTRY SONAM LOAIZA [facility] ACCOUNT BILL [address] [place] [address] * DEXA BONE DENSITY AXIAL SKELETON (04/13/2020 [...] * HEPATITIS C ANTIBODY (08/13/2016 10:22 AM VALVE TECHNICIAN) Hepatitis C Antibody Non Reactive Non Reactive [facility] ACCOUNT BILL Comment: Non Reactive - Antibodies to Hepatitis C virus (HCV) were no t detected, result does not exclude early acute HCV infection. Blood BLOOD SPECIMEN / Unknown 08/13/2016 10:22 AM VALVE TECHNICIAN 08/13/2016 Narrative Resulting Agency Comment [facility] [address] [facility] [id number] Jennifer Hart MD LAB - CHEMISTRY SONAM LOAIZA [facility] ACCOUNT BILL [address] [place] [address] from Last 3 Months or Most Recently Relevant to Health Maintenance Advance Directives * Full Code (Latest Code Status on File) Date Activated Date Inactivated Comments 05/08/2020 11:56 AM 05/09/2020 3:34 PM * Full Code Date Activated Date Inactivated Comments 09/09/2018 3:12 PM 09/11/2018 3:35 PM Care Teams Neurology Technician Relationship Specialty Start Date End Date PcpDinora Depaul - PCP - General 04/18/23 Hesham Trevizo MD Rheumatology 08/11/18 Malik Fernandez [place] [place] [address] Chiropractic 10/15/21
--- OUTSIDE RECORDS SUMMARY | 2024-11-03 11:53 | XMS_ITS | Continuity of Care Document ---
Author Organization [facility] Address [id number] [place] [address] [address] [place] [address] Phone Care Team Providers Care Floorwalker Name Role Phone Rachel De Leon Unavailable Unavailable Advance Directives Directive Yes / No Effective Date File Name No Information Encounters Encounter Description Practice Location Reason(s) For Visit Diagnoses Date Provider Providers Copied on Encounter [facility], [address], [place], [place], [id number], [place] tel:[phone] [facility] [place] No Information Mar-0 4-200 2 Haley Ramos. [address] [facility] , [address], [place], [address], [place]. tel:[phone] Family History Family Member Type Diagnosis Age [...]
--- OUTSIDE RECORDS SUMMARY | 2024-11-03 11:53 | XMS_ITS | Clinical Summary ---
Author Organization [facility] Address [address] [place] [address] Care Team Providers Care Company Laborer Name Role Phone Unavailable Primary Care Provider Unavailabl e Social History Tobacco Use Types Packs/Day Years Used Date Smoking Tobacco: Never Assessed Comments Unknown Sex and Gender Information Value Date Recorded Sex Assigned at Not on file Legal Sex Female 10:23 PM HISTORY PROFESSOR Gender Identity Not on file Sexual Orientation [...]
--- OUTSIDE RECORDS SUMMARY | 2024-11-03 11:54 | XMS_ITS | Encounter Summary ---
Author Organization [facility] Address [address] [facility] [place] [address] Care Team Providers Care Contract Specialist Name Role Phone Juan Daniel Green MD Primary Care Provider [phone] Harman Rizzo MD Unavailable Jennifer Hart MD Primary Care Provider Rolf Deleon MD Unavailable Jennifer Hart MD Unavailable [phone] Chacorta Kauffman MD Unavailable Hesham Trevizo MD Unavailable Unavailable Malik Fernandez [place] Unavailable Jennifer aHrt MD Unavailable [phone] Pcp, [facility] - Primary Care Provider Un available Encounter Details Date Type Department Care Team (Late st Contact Info) Description 03/10/2009 SS Outpatient Visit [place]NAL [place] [address] [address] Social History Tobacco Use Types Packs/Day Years Used Date Smoking Tobacco: Never Alcohol Use Standard Drinks/Week Comments No 0 (1 standard drink = 0.6 oz pur e alcohol) Sex and Gender Information Value Date Recorded Sex Assigned at Female 09/02/2020 9:03 AM PORTFOLIO MANAGEMENT MARKETING Gender Identity Female 09/02/2020 9:03 AM PORTFOLIO MANAGEMENT MARKETING Sexual Orientation Straight 09/02/2020 9: 03 AM PORTFOLIO MANAGEMENT MARKETING documented as of this encounter Plan of Treatment Not on file documented as of this encounter Visit Diagnoses Not on filedocumented in this encounter Additional Health Concerns Infection Onset Date Last Indicated Resolved Time COVID-19 Under Investigation 12/20/2020 12/20/2020 12/30/2020 4:33 AM CDT COVID-19 Under Investigation 02/14/2021 02/14/2021 02/24/2021 4:33 AM CDT documented as of this encounter Care Teams Contract Specialist Relationship Specialty Start Date End Date Juan Daniel Green MD PCP - General 10/19/08 01/01/16 Jennifer Hart MD PCP - General Family Medicine 01/02/16 04/17/23 Jennifer Hart MD [address] [facility] [address] [place] [address] PCP - Attributed-[facility] [place] 01/22/18 09/06/21 Jennifer Hart MD [address] [facility] [address] [place] [address] PCP - Attributed-[facility] [place] 10/23/21 04/08/22 Pcp, [facility]- PCP - General 04/18/23 Harman Rizzo MD Neurology 07/29/13 10/14/21 Rolf Deleon MD Urology 01/04/16 10/14/21 Chacorta Kauffman MD [address] [place], [place] [id number] Cardiovascular Disease 02/06/18 2 Hesham Trevizo MD [address] [place] [address] Rheumatology 08/11/18 Malik Fernandez DC [address] [place] [address] Chiropractic 10/15/21 documented as of this encounter
--- OUTSIDE RECORDS SUMMARY | 2024-11-03 11:54 | XMS_ITS | Encounter Summary ---
Author Organization [facility] Address [address] [facility] [place] [address] Care Team Providers Care Inside Meter Tester Name Role Phone Juan Daniel Green MD Primary Care Provider [phone] Harman Rizzo MD Unavailable Jennifer Hart MD Primary Care Provider Rolf Deleon MD Unavailable Jennifer Hart MD Unavailable [phone] Chacorta Kauffman MD Unavailable Hesham Trevizo MD Unavailable Unavailable Malik Fernandez [place] Unavailable Jennifer Hart MD Unavailable [phone] Pcp, [facility] - Primary Care Provider Un available Encounter Details Date Type Department Care Team (Late st Contact Info) Description 06/06/2009 SS Outpatient Visit [place]TERNAL [place] [address] [address] Social History Tobacco Use Types Packs/Day Years Used Date Smoking Tobacco: Never Alcohol Use Standard Drinks/Week Comments No 0 (1 standard drink = 0.6 oz pur e alcohol) Sex and Gender Information Value Date Recorded Sex Assigned at Female 09/02/2020 9:03 AM OFFICE CLINICIAN Gender Identity Female 09/02/2020 9:03 AM OFFICE CLINICIAN Sexual Orientation Straight 09/02/2020 9: 03 AM OFFICE CLINICIAN documented as of this encounter Plan of Treatment Not on file documented as of this encounter Visit Diagnoses Not on filedocumented in this encounter Additional Health Concerns Infection Onset Date Last Indicated Resolved Time COVID-19 Under Investigation 12/20/2020 12/20/2020 12/30/2020 4:33 AM CDT COVID-19 Under Investigation 02/14/2021 02/14/2021 02/24/2021 4:33 AM CDT documented as of this encounter Care Teams Inside Meter Tester Relationship Specialty Start Date End Date Juan Daniel Green MD PCP - General 10/19/08 01/01/16 Jennifer Hart MD PCP - General Family Medicine 01/02/16 04/17/23 Jennifer Hart MD [address] [facility] [address] [place] [address] PCP - Attributed-[facility] [place] 01/22/18 09/06/21 Jennifer Hart MD [address] [facility] [address] [place] [address] PCP - Attributed-[facility] [place] 10/23/21 04/08/22 Pcp, [facility]- PCP - General 04/18/23 Harman Rizzo MD Neurology 07/29/13 10/14/21 Rolf Deleon MD Urology 01/04/16 10/14/21 Chacorta Kauffman MD [address] [place], [place] [id number] Cardiovascular Disease 02/06/18 2 Hesham Trevizo MD [address] [place] [address] Rheumatology 08/11/18 Malik Fernandez DC [address] [place] [address] Chiropractic 10/15/21 documented as of this encounter
--- OUTSIDE RECORDS SUMMARY | 2024-11-03 11:54 | XMS_ITS | Encounter Summary ---
Author Organization [facility] Address [address] [facility] [place] [address] Care Team Providers Care Railroad Police Officer Name Role Phone Juan Daniel Green MD Primary Care Provider [phone] Harman Rizzo MD Unavailable Jennifer Hart MD Primary Care Provider Rolf Deleon MD Unavailable Jennifer Hart MD Unavailable [phone] Chacorta Kauffman MD Unavailable Hesham Trevizo MD Unavailable Unavailable Malik Fernandez [place] Unavailable Jennifer Hart MD Unavailable [phone] Pcp, [facility] - Primary Care Provider Un available Encounter Details Date Type Department Care Team (Late st Contact Info) Description 12/06/2008 SS Outpatient Visit [place]TERNAL [place] [address] [address] Social History Tobacco Use Types Packs/Day Years Used Date Smoking Tobacco: Never Alcohol Use Standard Drinks/Week Comments No 0 (1 standard drink = 0.6 oz pur e alcohol) Sex and Gender Information Value Date Recorded Sex Assigned at Female 09/02/2020 9:03 AM FLASH DESIGNER Gender Identity Female 09/02/2020 9:03 AM FLASH DESIGNER Sexual Orientation Straight 09/02/2020 9: 03 AM FLASH DESIGNER documented as of this encounter Plan of Treatment Not on file documented as of this encounter Visit Diagnoses Not on filedocumented in this encounter Additional Health Concerns Infection Onset Date Last Indicated Resolved Time COVID-19 Under Investigation 12/20/2020 12/20/2020 12/30/2020 4:33 AM CDT COVID-19 Under Investigation 02/14/2021 02/14/2021 02/24/2021 4:33 AM CDT documented as of this encounter Care Teams Railroad Police Officer Relationship Specialty Start Date End Date Juan Daniel Green MD PCP - General 10/19/08 01/01/16 Jennifer Hart MD PCP - General Family Medicine 01/02/16 04/17/23 Jennifer Hart MD [address] [facility] [address] [place] [address] PCP - Attributed-[facility] [place] 01/22/18 09/06/21 Jennifer Hart MD [address] [facility] [address] [place] [address] PCP - Attributed-[facility] [place] 10/23/21 04/08/22 Pcp, [facility]- PCP - General 04/18/23 Harman Rizzo MD Neurology 07/29/13 10/14/21 Rolf Deleon MD Urology 01/04/16 10/14/21 Chacorta Kauffman MD [address] [place], [place] [id number] Cardiovascular Disease 02/06/18 2 Hesham Trevizo MD [address] [place] [address] Rheumatology 08/11/18 Malik Fernandez DC [address] [place] [address] Chiropractic 10/15/21 documented as of this encounter
--- OUTSIDE RECORDS SUMMARY | 2024-11-03 11:54 | XMS_ITS | Patient Health Summary ---
Author Organization [facility] Address [address] [place] [address] Care Team Providers Care Embedded Firmware Developer Name Role Phone Hesham Trevizo MD Unavailable Unavailable Malik Fernandez DC Unavailable Pcp, Dinora Krishnan Im-Fm Primary Care Provider Un available Note from [facility],non-owned Affiliates and Associated Physician Practices is amultiple site organization consisting of ambulatory clinics and hospital sitesin [place], [place], [place] and [place]. This disclosure is being madepursuant to the Care Everywhere program and may not contain all information available regarding this patient. Last updated 18.[facility] Allergies * Amoxicillin Trihydrate(Urticaria) -Medium Criticality [...] Sex Assigned at Female 09/02/2020 9:03 AM GUN FERTILIZER Gender Identity Female 09/02/2020 9:03 AM GUN FERTILIZER Sexual Orientation Straight 09/02/2020 9: 03 AM GUN FERTILIZER Last Filed Vital Signs Vital Sign Reading Time Taken Comments Blood Pressure 130/76 10/15/2021 9:57 AM GUN FERTILIZER Pulse 62 10/15/2021 9:57 AM GUN FERTILIZER Temperature 36.6 C (97.8 F) 10/15/2021 9:57 AM GUN FERTILIZER Respiratory Rate 18 10/15/2021 9:57 AM GUN FERTILIZER Oxygen Saturation 100% 10/15/2021 9:57 AM GUN FERTILIZER Inhaled Oxygen Concentration - - Weight 77.1 kg (170 lb) 11/13/2023 9:15 AM GUN FERTILIZER Height 157.5 cm (5' 2 ) 11/13/2023 9:15 AM GUN FERTILIZER Body Mass Index 31.09 11/13/2023 9:15 AM GUN FERTILIZER Medical Devices Implanted Type Area Senior Project Engineer Device Identifier Shelf Expiration Date Model / Serial / Lot Cmnt Bone Djo Srg Cblt 40gm Hvisc Strl Implanted:Qty: 1 on 05/08/2020 by Edgar Telles MD at [facility] Left: Knee [employer] 10/14/2020 [id number] / / [id number] Tray Tib 67mm Kn Cocr I Beam Implanted:Qty: 1 on 05/08/2020 by Edgar Telles MD at [facility] Left: Knee [employer] 11/21/2029 [id number] / / [id number] Cmpnt Fem Kn Lt Cr Cmnt Prm Vngrd Intlk Implanted:Qty: 1 on 05/08/2020 by Edgar Telles MD at [facility] Left: Knee [employer] 11/21/2029 [id number] / / [id number] Cmpnt Ptlr 28mm 1 Pg Wire Ascnt Arcm Kn Implanted:Qty: 1 on 05/08/2020 by Edgar Telles MD at [facility] Left: Knee [employer] 04/13/2025 [id number] / / [id number] Vngrd Arcm Kn Ant Stab Implanted:Qty: 1 on 05/08/2020 by Edgar Telles MD at [facility] Left: Knee [employer] 04/07/2025 [id number] / / [id number] Procedures * MAMMO BILAT SCREENING W STEPHANIE(Performed [...] BILAT SCREENING W STEPHANIE (11/13/2023 9:16 AM GUN FERTILIZER) Only the most recent of2 resultswithin the time period is included. Anatomical Region Laterality Modality Breast Bilateral Mammography 11/13/2023 2:25 PM GUN FERTILIZER Impressions 11/13/2023 2:27 PM GUN FERTILIZER : There is no mammographic evidence of malignancy. OVERALL FINAL ASSESSMENT: BI-RADS Category 1: Negative. Annual screening mammography is recommended. > Interpreting Provider: Destiny Seth MD on 11/13/2023 2:27 PM Narrative 11/13/2023 2:27 PM GUN FERTILIZER EXAMINATION: BILATERAL DIGITAL SCREENING MAMMOGRAM AND BILATERAL [...] ORDERABLES * US THYROID (10/31/2021 11:28 AM GUN FERTILIZER) Only the most recent of3 resultswithin the time period is included. Anatomical Region Laterality Modality Chest Ultrasound 10/31/2021 3:30 PM GUN FERTILIZER Impressions 10/31/2021 4:04 PM GUN FERTILIZER 1. Multiple nodules of the right lobe [...] at 4:04 PM Narrative 10/31/2021 4:04 PM GUN FERTILIZER HISTORY: Thyroid nodules. COMPARISON: 02/18/2014. DATE: 10/31/2021 10:11 AM. PROCEDURE: US THYROID*[id number] FINDINGS: The right lobe of the thyroid [...] 02/18/2014. DATE: 10/31/2021 10:11 AM. PROCEDURE: US THYROID*[id number] FINDINGS: The right lobe of the thyroid [...] PROFILE REFLEX LDL DIRECT (10/15/2021 11:23 AM GUN FERTILIZER) Only the most recent of3 resultswithin the [...] BLOOD SPECIMEN / Unknown 10/15/2021 11:23 AM GUN FERTILIZER 10/15/2021 Narrative Resulting Agency Comment Lab Testing performed at: [place] [address] [address] [phone] Jennifer Hart MD LAB - CHEMISTRY ORDAndreina LOAIZA [facility] ACCOUNT BILL [address] [place] [address] * TSH HI LOW REFLEX FREE T4 (10/15/2021 11:23 AM GUN FERTILIZER) TSH 1.261 0.350 - 4.940 uIU/mL [facility] ACCOUNT BILL Blood BLOOD SPECIMEN / Unknown 10/15/2021 11:23 AM GUN FERTILIZER 10/15/2021 Narrative Resulting Agency Comment Lab Testing performed at: [address] [place] [phone] Jennifer Hart MD LAB - CHEMISTRY SONAM LOAIZA [facility] ACCOUNT BILL [address] [place] [address] * (ABNORMAL) C-REACTIVE PROTEIN (10/15/2021 11:23 AM GUN FERTILIZER) Only the most recent of5 resultswithin the time period is included. C-Reactive Protein 1.02(H) <=0.50 mg/dL [facility] ACCOUNT BILL Blood BLOOD SPECIMEN / Unknown 10/15/2021 11:23 AM GUN FERTILIZER 10/15/2021 Narrative Resulting Agency Comment Lab Testing performed at: [place] [address] [address] [phone] Jennifer Hart MD LAB - CHEMISTRY SONAM LOAIZA Performing Organization Address City/[facility]/ZIP Co de Phone Number [facility] ACCOUNT BILL [address] [place] [address] * VITAMIN D 25-HYDROXY (10/15/2021 11:23 AM GUN FERTILIZER) Only the most recent of8 resultswithin the time period is included. Vitamin D, 25 Hydroxy 42.0 30 - 100 ng/mL [facility] ACCOUNT BILL Comment: Vitamin D Status: Deficiency <20 ng/mL Insufficiency 20-30 ng/mL Sufficiency 30-100 ng/mL Toxicity >100 ng/mL Blood BLOOD SPECIMEN / Unknown 10/15/2021 11:23 AM GUN FERTILIZER 10/15/2021 Narrative Resulting Agency Comment Lab Testing performed at: [address] [place] [phone] Jennifer Hart MD LAB - CHEMISTRY SONAM LOAIZA Performing Organization Address City/[facility] Co de Phone Number [facility] ACCOUNT BILL [address] [place] [address] * ERYTHROCYTE SEDIMENTATION RATE (10/15/2021 11:23 AM GUN FERTILIZER) Only the most recent of2 resultswithin the time period is included. Erythrocyte Sedimentation Rate Westergren 4 0 - 30 MM/HR [facility] ACCOUNT BILL Blood BLOOD SPECIMEN / Unknown 10/15/2021 11:23 AM GUN FERTILIZER 10/15/2021 Narrative Resulting Agency Comment Lab Testing performed at: [address] [place] [phone] Jennifer Hart MD LAB - HEMATOLOGY ORD ERAKOLE Performing Organization Address City/[facility] Co de Phone Number [facility] ACCOUNT BILL [address] [place] [address] * (ABNORMAL) CBC WITH DIFFERENTIAL (10/15/2021 11:23 AM GUN FERTILIZER) Only the most recent of11 resultswithin the [...] x10E9/L [facility] ACCOUNT BILL Comment:MPV FL BLOOD ([facility]) 1 1.5 fl 9.4-12.9 Granulocytes % [...] BLOOD SPECIMEN / Unknown 10/15/2021 11:23 AM GUN FERTILIZER 10/15/2021 Narrative Resulting Agency Comment Lab Testing performed at: [address] [place] [phone] Jennifer Hart MD LAB - HEMATOLOGY ORD ERABLES [facility] ACCOUNT BILL [address] [place] [address] * COMPREHENSIVE METABOLIC PANEL (10/15/2021 11:23 AM GUN FERTILIZER) Only the most recent of12 resultswithin the [...] BLOOD SPECIMEN / Unknown 10/15/2021 11:23 AM GUN FERTILIZER 10/15/2021 Narrative Resulting Agency Comment Lab Testing performed at: [place] [address] [place] [phone] Jennifer Hart MD LAB - CHEMISTRY ORDE RABLES [facility] ACCOUNT BILL [address] [place] [address] * XR KNEE LEFT 3VW (08/23/2021 3:02 PM GUN FERTILIZER) Anatomical Region Laterality Modality Lower Extremity Computed Radiogr aphy Narrative 08/23/2021 3:03 PM GUN FERTILIZER Elvia Bertrand RT(R) 08/31/2021 12:30 PM See progress notes for results Kenya Browne PA-Serafin DIAGNOSTIC IM AGING ORDERABLES * STREP A SCREEN - POINT OF CARE (AMB) (02/14/2021 2:55 PM CDT) Strep A Rapid POCT Negative Negative [facility] Strep A Internal Control Absent [facility] Other ENTIRE THROAT (SURFACE REGION OF NECK) / Unknown 02/14/2021 2:55 PM CDT Lia Asim [facility] LAB - POINT OF CA RE ORDERABLES Performing Organization Address [facility] de Phone Number [facility] [address] [place] [address], [facility] [phone] * SARS-COV-2 (COVID-19) AG (AMB) POCT- CHRISTIN (02/14/2021 2:41 PM CDT) SARS-CoV-2 Ag Negative Negative [facility] Lot # [id number] [facility] Expiration Date 06/22/2021 [facility] Instrument Serial Number [id number] [facility] COVID Internal Control Acceptable Acceptable [facility] Microbiology SPECIMEN FROM NASAL FOSSAE / Unknown 02/14/2021 2:41 PM CDT Lia Dailey APRN-[facility] LAB - POINT OF CA RE ORDERABLES Performing Organization Address [facility] Co de Phone Number [facility] [place] [address] [place] [address], [facility] [phone] * INFLUENZA A+B - POINT OF CARE (AMB) (02/14/2021 2:41 PM CDT) Pathologist [facility] Influenza A Antigen Rapid Negative Negative [facility] [place] Influenza B Antigen Rapid Negative Negative [facility] Influenza Internal Control negative NEGATIVE - POSITIVE [facility] [place] Influenza Lot Number [id number] [facility] Influenza Expiration Date 10/06/2021 [facility] Other SPECIMEN FROM NASOPHARYNGEAL STRUCTURE / Unknown 02/14/2021 2:41 PM CDT Lia Dailey TIMING ADJUSTER-ESCROW AGENT LAB - POINT OF CA RE ORDERABLES [facility] [place] [address] [facility] [address] [place] [address] * XR CHEST 2VW (10/12/2020 11:59 AM GUN FERTILIZER) Anatomical Region Laterality Modality Chest Radiographic Sanjuanita ging 10/12/2020 12:0 2 PM GUN FERTILIZER Impressions 10/12/2020 12:08 PM GUN FERTILIZER NO ACUTE PULMONARY DISEASE. Edited by Mere Rg on 10/12/2020 12:08 PM *Reading Radiologist: Kuldeep Mclaughlin on 10/12/2020 at 12:08 PM Narrative 10/12/2020 12:08 PM GUN FERTILIZER CHEST 2 VIEWS INDICATION: Cough. FINDINGS: Two [...] (COVID-19) ANTIBODY IGG [facility] (10/12/2020 11:36 AM GUN FERTILIZER) Pathologist [facility] [employer] SARS-CoV-2 Antibody IgG Positive( A) Negative [facility] [...] Coronaviruses. This assay was performed using the [employer] Liaison(R) SARS-CoV-2 S1/S2 IgG assay. FASTING Blood BLOOD SPECIMEN / Unknown 10/12/2020 11:36 AM GUN FERTILIZER 10/12/2020 Narrative [facility] ACCOUNT BILL - 10/13/2020 7:09 AM GUN FERTILIZER Test(s) [id number] Antibody, IgG has not been FDA cleared [...] Lab Testing performed at: [facility] [address] [phone] Jennifer Hart MD LAB - CHEMISTRY SONAM LOAIZA [facility] ACCOUNT BILL [address] [place] [address] * HEMOGLOBIN A1C W EAG (10/12/2020 11:36 AM GUN FERTILIZER) Only the most recent of2 resultswithin the time period is included. Hemoglobin A1c 5.5 4.8 - 5.6 % [facility] ACCOUNT BILL Comment: . Prediabetes: 5.7 - 6.4 Diabetes: >6.4 Glycemic control for adults with diabetes: <7.0 Estimated Average Glucose 111 mg/dL [facility] ACCOUNT BILL Comment:FASTING Blood BLOOD SPECIMEN / Unknown 10/12/2020 11:36 AM GUN FERTILIZER 10/12/2020 Narrative [facility] ACCOUNT BILL - 10/13/2020 7:09 AM GUN FERTILIZER Test(s) [id number] Antibody, IgG has not been FDA cleared [...] Resulting Agency Comment Lab Testing performed at: [facility] [address] [phone] Jennifer Hart MD LAB - CHEMISTRY SONAM LOAIZA [facility] ACCOUNT BILL [address] [place] [address] * TSH (10/12/2020 11:36 AM GUN FERTILIZER) Only the most recent of11 resultswithin the time period is included. TSH 0.620 0.450 - 4.500 uIU/mL [facility] ACCOUNT BILL Comment:FASTING Blood BLOOD SPECIMEN / Unknown 10/12/2020 11:36 AM GUN FERTILIZER 10/12/2020 Narrative [facility] ACCOUNT BILL - 10/13/2020 7:09 AM GUN FERTILIZER Test(s) [id number] Antibody, IgG has not been FDA cleared [...] Resulting Agency Comment [facility] performed [facility]: [facility] [address] [phone] Jennifer Hart MD LAB - CHEMISTRY SONAM LOAIZA Performing Organization Address City/[facility]/ZIP Co de Phone Number [facility] ACCOUNT BILL [address] [place] [address] * IMAGING RADIOLOGY XRAY RESULTS ORDER (08/29/2020) Only the most recent of5 resultswithin the time period is included. Anatomical Region Laterality Modality Other Provider Unknown IMAGING * (ABNORMAL) HGB HCT PANEL (05/09/2020 3:59 AM CDT) Only the most recent of2 resultswithin the time period is included. Hemoglobin 11.4(L) 12.0 - 15.6 gm/dL 05/09/2020 4:21 AM CDT [facility] Hematocrit 35.1(L) 35.9 - 45.5 % 05/09/2020 4:21 AM CDT [facility] Blood BLOOD SPECIMEN / Unknown Venipuncture / Unknown 05/09/2020 3:59 AM CDT 05/09/2020 4:17 AM CDT Edgar Telles MD LAB - HEMATOLOGY STEFAN GARNER [facility] [address] [place] [address] * (ABNORMAL) BASIC METABOLIC PANEL (CALCIUM TOTAL) (05/09/2020 3:59 AM CDT) Only the most recent of3 resultswithin the time period is included. Glucose 122(H) 70 - 105 mg/dL 05/09/2020 4:40 AM CDT [facility] Sodium 139 136 - 145 mmol/L 05/09/2020 4:40 AM CDT [facility] Potassium 4.1 3.5 - 5.1 mmol/L 05/09/2020 4:40 AM CDT [facility] Chloride 105 98 - 107 mmol/L 05/09/2020 4:40 AM CDT [facility] CO2 24 23 - 31 mmol/L 05/09/2020 4:40 AM CDT [facility] Calcium 8.7 8.4 - 10.4 mg/dL 05/09/2020 4:40 AM CDT [facility] Anion Gap 10 8 - 16 mmol/L 05/09/2020 4:40 AM CDT [facility] BUN 27(H) 9.8 - 20.1 mg/dL 05/09/2020 4:40 AM CDT [facility] Creatinine 0.88 0.57 - 1.11 mg/dL 05/09/2020 4:40 AM CDT [facility] eGFR by MDRD >60 mL/min/1.7 3m2 05/09/2020 4:40 AM CDT [facility] eGFR by MDRD >60 mL/min/1.7 3m2 05/09/2020 4:40 AM CDT [facility] Blood BLOOD SPECIMEN / Unknown Venipuncture / Unknown 05/09/2020 3:59 AM CDT 05/09/2020 4:17 AM CDT Edgar Telles MD LAB - CHEMISTRY SONAM LOAIZA [facility] Organization Address City/State/[facility] Co de Phone Number [facility] [address] [place] [address] * Neuraxial Block (05/08/2020 8:47 [...] Not detected, Invalid 05/06/2020 3:43 PM CDT [facility] Microbiology SPECIMEN FROM NASOPHARYNGEAL STRUCTURE / Unknown Collection / Unknown 05/05/2020 10:00 AM CDT 05/06/2020 4:40 AM CDT Narrative [facility] - 05/06/2020 3:43 PM CDT This nucleic acid amplification assay performance was validated by [facility]. This test has been [...] NETWORK MICROBIOLOGY [address] [place] [address], [facility] [phone] * MAMMO BILAT SCREENING (04/28/2020) Anatomical Region [...] LEFT 4VW OR MORE (08/03/2019 9:51 AM GUN FERTILIZER) Anatomical Region Laterality Modality Lower Extremity Radiographic Sanjuanita ging 08/03/2019 11:3 0 AM GUN FERTILIZER Impressions 08/03/2019 12:08 PM GUN FERTILIZER OSTEOARTHRITIS. Edited by Mere Rg on 08/03/2019 11:32 AM Reading Radiologist: Kuldeep Mclaughlin MD on 08/03/2019 at 12:08 PM Narrative 08/03/2019 12:08 PM GUN FERTILIZER LEFT KNEE 4 VIEWS INDICATION: Left knee [...] Resulting Agency Comment Lab Testing performed at: [address] [place] [phone] Jennifer Hart MD LAB - CHEMISTRY SONAM LOAIZA [facility] ACCOUNT BILL [address] [place] [address] * CARDIAC RHYTHM STRIP ORDER (10/29/2018 3:51 AM GUN FERTILIZER) Narrative 10/29/2018 3:51 AM GUN FERTILIZER Ordered by an unspecified provider. Scanned Document CARDIAC SERVICES ORD ERABLES * CARDIAC EKG ORDER (09/18/2018 9:51 PM GUN FERTILIZER) Narrative 09/18/2018 9:51 PM GUN FERTILIZER Ordered by an unspecified provider. Scanned Document CARDIAC SERVICES ORD ERABLES * NM MYOCARD PERFUSION SPECT STRESS AND REST (09/11/2018 10:31 AM GUN FERTILIZER) Anatomical Region Laterality Modality Chest Nuclear Medicine 09/11/2018 11:2 7 AM GUN FERTILIZER Impressions 09/11/2018 11:27 AM GUN FERTILIZER 1. No evidence of pharmacologically induced reversible defect to suggest ischemia. 2. Normal left ventricle wall motion, with a composite left ventricular ejection fraction of 85 %. Reading Radiologist: Kuldeep Mclaughlin MD on 09/11/2018 at 11:27 AM Narrative 09/11/2018 11:27 AM GUN FERTILIZER MYOCARDIAL SPECT MULTI MYOCARDIAL PERFUSION WITH EJECTION [...] STRESS TEST LEXISCAN (NUCLEAR) (09/11/2018 9:18 AM GUN FERTILIZER) Stress Test Summary For full formatted report, [...] ECG evidence of ischemia Diagnosis: Confirmed by APRYL REAGAN MD ([id number]) on 09/11/2018 11:52:19 AM Attending Physician: Referred By: Overread By: APRYL REAGAN MD [facility] STRESS 09/11/2018 9:18 AM GUN FERTILIZER 09/11/2018 11:52 AM GUN FERTILIZER Marquis Melendez MD CARDIAC SERVICE S ORDERABLES DP STRESS * ECHOCARDIOGRAM 2D WITH DOPPLER (09/10/2018 10:53 AM GUN FERTILIZER) 09/10/2018 10:5 3 AM GUN FERTILIZER Narrative [facility] CARDIAC SERVICES - 09/10/2018 5:32 PM GUN FERTILIZER [address] [address] Transthoracic Echocardiogram 2D, M-mode, Doppler, and Color Doppler Patient: MADDIE CALVILLO MR number: [id number] Height: 62 in Weight: 173.6 lb BSA: 1.8 m Study date: 10-Sep-2018 : 1945 Age: 72 years Gender: Female Race: Allergies: ERYTHROMYCIN, LEVOFLOXACIN, PENICILLINS, SULFA DRUGS, ESTRADERM, AMOXICILLIN TRIHYDRATE, BACTRIM DS, CEFACLOR, ESTRADIOL, TRIMETHOPRIM, FLUTICASONE PROPIONATE, POLYMYXIN B-TRIMETHOPRIM Reading Physician: Ace Schofield MD Referring Physician: Chacorta Kauffman MD ROD WELDER: Ines Deutsch [facility] Cardiology Group: [facility] Summary: - History: - [...] Procedure: The study was performed in the [facility] Pending DC. This was a routine study. [...] MV A Anjum: 0.9 m/s MV Dec Motley: 1.6 m/s2 MV E Anjum: 0.6 m/s MV E/A Ratio: 0.7 Septal e': 0.1 m/s Prepared and signed by Ace Schofield MD Signed 10-Sep-2018 17:32:22 Procedure Note Unknown, Provider, - 09/10/[address] [address] Transthoracic Echocardiogram 2D, M-mode, Doppler, and Color Doppler Patient: MADDIE CALVILLO MR number: [id number] Height: 62 in Weight: 173.6 lb BSA: 1.8 m Study date: 10-Sep-2018 : 1945 Age: 72 years Gender: Female Race: Allergies: ERYTHROMYCIN, LEVOFLOXACIN, PENICILLINS, SULFA DRUGS, ESTRADERM, AMOXICILLIN TRIHYDRATE, BACTRIM DS, CEFACLOR, ESTRADIOL, TRIMETHOPRIM, FLUTICASONE PROPIONATE, POLYMYXIN B-TRIMETHOPRIM Reading Physician: Ace Schofield MD Referring Physician: Chacorta Kauffman MD ROD WELDER: Ines Deutsch [facility] Cardiology Group: [facility] Summary: - History: - [...] Procedure: The study was performed in the [facility] Pending DC. This was a routine study. [...] MV A Anjum: 0.9 m/s MV Dec Motley: 1.6 m/s2 MV E Anjum: 0.6 m/s MV E/A Ratio: 0.7 Septal e': 0.1 m/s Prepared and signed by Ace Schofield MD Signed 10-Sep-2018 17:32:22 Marquis Melendez MD ECHO ORDERABLES Performing Organization Address City/[facility]/ZIP Co de Phone Number [facility] CARDIAC SERVICES * TROPONIN I (09/09/2018 6:32 PM GUN FERTILIZER) Only the most recent of3 resultswithin the time period is included. Troponin I <0.015 0.000 - 0.049 ng/mL 09/09/2018 7:54 PM GUN FERTILIZER [facility] Blood BLOOD SPECIMEN / Unknown Venipuncture / Unknown 09/09/2018 6:32 PM GUN FERTILIZER 09/09/2018 7:28 PM GUN FERTILIZER Narrative [facility] - 09/09/2018 7:54 PM GUN FERTILIZER Note: Diagnosis of myocardial infarction requires symptoms [...] embolism, renal failure and sepsis. Shelbie Du APRN-ESCROW AGENT LAB - CHEMI STRY ORDERABLES Performing Organization Address City/[facility] Co de Phone Number [facility] [address] [place] [address] * CT CHEST PE (09/09/2018 2:40 PM GUN FERTILIZER) Anatomical Region Laterality Modality Chest Computed Tomogra phy 09/09/2018 2:44 PM GUN FERTILIZER Impressions 09/09/2018 2:47 PM GUN FERTILIZER No pulmonary embolism. Small collection of gas adjacent to the upper thoracic esophagus may represent an esophageal diverticulum. Correlation with esophagram could be obtained. Reading Radiologist: Harman Mejia MD on 09/09/2018 at 2:47 PM Narrative 09/09/2018 2:[address] PE Protocol Clinical Indication: Chest pain, [...] XR CHEST 1VW PORTABLE (09/09/2018 12:42 PM GUN FERTILIZER) Anatomical Region Laterality Modality Chest Radiographic Sanjuanita ging 09/09/2018 12:4 6 PM GUN FERTILIZER Narrative 09/09/2018 12:47 PM GUN FERTILIZER Portable Chest AP History: Chest pain Comparison: [...] on 09/09/2018 at 12:47 PM Shelbie Du TIMING ADJUSTER-ESCROW AGENT DIAGNOSTIC IMAGING ORDERABLES * URINE MICROSCOPIC ONLY REFLEX TO CULTURE (09/09/2018 12:20 PM GUN FERTILIZER) Reflex Status Culture to follow 09/09/2018 12:39 PM GUN FERTILIZER [facility] RBC UA 0-2 None Seen, 0-2, 3-5 # /hpf 09/09/2018 12:39 PM GUN FERTILIZER [facility] WBC UA 0-5 None Seen, 0-5 # /hpf 09/09/2018 12:39 PM GUN FERTILIZER [facility] Bacteria UA None Seen None Seen 09/09/2018 12:39 PM GUN FERTILIZER [facility] Squamous Epithelial Cells 0-2 None Seen, 0-2, 3-5 /hpf 09/09/2018 12:39 PM GUN FERTILIZER [facility] Mucus UA 1+ /LPF 09/09/2018 12:39 PM GUN FERTILIZER [facility] Urine URINE SPECIMEN OBTAINED BY CLEAN CATCH PROCEDURE / Unknown Collection / Unknown 09/09/2018 12:20 PM GUN FERTILIZER 09/09/2018 12:24 PM GUN FERTILIZER Narrative [facility] - 09/09/2018 12:39 PM GUN FERTILIZER Shelbie Du TIMING ADJUSTER-ESCROW AGENT LAB - URINA LYSIS ORDERABLES [facility] [address] [place] [address] * (ABNORMAL) URINALYSIS REFLEX MICROSCOPIC REFLEX CULTURE (09/09/2018 12:20 PM GUN FERTILIZER) Only the most recent of4 resultswithin the time period is included. Color UA Yellow Straw, Yellow 09/09/2018 12:34 PM [facility] Clarity UA Clear Clear 09/09/2018 12:34 PM [facility] Glucose UA Negative Negative 09/09/2018 12:34 PM [facility] Bilirubin UA Negative Negative 09/09/2018 12:34 PM [facility] Ketone UA Negative Negative 09/09/2018 12:34 PM [facility] Specific [place] UA 1.009 1.005 - 1.030 09/09/2018 12:34 PM [facility] Blood UA Negative Negative 09/09/2018 12:34 PM [facility] pH UA 6.0 5.0 - 8.0 pH 09/09/2018 12:34 PM [facility] Protein UA Negative Negative 09/09/2018 12:34 PM [facility] Urobilinogen UA Negative Negative mg/dL 09/09/2018 12:34 PM [facility] Nitrite UA Negative Negative 09/09/2018 12:34 PM [facility] Leukocyte UA Trace(A) Negative 09/09/2018 12:34 PM [facility] Urine Microscopy Urine microscopy to follow 09/09/2018 12:34 PM [facility] Reflex Status Culture to follow 09/09/2018 12:34 PM [facility] Urine URINE SPECIMEN OBTAINED BY CLEAN CATCH PROCEDURE / Unknown Collection / Unknown 09/09/2018 12:20 PM GUN FERTILIZER 09/09/2018 12:24 PM [facility] Narrative [facility] - 09/09/2018 12:34 PM GUN FERTILIZER Ascorbic Acid can cause false negative urine strip tests for blood, glucose, nitrite, and bilirubin. Shelbie Du APRN-ESCROW AGENT LAB - URINA LYSIS ORDERABLES [facility] [address] [place] [address] * CULTURE URINE (09/09/2018 12:20 PM GUN FERTILIZER) Only the most recent of5 resultswithin the time period is included. Culture Urine 10,000-50,000 CFU/mL urogenital brit JAM 09/11/2018 6:22 AM GUN FERTILIZER [facility] Urine URINE SPECIMEN OBTAINED BY CLEAN CATCH PROCEDURE / Unknown Collection / Unknown 09/09/2018 12:20 PM GUN FERTILIZER 09/09/2018 12:24 PM GUN FERTILIZER [facility]bie [facility] - MICRO BIOLOGY ORDERABLES Performing Organization Address [facility]/ZIP Co de Phone Number [facility] [address] [place] [address], [facility] [phone] * NT-PRO BNP (09/09/2018 11:38 AM GUN FERTILIZER) NT-proBNP 245.0 <300.0 pg/mL 09/09/2018 12:05 PM [facility] Blood BLOOD SPECIMEN / Unknown Venipuncture / Unknown 09/09/2018 11:38 AM GUN FERTILIZER 09/09/2018 11:43 AM GUN FERTILIZER Narrative [facility] - 09/09/2018 12:05 PM GUN FERTILIZER NT-proBNP Patient Age Acute HF Unlikely Acute [...] heart disease, and atrial fibrillation. Shelbie Du [facility] - CHEMI STRY ORDERABLES Performing Organization Address [facility]/ZIP Co de Phone Number [facility] [address] [place] [address] * PT PTT PANEL (09/09/2018 11:38 AM GUN FERTILIZER) PT 10.1 9.5 - 11.6 sec 09/09/2018 12:00 PM [facility] INR 0.9 0.9 - 1.1 09/09/2018 12:00 PM [facility] PTT 26.9 21.0 - 32.0 sec 09/09/2018 12:00 PM [facility] Blood BLOOD SPECIMEN / Unknown Venipuncture / Unknown 09/09/2018 11:38 AM GUN FERTILIZER 09/09/2018 11:43 AM GUN FERTILIZER Narrative [facility] - 09/09/2018 12:00 PM GUN FERTILIZER Conventional Warfarin Anticoagulant Therapy: INR Reference Range: 2.0-3.0 Intensive Warfarin Anticoagulant Therapy: INR Reference Range: 2.5-3.5 Heparin Therapeutic Range for PTT: 47.7 - 68.6 seconds. Shelbie Du TIMING ADJUSTER-ESCROW AGENT LAB - [facility] ORDERABLES [facility] [address] [place] [address] * (ABNORMAL) D-DIMER (09/09/2018 11:38 AM GUN FERTILIZER) D-Dimer 0.54(H) 0.17 - 0.5 mg/L FEU 09/09/2018 12:05 PM [facility] Blood BLOOD SPECIMEN / Unknown Venipuncture / Unknown 09/09/2018 11:38 AM GUN FERTILIZER 09/09/2018 11:43 AM GUN FERTILIZER Narrative [facility] - 09/09/2018 12:05 PM GUN FERTILIZER The [employer] D-Dimer assay is intended for [...] clinical presentation, and other findings. Shelbie Du TIMING ADJUSTER-ESCROW AGENT LAB - COAGU LATION ORDERABLES Performing Organization Address [facility] Co de Phone Number [facility] [address] [place], [place] [id number] * MAGNESIUM BLOOD (09/09/2018 11:38 AM GUN FERTILIZER) Only the most recent of2 resultswithin the time period is included. Magnesium 2.4 1.6 - 2.6 mg/dL 09/09/2018 3:00 PM GUN FERTILIZER [facility] Blood BLOOD SPECIMEN / Unknown Venipuncture / Unknown 09/09/2018 11:38 AM GUN FERTILIZER 09/09/2018 11:43 AM GUN FERTILIZER David Montilla MD LAB - CHEMISTRY ORDE JOSSE Performing Organization Address [facility] Co de Phone Number [facility] [address] [place], [place] [id number] * MAMMOGRAPHY ORDER (03/12/2018) Anatomical Region Laterality [...] * HEPATITIS C ANTIBODY (08/13/2016 10:22 AM GUN FERTILIZER) Hepatitis C Antibody Non Reactive Non Reactive [facility] ACCOUNT BILL Comment: Non Reactive - Antibodies to Hepatitis C virus (HCV) were no t detected, result does not exclude early acute HCV infection. Blood BLOOD SPECIMEN / Unknown 08/13/2016 10:22 AM GUN FERTILIZER 08/13/2016 Narrative Resulting Agency Comment [facility] [address] [facility] [phone] Jennifer Hart MD LAB - CHEMISTRY SONAM LOAIZA [facility] ACCOUNT BILL [address] [place] [address] * MRI SPINE LUMBAR WITH & WITHOUT [...] Region Laterality Modality Pelvis, Lower Extremity Radiogra [facility] 05/13/2016 3:49 PM CDT Narrative [...] ONE OR TWO VIEWS (11/15/2015 12:25 PM GUN FERTILIZER) Anatomical Region Laterality Modality Lower Extremity Radiographic Sanjuanita ging 11/15/2015 12:5 3 PM GUN FERTILIZER Narrative 11/15/2015 12:55 PM GUN FERTILIZER 2 views of the left knee 2 [...] present throughout the lumbar spine. Anna Hyde TIMING ADJUSTER-ESCROW AGENT DIAGN OSTIC IMAGING ORDERABLES * EMG WITH NERVE CONDUCTION STUDY (12/27/2013) Harman Rizzo MD NEUROLOGY ORDERABLE [facility] RESULT SCAN * MRI SPINE LUMBAR NON CONTRAST (09/01/2013 4:18 PM GUN FERTILIZER) Anatomical Region Laterality Modality Spine Magnetic Resonan ce 09/02/2013 9:11 AM GUN FERTILIZER Impressions 09/02/2013 11:43 AM GUN FERTILIZER L4-L5 laminectomy changes. New since the prior [...] 09/02/2013 9:36 AM Narrative 09/02/2013 11:43 AM GUN FERTILIZER MRI Lumbar Spine Without Contrast INDICATION: Foot [...] Case Report Fine Needle Aspiration Report Case: [id number] -- Authorizing Provider: Lukas Collins MD Ordering Provider: Lukas Collins MD Ordering Location: [facility] Collected: 05/12/2013 12:00 PM Pathologist: Hardik Kevin MD Received: 05/12/2013 2:13 PM Signed Out: 05/18/2013 2:32 PM (Final) Specimen: Thyroid Mass , right 05/18/2013 2:32 PM CDT [facility] Final Diagnosis 1. Thyroid nodule, right, fine needle aspiration: -- Cellular changes consistent with benign thyroid cysts/cystic goiter. Alvin 05/18/2013 2:32 PM CDT [facility] Gross Description SURGEON: COPY TO: [...] cysts/cystic goiter. Alvin 05/18/2013 2:32 PM CDT [facility] Testing Performed By [facility] at [facility]. 05/18/2013 2:32 PM CDT [facility] Synoptic Report 05/18/2013 2:32 PM CDT [facility] Pathology/Cytolo gy MASS OF THYROID GLAND / Unknown 05/12/2013 12:00 PM CDT 05/12/2013 2:13 PM CDT Lukas Collins MD LAB - PATHOLOGY/CYTO LOGY ORDERABLES [facility] [address] [place] [address] * XR KNEE BILAT MIN 4 VIEWS [[id number]] (05/04/2013 1:19 PM CDT) Anatomical Region Laterality [...] CDT Ottoniel Green MD 05/10/2013 3:53 PM [facility] [address] [place] [address] Dual energy radiography was performed on Maddie Calvillo 1945 Indication: Ovarian failure Region BMD T score AP Spine 1.251 0.6 Fem Neck 0.888 -1.1 Total Hip 1.007 0.0 Interpretation: The study is of good quality. Osteopenia is present. Suggest repeat LANI in two years. Reported by: Dee Green M.D. Procedure Note Ottoniel Green MD - 05/04/2013 3:52 PM CDT [facility] [address] [place] [address] Dual energy radiography was performed on Maddie [...] PM CDT Narrative Resulting Agency Comment [facility] [address] [facility] [phone] Authorizing Provider Result Reema Green MD LAB [...] titers - SLE (Smooth) Histone Speckled Sm, PRODUCE ASSISTANT, SCL-70, SLE,MCTD,Scleroderma,Sjogrens SS-A/SS-B Nucleolar SCL-70, PM-1/SCL High titers Scleroderma Poly- myositis/Scleroderma Overlap Centromere Centromere PSS w/Crest syndrome variable BLOOD SPECIMEN / Unknown 12/08/2012 10:28 AM CDT 12/08/2012 8:55 PM CDT Narrative Resulting Agency Comment [facility] [address] [phone] Authorizing Provider Result Reema Green MD LAB - PATHOLOGY/C YTOLOGY ORDERABLES [facility] INSURANCE BILL * JOSE PANEL COMPREHENSIVE (PO REF LAB) (12/08/2012 10:28 AM CDT) Anti-dsDNA Quantitative 1 0 - 9 IU/mL [facility] INSURANCE BILL Comment: Negative <5 Equivocal 5 - 9 Positive >9 PRODUCE ASSISTANT Antibody 0.9 0.0 - 0.9 AI [facility] [...] Sm (anti-Jensen) SLE 15 - 30% --------- PRODUCE ASSISTANT Mixed Connective Tissue Disease 95% (U1 nRNP, SLE 30 - 50% anti-ribonucleoprotein) Polymyositis and/or Dermatomyositis 20% --------- Scl-70 (antiDNA Scleroderma (diffuse) 20 - 35% topoisomerase) Crest 13% --------- Kayla-1 Polymyositis and/or Dermatomyositis 20 - 40% --------- Centromere B Scleroderma - Crest variant 80% BLOOD SPECIMEN / Unknown 12/08/2012 10:28 AM CDT 12/08/2012 8:55 PM CDT Narrative Resulting Agency Comment [address] [phone] Ottoniel Green MD LAB - SEROLOGY OR DERABLES Performing Organization Address [facility] de Phone Number [facility] INSURANCE BILL * JOSE BLOOD SCREEN W/REFLEX TITER (12/08/2012 10:28 AM CDT) JOSE See patterns [facility] INSURANCE BILL Comment: Negative <1:80 Borderline 1:80 Positive >1:80 Blood specimen (specimen) BLOOD SPECIMEN / Unknown 12/08/2012 10:28 AM CDT 12/08/2012 8:55 PM CDT Narrative Resulting Agency Comment [address] [phone] Ottoniel Green MD LAB - CHEMISTRY O RDERABLES Performing Organization Address [facility]/ZIP Co de Phone Number [facility] INSURANCE BILL * JOSE W REFLX (POSITIVE) (PO REF LAB) (01/14/2011 10:30 AM CDT) Only the most recent of2 resultswithin the time period is included. JOSE Direct Negative Negative [facility] ACCOUNT BILL BLOOD SPECIMEN / Unknown 01/14/2011 10:30 AM CDT 01/14/2011 4:10 PM CDT Narrative Resulting Agency Comment [facility] [address] [phone] Authorizing Provider Result Reema Green MD LAB - SEROLOGY OR DERABLES Performing Organization Address [facility] de Phone Number [facility] ACCOUNT BILL * [...] PM CDT Narrative Resulting Agency Comment [facility] [address] [facility] [phone] Authorizing Provider Result Reema Green MD LAB - URINALYSIS ORDERABLES Performing Organization Address [facility]/ZIP Co de Phone Number [facility] ACCOUNT BILL [...] PM CDT Narrative Resulting Agency Comment [facility] [address] [phone] Authorizing Provider Result Reema Green MD LAB [...] PM CDT Narrative Resulting Agency Comment [facility] [address] [phone] Ottoniel Green MD LAB - CHEMISTRY O RDERABLES [facility] ACCOUNT BILL * URINALYSIS - POINT OF CARE (04/10/2009) Clarity UA POCT n/a Color UA POCT lt. yellow Leukocyte UA neg Negative Nitrite UA POCT neg Negative Urobilinogen UA POCT n/a 0.1 - 1.0 EU/dL Protein UA POCT neg Negative pH UA 5.5 5.0 - 8.0 pH units Blood UA neg Negative Specific [place] UA POCT 1.025 1.002 - 1.030 Ketone UA trace Negative Bilirubin UA POCT n/a Negative Glucose UA neg Negative Urine specimen (specimen) URINE / Unknown Ottoniel Green MD LAB - POINT OF CA RE ORDERABLES * XR CERV SPINE SINGLE VIEW (11/21/2008 10:20 AM GUN FERTILIZER) Only the most recent of2 resultswithin the time period is included. Anatomical Region Laterality Modality Spine Other 11/21/2008 10:2 0 AM GUN FERTILIZER Narrative 11/21/2008 12:11 PM GUN FERTILIZER CROSSTABLE LATERAL CERVICAL SPINE 11/21/2008 CLINICAL INDICATION- Neck pain, neck surgery. DESCRIPTION- The study is presented for interpretation after completion of the surgical procedure. No radiologist was present. Single crosstable lateral view of the cervical spine demonstrates anterior osteometallic and interbody cage fusion at C5-C6 and C6-C7. Read By- GINO LUJAN M.D. Released By- GINO LUJAN M.D. Released Date Time- 11/21/08 1211 Technical Rep- [facility] AGUSTÍN JASON JAMES J REF- CON- OTTONIEL [...] LUJAN M.D. Released Date Time- 11/21/08 1211 Technical Rep- [facility] AGUSTÍN JASON JAMES J REF- CON- OTTONIEL HUNT- Agustín Germain MD DIAGNOSTIC IMAGING O TAYLOR * URINALYSIS DIPSTICK AUTO (11/17/2008 11:00 AM GUN FERTILIZER) Color UA YELLOW [facility] Character UA CLEAR [facility] Specific [place] UA 1.015 1.005 - 1.0300 [facility] pH UA 5.0 4.6 - 8.0 pH Units [facility] Leukocyte UA neg Negative /ul [facility] Nitrite UA pos Negative [facility] Protein UA neg Negative mg/dl [facility] Glucose UA norm Normal mg/dl [facility] Ketone UA neg Negative mg/dl [facility] Urobilinogen UA norm Normal [place] Units [facility] Bilirubin UA neg Negative mg/dl [facility] Blood UA 10 Negative /ul [facility] URINE / Unknown 11/17/2008 1 1:00 AM GUN FERTILIZER Agustín Germain MD LAB - URINALYSIS ORD ERABLES Performing Organization Address City/[facility]/ZIP Co de Phone Number [facility] * TYPE + SCREEN PANEL (11/17/2008 11:00 AM GUN FERTILIZER) ABO Rh O Neg [facility] Antibody Screen Neg [facility] BLOOD SPECIMEN / Unknown 11/17/2008 11:00 AM GUN FERTILIZER Agustín Germain MD LAB - BLOOD BANK ORD ERABLES [facility] Care Teams Embedded Firmware Developer Relationship Specialty Start Date End Date [facility] - General 04/18/23 Hesham Trevizo MD Rheumatology 08/11/18 Malik Fernandez DC [address] [place] [address] Chiropractic 10/15/21
[2024-11-03 12:02] LABS: Alanine Aminotransferase 16 U/L (6-35); Albumin Level 4.2 g/dL (3.5-5.1); Alkaline Phosphatase 115 U/L (38-126); Anion Gap 6 mmol/L (4-12); Aspartate Amino Transferase 22 U/L (14-36); Bilirubin,Total 0.6 mg/dL (0.2-1.3); Blood Urea Nitrogen 23 mg/dL (7-17); Calcium 9.4 mg/dL (8.4-10.2); Carbon Dioxide 30 mmol/L (22-30); Chloride 103 mmol/L (98-107); Estimated CRCL calculation 60 ml/min; Estimated Glomerular Filt Rate > 60; Glucose 79 mg/dL (65-110); Potassium 4.3 mmol/L (3.4-5.0); Sodium 139 mmol/L (137-145)
[2024-11-03] MEDS: ACETAMINOPHEN 500 MG TABLET 1000 MG PO (12:11)
[2024-11-03] MEDS: METOCLOPRAMIDE HCL INJ 10 MG/2 ML VIAL IV PUSH (12:12)
[2024-11-03] MEDS: SODIUM CHLORIDE 0.9% IV 1,000 ML 999 ML IV CONT (12:12)
[2024-11-03] MEDS: diphenhydrAMINE HCl INJ 50 MG/ML VIAL 25 MG IV PUSH (13:19)
[2024-11-03] MEDS: MAGNESIUM SULF 1 GM/D5W 100 ML 1 GM/100 ML BAG IVPB (13:20)
[2024-11-03] MEDS: TRIAMTERENE 37.5 MG/HCTZ 25 MG (MAXZIDE) TABLET 1 TAB PO (13:28)
[2024-11-03] MEDS: HALOPERIDOL LACTATE 5 MG/ML VIAL 2.5 MG IV PUSH (15:56)
== END 2024-11-03 16:58 | disposition home or self-care (01) ==
PROVIDERS: Emergency Provider Physician Assistant; PCP Family Medicine
DX: R51.9 Headache, unspecified (principal); I10 Essential (primary) hypertension; E03.9 Hypothyroidism, unspecified; E78.5 Hyperlipidemia, unspecified; M32.9 Systemic lupus erythematosus, unspecified; M19.90 Unspecified osteoarthritis, unspecified site; Z96.652 Presence of left artificial knee joint; Z90.49 Acquired absence of other specified parts of digestive tract; Z90.710 Acquired absence of both cervix and uterus; Z79.899 Other long term (current) drug therapy; Z79.69 Long term (current) use of other immunomodulators and immunosuppressants
CPT/HCPCS: 36415; 70450; 80053; 83735; 85025; 96361; 96365; 96375; 99284; A9270; J1200; J1630; J2765; J3475; J7030

== ENCOUNTER 2024-12-09 11:31 | Outpatient (CLI) | payer MEDICARE, SELFPAY ==
--- OUTSIDE RECORDS SUMMARY | 2024-12-09 12:27 | XMS_ITS | Encounter Summary ---
Author Organization [facility] Address [address] [place] [address] Care Team Providers Care Automobile Rental Agent Name Role Phone Juan Daniel Green MD Primary Care Provider [phone] Harman Rizzo MD Unavailable Jennifer Hart MD Primary Care Provider Rolf Deleon MD Unavailable Jennifer Hart MD Unavailable [phone] Chacorta Kauffman MD Unavailable Hesham Trevizo MD Unavailable Unavailable Malik Fernandez NM Unavailable Jennifer Hart MD Unavailable [phone] Pcp, [facility] [place] - Primary Care Provider Un available Encounter Details Date Type Department Care Team (Late st Contact Info) Description 06/06/2009 SS Outpatient Visit [place]TERNAL [place] [address] [address] Social History Tobacco Use Types Packs/Day Years Used Date Smoking Tobacco: Never Alcohol Use Standard Drinks/Week Comments No 0 (1 standard drink = 0.6 oz pur e alcohol) Sex and Gender Information Value Date Recorded Sex Assigned at Female 09/02/2020 9:03 AM SUPERVISOR TRAVEL INFORMATION CENTER Gender Identity Female 09/02/2020 9:03 AM SUPERVISOR TRAVEL INFORMATION CENTER Sexual Orientation Straight 09/02/2020 9: 03 AM SUPERVISOR TRAVEL INFORMATION CENTER documented as of this encounter Plan of Treatment Not on file documented as of this encounter Visit Diagnoses Not on filedocumented in this encounter Additional Health Concerns Infection Onset Date Last Indicated Resolved Time COVID-19 Under Investigation 12/20/2020 12/20/2020 12/30/2020 4:33 AM CDT COVID-19 Under Investigation 02/14/2021 02/14/2021 02/24/2021 4:33 AM CDT documented as of this encounter Care Teams Automobile Rental Agent Relationship Specialty Start Date End Date Juan Daniel Green MD PCP - General 10/19/08 01/01/16 Jennifer Hart MD PCP - General Family Medicine 01/02/16 04/17/23 Jennifer Hart MD [address] [facility] [address] [place] [address] PCP - Attributed-[facility] [place] 01/22/18 09/06/21 Jennifer Hart MD [address] [facility] [address] [place] [address] PCP - Attributed-[facility] [place] 10/23/21 04/08/22 Pcp, [facility]- PCP - General 04/18/23 Harman Rizzo MD Neurology 07/29/13 10/14/21 Rolf Deleon MD Urology 01/04/16 10/14/21 Chacorta Kauffman MD [address] [place], [place] [id number] Cardiovascular Disease 02/06/18 2 Hesham Trevizo MD [address] [place] [address] Rheumatology 08/11/18 Malik Fernandez DC [address] [place] [address] Chiropractic 10/15/21 documented as of this encounter
--- OUTSIDE RECORDS SUMMARY | 2024-12-09 12:27 | XMS_ITS | Encounter Summary ---
Author Organization [facility] Address [address] [facility] [place] [address] Care Team Providers Care Park Interpreter Name Role Phone Juan Daniel Green MD Primary Care Provider [phone] Harman Rizzo MD Unavailable Jennifer Hart MD Primary Care Provider Rolf Deleon MD Unavailable Jennifer Hart MD Unavailable [phone] Chacorta Kauffman MD Unavailable Hesham Trevizo MD Unavailable Unavailable Malik Fernandez NM Unavailable Jennifer Hart MD Unavailable [phone] Pcp, [facility] [place] - Primary Care Provider Un available Encounter Details Date Type Department Care Team (Late st Contact Info) Description 12/06/2008 SS Outpatient Visit [place]NAL [place] [address] [address] Social History Tobacco Use Types Packs/Day Years Used Date Smoking Tobacco: Never Alcohol Use Standard Drinks/Week Comments No 0 (1 standard drink = 0.6 oz pur e alcohol) Sex and Gender Information Value Date Recorded Sex Assigned at Female 09/02/2020 9:03 AM MAORI PHYSIOTHERAPIST Gender Identity Female 09/02/2020 9:03 AM MAORI PHYSIOTHERAPIST Sexual Orientation Straight 09/02/2020 9: 03 AM MAORI PHYSIOTHERAPIST documented as of this encounter Plan of Treatment Not on file documented as of this encounter Visit Diagnoses Not on filedocumented in this encounter Additional Health Concerns Infection Onset Date Last Indicated Resolved Time COVID-19 Under Investigation 12/20/2020 12/20/2020 12/30/2020 4:33 AM CDT COVID-19 Under Investigation 02/14/2021 02/14/2021 02/24/2021 4:33 AM CDT documented as of this encounter Care Teams Park Interpreter Relationship Specialty Start Date End Date Juan Daniel Green MD PCP - General 10/19/08 01/01/16 Jennifer Hart MD PCP - General Family Medicine 01/02/16 04/17/23 Jennifer Hart MD [address] [facility] [address] [place] [address] PCP - Attributed-[facility] [place] 01/22/18 09/06/21 Jennifer Hart MD [address] [facility] [address] [place] [address] PCP - Attributed-[facility] [place] 10/23/21 04/08/22 Pcp, [facility]- PCP - General 04/18/23 Harman Rizzo MD Neurology 07/29/13 10/14/21 Rolf Deleon MD Urology 01/04/16 10/14/21 Chacorta Kauffman MD [address] [place], [place] [id number] Cardiovascular Disease 02/06/18 2 Hesham Trevizo MD [address] [place] [address] Rheumatology 08/11/18 Malik Fernandez DC [address] [place] [address] Chiropractic 10/15/21 documented as of this encounter
--- OUTSIDE RECORDS SUMMARY | 2024-12-09 12:27 | XMS_ITS | Clinical Summary ---
Author Organization [facility] Address [address] [facility] [place] [address] Care Team Providers Care Primer Inspector Name Role Phone Hesham Trevizo MD Unavailable Unavailable Malik Fernandez DC Unavailable Pcp, Dinora Krishnan Im-Fm Primary Care Provider Un available Source Comments [facility],non-owned Affiliates and Associated Physician Practices is amultiple site organization consisting of ambulatory clinics and hospital sitesin [place], [place], [place] and [place]. This disclosure is being madepursuant to the Care Everywhere program and may not contain all information available regarding this patient. Last updated 18.[facility] Allergies Active Allergy Reactions Criticality Noted [...] 09/28/2018 Immunizations Name Administration Dates Next Due Apptera primary monoval ent 12+ yr 0.3mL Purple [...] Sex Assigned at Female 09/02/2020 9:03 AM KETTLE WORKER Gender Identity Female 09/02/2020 9:03 AM KETTLE WORKER Sexual Orientation Straight 09/02/2020 9: 03 AM KETTLE WORKER Last Filed Vital Signs Vital Sign Reading Time Taken Comments Blood Pressure 130/76 10/15/2021 9:57 AM KETTLE WORKER Pulse 62 10/15/2021 9:57 AM KETTLE WORKER Temperature 36.6 C (97.8 F) 10/15/2021 9:57 AM KETTLE WORKER Respiratory Rate 18 10/15/2021 9:57 AM KETTLE WORKER Oxygen Saturation 100% 10/15/2021 9:57 AM KETTLE WORKER Inhaled Oxygen Concentration - - Weight 77.1 kg (170 lb) 11/13/2023 9:15 AM KETTLE WORKER Height 157.5 cm (5' 2 ) 11/13/2023 9:15 AM KETTLE WORKER Body Mass Index 31.09 11/13/2023 9:15 AM KETTLE WORKER Plan of Treatment Health Maintenance Due Date [...] complete this topic MENINGOCOCCAL (Group B) VACCINE SHARED DECISION-MAKING Aged Out No longer eligible based on patient's age to complete this topic MENINGOCOCCAL GROUPS A/C/Y/W VACCINE Aged Out No longer eligible based on patient's age to complete this topic Goals Goal Patient Goal Type Associated Problems Recent Progress Patient-Stated? Author Blood Pressure < 140/90 Blood Pressure 130/76(10/15 9:57 AM KETTLE WORKER) Keyur Esparza Note: Caring for Your High [...] Where can I go for more information? British Heart Association National Center: http://www.americanheart.org 1. In the top header, click C onditions . 2. In the top header, click h igh blood pressure. 3. For a printable blood pressure tracker, scroll toward the bottom of the page to Related Tools, and click H BP Trackers. 3-811-JNW-USA-1 or ( ) National Heart, Lung and Blood [place]: http://www.nhlbi.nih.gov/health/infoctr/index.htm Exercise 5X per week (30 min per time) Exercise No Keyur Evans Note: The British College of Sports Medicine recommends all adults [...] this encounter Medical Devices Implanted Type Area Guard Immigration Device Identifier Shelf Expiration Date Model / Serial / Lot Cmnt Bone Djo Srg Cblt 40gm Hvisc Strl Implanted:Qty: 1 on 05/08/2020 by Edgar Telles MD at [facility] Left: Knee [employer] 10/14/2020 [id number] / / [id number] Tray Tib 67mm Kn Cocr I Beam Implanted:Qty: 1 on 05/08/2020 by Edgar Telles MD at [facility] Left: Knee [employer] 11/21/2029 [id number] / / [id number] Cmpnt Fem Kn Lt Cr Cmnt Prm Vngrd Intlk Implanted:Qty: 1 on 05/08/2020 by Edgar Telles MD at [facility] Left: Knee [employer] 11/21/2029 [id number] / / [id number] Cmpnt Ptlr 28mm 1 Pg Wire Ascnt Arcm Kn Implanted:Qty: 1 on 05/08/2020 by Edgar Telles MD at [facility] Left: Knee [employer] 04/13/2025 [id number] / / [id number] Vngrd Arcm Kn Ant Stab Implanted:Qty: 1 on 05/08/2020 by Edgar Telles MD at [facility] Left: Knee [employer] 04/07/2025 [id number] / / [id number] Procedures Procedure Name Priority Date/Time Associated Diagnosis Comments COMPREHENSIVE METABOLIC PANEL Routine 10/15/2021 11:23 AM KETTLE WORKER Essential hypertension with goal blood pressure less than 140/90 Pure hypercholesterolemia Seronegative rheumatoid arthritis Systemic lupus erythematosus, unspecified SLE type, unspecified organ involvement status Encounter for general adult medical examination with abnormal findings DEXA BONE DENSITY AXIAL SKELETON Routine 04/13/2020 8:32 AM CDT Osteopenia of thigh, unspecified laterality HEPATITIS C ANTIBODY Routine 08/13/2016 10:22 AM KETTLE WORKER Need for hepatitis C screening test from Last 3 Months or Most Recently Relevant to Health Maintenance Results * COMPREHENSIVE METABOLIC PANEL (10/15/2021 11:23 AM KETTLE WORKER) Glucose 89 70 - 105 mg/dL [facility] [...] BLOOD SPECIMEN / Unknown 10/15/2021 11:23 AM KETTLE WORKER 10/15/2021 Narrative Resulting Agency Comment Lab Testing performed at: [facility] [address] [place] [id number] Jennifer Hart MD LAB - CHEMISTRY SONAM LOAIZA [facility] ACCOUNT BILL [address] [place] [address] * DEXA BONE DENSITY AXIAL SKELETON (04/13/2020 [...] * HEPATITIS C ANTIBODY (08/13/2016 10:22 AM KETTLE WORKER) Hepatitis C Antibody Non Reactive Non Reactive [facility] ACCOUNT BILL Comment: Non Reactive - Antibodies to Hepatitis C virus (HCV) were no t detected, result does not exclude early acute HCV infection. Blood BLOOD SPECIMEN / Unknown 08/13/2016 10:22 AM KETTLE WORKER 08/13/2016 Narrative Resulting Agency Comment [facility] [address] [facility] [id number] Jennifer Hart MD LAB - CHEMISTRY SONAM LOAIZA [facility] ACCOUNT BILL [address] [place] [address] from Last 3 Months or Most Recently Relevant to Health Maintenance Advance Directives * Full Code (Latest Code Status on File) Date Activated Date Inactivated Comments 05/08/2020 11:56 AM 05/09/2020 3:34 PM * Full Code Date Activated Date Inactivated Comments 09/09/2018 3:12 PM 09/11/2018 3:35 PM Care Teams Primer Inspector Relationship Specialty Start Date End Date Pcp, Dinora Depaul - PCP - General 04/18/23 Hesham Trevizo MD Rheumatology 08/11/18 Malik Fernandez DC [address] [place] [address] Chiropractic 10/15/21
--- OUTSIDE RECORDS SUMMARY | 2024-12-09 12:27 | XMS_ITS | Continuity of Care Document ---
Author Organization [facility] Address [address] [place] [address] [address] [place] [address] Phone Care Team Providers Care Central Supply Aide Name Role Phone Rachel De Leon Unavailable Unavailable Advance Directives Directive Yes / No Effective Date File Name No Information Encounters Encounter Description Practice Location Reason(s) For Visit Diagnoses Date Provider Providers Copied on Encounter [facility], [address], [place], [place], [id number], [place] tel:[phone] [facility] [place] No Information Mar-0 4-200 2 Haley Ramos. [address] [facility] , [address], [place], [address], [place]. tel:[phone] Family History Family Member Type Diagnosis Age [...]
--- OUTSIDE RECORDS SUMMARY | 2024-12-09 12:27 | XMS_ITS | Encounter Summary ---
Author Organization [facility] Address [address] [facility] [place] [address] Care Team Providers Care Solar Hot Water Installer Name Role Phone Juan Daniel Green MD Primary Care Provider [phone] Harman Rizzo MD Unavailable [phone] Jennifer Hart MD Primary Care Provider Rolf Deleon MD Unavailable Jennifer Hart MD Unavailable [phone] Chacorta Kauffman MD Unavailable Hesham Trevizo MD Unavailable Unavailable Malik Fernandez [place] Unavailable Jennifer Hart MD Unavailable [phone] Pcp, [facility] Depaul - Primary Care Provider Un available Encounter Details Date Type Department Care Team (Late st Contact Info) Description 03/10/2009 [facility]NAL [place] [address] [address] Social History Tobacco Use Types Packs/Day Years Used Date Smoking Tobacco: Never Alcohol Use Standard Drinks/Week Comments No 0 (1 standard drink = 0.6 oz pur e alcohol) Sex and Gender Information Value Date Recorded Sex Assigned at Female 09/02/2020 9:03 AM INFORMATION SYSTEMS ARCHITECT Gender Identity Female 09/02/2020 9:03 AM INFORMATION SYSTEMS ARCHITECT Sexual Orientation Straight 09/02/2020 9: 03 AM INFORMATION SYSTEMS ARCHITECT documented as of this encounter Plan of Treatment Not on file documented as of this encounter Visit Diagnoses Not on filedocumented in this encounter Additional Health Concerns Infection Onset Date Last Indicated Resolved Time COVID-19 Under Investigation 12/20/2020 12/20/2020 12/30/2020 4:33 AM CDT COVID-19 Under Investigation 02/14/2021 02/14/2021 02/24/2021 4:33 AM CDT documented as of this encounter Care Teams Solar Hot Water Installer Relationship Specialty Start Date End Date Juan Daniel Green MD PCP - General 10/19/08 01/01/16 Jennifer Hart MD PCP - General Family Medicine 01/02/16 04/17/23 Jennifer Hart MD [address] [facility] [address] [place] [address] PCP - Attributed-[facility] [place] 01/22/18 09/06/21 Jennifer Hart MD [address] [facility] [address] [place] [address] PCP - Attributed-[facility] [place] 10/23/21 04/08/22 Pcp, Dinora [facility]- PCP - General 04/18/23 Harman Rizzo MD Neurology 07/29/13 10/14/21 Rolf Deleon MD Urology 01/04/16 10/14/21 Chacorta Kauffman MD [address] [place], [place] [id number] Cardiovascular Disease 02/06/18 2 Hesham Trevizo MD [address] [place] [address] Rheumatology 08/11/18 Malik Fernandez DC [address] [place] [address] Chiropractic 10/15/21 documented as of this encounter
--- OUTSIDE RECORDS SUMMARY | 2024-12-09 12:27 | XMS_ITS | CONTINUITY OF CARE DOCUMENT ---
Author Name jessee hooks Address Unknown Organization [facility] Address [address] [facility] [address] [place] [address] Phone [phone] Care Team Providers Care Soft Sugar Operator Head Name Role Phone Jamari BENITEZ, Chacorta Unavailable [phone] Jennifer Hart MD Unavailable Jennifer Hart MD Unavailable [phone] PROBLEMS Condition Status Date Provider Notes CARDIAC MURMUR completed - Ayaka Canas RN HTN ESSENTIAL active Chacorta Kauffman MD ARTHRITIS active Chacorta Kauffman MD CHEST PAIN-TYPE TO BE DETERMINED completed - Ayaka Canas RN Aortic sclerosis active Ayaka Canas RN Bradycardia - sinus active Chacorta Kauffman MD Hypothyroidism active Chacorta Kauffman MD Hyperlipidemia active ? Chacorta Kauffman MD Shortness of breath completed - Ayaka Canas RN PVC's active Chacorta Kauffman MD Sleep apnea active Chacorta Kauffman MD Chest pain-type to be determined active Ayaka Canas RN ENCOUNTERS Date Type Provider [...] pressure, diastolic, left arm 84 mm [Hg] [facility], systolic, left arm 138 mm [Hg] [facility] blood pressure, diastolic, right arm 90 m m[Hg] Sangeeta Mckee blood pressure, systolic, right arm 140 m m[Hg] [facility] pressure, diastolic 84 mm[Hg] [facility] Mckee blood pressure, systolic 138 mm[Hg] Mi larsen [place] oxygen saturation, oximetry 98 % Mckee respiratory rate E&M 16 /min Mckee pulse rate 66 /min [facility] weight E&M 176 [lb_av] Sangeeta Mckee [...] patterson O'Rob blood pressure, systolic 130 mm[Hg] [facility] zaki O'Rob oxygen saturation, oximetry 99 % [...] Karyn Canas RN weight E&M 181.4 [lb_av] [facility] respiratory rate E&M 16 /min [facility] blood pressure, diastolic 76 mm[Hg] Ki [facility] blood pressure, systolic 120 mm[Hg] [facility] saturation, oximetry 93 % [facility] pulse rate 68 /min [facility] height E&M 65 [in_i] [facility] Body Mass Index (Ratio) 29.95 kg/m2 Carolyn Kauffman MD blood pressure, diastolic, left arm 80 mm [Hg] am blood pressure, systolic, left arm 128 mm [Hg] [facility] blood pressure, diastolic, right arm 86 m m[Hg] [facility] blood pressure, systolic, right arm 128 m m[Hg] [facility] blood pressure, diastolic 80 mm[Hg] [facility] blood pressure, systolic 128 mm[Hg] Kil suzie [place] oxygen saturation, oximetry 97 % [facility] respiratory rate E&M 16 /min Sangeeta pulse rate 59 /min [facility] weight E&M 180 [lb_av] [facility] height E&M 65 [in_i] [facility] Body Mass Index (Ratio) 30.12 kg/m2 Karyn Canas RN blood pressure, diastolic, left arm 80 mm [Hg] [facility] blood pressure, systolic, left arm 118 mm [Hg] [facility] blood pressure, diastolic, right arm 80 m m[Hg] blood pressure, systolic, right arm 118 m m[Hg] [facility] blood pressure, diastolic 80 mm[Hg] [facility] blood pressure, systolic 118 mm[Hg] Mi larsen [place] oxygen saturation, oximetry 97 % respiratory rate E&M 16 /min [facility] pulse rate 70 /min [facility] weight E&M 181 [lb_av] Mckee height E&M 65 [in_i] [facility] Body Mass Index (Ratio) 29.12 kg/m2 [...] Mar zaki ORob blood pressure, resting Yes [facility] O oxygen saturation, oximetry 98 % Madelyn [...] pressure, diastolic, left arm 84 mm [Hg] [facility] blood pressure, systolic, left arm 130 mm [Hg] [facility] blood pressure, diastolic, right arm 82 m m[Hg] [facility] blood pressure, systolic, right arm 132 m m[Hg] [facility] Body Mass Index (Ratio) 31.23 kg/m2 [facility] blood pressure, diastolic 82 mm[Hg] [facility] Rounds blood pressure, systolic 132 mm[Hg] [facility] na pulse rate 65 /min [facility] oxygen saturation, oximetry 98 % [facility] respiratory rate E&M 18 /min [facility] Carlos palomino weight E&M 187 [lb_av] [facility] height E&M 65 [in_i] [facility] blood pressure, diastolic 80 mm[Hg] Marlon Miller [...] 1.6-2.3 8 B-12, serum 349 pg/mL [employer] 448-477 6002/11/2 8 pro brain natriuretic peptide 146 pg/mL [facility] 0-301 8 iron saturation percent, serum 23 % [facility] 15-55 8 iron, serum 71 ug/dL [facility] 27-139 8 iron binding capacity, unsaturated 233 ug/dL [facility] 405-262 5469/11/2 8 iron binding capacity, total 304 ug/dL [facility] 468-048 6201/11/2 8 basophil count, absolute 0.0 x10E3/uL [facility] [...] Estab. 8 platelet count 224 X10E3/UL [facility] 830-544 2601/11/2 8 red blood cell distribution width 13.9 [...] requency, days per week daily 10 minutes Dillon Mckee alcohol use, average drinks per day none Dillon Mckee alcohol use no Sangeeta Mckee caffeine use, averag e drinks per day 2 /d Dillon Mckee smoking status Never smoker Sangeeta penny [...] alcohol use, average drinks per day none Dillon Mckee alcohol use no Dillon Mckee caffeine use, averag e drinks per day yes Sangeeta Mckee smoking status Never smoker Sangeeta penny physical exercise, f requency, days per week yes Dillon Mckee alcohol use, average drinks per day none Sangeeta Mckee alcohol use no Dillon Mckee caffeine use, averag e drinks per [...] per day none LinkLog smoking status Non-smoker [facility] MENTAL STATUS Date Observation Value Provider assessment [...] Policy type / Coverage type Michaela red democrat ID AARP MEDICARE ADVANTAGE ([facility] COMPLETE PPO) Other [id number] ADVANCE DIRECTIVES Name Date DISCUSSED - NO [...] be due to excessive pvc's n o break and load operator=notropic incompetence Ayaka Canas RN Cardiology:no chrono tropic [...] ..... 1 tablet daily Orders: E KG ([id number]-[id number]) BP today: 132/82 P rior BP: 120/80 (03/17/2012) Chacorta Kauffman MD follow up:aortic scl erosis - echo scheduled for later this week at [facility] Chacorta Kauffman MD follow up: She has [...] MD com pleted FVC / MVV with [facility] hodilator - 49773 Chacorta Kauffman MD completed FRC - 89477 Chacorta Kauffman MD completed SpO2 - 15728 Chacorta Kauffman MD complete d DLCO - 03131 Chacorta Kauffman MD complete d SNOMED-CT: 630324140 384556 Current Medications Documented Chacorta Kauffman MD completed ZIO Holter Hookup Chacorta Kauffman MD com pleted EKG Chacorta Kauffman MD completed SNOMED-CT: 199415759 073261 Current Medications Documented Chacorta Kauffman MD completed SNOMED-CT: 590931439 872664 Current Medications Documented Chacorta Kauffman MD completed EKG Chacorta Kauffman MD completed EKG Chacorta Kauffman MD completed EKG Chacorta Kauffman MD completed
--- OUTSIDE RECORDS SUMMARY | 2024-12-09 12:27 | XMS_ITS | Referral Summary ---
Author Organization [facility] [address] [facility] [address] Address [address] [place] [address] Care Team Providers Care Assembler Name Role Phone Alonzo Clancy CLUB STEWARD Primary Care Provid er Allergies Active Allergy [...] (180 mg total) by mouth daily Active ygglasqq48-cenx -Lmfolate-algal 27 mg iron-1.13 mg-581.92 mg capsule [...] 1 tablet (50 mcg total) by mouth road roller engineer before breakfast Active vit C,X-Gg-ebntg-stacey tein-zeaxan 250-90-40-1 mg capsule Take by mouth [...] on file Legal Sex Female 9:14 AM TECHNICAL SUPPORT COORDINATOR Gender Identity Female 12/19/2023 10:17 AM CDT [...] Treatment Not on file Insurance [employer] [facility] MEDIC[facility] Address: [facility] [address] [place] [address] [employer] [facility] [facility] MED[facility] Address: [address] [address] [place] [address] Care Teams Assembler Relationship Specialty Start Date End Date Alonzo Clancy NP [address] [place] [id number] PCP - General Family Medicine 04/02/23
--- OUTSIDE RECORDS SUMMARY | 2024-12-09 12:27 | XMS_ITS | Clinical Summary ---
Author Organization [facility] [address] [facility] [address] Address [address] [place] [address] Care Team Providers Care Brim Raiser Name Role Phone Alonzo Clancy SUSTAINABILITY ENGINEER Primary Care Provid er Allergies Active Allergy [...] (180 mg total) by mouth daily Active bgqrujis69-hnnc -Lmfolate-algal 27 mg iron-1.13 mg-581.92 mg capsule [...] 1 tablet (50 mcg total) by mouth plastic worker before breakfast Active vit C,W-My-lhzjz-stacey tein-zeaxan 250-90-40-1 mg capsule Take by mouth [...] on file Legal Sex Female 9:14 AM REHAB SPECIALIST Gender Identity Female 12/19/2023 10:17 AM [...] Insurance [employer] Care Teams Brim Raiser Relationship Specialty Start Date End Date Alonzo Clancy NP [address] [place] [id number] PCP - General Family Medicine 04/02/23
--- OUTSIDE RECORDS SUMMARY | 2024-12-09 12:27 | XMS_ITS | Encounter Summary ---
Author Organization [facility] Address [address] [facility] [place] [address] Care Team Providers Care Vehicle Washer Name Role Phone Juan Daniel Green MD Primary Care Provider [phone] Harman Rizzo MD Unavailable [phone] Jennifer Hart MD Primary Care Provider Rolf Deleon MD Unavailable Jennifer Hart MD Unavailable [phone] Chacorta Kauffman MD Unavailable Hesham Trevizo MD Unavailable Unavailable Malik Fernandez [place] Unavailable Jennifer Hart MD Unavailable [phone] Pcp, [facility] Depaul - Primary Care Provider Un available Encounter Details Date Type Department Care Team (Late st Contact Info) Description 12/08/2012 [facility] Juan Daniel Green MD [address] [place] [address] Social History Tobacco Use Types Packs/Day Years Used Date Smoking Tobacco: Never Alcohol Use Standard Drinks/Week Comments No 0 (1 standard drink = 0.6 oz pur e alcohol) Sex and Gender Information Value Date Recorded Sex Assigned at Female 09/02/2020 9:03 AM LIFTER DRIVER Gender Identity Female 09/02/2020 9:03 AM LIFTER DRIVER Sexual Orientation Straight 09/02/2020 9: 03 AM LIFTER DRIVER documented as of this encounter Plan of Treatment Not on file documented as of this encounter Visit Diagnoses Not on filedocumented in this encounter Additional Health Concerns Infection Onset Date Last Indicated Resolved Time COVID-19 Under Investigation 12/20/2020 12/20/2020 12/30/2020 4:33 AM CDT COVID-19 Under Investigation 02/14/2021 02/14/2021 02/24/2021 4:33 AM CDT documented as of this encounter Care Teams Vehicle Washer Relationship Specialty Start Date End Date Juan Daniel Green MD PCP - General 10/19/08 01/01/16 Jennifer Hart MD PCP - General Family Medicine 01/02/16 04/17/23 Jennifer Hart MD [address] [place] [address] PCP - Attributed-[facility] [place] 01/22/18 09/06/21 Jennifer Hart MD [address] [place] [address] PCP - Attributed-[facility] [place] 10/23/21 04/08/22 [facility] - [facility] 04/18/23 Harman Rizzo MD Neurology 07/29/13 10/14/21 Rolf Deleon MD Urology 01/04/16 10/14/21 Chacorta Kauffman MD [address] [place] [address] Cardiovascular Disease 02/06/18 2 Hesham Trevizo MD [address] [place] [address] Rheumatology 08/11/18 Malik Fernandez DC [address] [place] [address] Chiropractic 10/15/21 documented as of this encounter
--- OUTSIDE RECORDS SUMMARY | 2024-12-09 12:27 | XMS_ITS | Clinical Summary ---
Author Organization [facility] Address [address] [place] [address] Care Team Providers Care Component Technician Name Role Phone Unavailable Primary Care Provider Unavailabl e Social History Tobacco Use Types Packs/Day Years Used Date Smoking Tobacco: Never Assessed Comments Unknown Sex and Gender Information Value Date Recorded Sex Assigned at Not on file Legal Sex Female 10:23 PM FILLING LAYER UP Gender Identity Not on file Sexual Orientation [...]
[2024-12-09 12:42] LABS: Cholesterol 174 mg/dL (0-200); HDL Direct 74 mg/dL; Triglycerides 81 mg/dL (<150)
[2024-12-09 12:53] LABS: LDL Cholesterol Direct 78 mg/dL
[2024-12-09 13:47] LABS: Free T4 Free Thyroxine 1.62 ng/dL (0.78-2.19); Vitamin D 25 Hydroxy 44.4 ng/mL
== END 2024-12-09 11:32 | disposition home or self-care (01) ==
LOC: ANHLAB 11:33
PROVIDERS: PCP Family Medicine; Visit Provider Nurse Practitioner Adult Health
DX: E03.9 Hypothyroidism, unspecified (principal); E55.9 Vitamin D deficiency, unspecified; I10 Essential (primary) hypertension
CPT/HCPCS: 36415; 80061; 82306; 84439; 84443

== ENCOUNTER 2025-06-13 13:31 | Outpatient (CLI) | payer MEDICARE, SELFPAY ==
--- OUTSIDE RECORDS SUMMARY | 2001-11-23 10:30 | XMS_ITS | Continuity of Care Document ---
Author Organization [facility] Address [id number] [place] [address] [address] [place] [address] Phone Care Team Providers Care Lead Warehouse Associate Name Role Phone Rachel De Leon Unavailable Unavailable Advance Directives Directive Yes / No Effective Date File Name No Information Encounters Encounter Description Practice Location Reason(s) For Visit Diagnoses Date Provider Providers Copied on Encounter [facility], [address], [place], [place], [id number], [place] tel:[phone] [facility] [place] No Information Mar-0 4-200 2 Haley Ramos. [address] , [address], [place], [address], [place]. tel:[phone] Family History Family Member Type Diagnosis Age At Onset No Information Payers Payer name Insurance type Covered alliance party ID Authoriza tion(s) No Information Social History Type Description Quantity Date Captured Comments Sex Female Smoking Status No Information Chief Complaint And Reason For Visit No Information Reason For Referral Reason For Referral No Information History Of Present Illness Encounter Date Complaint History Of Prese nt Illness No Information Functional Status Date Functional Assessmen t No Information Instructions Date Instruction Additional Infor mation No Information Assessments Type Assessment Date No Information Patient Care Teams Name Effective Dates (start - stop) Status Members No Information
--- NOTE | ~2025-06-13 | MR_ITS ---
EXAMINATION: MR lumbar spine wo/w con COMPARISON: None HISTORY: LUMBAR RADICULOPATHY;POST LAMINECTOMY SYNDROME;OTHER LBP TECHNIQUE: Multiplanar multisequence images obtained of the lumbar without and with intravenous contrast, Prohance 17cc injected IV. FINDINGS: Moderate loss of vertebral height throughout with grade 1 anterolisthesis of L4 on L5, no acute fracture is identified. Marrow signal is appropriate with scattered subcentimeter areas of probable hemangioma formation. There are postsurgical changes noted in the posterior elements, the residual posterior elements appear unremarkable with no abnormal signal appreciated Conus terminates at T12-L1, no abnormal signal within the cord There is severe loss of disc height throughout with multilevel moderate to severe disc desiccation and endplate degenerative changes most marked at L1-2, L2-3 and L3-4. The soft tissues appear unremarkable L5-S1: Circumferential bulging of the disc with ligamentum flavum and facet hypertrophy. Moderate bilateral foramina and lateral recess stenosis. Mild canal stenosis. L4-5: Circumferential bulging of the disc with ligamentum flavum and facet hypertrophy. Severe bilateral foramina, lateral recess and canal stenosis. L3-4: Circumferential bulging of the disc with ligamentum flavum and facet hypertrophy. Severe bilateral foramina, lateral recess and canal stenosis. L2-L3: Circumferential bulging of the disc with ligamentum flavum and facet hypertrophy. Severe bilateral foramina, lateral recess and canal stenosis. L1-L2: Circumferential bulging of the disc with ligamentum flavum and facet hypertrophy. Moderate bilateral foramina, lateral recess and canal stenosis. The contrast-enhanced images demonstrate mild enhancement of the meninges facially at the L4-5 level although there is no gross nodularity or enhancement appreciated and these findings may be reactive, follow-up is recommended to assess. There is also mild abnormal enhancement involving the facet joints at L5-S1 which may be reactive. There is abnormal enhancement also noted involving the exiting nerve roots at L5-S1 bilaterally especially on the right side with thickening of the new bruits appreciated. Similar findings are noted of the exiting nerve roots at L4-5 bilaterally. IMPRESSION: 1. Postsurgical and degenerative changes detailed above. Significant enhancement of the exiting nerve roots detailed above with mild abnormal enhancement of the meninges which may relate to recent intervention and is possibly reactive. Follow-up is recommended to assess Reviewed, dictated and finalized at location A. IMPRESSION: 1. Postsurgical and degenerative changes detailed above. Significant enhancemen t of the exiting nerve roots detailed above with mild abnormal enhancement of t he meninges which may relate to recent intervention and is possibly reactive. F ollow-up is recommended to assess
--- OUTSIDE RECORDS SUMMARY | 2025-06-13 13:54 | XMS_ITS | Clinical Summary ---
Author Organization [facility] Address [address] [place] [address] Care Team Providers Care Core Machine Operator Name Role Phone Unavailable Primary Care Provider Unavailabl e Social History Tobacco Use Types Packs/Day Years Used Date Smoking Tobacco: Never Assessed Comments Unknown Sex and Gender Information Value Date Recorded Sex Assigned at Not on file Legal Sex Female 10:23 PM SOLAR SALES ASSESSOR Gender Identity Not on file Sexual Orientation Not on file Plan of Treatment Health Maintenance Due Date Last Done Comments Hepatitis C 12/27/1965 DTaP, Tdap and Td Vaccines ( 1 - Tdap) 12/27/1966 Pneumococcal Vaccine: 50+ Ye ars (1 of 1 - PCV) 12/27/1997 Zoster Vaccines (1 of 2) 12/27/1997 Dexa Scan (General) 12/27/2012 RSV Immunization or 60+ Years (1 - 1-dose 75+ series) 12/27/2022 COVID-19 Vaccine ( - 2023-2 5 season) 2025 Meningococcal B Vaccine Aged Out No l onger eligible based on patient's age to complete this topic Meningococcal Vaccine Aged Out No morgan tacos eligible based on patient's age to complete this topic RSV Immunizations Under 20 Months Aged Out No longer eligible based on patient's age to complete this topic
--- OUTSIDE RECORDS SUMMARY | 2025-06-13 13:55 | XMS_ITS | Clinical Summary ---
Author Organization [facility] [place] [place] [address] Address [address] [place] [address] Care Team Providers Care Overhead Crane Technician Name Role Phone Alonzo Clancy STAMPING DIE MAKER BENCH Primary Care Provid er Allergies Active Allergy [...] (180 mg total) by mouth daily Active [id number]-azxu -Lmfolate-algal 27 mg iron-1.13 mg-581.92 mg capsule [...] Take by mouth every 7 days Active gabapentin (NEURONTIN) 300 mg capsule Take 1 capsule (300 mg total) by mouth 3 (three) times a day Active levothyroxine (SYNTHROID) 50 mcg tablet Take 1 tablet (50 mcg total) by mouth instructor painting before breakfast Active vit C,N-Ag-nroex-stacey tein-zeaxan 250-90-40-1 mg capsule Take by mouth AREDS Active predniSONE (DELTASONE) 5 mg tablet Take by mouth as needed Active amLODIPine (NORVASC) 5 mg tablet Take 1 tablet (5 mg total) by mouth daily 5 Active lisinopril-hydr oCHLOROthiazide (ZESTORETIC) 20-25 mg per tablet Take 1 tablet by mouth daily 5 Active Active Problems Problem Noted Date Diagnosed [...] Tobacco: Never Tobacco Cessation:Counseling Given: Not Answered Comments Unknown Sex and Gender Information Value Date Recorded Sex Assigned at Not on file Legal Sex Female 9:14 AM TRACTOR TRAILER MOVING VAN DRIVER Gender Identity Female 12/19/2023 10:17 AM CDT Sexual Orientation Not on file Obstetrics History Last Filed Vital Signs Vital Sign Reading Time Taken Comments Blood Pressure 128/80 01/10/2025 10:37 AM CDT Pulse 85 01/10/2025 10:37 AM CDT Temperature - - Respiratory Rate - - Oxygen Saturation 95% 01/10/2025 10:37 AM CDT Inhaled Oxygen Concentration - - Weight 69.5 kg (153 lb 3.2 oz) 01/10/2025 10:37 AM CDT Height 157.5 cm (5' 2) 01/10/2025 10:37 AM CDT Body Mass Index 28.02 01/10/2025 10:37 AM CDT Plan of Treatment Health Maintenance Due Date Last Done Comments Depression Screening 1945 Fall Risk Assessment 1945 Hepatitis C Screening 1945 DTaP/Tdap/Td Vaccine (1 - Tdap) 12/27/1958 Hepatitis B Screening 12/27/1965 Well Visit 65+ 12/27/2012 Osteoporosis Screening-Bone Density Scan 04/13/2022 04/13/2020, 04/13/2020, 04/10/2017, Additional history exists Covid-19 Vaccine (2024-2 6 season) 2025 09/24/2021, 12/20/2020, 12/01/2020 Influenza Vaccine (#1) 2025 08/11/2018 Pneumococcal vaccine 65+ Completed 08/07/2017, 12/21 Zoster Vaccine Completed 10/09/2019, 12/2018, 06/01/2014 Insurance MEDICARE ADVANTAGE [facility] MEDICARE ADVANTAGE Care Teams Overhead Crane Technician Relationship Specialty Start Date End Date Alonzo Clancy NP [address] [place] [id number] PCP - General Family Medicine 04/02/23
--- OUTSIDE RECORDS SUMMARY | 2025-06-13 13:55 | XMS_ITS | Encounter Summary ---
Author Organization [facility] Address [address] [facility] [place] [address] Care Team Providers Care Software Developer Mid Level Name Role Phone Juan Daniel Green MD Primary Care Provider [phone] Harman Rizzo MD Unavailable Jennifer Hart MD Primary Care Provider Rolf Deleon MD Unavailable Jennifer Hart MD Unavailable [phone] Chacorta Kauffman MD Unavailable Hesham Trevizo MD Unavailable Unavailable Malik Fernandez [place] Unavailable Jennifer Hart MD Unavailable [phone] Pcp, [facility] Depaul - Primary Care Provider Un available Encounter Details Date Type Department Care Team (Late st Contact Info) Description 03/10/2009 [facility] Outpatient Visit [place]TERNAL [place] [address] [address] Social History Tobacco Use Types Packs/Day Years Used Date Smoking Tobacco: Never Alcohol Use Standard Drinks/Week Comments No 0 (1 standard drink = 0.6 oz pur e alcohol) Comments Unknown Sex and Gender Information Value Date Recorded Sex Assigned at Female 09/02/2020 9:03 AM HALF BACKER Legal Sex Female 4:26 AM HALF BACKER Gender Identity Female 09/02/2020 9:03 AM HALF BACKER Sexual Orientation Straight 09/02/2020 9: 03 AM HALF BACKER documented as of this encounter Plan of Treatment Not on file documented as of this encounter Visit Diagnoses Not on filedocumented in this encounter Additional Health Concerns Infection Onset Date Last Indicated Resolved Time COVID-19 Under Investigation 12/20/2020 12/20/2020 12/30/2020 4:33 AM CDT COVID-19 Under Investigation 02/14/2021 02/14/2021 02/24/2021 4:33 AM CDT documented as of this encounter Care Teams Software Developer Mid Level Relationship Specialty Start Date End Date Juan Daniel Green MD PCP - General 10/19/08 01/01/16 Jennifer Hart MD PCP - General Family Medicine 01/02/16 04/17/23 Jennifer Hart MD [address] [place] [address] PCP - Attributed-[facility] [place] 01/22/18 09/06/21 Jennifer Hart MD [address] [place] [address] PCP - Attributed-[facility] [place] 10/23/21 04/08/22 Pcp, [facility] PCP - General 04/18/23 Harman Rizzo MD Neurology 07/29/13 10/14/21 Rolf Deleon MD Urology 01/04/16 10/14/21 Chacorta Kauffman MD [address] [place] [address] Cardiovascular Disease 02/06/18 2 Hesham Trevizo MD [address] [place] [address] Rheumatology 08/11/18 Malik Fernandez DC [address] [place] [address] Chiropractic 10/15/21 documented as of this encounter
--- OUTSIDE RECORDS SUMMARY | 2025-06-13 13:55 | XMS_ITS | Encounter Summary ---
Author Organization [facility] Address [address] [place] [address] Care Team Providers Care Waiter/Waitress Name Role Phone Juan Daniel Green MD Primary Care Provider [phone] Harman Rizzo MD Unavailable Jennifer Hart MD Primary Care Provider Rolf Deleon MD Unavailable Jennifer Hart MD Unavailable [phone] Chacorta Kauffman MD Unavailable Hesham Trevizo MD Unavailable Unavailable Malik Fernandez [place] Unavailable Jennifer Hart MD Unavailable [phone] Pcp, [facility] Depaul - Primary Care Provider Un available Encounter Details Date Type Department Care Team (Late st Contact Info) Description 12/08/2012 [facility] Juan Daniel Green MD [address] [place] [address] Social History Tobacco Use Types Packs/Day Years Used Date Smoking Tobacco: Never Alcohol Use Standard Drinks/Week Comments No 0 (1 standard drink = 0.6 oz pur e alcohol) Comments No Sex and Gender Information Value Date Recorded Sex Assigned at Female 09/02/2020 9:03 AM FULL TIME Legal Sex Female 4:26 AM FULL TIME Gender Identity Female 09/02/2020 9:03 AM FULL TIME Sexual Orientation Straight 09/02/2020 9: 03 AM FULL TIME documented as of this encounter Plan of Treatment Not on file documented as of this encounter Visit Diagnoses Not on filedocumented in this encounter Additional Health Concerns Infection Onset Date Last Indicated Resolved Time COVID-19 Under Investigation 12/20/2020 12/20/2020 12/30/2020 4:33 AM CDT COVID-19 Under Investigation 02/14/2021 02/14/2021 02/24/2021 4:33 AM CDT documented as of this encounter Care Teams Waiter/Waitress Relationship Specialty Start Date End Date Juan Daniel Green MD PCP - General 10/19/08 01/01/16 Jennifer Hart MD PCP - General Family Medicine 01/02/16 04/17/23 Jennifer Hart MD [address] [place] [address] PCP - Attributed-[facility] [place] 01/22/18 09/06/21 Jennifer Hart MD [address] [place] [address] PCP - Attributed-[facility] [place] 10/23/21 04/08/22 Pcp, [facility] PCP - General 04/18/23 Harman Rizzo MD Neurology 07/29/13 10/14/21 Rolf Deleon MD Urology 01/04/16 10/14/21 Chacorta Kauffman MD [address] [place] [address] Cardiovascular Disease 02/06/18 2 Hesham Trevizo MD [address] [place] [address] Rheumatology 08/11/18 Malik Fernandez DC [address] [place] [address] Chiropractic 10/15/21 documented as of this encounter
--- OUTSIDE RECORDS SUMMARY | 2025-06-13 13:55 | XMS_ITS | Encounter Summary ---
Author Organization [facility] Address [address] [facility] [place] [address] Care Team Providers Care Nat Instructor Name Role Phone Juan Daniel Green MD Primary Care Provider [phone] Harman Rizzo MD Unavailable Jennifer Hart MD Primary Care Provider [phone] Rolf Deleon MD Unavailable Jennifer Hart MD Unavailable [phone] Chacorta Kauffman MD Unavailable Hesham Trevizo MD Unavailable Unavailable Malik Fernandez [place] Unavailable Jennifer Hart MD Unavailable [phone] Pcp, [facility] Depaul - Primary Care Provider Un available Encounter Details Date Type Department Care Team (Late st Contact Info) Description 06/06/2009 [facility] Outpatient [facility]NAL [place] [address] [address] Social History Tobacco Use Types Packs/Day Years Used Date Smoking Tobacco: Never Alcohol Use Standard Drinks/Week Comments No 0 (1 standard drink = 0.6 oz pur e alcohol) Comments No Sex and Gender Information Value Date Recorded Sex Assigned at Female 09/02/2020 9:03 AM WEB COORDINATOR Legal Sex Female 4:26 AM WEB COORDINATOR Gender Identity Female 09/02/2020 9:03 AM WEB COORDINATOR Sexual Orientation Straight 09/02/2020 9: 03 AM WEB COORDINATOR documented as of this encounter Plan of Treatment Not on file documented as of this encounter Visit Diagnoses Not on filedocumented in this encounter Additional Health Concerns Infection Onset Date Last Indicated Resolved Time COVID-19 Under Investigation 12/20/2020 12/20/2020 12/30/2020 4:33 AM CDT COVID-19 Under Investigation 02/14/2021 02/14/2021 02/24/2021 4:33 AM CDT documented as of this encounter Care Teams Nat Instructor Relationship Specialty Start Date End Date Juan Daniel Green MD PCP - General 10/19/08 01/01/16 Jennifer Hart MD PCP - General Family Medicine 01/02/16 04/17/23 Jennifer Hart MD [address] [place] [address] PCP - Attributed-[facility] [place] 01/22/18 09/06/21 Jennifer Hart MD [address] [place] [address] PCP - Attributed-[facility] [place] 10/23/21 04/08/22 Pcp, [facility] PCP - General 04/18/23 Harman Rizzo MD Neurology 07/29/13 10/14/21 Rolf Deleon MD Urology 01/04/16 10/14/21 Chacorta Kauffman MD [address] [place] [address] Cardiovascular Disease 02/06/18 2 Hesham Trevizo MD [address] [place] [address] Rheumatology 08/11/18 Malik Fernandez DC [address] [place] [address] Chiropractic 10/15/21 documented as of this encounter
--- OUTSIDE RECORDS SUMMARY | 2025-06-13 13:55 | XMS_ITS | Encounter Summary ---
Author Organization [facility] Address [address] [facility] [place] [address] Care Team Providers Care Java Software Architect Name Role Phone Juan Daniel Green MD Primary Care Provider [phone] Harman Rizzo MD Unavailable [phone] Jennifer Hart MD Primary Care Provider Rolf Deleon MD Unavailable Jennifer Hart MD Unavailable [phone] Chacorta Kauffman MD Unavailable Hesham Trevizo MD Unavailable Unavailable Malik Fernandez [place] Unavailable Jennifer Hart MD Unavailable [phone] Pcp, [facility] Depaul - Primary Care Provider Un available Encounter Details Date Type Department Care Team (Late st Contact Info) Description 12/06/2008 [facility] Outpatient Visit [place]TERNAL [place] [address] [address] Social History Tobacco Use Types Packs/Day Years Used Date Smoking Tobacco: Never Alcohol Use Standard Drinks/Week Comments No 0 (1 standard drink = 0.6 oz pur e alcohol) Comments Unknown Sex and Gender Information Value Date Recorded Sex Assigned at Female 09/02/2020 9:03 AM CAMPUS CHAPLAIN Legal Sex Female 4:26 AM CAMPUS CHAPLAIN Gender Identity Female 09/02/2020 9:03 AM CAMPUS CHAPLAIN Sexual Orientation Straight 09/02/2020 9: 03 AM CAMPUS CHAPLAIN documented as of this encounter Plan of Treatment Not on file documented as of this encounter Visit Diagnoses Not on filedocumented in this encounter Additional Health Concerns Infection Onset Date Last Indicated Resolved Time COVID-19 Under Investigation 12/20/2020 12/20/2020 12/30/2020 4:33 AM CDT COVID-19 Under Investigation 02/14/2021 02/14/2021 02/24/2021 4:33 AM CDT documented as of this encounter Care Teams Java Software Architect Relationship Specialty Start Date End Date Juan Daniel Green MD PCP - General 10/19/08 01/01/16 Jennifer Hart MD PCP - General Family Medicine 01/02/16 04/17/23 Jennifer Hart MD [address] [place] [address] PCP - Attributed-[facility] [place] 01/22/18 09/06/21 Jennifer Hart MD [address] [place] [address] PCP - Attributed-[facility] [place] 10/23/21 04/08/22 Pcp, [facility] PCP - General 04/18/23 Harman Rizzo MD Neurology 07/29/13 10/14/21 Rolf Deleon MD Urology 01/04/16 10/14/21 Chacorta Kauffman MD [address] [place] [address] Cardiovascular Disease 02/06/18 2 Hesham Trevizo MD [address] [place] [address] Rheumatology 08/11/18 Malik Fernandez DC [address] [place] [address] Chiropractic 10/15/21 documented as of this encounter
--- OUTSIDE RECORDS SUMMARY | 2025-06-13 13:55 | XMS_ITS | Clinical Summary ---
Author Organization [facility] Address [address] [place] [address] Care Team Providers Care Treadle Cut Off Saw Operator Name Role Phone Hesham Trevizo MD Unavailable Unavailable Malik Fernandez [place] Unavailable Pcp, [facility] Primary Care Provider Un available Source Comments [facility],non-owned Affiliates and Associated Physician Practices is amultiple site organization consisting of ambulatory clinics and hospital sitesin [place], [place], [place] and [place]. This disclosure is being madepursuant to the Care Everywhere program and may not contain all information available regarding this patient. Last updated 18.[facility] Allergies Active Allergy Reactions Criticality [...] document. Alwaysverify current medications with the patient. fexofenadine (IXMENA) 180 MG tablet Take 1 Tab by mouth daily. 30 Tab 0 0 Active vitamin D3 (D-3-5) 5000 UNITS capsule [...] mcg by mouth once daily Active Multiple Vitamins-Mineral s (ICAPS AREDS 2 PO) Take 2 capsules by mouth once daily Active BLACK ELDERBERRY PO Take 2 tablets by mouth once daily Active Coenzyme Q10 (COQ10) 100 MG Activ e gabapentin (NEURONTIN) 300 MG capsule Take 300 mg by mouth at bedtime 1 Active clindamycin (CLEOCIN) 300 MG capsule 1 Active methotrexate 2.5 MG tablet 1 Active SYNTHROID 50 MCG tablet TAKE 1 TABLET BY MOUTH DAILY BEFORE BREAKFAST FOR UNDERACTIVE THRYOID 90 tablet 3 1 Active triamterene-hydr oCHLOROthiazide (Dyazide) 37.5-25 MG capsuleIndicatio ns:Essential hypertension with goal blood pressure less than 140/90 TAKE 1 CAPSULE BY MOUTH ONCE DAILY 30 capsule 2 Active pravastatin (Pravachol) 40 MG tabletIndication s:Hyperlipidemia Take 1 (one) tablet by mouth at bedtime Reasons: High Amount of Fats in the Blood 90 tablet 2 Active Active Problems Problem Noted Date Diagnosed [...] Resolved Date Chest pain 09/09/2018 09/28/2018 Immunizations Immunization Administration Dates Next Due DaoliCloud primary monoval ent 12+ yr 0.3mL Purple [...] Date Recorded PHQ2 TOTAL SCORE 0 10/15/2021 Comments No Sex and Gender Information Value Date Recorded Sex Assigned at Female 09/02/2020 9:03 AM PATIENT TRANSPORTATION DRIVER Legal Sex Female 4:26 AM PATIENT TRANSPORTATION DRIVER Gender Identity Female 09/02/2020 9:03 AM PATIENT TRANSPORTATION DRIVER Sexual Orientation Straight 09/02/2020 9: 03 AM PATIENT TRANSPORTATION DRIVER 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 Not on file Not on file Last Filed Vital Signs Vital Sign Reading Time Taken Comments Blood Pressure 130/76 10/15/2021 9:57 AM PATIENT TRANSPORTATION DRIVER Pulse 62 10/15/2021 9:57 AM PATIENT TRANSPORTATION DRIVER Temperature 36.6 C (97.8 F) 10/15/2021 9:57 AM PATIENT TRANSPORTATION DRIVER Respiratory Rate 18 10/15/2021 9:57 AM PATIENT TRANSPORTATION DRIVER Oxygen Saturation 100% 10/15/2021 9:57 AM PATIENT TRANSPORTATION DRIVER Inhaled Oxygen Concentration - - Weight 77.1 kg (170 lb) 11/13/2023 9:15 AM PATIENT TRANSPORTATION DRIVER Height 157.5 cm (5' 2) 11/13/2023 9:15 AM PATIENT TRANSPORTATION DRIVER Body Mass Index 31.09 11/13/2023 9:15 AM PATIENT TRANSPORTATION DRIVER Plan of Treatment Health Maintenance Due Date Last Done Comments DTAP/TDAP/TD VACCINES (2 - Td or Tdap) 05/16/2020 05/16/2010 Respiratory Syncytial Virus (RSV) Vaccine Pt: or over 60 yrs (1 - 1-dose 75+ series) 12/27/2022 DEPRESSION SCREENING 09/22/2024 10/15/2021 MEDICARE AWV CALENDAR YEAR 2024 10/15/2021, 10/12/2020 SCREENING FOR DIABETES 10/15/2024 , 10/12/2020, 10/12/2020, Additional history exists COVID-19 VACCINE ( season) 2025 09/24/2021, 12/20/2020, 12/01/2020 INFLUENZA VACCINE (#1) 2025 08/11/2018, 2017 HEPATITIS C SCREENING Completed 08/13/2016 PNEUMOCOCCAL VACCINE 50+ Completed 08/07/2017, 12/21 ZOSTER VACCINE Completed 10/09/2019, 12/2018, 06/01/2014 BONE DENSITY TESTING Completed 04/13/2020, [...] < 140/90 Blood Pressure 130/76(10/15 9:57 AM PATIENT TRANSPORTATION DRIVER) Keyur Esparza Note: Caring for Your High [...] Where can I go for more information? [place] [employer] Association National Center: http://www.americanheart.org 1. In the top header, click C onditions . 2. In the top header, click h igh blood pressure. 3. For a printable blood pressure tracker, scroll toward the bottom of the page to Related Tools, and click H BP Trackers. [id number] or ( ) National Heart, Lung and Blood [place]: http://www.nhlbi.nih.gov/health/infoctr/index.htm Exercise 5X per week (30 min per time) Exercise No Keyur Evans Note: The [place] [employer] recommends all adults [...] this encounter Medical Devices Implanted Type Area Supervisor Patching Device Identifier Shelf Expiration Date Model / Serial / Lot Cmnt Bone Djo Srg Cblt 40gm Hvisc Strl Implanted:Qty: 1 on 05/08/2020 by Edgar Telles MD at [facility] Left: Knee [employer] 10/14/2020 [id number] / / [id number] Tray Tib 67mm Kn Cocr I Beam Implanted:Qty: 1 on 05/08/2020 by Edgar Telles MD at [facility] Left: Knee [employer] 11/21/2029 [id number] / / [id number] Cmpnt Fem Kn Lt Cr Cmnt Prm Vngrd Intlk Implanted:Qty: 1 on 05/08/2020 by Edgar Telles MD at [facility] Left: Knee [employer] 11/21/2029 [id number] / / [id number] Cmpnt Ptlr 28mm 1 Pg Wire Ascnt Arcm Kn Implanted:Qty: 1 on 05/08/2020 by Edgar Telles MD at [facility] Left: Knee [employer] 04/13/2025 [id number] / / [id number] Brng [id number] Vngrd Arcm Kn Ant Stab Implanted:Qty: 1 on 05/08/2020 by Edgar Telles MD at [facility] Left: Knee [employer] 04/07/2025 [id number] / / [id number] Procedures Procedure Name Priority Date/Time Associated Diagnosis Comments COMPREHENSIVE METABOLIC PANEL Routine 10/15/2021 11:23 AM PATIENT TRANSPORTATION DRIVER Essential hypertension with goal blood pressure less than 140/90 Pure hypercholesterolemia Seronegative rheumatoid arthritis Systemic lupus erythematosus, unspecified SLE type, unspecified organ involvement status Encounter for general adult medical examination with abnormal findings DEXA BONE DENSITY AXIAL SKELETON Routine 04/13/2020 8:32 AM CDT Osteopenia of thigh, unspecified laterality HEPATITIS C ANTIBODY Routine 08/13/2016 10:22 AM PATIENT TRANSPORTATION DRIVER Need for hepatitis C screening test from Last 3 Months or Most Recently Relevant to Health Maintenance Results * COMPREHENSIVE METABOLIC PANEL (10/15/2021 11:23 AM PATIENT TRANSPORTATION DRIVER) Glucose 89 70 - 105 mg/dL [facility] [...] BLOOD SPECIMEN / Unknown 10/15/2021 11:23 AM PATIENT TRANSPORTATION DRIVER 10/15/2021 Narrative Resulting Agency Comment Lab Testing performed at: [facility] [address] [place] [id number] Jennifer Hart MD LAB - CHEMISTRY ORDERABLES Fin al Result [facility] ACCOUNT BILL [address] [place] [address] * DEXA BONE DENSITY AXIAL SKELETON (04/13/2020 [...] Saad Mora on 04/13/2020 at 9:51 AM us Hesham Trevizo MD DEXA ORDERABLES Final Result * HEPATITIS C ANTIBODY (08/13/2016 10:22 AM PATIENT TRANSPORTATION DRIVER) Hepatitis C Antibody Non Reactive Non Reactive [facility] ACCOUNT BILL Comment: Non Reactive - Antibodies to Hepatitis C virus (HCV) were no t detected, result does not exclude early acute HCV infection. Blood BLOOD SPECIMEN / Unknown 08/13/2016 10:22 AM PATIENT TRANSPORTATION DRIVER 08/13/2016 Narrative Resulting Agency Comment [facility] [address] [facility] [phone] us Jennifer Hart MD LAB - CHEMISTRY ORDERABLES Fin al Result [facility] ACCOUNT BILL [address] [place] [address] from Last 3 Months or Most Recently Relevant to Health Maintenance Insurance [id number] [place] [address] MANAGED MEDICARE ADV * Guarantor: MADDIE CALVILLO Account Type Relation to Patient Date of Phone Billing Address Personal/Family [address] [place] [address] SELF PAY NO INSURANCE Member Subscriber Plan / Payer (Ef fective for All Dates) Name:Maddie Calvillo Member ID:Not on file Relation to Subscriber:Not on file Name:MADDIE CALVILLO Subscriber ID:Not on file (Home) Address: [address] [place] [address] Payer ID:Not on file Group ID:Not on file Type:Self Pay Address: [facility] MANAGED MEDICARE ADV * Guarantor: MADDIE CALVILLO Account Type Relation to Patient Date of Phone Billing Address Personal/Family [address] [place] [address] SELF PAY NO INSURANCE Member Subscriber Plan / Payer (Ef fective for All Dates) Name:Maddie Calvillo Member ID:Not on file Relation to Subscriber:Not on file Name:MADDIE CALVILLO Subscriber ID:Not on file (Home) Address: [address] [place] [address] Payer ID:Not on file Group ID:Not on file Type:Self Pay Address: [facility] MANAGED MEDICARE ADV Member Subscriber Plan / Payer (Ef fective 2024-Present) Name:Maddie Calvillo Relation to Subscriber:Self Name:Maddie Calvillo Payer ID:[id number] (NAIC) Type:Medicare-[employer] Care Address: [place] [phone] * Guarantor: MADDIE CALVILLO Account Type Relation to Patient Date of Phone Billing Address Personal/Family [address] [place] [address] SELF PAY NO INSURANCE Member Subscriber Plan / Payer (Ef fective for All Dates) Name:Maddie Calvillo Member ID:Not on file Relation to Subscriber:Not on file Name:MADDIE CALVILLO Subscriber ID:Not on file (Home) Address: [address] [place] [address] Payer ID:Not on file Group ID:Not on file Type:Self Pay Address: [facility] MANAGED MEDICARE ADV Advance Directives * Full Code (Latest Code Status on File) Date Activated Date Inactivated Comments 05/08/2020 11:56 AM 05/09/2020 3:34 PM * Full Code Date Activated Date Inactivated Comments 09/09/2018 3:12 PM 09/11/2018 3:35 PM Care Teams Treadle Cut Off Saw Operator Relationship Specialty Start Date End Date [facility] - [facility] 04/18/23 Hesham Trevizo MD Rheumatology 08/11/18 Malik Fernandez DC [address] [place] [id number] Chiropractic 10/15/21
== END 2025-06-13 13:32 | disposition home or self-care (01) ==
PROVIDERS: PCP Family Medicine; Visit Provider Nurse Practitioner Family
DX: M54.16 Radiculopathy, lumbar region (principal); M96.1 Postlaminectomy syndrome, not elsewhere classified
CPT/HCPCS: 72158; A9577